=== PATIENT | female | born 1960 | race Caucasian/White ===

== ENCOUNTER 2021-04-21 18:32 | Emergency (ER) | payer SELFPAY | END 2021-04-21 19:00 | disposition left against medical advice (07) | LOC: HO.ED 20:11 | PROVIDERS: Emergency Provider Emergency Medicine | DX: R50.9 Fever, unspecified (principal); M79.10 Myalgia, unspecified site; R11.10 Vomiting, unspecified ==

== ENCOUNTER 2021-08-22 19:28 | Emergency (ER) | payer MEDICAID, SELFPAY ==
--- NOTE | ~2021-08-22 | XR_ITS ---
EXAMINATION: XR PELVIS CLINICAL INFORMATION: Unsteady gait COMPARISON: None TECHNIQUE: AP view of the pelvis. FINDINGS: No acute fracture or dislocation. Hip joint spaces are maintained. Bilateral sacroiliac joints are patent. XR/XR pelvis 1-2V IMPRESSION: No acute fracture or dislocation.
--- NOTE | ~2021-08-22 | CT_ITS ---
EXAMINATION: CT HEAD WITHOUT CONTRAST CLINICAL INFORMATION: Altered mental status. COMPARISON: CT head dated from 05/18/2016. TECHNIQUE: Contiguous axial imaging was performed from the skull base to vertex without intravenous administration of contrast. This CT examination was performed using dose optimization techniques as appropriate, variously including the following: *Automated exposure control *Adjustment of mA and/or kV according to patient size (this includes techniques or standardized protocols for targeted exams where dose is matched to indication/reason for exam; i.e. extremities or head) *Use of iterative reconstruction technique DLP: 633 mGy-cm FINDINGS: There is no evidence of acute intracranial hemorrhage or edematous territorial infarction. There is no abnormal attenuation within the brain parenchyma. Allen-white matter differentiation is preserved. The ventricles are normal in size and configuration. No evidence for obstructive hydrocephalus. No abnormal mass effect or midline shift. No extra-axial fluid collections. No acute soft tissue or osseous abnormalities. The mastoid air cells and paranasal sinuses are clear. CT/CT head/brain wo con IMPRESSION: No evidence of acute intracranial hemorrhage or edematous territorial infarction.
--- NOTE | ~2021-08-22 | XR_ITS ---
EXAMINATION: XR CHEST CLINICAL INFORMATION: Altered mental status COMPARISON: None TECHNIQUE: 2 views of the chest were obtained. FINDINGS: Lungs are clear. No pulmonary vascular congestion. There is no pleural effusion. The heart size is normal. The cardiac and mediastinal contours are normal. There are multilevel degenerative changes of dorsal spine. XR/XR chest 2V IMPRESSION: Unremarkable examination.
[2021-08-22 19:37] VITALS: BP 174/86; PULSE 89; O2SAT 95
[2021-08-22 19:38] VITALS: BP 164/85; PULSE 83; RESP 16; TEMP 36.6; O2SAT 97
[2021-08-22 19:42] VITALS: BMI 23.5
--- NOTE | 2021-08-22 20:16 | ED_ITS ---
HPI - General Adult General Chief complaint: Overdose <FILOMENA Barajas - Last Filed: 08/22/21 23:33> Stated complaint: Took to many muscle relaxants <FILOMENA Barajas - Last Filed: 08/22/21 23:33> Time Seen by Provider: 08/22/21 20:16 <FILOMENA Barajas Last Filed: 08/22/21 23:33> Source: patient and family <FILOMENA Barajas Last Filed: 08/22/21 23:33> Mode of arrival: ambulatory <FILOMENA Barajas Last Filed: 08/22/21 23:33> Limitations: no limitations <FILOMENA Barajas Last Filed: 08/22/21 23:33> History of Present Illness HPI narrative: Patient is a 60 year old female presenting to the emergency department today after accidentally taking too many muscle relaxers yesterday and chronic right knee pain. Patient states that yesterday, she took 5 baclofen, 30 minutes apart, for her chronic right knee pain. Patient states that she has a right knee replacement scheduled but it still hurts.. Patient denies any dizziness, lightheadedness, abdominal pain, nausea, vomiting, fever, chills, blurry vision, double vision, loss of vision, chest pain, difficulty breathing, shortness of breath, back pain, night sweats, pain with urination, increased urinary frequency, increased urinary urgency, blood in her urine or stool, syncope or a near syncopal episode, recent trauma or falls, bowel incontinence, bladder inc ontinence, bowel retention, bladder retention, or any other complaints at this time. <FILOMENA Barajas Last Filed: 08/22/21 23:33> Onset (ago): day(s) <FILOMENA Barajas Last Filed: 08/22/21 23:33> Severity: mild <FILOMENA Barajas Last Filed: 08/22/21 23:33> Severity scale (1-10): 3 <FILOMENA Barajas Last Filed: 08/22/21 23:33> Quality: dull <FILOMENA Barajas Last Filed: 08/22/21 23:33> Pain Consistency: constant <FILOMENA Barajas Last Filed: 08/22/21 23:33> Relieving factors: none <FILOMENA Barajas - Last Filed: 08/22/21 23:33> Exacerbating factors: none <FILOMENA Barajas - Last Filed: 08/22/21 23:33> Associated symptoms: denies other symptoms <FILOMENA Barajas - Last Filed: 08/22/21 23:33> Treatments prior to arrival: none <FILOMENA Barajas - Last Filed: 08/22/21 23:33> Related Data Home medications: Home Medications Medication Instructions Recorded Confirmed adalimumab 40 mg/0.8 mL 40 mg SUBCUT Q2W 08/22/21 08/22/21 subcutaneous syringe kit (Humira) baclofen 10 mg tablet 10 mg PO TID PRN 08/22/21 08/22/21 <FILOMENA Barajas - Last Filed: 08/22/21 23:33> Allergies/adverse reactions: Allergies Allergy/AdvReac Type Severity Reaction Status Date / Time No Known Allergies Allergy Unverified 02/08/20 19:12 <FILOMENA Barajas - Last Filed: 08/22/21 23:33> Review of Systems Constitutional: Constitutional: Reports no additional constitutional complaints, Denies chills, Denies fever(s) and Denies night sweats <FILOMENA Barajas - Last Filed: 08/22/21 23:33> Eyes: Eyes: Reports no additional eye complaints, Denies blurry vision, Denies change in vision, Denies diplopia, Denies eye discharge, Denies loss of vision and Denies eye pain <FILOMENA Barajas - Last Filed: 08/22/21 23:33> ENT: Denies dizziness <FILOMENA Barajas - Last Filed: 08/22/21 23:33> Cardiovascular: Cardiovascular: Reports no additional cardiovascular complaints, Denies chest pain, Denies lightheadedness, Denies Loss of Consciousness and Denies dyspnea <FILOMENA Barajas - Last Filed: 08/22/21 23:33> Respiratory: Respiratory: Reports no additional respiratory complaints and Denies dyspnea <FILOMENA Barajas - Last Filed: 08/22/21 23:33> Gastrointestinal: Gastrointestinal: Reports no additional gastrointestinal complaints, Denies abdominal pain, Denies melena, Denies hematochezia, Denies change in bowel habits and Denies change in stool character <FILOMENA Barajas - Last Filed: 08/22/21 23:33> Genitourinary: Genitourinary: Denies hematuria, Denies urinary frequency, Denies dysuria, Denies urinary incontinence, Denies urinary hesitancy and Denies urinary urgency <FILOMENA Barajas - Last Filed: 08/22/21 23:33> Musculoskeletal: Musculoskeletal: Reports no additional musculoskeletal complaints, Denies numbness and Denies tingling <FILOMENA Barajas - Last Filed: 08/22/21 23:33> Comments: right knee pain <FILOMENA Barajas - Last Filed: 08/22/21 23:33> Neurologic: Denies dizziness, Denies loss of vision, Denies numbness and Denies tingling <FILOMENA Barajas - Last Filed: 08/22/21 23:33> Psychiatric: Psychiatric: Reports no additional psychiatric complaints <FILOMENA Barajas - Last Filed: 08/22/21 23:33> Endocrine: Endocrine: Reports no additional endocrine complaints <FILOMENA Barajas - Last Filed: 08/22/21 23:33> Hematologic/Lymphatic: Hematologic/Lymphatic: Reports no additional silvia tologic/lymphatic complaints <FILOMENA Barajas - Last Filed: 08/22/21 23:33> Allergic/Immunologic: Allergic/Immunologic: Reports no additional allergic/immunologic complaints <FILOMENA Barajas - Last Filed: 08/22/21 23:33> [facility] Past Medical History Attestation statement: The following information was validated with the patient. <FILOMENA Barajas - Last Filed: 08/22/21 23:33> Source: old records reviewed <FILOMENA Barajas - Last Filed: 08/22/21 23:33> Medical History: Medical History Psoriasis <FILOMENA Barajas - Last Filed: 08/22/21 23:33> Social History Social History: Social History Alcohol intake: current Alcohol intake frequency: 0-2 drinks per day Advance Directives: No <FILOMENA Barajas Last Filed: 08/22/21 23:33> Physical Exam ED Vital Signs: Vital Signs - 24 hr 08/22/21 19:38 08/22/21 22:39 08/22/21 23:52 Temperature 97.8 F 98 F 98.1 F Pulse Rate 83 83 Respiratory Rate 16 14 70 H Blood Pressure 164/85 H 149/81 H 142/88 H Pulse Oximetry 97 95 98 08/23/21 01:56 Temperature Pulse Rate Respiratory Rate 16 Blood Pressure Pulse Oximetry BMI result Body Mass Index 23.5 <FILOMENA Barajas Last Filed: 08/22/21 23:33> Vital Signs - 24 hr 08/22/21 19:38 08/22/21 22:39 08/22/21 23:52 Temperature 97.8 F 98 F 98.1 F Pulse Rate 83 83 Respiratory Rate 16 14 70 H Blood Pressure 164/85 H 149/81 H 142/88 H Pulse Oximetry 97 95 98 08/23/21 01:56 Temperature Pulse Rate Respiratory Rate 16 Blood Pressure Pulse Oximetry BMI result Body Mass Index 23.5 <FILOMENA Christensen - Last Filed: 08/23/21 02:10> Const General: cooperative, no acute distress, alert and awake <FILOMENA Barajas Last Filed: 08/22/21 23:33> Nutritional Appearance: well nourished <FILOMENA Barajas Last Filed: 08/22/21 23:33> Orientation/consciousness: patient oriented x3 <FILOMENA Barajas Last Filed: 08/22/21 23:33> Limitations: no limitations <FILOMENA Barajas Last Filed: 08/22/21 23:33> HENMT Head: Yes normal to inspection and Yes atraumatic <FILOMENA Barajas Last Filed: 08/22/21 23:33> Ears: hearing grossly normal bilaterally and external ears normal <FILOMENA Barajas Last Filed: 08/22/21 23:33> General nose exam: Normal external nose present, no nasal discharge noted and no epistaxis <FILOMENA Barajas Last Filed: 08/22/21 23:33> Face and sinus: Yes normal facial exam, No abrasion and No laceration <FILOMENA Barajas - Last Filed: 08/22/21 23:33> Mouth: Normal oral and palatal mucosa present, no drooling and no muffled voice <FILOMENA Barajas - Last Filed: 08/22/21 23:33> Eyes General: appearance normal, both eyes and all related structures <FILOMENA Barajas - Last Filed: 08/22/21 23:33> Periorbital: periorbital findings normal <Lilia Thrasher CO - Last Filed: 08/22/21 23:33> Eyelids: Yes eyelids normal <Lilia Thrasher PA - Last Filed: 08/22/21 23:33> Conjunctivae: conjunctivae normal <FILOMENA Barajas - Last Filed: 08/22/21 23:33> Pupils: Equal, round and reactive pupils present <FILOMENA Barajas - Last Filed: 08/22/21 23:33> EOM: EOMs intact bilaterally <FILOMENA Barajas - Last Filed: 08/22/21 23:33> Neck Neck: Yes normal visual inspection, Yes full ROM and Yes no lymphadenopathy <FILOMENA Barajas - Last Filed: 08/22/21 23:33> Chest Chest palpation & inspection: normal inspection of the chest <FLIOMENA Barajas - Last Filed: 08/22/21 23:33> Resp Effort & Inspection: normal respiratory effort and able to speak in complete sentences <FILOMENA Barajas - Last Filed: 08/22/21 23:33> Auscultation: clear to auscultation bilaterally <FILOMENA Barajas - Last Filed: 08/22/21 23:33> Cardio Rate: regular rate <FILOMENA Barajas - Last Filed: 08/22/21 23:33> Rhythm: regular rhythm <FILOMENA Barajas - Last Filed: 08/22/21 23:33> GI Inspection: Yes normal to inspection <FILOMENA Barajas - Last Filed: 08/22/21 23:33> Neuro General: patient oriented x3 and moves all extremities <FILOMENA Barajas - Last Filed: 08/22/21 23:33> Cranial nerves: Yes Equal, round and reactive pupils present <Lilia Thrasher FILOMENA - Last Filed: 08/22/21 23:33> Cognition (Neuro): normal cognition <Lilia Thrasher FILOMENA - Last Filed: 08/22/21 23:33> Motor exam (neuro): 5/5 motor strength present throughout <Lilia Thrasher FILOMENA - Last Filed: 08/22/21 23:33> Sensory Exam: Normal double simultaneous stimulation for sensation <Lilia Thrasher FILOMENA - Last Filed: 08/22/21 23:33> Coordination: [id number] test normal <Lilia Thrasher FILOMENA - Last Filed: 08/22/21 23:33> Extrem General: Yes normal to inspection, Yes full ROM and Yes capillary refill normal <Lilia Thrasher FILOMENA - Last Filed: 08/22/21 23:33> Psych Appearance: grossly normal <Lilia Thrasher FILOMENA - Last Filed: 08/22/21 23:33> Mental Status: mental status grossly normal <Lilia Thrasher FILOMENA - Last Filed: 08/22/21 23:33> Affect: normal affect <Lilia Thrasher FILOMENA - Last Filed: 08/22/21 23:33> Attitude: cooperative <Lilia Thrasher FILOMENA - Last Filed: 08/22/21 23:33> Thought process: Normal thought process present <Lilia Thrasher FILOMENA - Last Filed: 08/22/21 23:33> Thought content: Normal thought content present <Lilia Thrasher FILOMENA - Last Filed: 0 08/22/21 23:33> Insight: Good insight present (Psych) <Lilia Thrasher FILOMENA - Last Filed: 08/22/21 23:33> Course Reevaluation(s) Reevaluation #1: CBC within normal limits. Chemistry with no acute electrolyte abnorm alities. Urine clean. Salicylates and acetaminophen within normal limits. Ethanol negative. Drug tox negative. Blood gas within normal limits. Ammonia within normal limits. Head CT with no evidence of acute intracranial hemorrhage or territorial infarction. Patient ambulating with a steady gait, normal coordination, no vision changes, unlikely posterior stroke. Chest x-ray is unremarkable. X-ray of the pelvis with no acute fracture dislocation. Patient's vital signs are stable saturating 97 98% on room air. Respirations within normal limits. No calf tenderness on exam. Unlikely PE. Patient's symptoms upon arrival likely secondary to adverse drug reaction from baclofen. Advised patient to only take medication as prescribed. And not take this medication unless needed. Patient speaking in full sentences, controlling secretions well, Mallampati score of 1, no edema or erythema to the posterior pharynx. No signs of respiratory distress. Uvula midline. Patient is ambulating around the emergency department with a steady gait. Telling me she is feeling fine. And would like to return back home. At this time I feel comfortable with discharge. Per family member patient acting normal. Only complaint is knee pain which is chronic in nature. <FILOMENA Christensen - Last Filed: 08/23/21 02:10> Time: 02:03 <FILOMENA Christensen - Last Filed: 08/23/21 02:10> Medical Decision Making MDM Narrative Medical decision making narrative: Patient is a 60 year old female presenting to the emergency department today with chronic right knee pain. Patient's physical exam was unremarkable. Patient's blood work was unremarkable. Patient's urine and urine drug screen are pending. Patient's head CT showed no acute process. I explained my physical exam findings as well as all test results to the patient. I answered all questions asked by the patient. Patient's chest x-ray is also pending. Patient was signed out to Aisha Burgess PA-C. Patient's disposition is pending test results. <FILOMENA Barajas - Last Filed: 08/22/21 23:33> Differential Diagnosis Differential Diagnosis: Chronic right knee pain <FILOMENA Barajas - Last Filed: 08/22/21 23:33> Medical Records Medical records reviewed: Yes I reviewed the patient's medical records. <FILOMENA Barajas Last Filed: 08/22/21 23:33> Lab Data Lab results reviewed: Yes I reviewed the patient's lab results. <FILOMENA Barajas - Last Filed: 08/22/21 23:33> Result diagrams: : 08/22/21 21:27 08/22/21 21:27 <FILOMENA Barajas Last Filed: 08/22/21 23:33> Labs: Lab Results 08/22/21 08/22/21 08/22/21 Range/Units 21:27 21:27 21:27 WBC 7.7 (4.8-10.8) X10*3/uL RBC 4.48 (4.20-5.50) X10*6/uL Hgb 12.1 (12.0-16.0) g/dl Hct 37.7 (37.0-47.0) % MCV 84.2 (80.0-98.0) fL MCH 27.0 (27.0-33.0) pg MCHC 32.1 (31.0-35.0) g/dl RDW 13.9 (11.0-16.0) % Plt Count 243 (160-400) X10*3/uL MPV 10.8 (9.4-12.3) fL Immature Gran % (Auto) 0.1 (0.0-0.4) % Neut % (Auto) 75.4 H (45-73) % Lymph % (Auto) 16.0 L (20-40) % [place] % (Auto) 7.6 (2-11) % Eos % (Auto) 0.6 (0-4) % Baso % (Auto) 0.3 (0-2) % Lymph # (Auto) 1.2 (1.2-4.9) X10*3/uL [place] # (Auto) 0.6 (0.1-1.2) X10*3/uL Eos # (Auto) 0.1 (0.0-0.4) X10*3/uL Baso # (Auto) 0.0 (0.0-0.2) X10*3/uL Abs Immat Gran (auto) 0.01 (0.00-0.03) X10*3/uL Absolute Neuts (auto) 5.8 (2.0-8.3) x10*3/uL Absolute Nucleated RBC 0.000 (0.0-0.012) X10*3/uL Nucleated RBC % (auto) 0.0 (0.0-0.2) /100WBC VBG pH (7.32-7.43) VBG pCO2 mmHg VBG pO2 mmHg VBG HCO3 (22-26) mmol/L VBG O2 Saturation % VBG Base Excess mmol/L Sodium 139 (135-145) mmol/L Potassium 3.8 (3.3-5.1) mmol/L Chloride 107 (96-108) mmol/L Carbon Dioxide 23 (22-29) mmol/L Anion Gap 13 (12-20) BUN 16 (9-16) mg/dL Creatinine 0.86 (0.5-1.4) mg/dL Estim Creat Clear Calc 66.7 Estimated GFR > 60 Random Glucose 109 (60-115) mg/dL Calcium 9.6 (8.4-10.2) mg/dL Total Bilirubin 0.5 (0.0-1.0) mg/dL AST 21 (5-31) U/L ALT 17 (0-31) U/L Alkaline Phosphatase 66 (39-117) U/L Ammonia (13-55) umol/L Total Protein 8.0 (6.5-8.0) g/dL Albumin 4.4 (3.5-5.0) g/dL Urine Color Urine Appearance Urine pH (5.0-8.0) Ur Specific Grahn (1.005-1.025) Urine Protein (NEG-TRACE) MG/DL Urine Glucose (UA) (NEG) MG/DL Urine Ketones (NEG) MG/DL Urine Blood (NEG) Urine Nitrite (NEG) Ur Leukocyte Esterase (NEG) Urine RBC (0) /HPF Urine WBC (0-4) /HPF Ur Squamous Epith Cells /LPF Urine Bacteria /LPF Salicylates < 5.0 L (15-30) mg/dL Urine Opiates Screen (Not Detect) Urine Fentanyl Screen (Not Detect) Acetaminophen < 1 (<30) mcg/mL Ur Barbiturates Screen (Not Detect) Ur Phencyclidine Scrn (Not Detect) Ur Amphetamines Screen (Not Detect) U Benzodiazepines Scrn (Not Detect) Urine Cocaine Screen (Not Detect) U Marijuana (THC) Screen (Not Detect) Ethyl Alcohol < 10 mg/dL 08/22/21 08/22/21 08/22/21 Range/Units 21:27 21:27 21:31 WBC (4.8-10.8) X10*3/uL RBC (4.20-5.50) X10*6/uL Hgb (12.0-16.0) g/dl Hct (37.0-47.0) % MCV (80.0-98.0) fL MCH (27.0-33.0) pg MCHC (31.0-35.0) g/dl RDW (11.0-16.0) % Plt Count (160-400) X10*3/uL MPV (9.4-12.3) fL Immature Gran % (Auto) (0.0-0.4) % Neut % (Auto) (45-73) % Lymph % (Auto) (20-40) % [place] % (Auto) (2-11) % Eos % (Auto) (0-4) % Baso % (Auto) (0-2) % Lymph # (Auto) (1.2-4.9) X10*3/uL [place] # (Auto) (0.1-1.2) X10*3/uL Eos # (Auto) (0.0-0.4) X10*3/uL Baso # (Auto) (0.0-0.2) X10*3/uL Abs Immat Gran (auto) (0.00-0.03) X10*3/uL Absolute Neuts (auto) (2.0-8.3) x10*3/uL Absolute Nucleated RBC (0.0-0.012) X10*3/uL Nucleated RBC % (auto) (0.0-0.2) /100WBC VBG pH 7.39 (7.32-7.43) VBG pCO2 37 mmHg VBG pO2 58 mmHg VBG HCO3 23 (22-26) mmol/L VBG O2 Saturation 85.0 % VBG Base Excess -1.2 mmol/L Sodium (135-145) mmol/L Potassium (3.3-5.1) mmol/L Chloride (96-108) mmol/L Carbon Dioxide (22-29) mmol/L Anion Gap (12-20) BUN (9-16) mg/dL Creatinine (0.5-1.4) mg/dL Estim Creat Clear Calc Estimated GFR Random Glucose (60-115) mg/dL Calcium (8.4-10.2) mg/dL Total Bilirubin (0.0-1.0) mg/dL AST (5-31) U/L ALT (0-31) U/L Alkaline Phosphatase (39-117) U/L Ammonia 32 (13-55) umol/L Total Protein (6.5-8.0) g/dL Albumin (3.5-5.0) g/dL Urine Color Urine Appearance Urine pH (5.0-8.0) Ur Specific Grahn (1.005-1.025) Urine Protein (NEG-TRACE) MG/DL Urine Glucose (UA) (NEG) MG/DL Urine Ketones (NEG) MG/DL Urine Blood (NEG) Urine Nitrite (NEG) Ur Leukocyte Esterase (NEG) Urine RBC (0) /HPF Urine WBC (0-4) /HPF Ur Squamous Epith Cells /LPF Urine Bacteria /LPF Salicylates (15-30) mg/dL Urine Opiates Screen Not Detected (Not Detect) Urine Fentanyl Screen Not Detected (Not Detect) Acetaminophen (<30) mcg/mL Ur Barbiturates Screen Not Detected (Not Detect) Ur Phencyclidine Scrn Not Detected (Not Detect) Ur Amphetamines Screen Not Detected (Not Detect) U Benzodiazepines Scrn Not Detected (Not Detect) Urine Cocaine Screen Not Detected (Not Detect) U Marijuana (THC) Screen Not Detected (Not Detect) Ethyl Alcohol mg/dL 08/22/21 Range/Units 23:21 WBC (4.8-10.8) X10*3/uL RBC (4.20-5.50) X10*6/uL Hgb (12.0-16.0) g/dl Hct (37.0-47.0) % MCV (80.0-98.0) fL MCH (27.0-33.0) pg MCHC (31.0-35.0) g/dl RDW (11.0-16.0) % Plt Count (160-400) X10*3/uL MPV (9.4-12.3) fL Immature Gran % (Auto) (0.0-0.4) % Neut % (Auto) (45-73) % Lymph % (Auto) (20-40) % [place] % (Auto) (2-11) % Eos % (Auto) (0-4) % Baso % (Auto) (0-2) % Lymph # (Auto) (1.2-4.9) X10*3/uL [place] # (Auto) (0.1-1.2) X10*3/uL Eos # (Auto) (0.0-0.4) X10*3/uL Baso # (Auto) (0.0-0.2) X10*3/uL Abs Immat Gran (auto) (0.00-0.03) X10*3/uL Absolute Neuts (auto) (2.0-8.3) x10*3/uL Absolute Nucleated RBC (0.0-0.012) X10*3/uL Nucleated RBC % (auto) (0.0-0.2) /100WBC VBG pH (7.32-7.43) VBG pCO2 mmHg VBG pO2 mmHg VBG HCO3 (22-26) mmol/L VBG O2 Saturation % VBG Base Excess mmol/L Sodium (135-145) mmol/L Potassium (3.3-5.1) mmol/L Chloride (96-108) mmol/L Carbon Dioxide (22-29) mmol/L Anion Gap (12-20) BUN (9-16) mg/dL Creatinine (0.5-1.4) mg/dL Estim Creat Clear Calc Estimated GFR Random Glucose (60-115) mg/dL Calcium (8.4-10.2) mg/dL Total Bilirubin (0.0-1.0) mg/dL AST (5-31) U/L ALT (0-31) U/L Alkaline Phosphatase (39-117) U/L Ammonia (13-55) umol/L Total Protein (6.5-8.0) g/dL Albumin (3.5-5.0) g/dL Urine Color YELLOW Urine Appearance CLEAR Urine pH 7.0 (5.0-8.0) Ur Specific Grahn 1.020 (1.005-1.025) Urine Protein NEG (NEG-TRACE) MG/DL Urine Glucose (UA) NEG (NEG) MG/DL Urine Ketones 15 (NEG) MG/DL Urine Blood 1+ H (NEG) Urine Nitrite NEG (NEG) Ur Leukocyte Esterase NEG (NEG) Urine RBC 1-4 (0) /HPF Urine WBC 1-4 (0-4) /HPF Ur Squamous Epith Cells 1+ /LPF Urine Bacteria 1+ /LPF Salicylates (15-30) mg/dL Urine Opiates Screen (Not Detect) Urine Fentanyl Screen (Not Detect) Acetaminophen (<30) mcg/mL Ur Barbiturates Screen (Not Detect) Ur Phencyclidine Scrn (Not Detect) Ur Amphetamines Screen (Not Detect) U Benzodiazepines Scrn (Not Detect) Urine Cocaine Screen (Not Detect) U Marijuana (THC) Screen (Not Detect) Ethyl Alcohol mg/dL <FILOMENA Barajas - Last Filed: 08/22/21 23:33> Lab Results 08/22/21 08/22/21 08/22/21 Range/Units 21:27 21:27 21:27 WBC 7.7 (4.8-10.8) X10*3/uL RBC 4.48 (4.20-5.50) X10*6/uL Hgb 12.1 (12.0-16.0) g/dl Hct 37.7 (37.0-47.0) % MCV 84.2 (80.0-98.0) fL MCH 27.0 (27.0-33.0) pg MCHC 32.1 (31.0-35.0) g/dl RDW 13.9 (11.0-16.0) % Plt Count 243 (160-400) X10*3/uL MPV 10.8 (9.4-12.3) fL Immature Gran % (Auto) 0.1 (0.0-0.4) % Neut % (Auto) 75.4 H (45-73) % Lymph % (Auto) 16.0 L (20-40) % [place] % (Auto) 7.6 (2-11) % Eos % (Auto) 0.6 (0-4) % Baso % (Auto) 0.3 (0-2) % Lymph # (Auto) 1.2 (1.2-4.9) X10*3/uL [place] # (Auto) 0.6 (0.1-1.2) X10*3/uL Eos # (Auto) 0.1 (0.0-0.4) X10*3/uL Baso # (Auto) 0.0 (0.0-0.2) X10*3/uL Abs Immat Gran (auto) 0.01 (0.00-0.03) X10*3/uL Absolute Neuts (auto) 5.8 (2.0-8.3) x10*3/uL Absolute Nucleated RBC 0.000 (0.0-0.012) X10*3/uL Nucleated RBC % (auto) 0.0 (0.0-0.2) /100WBC VBG pH (7.32-7.43) VBG pCO2 mmHg VBG pO2 mmHg VBG HCO3 (22-26) mmol/L VBG O2 Saturation % VBG Base Excess mmol/L Sodium 139 (135-145) mmol/L Potassium 3.8 (3.3-5.1) mmol/L Chloride 107 (96-108) mmol/L Carbon Dioxide 23 (22-29) mmol/L Anion Gap 13 (12-20) BUN 16 (9-16) mg/dL Creatinine 0.86 (0.5-1.4) mg/dL Estim Creat Clear Calc 66.7 Estimated GFR > 60 Random Glucose 109 (60-115) mg/dL Calcium 9.6 (8.4-10.2) mg/dL Total Bilirubin 0.5 (0.0-1.0) mg/dL AST 21 (5-31) U/L ALT 17 (0-31) U/L Alkaline Phosphatase 66 (39-117) U/L Ammonia (13-55) umol/L Total Protein 8.0 (6.5-8.0) g/dL Albumin 4.4 (3.5-5.0) g/dL Urine Color Urine Appearance Urine pH (5.0-8.0) Ur Specific Grahn (1.005-1.025) Urine Protein (NEG-TRACE) MG/DL Urine Glucose (UA) (NEG) MG/DL Urine Ketones (NEG) MG/DL Urine Blood (NEG) Urine Nitrite (NEG) Ur Leukocyte Esterase (NEG) Urine RBC (0) /HPF Urine WBC (0-4) /HPF Ur Squamous Epith Cells /LPF Urine Bacteria /LPF Salicylates < 5.0 L (15-30) mg/dL Urine Opiates Screen (Not Detect) Urine Fentanyl Screen (Not Detect) Acetaminophen < 1 (<30) mcg/mL Ur Barbiturates Screen (Not Detect) Ur Phencyclidine Scrn (Not Detect) Ur Amphetamines Screen (Not Detect) U Benzodiazepines Scrn (Not Detect) Urine Cocaine Screen (Not Detect) U Marijuana (THC) Screen (Not Detect) Ethyl Alcohol < 10 mg/dL 08/22/21 08/22/21 08/22/21 Range/Units 21:27 21:27 21:31 WBC (4.8-10.8) X10*3/uL RBC (4.20-5.50) X10*6/uL Hgb (12.0-16.0) g/dl Hct (37.0-47.0) % MCV (80.0-98.0) fL MCH (27.0-33.0) pg MCHC (31.0-35.0) g/dl RDW (11.0-16.0) % Plt Count (160-400) X10*3/uL MPV (9.4-12.3) fL Immature Gran % (Auto) (0.0-0.4) % Neut % (Auto) (45-73) % Lymph % (Auto) (20-40) % [place] % (Auto) (2-11) % Eos % (Auto) (0-4) % Baso % (Auto) (0-2) % Lymph # (Auto) (1.2-4.9) X10*3/uL [place] # (Auto) (0.1-1.2) X10*3/uL Eos # (Auto) (0.0-0.4) X10*3/uL Baso # (Auto) (0.0-0.2) X10*3/uL Abs Immat Gran (auto) (0.00-0.03) X10*3/uL Absolute Neuts (auto) (2.0-8.3) x10*3/uL Absolute Nucleated RBC (0.0-0.012) X10*3/uL Nucleated RBC % (auto) (0.0-0.2) /100WBC VBG pH 7.39 (7.32-7.43) VBG pCO2 37 mmHg VBG pO2 58 mmHg VBG HCO3 23 (22-26) mmol/L VBG O2 Saturation 85.0 % VBG Base Excess -1.2 mmol/L Sodium (135-145) mmol/L Potassium (3.3-5.1) mmol/L Chloride (96-108) mmol/L Carbon Dioxide (22-29) mmol/L Anion Gap (12-20) BUN (9-16) mg/dL Creatinine (0.5-1.4) mg/dL Estim Creat Clear Calc Estimated GFR Random Glucose (60-115) mg/dL Calcium (8.4-10.2) mg/dL Total Bilirubin (0.0-1.0) mg/dL AST (5-31) U/L ALT (0-31) U/L Alkaline Phosphatase (39-117) U/L Ammonia 32 (13-55) umol/L Total Protein (6.5-8.0) g/dL Albumin (3.5-5.0) g/dL Urine Color Urine Appearance Urine pH (5.0-8.0) Ur Specific Grahn (1.005-1.025) Urine Protein (NEG-TRACE) MG/DL Urine Glucose (UA) (NEG) MG/DL Urine Ketones (NEG) MG/DL Urine Blood (NEG) Urine Nitrite (NEG) Ur Leukocyte Esterase (NEG) Urine RBC (0) /HPF Urine WBC (0-4) /HPF Ur Squamous Epith Cells /LPF Urine Bacteria /LPF Salicylates (15-30) mg/dL Urine Opiates Screen Not Detected (Not Detect) Urine Fentanyl Screen Not Detected (Not Detect) Acetaminophen (<30) mcg/mL Ur Barbiturates Screen Not Detected (Not Detect) Ur Phencyclidine Scrn Not Detected (Not Detect) Ur Amphetamines Screen Not Detected (Not Detect) U Benzodiazepines Scrn Not Detected (Not Detect) Urine Cocaine Screen Not Detected (Not Detect) U Marijuana (THC) Screen Not Detected (Not Detect) Ethyl Alcohol mg/dL 08/22/21 Range/Units 23:21 WBC (4.8-10.8) X10*3/uL RBC (4.20-5.50) X10*6/uL Hgb (12.0-16.0) g/dl Hct (37.0-47.0) % MCV (80.0-98.0) fL MCH (27.0-33.0) pg MCHC (31.0-35.0) g/dl RDW (11.0-16.0) % Plt Count (160-400) X10*3/uL MPV (9.4-12.3) fL Immature Gran % (Auto) (0.0-0.4) % Neut % (Auto) (45-73) % Lymph % (Auto) (20-40) % [place] % (Auto) (2-11) % Eos % (Auto) (0-4) % Baso % (Auto) (0-2) % Lymph # (Auto) (1.2-4.9) X10*3/uL [place] # (Auto) (0.1-1.2) X10*3/uL Eos # (Auto) (0.0-0.4) X10*3/uL Baso # (Auto) (0.0-0.2) X10*3/uL Abs Immat Gran (auto) (0.00-0.03) X10*3/uL Absolute Neuts (auto) (2.0-8.3) x10*3/uL Absolute Nucleated RBC (0.0-0.012) X10*3/uL Nucleated RBC % (auto) (0.0-0.2) /100WBC VBG pH (7.32-7.43) VBG pCO2 mmHg VBG pO2 mmHg VBG HCO3 (22-26) mmol/L VBG O2 Saturation % VBG Base Excess mmol/L Sodium (135-145) mmol/L Potassium (3.3-5.1) mmol/L Chloride (96-108) mmol/L Carbon Dioxide (22-29) mmol/L Anion Gap (12-20) BUN (9-16) mg/dL Creatinine (0.5-1.4) mg/dL Estim Creat Clear Calc Estimated GFR Random Glucose (60-115) mg/dL Calcium (8.4-10.2) mg/dL Total Bilirubin (0.0-1.0) mg/dL AST (5-31) U/L ALT (0-31) U/L Alkaline Phosphatase (39-117) U/L Ammonia (13-55) umol/L Total Protein (6.5-8.0) g/dL Albumin (3.5-5.0) g/dL Urine Color YELLOW Urine Appearance CLEAR Urine pH 7.0 (5.0-8.0) Ur Specific Grahn 1.020 (1.005-1.025) Urine Protein NEG (NEG-TRACE) MG/DL Urine Glucose (UA) NEG (NEG) MG/DL Urine Ketones 15 (NEG) MG/DL Urine Blood 1+ H (NEG) Urine Nitrite NEG (NEG) Ur Leukocyte Esterase NEG (NEG) Urine RBC 1-4 (0) /HPF Urine WBC 1-4 (0-4) /HPF Ur Squamous Epith Cells 1+ /LPF Urine Bacteria 1+ /LPF Salicylates (15-30) mg/dL Urine Opiates Screen (Not Detect) Urine Fentanyl Screen (Not Detect) Acetaminophen (<30) mcg/mL Ur Barbiturates Screen (Not Detect) Ur Phencyclidine Scrn (Not Detect) Ur Amphetamines Screen (Not Detect) U Benzodiazepines Scrn (Not Detect) Urine Cocaine Screen (Not Detect) U Marijuana (THC) Screen (Not Detect) Ethyl Alcohol mg/dL <FILOMENA Christensen - Last Filed: 08/23/21 02:10> Imaging Data CT scan - head: Attestation: I personally reviewed and interpreted this imaging study as follows: <FILOMENA Barajas - Last Filed: 08/22/21 23:33> My impression: No acute process. <FILOMENA Barajas - Last Filed: 08/22/21 23:33> Radiologist's impression: EXAMINATION: CT HEAD WITHOUT CONTRAST CLINICAL INFORMATION: Altered mental status.? COMPARISON: CT head dated from 05/18/2016. TECHNIQUE: Contiguous axial imaging was performed from the skull base to vertex without intravenous administration of contrast. This CT examination was performed using dose optimization techniques as appropriate, variously including the following: *Automated exposure control *Adjustment of mA and/or kV according to patient size (this includes techniques or standardized protocols for targeted exams where dose is matched to indication/reason for exam; i.e. extremities or head) *Use of iterative reconstruction technique DLP: 633 mGy-cm FINDINGS: There is no evidence of acute intracranial hemorrhage or edematous territorial infarction. There is no abnormal attenuation within the brain parenchyma. Allen-white matter differentiation is preserved. The ventricles are normal in size and configuration. No evidence for obstructive hydrocephalus. No abnormal mass effect or midline shift. No extra-axial fluid collections. No acute soft tissue or osseous abnormalities. The mastoid air cells and paranasal sinuses are clear. CT/CT head/brain wo con IMPRESSION: No evidence of acute intracranial hemorrhage or edematous territorial infarction. Dictated By: Carmen Hancock Signed By: Electronically signed by Carmen?Karissa 08/22/21 2247 <FILOMENA Barajas - Last Filed: 08/22/21 23:33> Discharge Plan Discharge Clinical Impression: Chronic knee pain, Physical deconditioning, Adverse drug reaction <FILOMENA Barajas Last Filed: 08/22/21 23:33> Patient Disposition: Home, Self-Care <FILOMENA Barajas - Last Filed: 08/22/21 23:33> Instructions: Adult Overdose (ED), Arthralgia (ED), Knee Pain (ED) <FILOMENA Barajas - Last Filed: 08/22/21 23:33> Additional Instructions: Take your medications as prescribed. Follow-up with your primary care provider this week. Return to the emergency department with new or worsening symptoms. Such as fevers, chills, chest pain, shortness of breath, nausea, vomiting, dizziness, headache, vision changes, lethargy These only take medications as prescribed. Taking excessive amounts of medications can be dangerous, life-threatening and lead to . In case of emergency call 911 <FILOMENA Barajas - Last Filed: 08/22/21 23:33> Prescriptions: No Action baclofen 10 mg Tablet 10 mg PO TID PRN (Reason: Pain) 0RF Humira 40 mg/0.8 mL Syringe Kit 40 mg SUBCUT Q2W 0RF <FILOMENA Barajas - Last Filed: 08/22/21 23:33> Referrals: Physician,Nonstaff [Primary Care Provider] - 2 days <FILOMENA Barajas - Last Filed: 08/22/21 23:33> Print Language: Central African <FILOMENA Barajas - Last Filed: 08/22/21 23:33>
[2021-08-22 21:37] LABS: Basophils Percent Auto 0.3 % (0-2); Eosinophils Absolute Auto 0.1 X10*3/uL (0.0-0.4); Eosinophils Percent Auto 0.6 % (0-4); Hematocrit 37.7 % (37.0-47.0); Hemoglobin 12.1 g/dl (12.0-16.0); Imm Gran Abs Auto 0.01 X10*3/uL (0.00-0.03); Imm Gran Pct Auto 0.1 % (0.0-0.4); Lymphocytes Absolute Auto 1.2 X10*3/uL (1.2-4.9); MANUAL DIFF FLAG NO; Mean Corpuscular HGB Conc 32.1 g/dl (31.0-35.0); Mean Corpuscular Volume 84.2 fL (80.0-98.0); Mean Platelet Volume 10.8 fL (9.4-12.3); Monocytes Absolute Auto 0.6 X10*3/uL (0.1-1.2); Monocytes Percent Auto 7.6 % (2-11); Neutrophils Absolute Auto 5.8 x10*3/uL (2.0-8.3); Neutrophils Percent Auto 75.4 % (45-73); Platelet Count 243 X10*3/uL (160-400); Red Blood Count 4.48 X10*6/uL (4.20-5.50); Red Cell Distribution Width 13.9 % (11.0-16.0); White Blood Count 7.7 X10*3/uL (4.8-10.8)
[2021-08-22 21:50] LABS: Ethanol < 10 mg/dL
[2021-08-22 21:53] LABS: Acetaminophen LAB < 1 mcg/mL (<30); Alanine Aminotransferase 17 U/L (0-31); Albumin Level 4.4 g/dL (3.5-5.0); Alkaline Phosphatase 66 U/L (39-117); Anion Gap 13 (12-20); Aspartate Amino Transferase 21 U/L (5-31); Bilirubin Total 0.5 mg/dL (0.0-1.0); Blood Urea Nitrogen 16 mg/dL (9-16); Calcium 9.6 mg/dL (8.4-10.2); Carbon Dioxide 23 mmol/L (22-29); Chloride 107 mmol/L (96-108); Creatinine Clr Calc Pharmacy 66.7; Estimated Glomerular Filt Rate > 60; Glucose Random 109 mg/dL (60-115); Potassium 3.8 mmol/L (3.3-5.1); Salicylate < 5.0 mg/dL (15-30); Sodium 139 mmol/L (135-145)
[2021-08-22 21:53] LABS: Venous Blood Gas Refer to POC result
[2021-08-22 21:54] LABS: VBG Base Excess -1.2 mmol/L; VBG HCO3 23 mmol/L (22-26); VBG pCO2 37 mmHg; VBG pH 7.39 (7.32-7.43); VBG pO2 58 mmHg
[2021-08-22 21:55] LABS: Ammonia 32 umol/L (13-55)
[2021-08-22 22:09] LABS: Amphetamine Screen Urine Not Detected (Not Detect); Barbiturates, Urine Not Detected (Not Detect); Benzodiazepines Screen Urine Not Detected (Not Detect); Cannabinoid Screen Urine Not Detected (Not Detect); Cocaine Screen Urine Not Detected (Not Detect); Fentanyl, urine Not Detected (Not Detect); Opiate Screen Urine Not Detected (Not Detect); Phencyclidine Screen Urine Not Detected (Not Detect)
[2021-08-22 22:39] VITALS: BP 149/81; PULSE 83; RESP 14; TEMP 36.6; O2SAT 95
[2021-08-22 23:28] LABS: Appearance Urine CLEAR; Color Urine YELLOW; Glucose Urine UA NEG (NEG); Leukocyte Esterase Urine NEG (NEG); Nitrite Urine NEG (NEG); UACC Culture Trigger NO; Urine Blood 1+ (NEG); Urine Ketones 15 MG/DL (NEG); Urine Protein NEG (NEG-TRACE)
[2021-08-22 23:42] LABS: Bacteria Urine 1+ /LPF; Squamous Epithelial Cell Urine 1+ /LPF
[2021-08-22 23:52] VITALS: BP 142/88; RESP 70; TEMP 36.7; O2SAT 98
[2021-08-23 01:56] VITALS: RESP 16
[2021-08-23 02:02] VITALS: RESP 16; O2SAT 96
== END 2021-08-23 02:14 | disposition home or self-care (01) ==
PROVIDERS: Physician Assistant Medical; Emergency Provider Emergency Medicine Emergency Medical Services
DX: G89.29 Other chronic pain (principal); M25.561 Pain in right knee; R53.81 Other malaise; T42.8X1A Poisoning by antiparkinsonism drugs and other central muscle-tone depressants, accidental (unintentional), initial encounter; Y92.039 Unspecified place in apartment as the place of occurrence of the external cause
CPT/HCPCS: 36415; 70450; 71046; 72170; 80053; 80143; 80179; 80307; 81001; 82077; 82140; 82803; 85025; 99284; 99285

== ENCOUNTER 2023-12-09 09:54 | Outpatient (REF) | payer MEDICAID, SELFPAY ==
--- NOTE | ~2023-12-09 | XR_ITS ---
EXAMINATION: XR KNEE, LEFT CLINICAL INFORMATION: Knee pain COMPARISON: None available. TECHNIQUE: Two views of the left knee. FINDINGS: Small joint effusion is present. Tricompartmental osteophyte formation. Severe loss of medial tibiofemoral joint space with zeef-mj-xipu contact, subarticular sclerosis and subarticular cystic change. There is genu varus deformity and likely chronic mild degenerative lateral subluxation of the tibia with respect to the femur. There is marginal osteophyte formation and small subchondral cysts of the proximal tibiofibular joint. No acute osseous injury. XR/XR knee LT 2V IMPRESSION: Tricompartmental osteoarthritis and small joint effusion of the left knee. The joint degeneration is worst (severe) at the medial tibiofemoral compartment. Associated genu varus deformity.
== END 2023-12-09 09:55 | disposition home or self-care (01) ==
LOC: HO.HHCX 09:54
PROVIDERS: Visit Provider Internal Medicine
DX: M17.12 Unilateral primary osteoarthritis, left knee (principal)
CPT/HCPCS: 36415; 73560; 80053; 80061; 82306; 85025; 86481; 86704; 86706; 86709; 86780; 86803; 87340

== ENCOUNTER 2023-12-09 11:33 | Outpatient (REF) | payer MEDICAID, SELFPAY ==
[2023-12-09 13:07] LABS: MANUAL DIFF FLAG NO
[2023-12-09 13:15] LABS: Basophils Percent Auto 0.4 % (0-2); Eosinophils Absolute Auto 0.2 X10*3/uL (0.0-0.4); Eosinophils Percent Auto 2.2 % (0-4); Hematocrit 37.1 % (37.0-47.0); Imm Gran Abs Auto 0.02 X10*3/uL (0.00-0.03); Imm Gran Pct Auto 0.3 % (0.0-0.4); Lymphocytes Absolute Auto 1.5 X10*3/uL (1.2-4.9); Lymphocytes Percent Auto 21.6 % (20-40); Mean Corpuscular HGB Conc 32.3 g/dl (31.0-35.0); Mean Corpuscular Hemoglobin 27.5 pg (27.0-33.0); Mean Corpuscular Volume 84.9 fL (80.0-98.0); Mean Platelet Volume 11.5 fL (9.4-12.3); Monocytes Absolute Auto 0.5 X10*3/uL (0.1-1.2); Monocytes Percent Auto 7.4 % (2-11); Neutrophils Absolute Auto 4.8 x10*3/uL (2.0-8.3); Neutrophils Percent Auto 68.1 % (45-73); Platelet Count 292 X10*3/uL (160-400); Red Blood Count 4.37 X10*6/uL (4.20-5.50); Red Cell Distribution Width 13.1 % (11.0-16.0); White Blood Count 7.1 X10*3/uL (4.8-10.8)
[2023-12-09 13:47] LABS: Alanine Aminotransferase 10 U/L (0-31); Albumin Level 4.5 g/dL (3.5-5.0); Alkaline Phosphatase 70 U/L (39-117); Anion Gap 13 (12-20); Aspartate Amino Transferase 19 U/L (5-31); Bilirubin Total 0.5 mg/dL (0.0-1.0); Blood Urea Nitrogen 11 mg/dL (9-16); Carbon Dioxide 26 mmol/L (22-29); Chloride 105 mmol/L (96-108); Cholesterol 227 mg/dL (<200); Estimated Glomerular Filt Rate > 60; Glucose Random 89 mg/dL (60-115); HDL Cholesterol 74 mg/dL (>40); LDL Cholesterol Calculated 129 mg/dL (<100); Potassium 3.9 mmol/L (3.3-5.1); Sodium 140 mmol/L (135-145); Total Protein 8.1 g/dL (6.5-8.0); Triglycerides 124 mg/dL (<150)
[2023-12-09 13:50] LABS: Vitamin D 25-OH Total 18.5 ng/mL (>30)
[2023-12-09 14:03] LABS: Reflex LDLD? No
[2023-12-09 14:19] LABS: HBS Num1 0.69 mIU/mL (0-7.99); HBc Num1 0.12 S/CO (0.00-0.79); HBsAGNum1 0.34 S/CO (0.00-0.99); Hepatitis B Core Antibody Nonreactive (Nonreactive); Hepatitis B Surface Antigen Negative (Negative); Syphilis Screen Nonreactive (Nonreactive); ~HepC Num1 0.09 S/CO (0.00-0.79); ~Hepatitis A Antibody IgM Nonreactive (Nonreactive); ~Hepatitis B Surface Antibody NONREACTIVE (Nonreactive); ~Hepatitis C Antibody Nonreactive (Nonreactive)
[2023-12-12 03:04] LABS: TS Negative Control Passed; TS Panel A 0; TS Panel B 0; TS Positive Control Passed; TSpotTB Negative (Negative)
== END 2023-12-09 11:34 | disposition home or self-care (01) ==
LOC: HO.HHCL 11:33
PROVIDERS: Visit Provider Internal Medicine
DX: L40.9 Psoriasis, unspecified (principal); R05.1 Acute cough; M17.12 Unilateral primary osteoarthritis, left knee; R03.0 Elevated blood-pressure reading, without diagnosis of hypertension
CPT/HCPCS: 36415; 80053; 80061; 82306; 85025; 86481; 86704; 86706; 86709; 86780; 86803; 87340

== ENCOUNTER 2024-04-29 03:10 | Emergency (ER) | payer MEDICAID, SELFPAY ==
--- NOTE | ~2024-04-29 | XR_ITS ---
EXAMINATION: XR LUMBOSACRAL SPINE CLINICAL INFORMATION: pain COMPARISON: None available. TECHNIQUE: Three views of the lumbosacral spine. FINDINGS: The alignment is normal. There is mild diffuse lumbar disc degenerative change with endplate sclerosis and osteophyte formation. There is also mild mid to lower lumbar facet osteoarthritic hypertrophic change. There is also a lower thoracic degenerative change. There is no fracture. The soft tissues are unremarkable. XR/XR lumbar spine 2-3V IMPRESSION: Mild degenerative changes. No fracture. Electronically signed by: Nasim Mendes MD 04/29/2024 06:24 AM ROBERT HARTLEY
[2024-04-29 03:18] VITALS: BP 129/67; PULSE 75; RESP 16; TEMP 36.6; O2SAT 98; BMI 25.1
[2024-04-29 04:45] VITALS: BP 138/79; PULSE 66; RESP 15; TEMP 36.3; O2SAT 99
[2024-04-29] MEDS: oxyCODONE HCl Immed Release 5 MG TABLET PO (04:58)
--- NOTE | 2024-04-29 05:02 | ED_ITS ---
HPI - Back Pain/Injury General Chief Complaint: Back Pain/Injury Stated Complaint: back pain Time Seen by Provider: 04/29/24 03:56 Source: patient Mode of arrival: ambulatory Limitations: no limitations History of Present Illness ED Provider: HPI Narrative: Patient has been complaining of pain in the lower back for last few days denies any trauma no radiation of the pain patient is ambulatory no urinary complaints no history of kidney stone Related Data Home Medications ?Medication ?Instructions ?Recorded ?Confirmed adalimumab 40 mg/0.8 mL 40 mg subcut Q2W 08/22/21 08/22/21 subcutaneous syringe kit (Humira) baclofen 10 mg tablet 10 mg PO TID PRN Pain 08/22/21 08/22/21 Previous Rx's ?Medication ?Instructions ?Recorded cyclobenzaprine 10 mg tablet 10 mg PO Q8H #20 tabs 04/29/24 ibuprofen 600 mg tablet 600 mg PO Q6H PRN fever or pain 04/29/24 #30 tabs Allergies Allergy/AdvReac Type Severity Reaction Status Date / Time No Known Allergies Allergy Verified 04/29/24 03:18 Review of Systems Review of Systems: Yes all other systems are reviewed and are negative [facility] Past Medical History Medical History Psoriasis Social History Social History Alcohol intake: current Alcohol intake frequency: 0-2 drinks per day Advance Directives: No Advance Directives Information Provided: Yes Do you have a plan to hurt others: No Plan Physical Exam Vital Signs: Vital Signs: Last Vital Signs Temp 97.4 F 04/29/24 04:45 Pulse 66 04/29/24 04:45 Resp 15 04/29/24 04:45 BP 138/79 04/29/24 04:45 Pulse Ox 99 04/29/24 04:45 O2 Del Method Room Air 04/29/24 04:45 BMI result Body Mass Index 25.1 Appearance: Alert. Oriented X3. No acute distress. ENT: Pharynx normal. Oral Mucosa moist Neck: Normal inspection. Neck supple. CVS: Normal heart rate and rhythm. Pulses normal. Respiratory: No respiratory distress. Equal air entry bilateral, no whe ezing/rales/rhonchi Abdomen: Soft and nontender. Bowel sounds are present, no mass palpable, no CVA tenderness Skin: Skin warm and dry. Normal skin color. Normal skin turgor. Extremities: No lower extremity edema. No calf tenderness Back: Significant lordosis pain in paraspinal area Neuro: Oriented X 3. No motor deficit. No sensory deficit.No cerebellar signs , cranial nerves II-XII intact Medications Administered Discontinued Medications Generic Name Dose Route Start Last Admin Trade Name Freq PRN Reason Stop Dose Admin Oxycodone HCl 5 mg 04/29/24 04:26 04/29/24 04:58 Oxycodone Hcl Immed Release 5 Mg Tablet PO 04/29/24 04:27 5 mg ONCE ONE Administration Medical Decision Making Lab Data MDM Lab Attestation statement: I reviewed the patient's lab results. Labs: Lab Results 04/29/24 Range/Units 05:02 Urine Color Yellow Urine Appearance Clear Urine pH 5.5 (5.0-9.0) Ur Specific Imperial 1.015 (1.005-1.025) Urine Protein Negative (Neg-Trace) mg/dL Urine Glucose (UA) Negative (Negative) mg/dL Urine Ketones Negative (Negative) mg/dL Urine Blood Negative (Negative) Urine Nitrite Negative (Negative) Ur Leukocyte Esterase Negative (Negative) Independent Interpretation I performed an independent interpretation of an: Plain X-Ray Interpretation: No fracture Discharge Plan Discharge Clinical Impression: Strain of lumbar region Patient Disposition: Home, Self-Care Instructions: Acute Low Back Pain (ED) Additional Instructions: Take pain medication muscle relaxant as prescribed Follow up with your PCP Prescriptions: New cyclobenzaprine 10 mg tablet 10 mg PO Q8H Qty: 20 0RF ibuprofen 600 mg tablet 600 mg PO Q6H PRN (Reason: fever or pain) Qty: 30 0RF No Action baclofen 10 mg Tablet 10 mg PO TID PRN (Reason: Pain) Humira 40 mg/0.8 mL Syringe Kit 40 mg SUBCUT Q2W Print Language: Nepalese
[2024-04-29 05:08] LABS: Appearance Urine Clear; Color Urine Yellow; Glucose Urine UA Negative (Negative); Leukocyte Esterase Urine Negative (Negative); Nitrite Urine Negative (Negative); PH 5.5 (5.0-9.0); Specific Gravity - Urine 1.015 (1.005-1.025); Urine Blood Negative (Negative); Urine Ketones Negative (Negative); Urine Protein Negative (Neg-Trace)
[2024-04-29 06:09] VITALS: BP 138/79; PULSE 66; RESP 15; TEMP 36.3; O2SAT 99
== END 2024-04-29 06:10 | disposition home or self-care (01) ==
PROVIDERS: Emergency Provider Internal Medicine
DX: S39.012A Strain of muscle, fascia and tendon of lower back, initial encounter (principal); X58.XXXA Exposure to other specified factors, initial encounter; Y93.9 Activity, unspecified; Y92.9 Unspecified place or not applicable; Y99.9 Unspecified external cause status
CPT/HCPCS: 72100; 81003; 99283; 99284

== ENCOUNTER 2024-09-25 19:09 | Emergency (ER) | payer MEDICARE, SELFPAY ==
--- NOTE | ~2024-09-25 | XR_ITS ---
CLINICAL HISTORY: left knee pain and swelling Four views left knee. Comparison 12/09/2023. Findings: There is tricompartmental DJD that is severe medially. A joint effusion is present. There is spurring off the superior patella. Impression: Prominent degenerative changes with a joint effusion. This document has been electronically signed by: Florian Fabian MD on 09/25/2024 20:41:27
[2024-09-25 19:46] VITALS: BP 137/81; PULSE 88; RESP 14; TEMP 36.3; O2SAT 100; BMI 24.7
--- NOTE | 2024-09-25 19:49 | ED_ITS ---
HPI - General Adult General Chief complaint: Extremity Injury, Lower Stated complaint: left knee pain/no inj Time Seen by Provider: 09/26/24 01:06 Source: patient Mode of arrival: ambulatory Limitations: no limitations History of Present Illness ED Provider: augustina magana np HPI narrative: Patient is a 64-year-old female who presents emergency department for evaluation of acute on chronic left knee pain with swelling. She reports many years ago she was informed that she would likely need a knee replacement in the future, it has been a few years but she previously received cortisone injections. Over the past 2-3 weeks she has been experiencing increasing pain to the left knee. She has not taken any OTC medications for this as she likes to avoid medications at all times possible. Pain is not improving which prompted her to seek evaluation today. She denies any precipitating trauma. She denies any fevers, chills, redness, rashes, calf pain, swelling aside from the knee. Related Data Home Medications ?Medication ?Instructions ?Recorded ?Confirmed adalimumab 40 mg/0.8 mL 40 mg subcut Q2W 08/22/21 08/22/21 subcutaneous syringe kit (Humira) baclofen 10 mg tablet 10 mg PO TID PRN Pain 08/22/21 08/22/21 Previous Rx's ?Medication ?Instructions ?Recorded cyclobenzaprine 10 mg tablet 10 mg PO Q8H #20 tabs 04/29/24 ibuprofen 600 mg tablet 600 mg PO Q6H PRN fever or pain 04/29/24 #30 tabs ibuprofen 600 mg tablet 600 mg PO Q8H PRN pain #30 tabs 09/26/24 Allergies Allergy/AdvReac Type Severity Reaction Status Date / Time No Known Allergies Allergy Verified 09/25/24 19:48 Review of Systems Review of Systems: Yes all other systems are reviewed and are negative PMFSH Past Medical History Attestation statement: The following information was validated with the patient. Source: old records reviewed Medical History Psoriasis Social History Social History Alcohol intake: current Alcohol intake frequency: holidays/special occasions only Physical Exam ED Vital Signs: Vital Signs - 24 hr 09/25/24 19:46 09/26/24 01:06 09/26/24 02:05 Temperature 97.4 F 98.0 F 98.0 F Pulse Rate 88 76 76 Respiratory Rate 14 16 16 Blood Pressure 137/81 154/86 H 154/86 H Pulse Oximetry 100 100 100 Oxygen Delivery Method Room Air Room Air Room Air BMI result Body Mass Index 24.7 Appearance: Alert.?Oriented to person, place and time. No acute distress.?Normal affect. CVS: Heart sounds normal. Normal heart rate and rhythm.? Pulses normal.?? Respiratory: No respiratory distress.? Lung sounds clear to auscultation bilaterally?? Abdomen: Soft and non-tender. Normoactive bowel sounds Skin: Skin warm and dry.? Normal skin color.? ? Extremities: No lower extremity edema.? No calf ttp?2+ DP/PT pulse. No erythema or warmth. No rashes or lesions. No laxity on exam. Positive perfusion on the left without deformity. Neuro: Moves all extremities spontaneously. Sensation intact bilaterally. Ambulates with normal steady gait. Course Course Course Narrative: RME: 55-year-old female presents to ED for chronic left knee exacerbation now with swelling. Patient denies any recent trauma. Patient was informed she will need knee replacement. Positive for knee tenderness on palpation. Knee x-ray ordered. Medical Decision Making Medical Decision Making MDM Narrative: Patient is a 64-year-old female who presents emergency department for evaluation of acute on chronic left knee pain as per HPI. Symptoms have progressively worsened. She has not taken OTC medications for this as she typically likes to avoid any medications. Has a no conservative treatment. Has known arthritis followed by orthopedics in the past advised she would likely require knee replacement in the future but has not followed up in a few years. She is overall well-appearing, nontoxic, afebrile. No signs of systemic toxicity. XR was obtained and does reveal evidence of DJD and effusion. Given the lack of constitutional symptoms, signs of systemic toxicity, no erythema or warmth it did not have suspicion for septic joint at this time. Imaging not consistent with fracture/dislocation. The extremity is neurovascularly intact distally. Wells score low risk, unlikely DVT. At this time feel that she is stable for discharge home, conservative treatment, outpatient follow-up with PCP/Orthopedics and strict return precautions were discussed. Differential Diagnosis Differential Diagnoses: The differential diagnosis associated with the presentation includes (See narrative above) Independent Interpretation I performed an independent interpretation of an: Plain X-Ray (See narrative above) Radiology Impression Discussion of test interpretation with radiology: I have reviewed the radiologist's reading. Radiologist Impression: Four views left knee. Comparison 12/09/2023. Findings: There is tricompartmental DJD that is severe medially. A joint effusion is present. There is spurring off the superior patella. Impression: Prominent degenerative changes with a joint effusion. External Record Review External record reviewed: Outpatient record Prescription Management I considered prescription management with: Pain Medication Discharge Plan Discharge Clinical Impression: Effusion of knee joint, left, Osteoarthritis Patient Disposition: Home, Self-Care Instructions: Osteoarthritis (ED) Additional Instructions: Be sure to rest, apply ice for 10 15 minutes 4-6 times daily, elevate your leg above the level of your chest when possible. Use an elastic bandage to help with compression. You can take ibuprofen 200 mg, 3 tablets (600mg) every 6-8 hours as needed for pain, in addition to Tylenol 500 mg, 2 tablets (1,000mg) every 4-6 hours as needed for pain, but not to exceed 3 doses daily (3,000mg).? You have been provided contact information for the orthopedic office that is associated with our hospital, you may contact them to arrange for a follow-up visit. Additionally contact your primary care provider to arrange for follow-up Prescriptions: New ibuprofen 600 mg tablet 600 mg PO Q8H PRN (Reason: pain) Qty: 30 0RF No Action baclofen 10 mg Tablet 10 mg PO TID PRN (Reason: Pain) Humira 40 mg/0.8 mL Syringe Kit 40 mg SUBCUT Q2W cyclobenzaprine 10 mg tablet 10 mg PO Q8H Qty: 20 0RF ibuprofen 600 mg tablet 600 mg PO Q6H PRN (Reason: fever or pain) Qty: 30 0RF Referrals: [facility] [Provider Group] Name,MD Fadi [Primary Care Provider] - Interventions: ED Discharge Assessment Last Done: 09/26/24 02:05 Discharge Date/Time: 09/26/24 02:20 Print Language: Macanese
[2024-09-26 01:06] VITALS: BP 154/86; PULSE 76; RESP 16; TEMP 36.7; O2SAT 100
--- OUTSIDE RECORDS SUMMARY | 2024-09-26 01:48 | XMS_ITS | Encounter Summary ---
Author Organization [employer] Address [address] [place] [address] Care Team Providers Care Environmental Compliance Inspector Name Role Phone Name, Fadi GREER Primary Care Provider [phone] Encounter Details Date Type Department Care Team (Late st Contact Info) Description 09/25/2024 Orders Only [facility] External Provider, [facility] Social History Tobacco Use Types Packs/Day Years Used Date Smoking Tobacco: Former Cigarettes Passive Smoke Exposure: Past Smokeless Tobacco: Never Alcohol Use Standard Drinks/Week Comments Yes 0 (1 standard drink = 0.6 oz pur e alcohol) socially Depression Answer Date Recorded Patient Health Questionnaire-9 Score 19 03/23/2024 Patient Health Questionnaire-9 Score 19 03/23/2024 Last PHQ-9: Questionnaire Data Not on file 1 Housing Stability Answer Date Recorded What is your housing situation today? I do not have housing (Staying with others, in a hotel, in a intermediate, living outside on the street, on a beach, in a car, or in a park 03/23/[address] you li ve. Do you have problems with any of the following? None of the above 03/23/2024 Food Insecurity Answer Date Recorded Within the past 12 months, y ou worried that your food would run out before you got money to buy more: Sometimes True 2023 Within the past 12 months,th e food you bought just didn't last and you didn't have enough money to get more: Sometimes True 03/23/2024 Transportation Answer Date Recorded In the past 12 months, has l ack of transportation kept you from medical appts, meetings, work or from getting things needed for daily living? No 03/23/2024 Utilities Answer Date Recorded In the past 12 months, has t he electric, gas, oil or water company threatened to shut off services in your home? No 03/16/2024 Depression Answer Date Recorded Patient Health Questionnaire-2 Score 1 03/23/2024 Internet Access Answer Date Recorded Internet Access Q1 Yes 03/16/2024 Internet Access Q2 Not on file 03/16/2024 Comments Unknown Sex and Gender Information Value Date Recorded Sex Assigned at Female 11/02/2023 8:52 AM EDT Legal Sex Female 11:26 AM EDT Gender Identity Female 11/02/2023 8:52 AM EDT Sexual Orientation Straight 11/02/2023 8: 52 AM EDT documented as of this encounter Plan of Treatment Upcoming Encounters Date Type Department Care Team (Late st Contact Info) Description 10/23/2024 11:00 AM EDT Office Visit [facility] [address] [place] [address] NameFadi MD [address] [place] [address] documented as of this encounter Procedures Procedure Name Priority Date/Time Associated Diagnosis Comments XR KNEE 4+ VIEWS LEFT Routine 09/25/2024 8:41 PM EDT documented in this encounter Results * XR Knee 4+ Views Left (09/25/2024 8:41 PM EDT) Anatomical Region Laterality Modality Lower Extremities, Knee Left [facility] 09/25/2024 8:41 PM EDT Narrative 09/25/2024 8:42 PM EDT ? [facility] ?[address] ?[place] [address] ?XRay Report ? Signed ? Patient: Sung Christine,Zabrina ?MR#: ?? [id number] ? : 1960 ?Acct:[id number] ? Age/Sex: 64 / F ?ADM Date: 05/05/25 ? Loc: HO.ED ? Attending Dr: ? Ordering Physician: Moise Sultana ?? Date of Service: 09/25/24 ?? Procedure(s): XR knee LT 4V ?? Accession Number(s): [id number] ? cc: Moise Sultana; Name,Fadi GREER ? CLINICAL HISTORY: left knee pain and swelling ? Four views left knee. ? Comparison 12/09/2023. ? Findings: ?? There is tricompartmental DJD that is severe medially. A joint effusion is ?? present. There is spurring off the superior patella. ? Impression: ?? Prominent degenerative changes with a joint effusion. ? This document has been electronically signed by: Florian Fabian MD on ?? 09/25/2024 20:41:27 ? Dictated By: ?Terrence Lance MD ? Signed By: ?<Electronically signed by Terrence Lance MD in OV> ?09/25/242041 ? DD/ 40 ? TD/TT: 09/25/242040 ? Ship Joiner: ? Procedure Note Donkunal, Image - 09/25/2024 [place] [id number] XRay Report Signed Patient: Zabrina McclellandMR#: [id number] : 1960Acct:[id number] Age/Sex: 64 / FADM Date: 09/25/24 Loc: HO.ED Attending Dr: Ordering Physician: Moise Sultana Date of Service: 09/25/24 Procedure(s): XR knee LT 4V Accession Number(s): [id number] cc: Moise Sultana; Name,Fadi GREER CLINICAL HISTORY: left knee pain and swelling Four views left knee. Comparison 12/09/2023. Findings: There is tricompartmental DJD that is severe medially. A joint effusion is present. There is spurring off the superior patella. Impression: Prominent degenerative changes with a joint effusion. This document has been electronically signed by: Florian Fabian MD on 09/25/2024 20:41:27 Dictated By: Terrence Lance MD Signed By: <Electronically signed by Terrence Lance MD in OV> 09/25/242041 DD/ 40 TD/TT: 09/25/242040 Ship Joiner: [facility] External Provider IMG XR PROCEDURES Final Result documented in this encounter Visit Diagnoses Not on filedocumented in this encounter Additional Health Concerns Assessment Noted Time PHQ-9 Depression Total Score: 19 024 11:10 AM EDT documented as of this encounter Care Teams Environmental Compliance Inspector Relationship Specialty Start Date End Date Name, MD Fadi [address] [place] [address] PCP - General Internal Medicine 03/23/24 documented as of this encounter
--- OUTSIDE RECORDS SUMMARY | 2024-09-26 01:48 | XMS_ITS | Encounter Summary ---
Author Organization [facility] Address [address] [place] [address] Care Team Providers Care Greaser Operator Name Role Phone Fransisca Conroy NP Primary Care Provider [phone] Encounter Details Date Type Department Care Team (Late st Contact Info) Description 11/01/[address] [facility]wif[facility] at [address] [facility] [address] [facility], [address] [place] [address] Sammy Espino MD 3 [facility] [address] [place] [address] Social History Tobacco Use Types Packs/Day Years Used Date Smoking Tobacco: Former Alcohol Use Standard Drinks/Week Comments Yes 0 (1 standard drink = 0.6 oz pur e alcohol) Comments No Sex and Gender Information Value Date Recorded Sex Assigned at Female 04/04/2020 2:21 PM EST Legal Sex Female 4:04 PM EDT Gender Identity Female 04/04/2020 2:21 PM EST Sexual Orientation Straight 04/04/2020 2: 21 PM EST documented as of this encounter Plan of Treatment Not on file documented as of this encounter Visit Diagnoses Not on filedocumented in this encounter Care Teams Greaser Operator Relationship Specialty Start Date End Date Fransisca Conroy NP [address] [place] [phone] PCP - General Family Medicine 10/22/20 documented as of this encounter
--- OUTSIDE RECORDS SUMMARY | 2024-09-26 01:48 | XMS_ITS | Clinical Summary ---
Author Organization [employer] Address [address] [facility] [address] [place] [address] Care Team Providers Care Socket Welder Helper Name Role Phone Name, Fadi GREER Primary Care Provider [phone] Allergies No known active allergies Medications * This document contains information received from the source organization and may not represent a complete record from that organization. senna-docusate sodium (Senokot-S) 8.6-50 MG tabletIndications :Chronic constipation Take 1 tablet by mouth Once per day. 30 tablet 11 4 03/23/20 25 Active ustekinumab (Stelara) injectionIndicati ons:Psoriasis 45 mg at 0 and 4 weeks, and then 45 mg every 12 weeks thereafter 0.5 mL 2 4 Active clobetasol (Temovate) 0.05 % cream APPLY TOPICALLY TO THE AFFECTED AREA(S) EVERY DAY AT BEDTIME DIRECTED 60 g 3 4 Active calcipotriene (Dovonex) 0.005 % cream APPLY TOPICALLY TO THE AFFECTED AREA(S) EVERY DAY DIRECTED 60 g 3 4 Active lidocaine (Lidoderm) 5 % patch Apply 1 patch topically Once per day. Remove & discard patch within 12 hours or as directed by . 30 patch 2 5 07/19/19 26 Active acetaminophen (Tylenol) 500 MG tablet Take 2 tablets (1,000 mg) by mouth every 6 (six) hours if needed for moderate pain or fever. 40 tablet 5 Active ibuprofen 400 MG tablet Take 1 tablet (400 mg) by mouth every 6 (six) hours if needed for moderate pain or fever. 20 tablet 5 Active cyclobenzaprine (Flexeril) 10 MG tablet TAKE 1 TABLET BY MOUTH EVERY 8 HOURS NEEDED FOR MUSCLE SPASMS 30 tablet 1 5 Active halobetasol (UltraVATE) 0.05 % ointmentIndicatio ns:Psoriasis APPLY TO THE AFFECTED AREA(S) TOPICALLY TWICE DAILY. DO NOT EXCEED 4 WEEKS OF USE 50 g 2 5 Active Fluocinolone Acetonide Scalp 0.01 % oilIndications:Ps oriasis APPLY AT BEDTIME 3 TIMES PER WEEK ON DAMP SCALP WITH COVER 118.28 mL 2 5 Active sertraline (Zoloft) 50 MG tabletIndications :Depression with anxiety TAKE 1 TABLET BY MOUTH EVERY DAY 30 tablet 2 5 Active Active Problems Problem Noted Date Diagnosed Date Hypertension 03/23/2024 Primary osteoarthritis involving multiple joints 03/23/2024 Arthritis of left knee 12/09/2023 Assessment & Plan (12/09/2023 2:22 PM EDT): Order Xray left knee and fu with PCP Can take tylenol prn Elevated blood pressure reading 12/09/2023 Assessment & Plan (12/09/2023 2:22 PM EDT): ?Pre HTN? Advised to quit smoking, lower salt in diet FU with new PCP in 1-2m Acute cough 12/09/2023 Assessment & Plan (12/09/2023 2:20 PM EDT): Rapid viral tests are NEG today It could be related to smoking, advised to quit. Needs to fu with PCP re further evaluation, re consult prn worsening of cough /UR sxs, fever. Psoriasis 03/19/2021 Assessment & Plan (12/09/2023 2:24 PM EDT): I will start clobetasol + Dovonex cream and Fluocinolone oil in scalp Order labs and refer to derm, may need systemic meds. Encounters Date Type Department Care Team Description 09/25/2024 Orders Only [facility] External Provider, [facility] 08/24/2024 Refill [facility] [address] [place] [address] Name, MD Fadi Depression with anxiety 08/24/2024 Refill [facility] [address] [facility] [place] [address] Mando Louise MD Psoriasis 08/19/2024 Refill [facility] [address] [facility] [place] [address] Mando Louise MD Psoriasis 08/04/2024 Refill [facility] [address] [place] [address] Jayjay Orta MD 07/26/2024 Telephone [facility] [facility] [place] [address] Fadi Sheikh MD PA 07/24/2024 Telephone [facility] [address] [place] [phone] Fadi Sheikh MD Prior Authorization; Ranjan BUTT 07/19/2024 9:40 AM EST Office Visit [facility] [employer] [place] [address] Jayjay Orta MD Chronic right-sided low back pain without sciatica (Primary Dx) 07/19/2024 Telephone [facility] [place] [address] Fadi Sheikh MD Change PCP from Last 3 Months Immunizations Name Administration Dates Next Due Tdap 03/23/2024 Social History Tobacco Use Types Packs/Day Years Used Date Smoking Tobacco: Former Cigarettes Passive Smoke Exposure: Past Smokeless Tobacco: Never Tobacco Cessation:Counseling Given: Not Answered Alcohol Use Standard Drinks/Week Comments Yes 0 [...] with others, in a hotel, in a fpc, living outside on the street, on a [...] Orientation Straight 11/02/2023 8: 52 AM EDT Last Filed Vital Signs Vital Sign Reading Time Taken Comments Blood Pressure 140/80 07/19/2024 9:34 AM EST Pulse 90 07/19/2024 9:34 AM EST Temperature 36.7 ??C (98.1 ??F) 07/19/2024 9:34 AM ES T Respiratory Rate 19 07/19/2024 9:34 AM EST Oxygen Saturation 97% 07/19/2024 9:34 AM EST Inhaled Oxygen Concentration - - Weight 73.9 kg (163 lb) 07/19/2024 9:34 AM EST Height 170.2 cm (5' 7 ) 04/28/2024 2:39 PM EST Body Mass Index 25.53 04/28/2024 2:39 PM EST Plan of Treatment Upcoming Encounters Date Type Department Care Team (Late st Contact Info) Description 10/23/2024 11:00 AM EDT Office Visit [facility] [address] [place] [address] Name, MD Fadi [address] [place] [address] Health Maintenance Due Date Last Done Comments CT Colonography 1959 Colonoscopy 1959 Colorectal Cancer Screening 1960 FIT DNA/Cologuard 1959 FIT 1959 FOBT 1960 Sigmoidoscopy 1959 Pap Smear 09/08/1980 Cervical Cancer Screening 09/08/1989 HPV/Cotest 09/08/1989 Pneumococcal Vaccine: 50+ Years (1 of 1 - PCV) 09/08/2009 Zoster Vaccines (1 of 2) 09/08/2009 Mammogram 12/22/2018 12/22/2016, 11/16/2016, 11/16/2016 COVID-19 Vaccine (1 - 2023-2 5 season) 2024 Influenza Vaccine (#1) 2024 Alcohol/Substance Use Screening 03/23/2025 03/23/2024 Depression Screening 03/23/2025 03/23/2024, 03/23/2024 SDOH Screening 03/23/2025 03/23/2024 Tobacco Screening 07/19/2025 07/19/2024 Lipid Panel 12/08/2028 12/09/2023 DTaP/Tdap/Td Vaccines (2 - T d or Tdap) 03/23/2034 03/23/2024 RSV Patients and Patients Aged 60 years or older (1 - 1-dose 75+ series) 09/08/2034 Hepatitis C Screening Completed 12/09/2023 HIB Vaccines Aged Out No longer eligi ble based on patient's age to complete this topic HPV Vaccines Aged Out No longer eligi ble based on patient's age to complete this topic Hepatitis A Vaccines Aged Out No long er eligible based on patient's age to complete this topic Hepatitis B Vaccines Aged Out No long er eligible based on patient's age to complete this topic IPV Vaccines Aged Out No longer eligi ble based on patient's age to complete this topic Meningococcal Vaccine Aged Out No valery shanae eligible based on patient's age to complete this topic RSV under 20 months Aged Out No longe r eligible based on patient's age to complete this topic Rotavirus Vaccines Aged Out No longer eligible based on patient's age to complete this topic Procedures Procedure Name Priority Date/Time Associated Diagnosis Comments XR KNEE 4+ VIEWS LEFT Routine 09/25/2024 8:41 PM EDT POCT URINALYSIS DIPSTICK Routine 07/19/2024 10:47 AM EST Chronic right-sided low back pain without sciatica HEPATITIS PANEL, GENERAL Routine 12/09/2023 11:42 AM EDT Psoriasis Arthritis of left knee LIPID PANEL WITH REFLEX TO DIRECT LDL Routine 12/09/2023 11:42 AM EDT Elevated blood pressure reading from Last 3 Months or Most Recently Relevant to Health Maintenance Results * XR Knee 4+ Views Left (09/25/2024 8:41 PM EDT) Anatomical Region Laterality Modality Lower Extremities, Knee Left Radiogra phic Imaging 09/25/2024 8:41 PM EDT Narrative 09/25/2024 8:42 PM EDT ? [facility] ?[address] ?[place] [address] ?XRay Report ? Signed ? Patient: Zabrina Mcclelland ?MR#: ?? [id number] ? : 1960 ?Acct:[id number] ? Age/Sex: 64 / F ?ADM Date: 09/25/24 ? Loc: HO.ED ? Attending Dr: ? Ordering Physician: Moise Sultana ?? Date of Service: 09/25/24 ?? Procedure(s): XR knee LT 4V ?? Accession Number(s): [id number] ? cc: Moise Sultana; Name,Fadi GREER ? [...] ? DD/ 40 ? TD/TT: 09/25/242040 ? Casino Enforcement Agent: ? Procedure Note Donotuseinterpreter, Image - 09/25/[address] [address] XRay Report Signed Patient: Lizzeth Mcclelland#: [id number] : 1960Acct:[id number] Age/Sex: 64 / FADM Date: 09/25/24 Loc: HO.ED Attending Dr: Ordering Physician: Moise Sultana Date of Service: 09/25/24 Procedure(s): XR knee LT 4V Accession Number(s): [id number] cc: Moise Sultana; Name,Fadi GREER CLINICAL HISTORY: [...] in OV> 09/25/242041 DD/ 40 TD/TT: 09/25/242040 Casino Enforcement Agent: [facility] External Provider IMG XR PROCEDURES Final Result * (ABNORMAL) POCT urinalysis dipstick manually resulted (07/19/2024 10:47 AM EST) Color, UA Yellow Clarity, UA Clear Glucose, UA Negative Bilirubin, UA Negative Ketones, UA Negative Spec Grav, UA 1.015 Blood, UA Positive(A) Negative, None Detected Comment:trace- intact pH, UA 7.0 Protein, UA Negative Urobilinogen, UA 0.2 Leukocytes, UA Negative Negative, Rare, Trace Nitrite, UA Negative Negative, None Detected Urine 07/19/2024 10:4 7 AM EST us Jayjay Orta MD POINT OF CARE TEST ENTER/EDIT OR DERABLES Final Result * (ABNORMAL) Lipid Panel with Reflex to Direct LDL (12/09/2023 11:42 AM EDT) Triglycerides 124 <150 mg/dL [facility] Comment:Desirable Triglyceri de: less than 150 mg/dLBorderline High Triglyceride 150-199 mg/dLHigh Triglyceride: 200-499 mg/dLVery High Triglyceride: greater than or equal to 5OO mg/dL Cholesterol 227(H) <200 mg/dL [facility] Comment:Desirable Cholestero l: less than 200 mg/dLBorderline High Cholesterol: 200-239 mg/dLHigh Cholesterol: greater than 239 mg/dL LDL Cholesterol Calculated 129(H) <100 mg/dL [facility] Comment:Desirable LDL: less than 100 mg/dLNear Optimal/Above Optimal LDL: 110- 129 mg/dLBorderline High LDL: 130-159 mg/dLHigh LDL: 160-189 mg/dLVery High LDL: greater than or equal to 190 mg/dL HDL Cholesterol 74 >40 mg/dL [facility] Comment:Desirable HDL: great er than 40 mg/dL Note: This HDL assay may give artificially low results in patients with liver disease. Blood 12/09/2023 11:4 2 AM EDT 12/09/2023 1:03 PM EDT us Esperanza Olsen MD LAB BLOOD ORDERABLES Fin al Result [facility] [address] [place] [address] [phone] * Hepatitis Panel, General (12/09/2023 11:42 AM EDT) Hepatitis A IgM Nonreactive Nonreactive [facility] Comment:IgM antibodies to WALLACE V not detected; does not exclude earlyacute or recovered HAV infection. ~Hepatitis B Surface Antibody NONREACTIVE Nonreactive [facility] Comment:Nonreactive: < 8.00 mIU/mL Hepatitis B Core Antibody Nonreactive Nonreactive [facility] Hepatitis C Antibody Nonreactive Nonreactive [facility] Comment:Antibodies to HCV no t detected; does not exclude early acuteHCV infection. Hepatitis B Surface Ag Negative Negative [facility] Blood 12/09/2023 11:4 2 AM EDT 12/09/2023 1:03 PM EDT us Esperanza Olsen MD LAB BLOOD ORDERABLES Fin al Result [facility] [address] [place] [address] [phone] from Last 3 Months or Most Recently Relevant to Health Maintenance [facility] Care Teams Socket Welder Helper Relationship Specialty Start Date End Date Name, MD Fadi [address] [place] [address] PCP - General Internal Medicine 03/23/24
--- OUTSIDE RECORDS SUMMARY | 2024-09-26 01:48 | XMS_ITS | Clinical Summary ---
Author Organization [facility] Address [address] [place] [address] Care Team Providers Care Microbiology Professor Name Role Phone FloresAleena JACKLYN Primary Care Provider Social History Tobacco Use Types Packs/Day Years Used Date Smoking Tobacco: Never Assessed Comments Unknown Sex and Gender Information Value Date Recorded Sex Assigned at Not on file Legal Sex Female 11:24 AM EDT Gender Identity Not on file Sexual Orientation Not on file Plan of Treatment Health Maintenance Due Date Last Done Comments Hepatitis C Virus Screening 1960 HIV Screening 09/08/1972 DTaP/Tdap/Td Vaccines (1 - Tdap) 09/08/1978 Pap Smear (Ages 21-65) 09/08/1980 Mammogram 1999 Colonoscopy 09/08/2004 Pneumococcal Vaccines 50+ (1 of 1 - PCV) 09/08/2009 Zoster (Shingles) Vaccine (1 of 2) 09/08/2009 COVID-19 Vaccine ( - 2023-2 5 season) 2024 DXA Bone Density (Females,Ag es 65 and older) 09/08/2024 Influenza Vaccine 12/22/2024 RSV Vaccine 60 years and old er and Patients (1 - 1-dose 75+ series) 09/08/2034 Hepatitis B Vaccines Aged Out No long er eligible based on patient's age to complete this topic [place] [place] [address] Care Teams Microbiology Professor Relationship Specialty Start Date End Date Aleena Tanner APRN [address] [place] [address] PCP - General 02/17/19
--- OUTSIDE RECORDS SUMMARY | 2024-09-26 01:48 | XMS_ITS | Encounter Summary ---
Author Organization [facility] Address [address] [place] [address] Care Team Providers Care Gallery Director Name Role Phone Conroy, Fransisca HARLEEN Primary Care Provider [phone]- [phone] Reason for Visit * Reason Comments Medication Refill Encounter Details Date Type Department Care Team (Late st Contact Info) Description 07/14/[address] [phone] Shilpi Romero APRN [address] [place] [address] Medication Refill Social History Tobacco Use Types Packs/Day Years Used Date Smoking Tobacco: Some Days Cigarettes Smokeless Tobacco: Never Alcohol Use Standard Drinks/Week Comments Yes 0 (1 standard drink = 0.6 oz pur e alcohol) wknds Comments No Sex and Gender Information Value Date Recorded Sex Assigned at Female 04/04/2020 2:21 PM EST Legal Sex Female 4:04 PM EDT Gender Identity Female 04/04/2020 2:21 PM EST Sexual Orientation Straight 04/04/2020 2: 21 PM EST documented as of this encounter Miscellaneous Notes * Telephone Encounter - Jazmyn Martin - 07/14/2021 10:37 AM EST Patient called in requesting refill on medication, patient states she was unable to make last follow up appointment and is now rescheduled for August. Se believes she will run out of medication by then and is request a refill for enough til next appointment documented in this encounter Plan of Treatment Not on file documented as of this encounter Visit Diagnoses Not on filedocumented in this encounter Care Teams Gallery Director Relationship Specialty Start Date End Date Fransisca Conroy NP [address] [place] [phone] PCP - General Family Medicine 10/22/20 documented as of this encounter
--- OUTSIDE RECORDS SUMMARY | 2024-09-26 01:48 | XMS_ITS | Clinical Summary ---
Author Organization [facility] [address] [facility] Address [address] [place] [address] Phone Care Team Providers Care Restaurant Bartender Name Role Phone ConroyFransisca patel HARLEEN Primary Care Provider [phone]- [phone] Allergies No known active allergies Medications SENNA PLUS 8.6-50 mg tablet 7 Active PROAIR HFA 90 mcg/actuation HFA inhaler 7 Active albuterol (PROVENTIL HFA) 90 mcg/actuation HFA inhaler Inhale 1-2 puffs into the lungs every 6 (six) hours as needed for Wheezing.. 1 Inhaler 7 Active Additional Information Patient not taking.Reported on 08/07/2020 naproxen (NAPROSYN) 500 MG tablet Take 500 mg by mouth as needed.. Active cyclobenzaprine (FLEXERIL) 5 MG tablet 5 mg.. 0 7 Active fluticasone (FLONASE) 50 mcg/actuation nasal spray USE 1 SPRAY ONCE A DAY FOR NASAL CONGESTION INTRANASALLY FOR 30 DAYS 2 7 Active FLOVENT HFA 44 mcg/actuation inhaler INHALE 2 PUFFS 2 TIMES A DAY, RINSE MOUTH WITH WATER AFTERWARDS 2 8 Active levalbuterol (XOPENEX HFA) 45 mcg/actuation inhaler INHALE 2 PUFFS EVERY 4 TO 6 HOURS NEEDED FOR WHEEZE /COUGH/ FOR SHORTNESS OF BREATH 2 7 Active loratadine (CLARITIN) 10 mg tablet TAKE 1 TABLET BY MOUTH EVERY DAY FOR ALLERGIES 2 8 Active SENNA LAXATIVE 8.6 mg tablet Take 8.6 mg by mouth nightly.. 0 7 Active conjugated estrogens (PREMARIN) 0.625 mg/gram vaginal cream Place vaginally twice a week. 42.5 g 11 0 Active baclofen (LIORESAL) 10 mg tablet TAKE 1 TABLET BY MOUTH THREE TIMES DAILY NEEDED FOR MUSCLE SPASM 1 Active betamethasone dipropionate (DIPROLENE) 0.05 % lotion APPLY TO SCALP TWICE DAILY UP TO 2 WEEKS PER MONTH 0 Active ciclopirox (PENLAC) 8 % solution APPLY ONCE A DAY FOR 30 DAYS 0 Active clobetasoL (CLOBEX) 0.05 % shampoo APPLY TOPICALLY ONCE A DAY 0 Active clobetasoL (CLOBEX) 0.05 % lotion APPLY TOPICALLY TO AFFECTED AREAS 2 TIMES PER DAY FOR 14 DAYS 0 Active ibuprofen (ADVIL,MOTRIN) 800 mg tablet TK 1 T PO TID 0 Active HUMIRA,CF, PEN 40 mg/0.4 mL pen kitIndications:P soriasis Inject 0.4 mLs (40 mg total) under the skin every 14 (fourteen) days. 2 each 3 2 Active Active Problems Problem Noted Date Diagnosed Date Bilateral shoulder pain 04/07/2021 Psoriasis 03/19/2021 Vaginal atrophy 11/09/2019 Dyspareunia in female 11/09/2019 Upper back pain 03/23/2017 Resolved Problems Problem Noted Date Diagnosed Date Resolved Date Bilateral shoulder pain 02/21/202103/24 Shoulder pain, bilateral 01/07/2017 Muscle weakness 01/07/2017 01/07/2017 Shoulder pain, bilateral 12/18/2016 Family History Medical History Relation Name Comments Cancer Father No Known Problems Mother Relation Name Status Comments Father Mother Social History Tobacco Use Types Packs/Day Years [...] Orientation Straight 04/04/2020 2: 21 PM EST Last Filed Vital Signs Vital Sign Reading Time Taken Comments Blood Pressure 134/85 02/02/2021 7:16 AM EDT Pulse 64 02/02/2021 7:16 AM EDT Temperature 36.5 ??C (97.7 ??F) 02/02/2021 7:16 AM ED T Respiratory Rate 16 02/02/2021 7:16 AM EDT Oxygen Saturation 99% 02/02/2021 7:16 AM EDT Inhaled Oxygen Concentration - - Weight 79.4 kg (175 lb) 02/02/2021 7:18 AM EDT Height 170.2 cm (5' 7 ) 02/02/2021 7:18 AM EDT Body Mass Index 27.41 02/02/2021 7:18 AM EDT Plan of Treatment Health Maintenance Due Date Last Done Comments HIV screening 09/08/1972 Hepatitis C screening 09/08/1977 Lipid disorder screening 1999 Colon cancer screening, Colonoscopy 09/08/2004 Pneumococcal Vaccine (50+ years) (1 of 1 - PCV) 09/08/2009 Shingles vaccine (Shingrix) (1 of 2 - Shingrix (RZV) 2 Dose Standard Series) 09/08/2009 Breast cancer screening 11/16/2018 11/16/2016 Diabetes screening 12/10/2023 12/09/2020 Covid-19 vaccine series ( season) 2024 09/21/2020, 08/21/2020 Osteoporosis screening (bone density) 09/08/2024 Influenza vaccine 01/22/2025 Tetanus adult (Td q 10,TDAP once) 03/23/2034 03/23/2024 RSV Immunization (1 - 1-dose 75+ series) 09/08/2034 Cervical cancer screening Discontinued Meningococcal Vaccine Aged Out No valery shanae eligible based on patient's age to complete this topic Procedures Procedure Name Priority Date/Time Associated Diagnosis Comments COMPREHENSIVE METABOLIC PANEL STAT 12/09/2020 9:40 PM EDT MAMMO SCREENING DANNY BILATERAL Routine 11/16/2016 11:15 AM EDT Encounter for screening mammogram for malignant neoplasm of breast from Last 3 Months or Most Recently Relevant to Health Maintenance Results * (ABNORMAL) Comprehensive metabolic panel (12/09/2020 9:40 PM EDT) Sodium 142 136 - 145 mmol/L 12/09/2020 10:16 PM EDT [facility] Potassium 3.1(L) 3.5 - 5.1 mmol/L 12/09/2020 10:16 PM EDT [facility] Chloride 110(H) 98 - 107 mmol/L [facility]2020 [facility] CO2 25 21 - 32 mmol/L 12/09/2020 [facility] Anion Gap 7 5 - 15 mmol/L 12/09/2020 10:16 PM [facility] Glucose 89 65 - 110 mg/dL 12/09/2020 10:16 PM T [facility] Comment: Non-fasting: ??65-110 mg/dL Fasting (minimum 6 hrs): ??65-99 mg/dL BUN 12 7 - 18 mg/dL 12/09/2020 10:16 PM [facility] Creatinine 0.82 0.55 - 1.02 mg/dL 12/09/2020 10:16 PM [facility] eGFR (-CAMBODIAN) >60 >60 mL/min/1. 73m2 12/09/2020 10:16 PM [facility] eGFR (NON -Scottish) >60 >60 mL/min/1. 73m2 12/09/2020 10:16 PM [facility] Comment: (NOTE) ? These are estimated GFR values resulting from ? utilization of a calculation incorporating ? the best data available for input, but all ? assumptions may not be correct in every ? case. ??In addition, there are several ? situations (elderly over 70 years, , ? serious co morbidities, extremes ? of body size or nutritional status) which ? could contribute to a misleading result. ? Therefore, clinical correlation is advised ? to prevent arriving at an erroneous ? conclusion based solely on the calculation ? utilized. Calcium 8.5 8.5 - 10.1 mg/dL 12/09/2020 10:16 PM EDT [facility] Total Protein 7.6 6.4 - 8.2 g/dL 12/09/2020 10:16 PM T [facility] Albumin 3.4 3.4 - 5.0 g/dL 12/09/2020 10:16 PM T [facility] Globulin 4.2 2.5 - 5.0 g/dL 12/09/2020 10:16 PM EDT [facility] Total Bilirubin 0.4 <1.0 mg/dL 12/09/2020 10:16 PM EDT [facility] Comment:Use of this assay is not recommended for patients undergoing treatment with Eltrombopag due to the potential for falsely elevated results. Alkaline Phosphatase 62 45 - 117 U/L 12/09/2020 10:16 PM EDT [facility] Alanine Aminotransferase (ALT) 26 13 - 56 U/L 12/09/2020 10:16 PM EDT [facility] Aspartate Aminotransferase (AST) 19 15 - 37 U/L 12/09/2020 10:16 PM EDT [facility] Blood Venipuncture / Unknown 12/09/2020 9:40 PM EDT 12/09/2020 9:46 PM EDT us Kassie BUTT LAB BLOOD ORDERABLES Final Re sult [facility] [address] [place], [place] [id number] * Mammography Screening Danny Bilateral (11/16/2016 11:15 AM EDT) Anatomical Region Laterality Modality Breast Bilateral Mammography 11/17/2016 5:33 PM EDT Narrative 11/17/2016 5:33 PM EDT [address] [place] [address] MAMMO SCREENING DANNY BILATERAL ARUNA MEDEROS ? Sex: F ??: [id number] ?? Service Date: 2016-11-16 [id number] BILATERAL MAMMOGRAPHY WITH TOMOSYNTHESIS CLINICAL INDICATION: Screening Study COMPARISON EXAM(S): None TECHNIQUE: Bilateral breast tomosynthesis was performed in MLO and CC projections. ??Computer aided detection was utilized in the interpretation of this study. FINDINGS: The breasts are moderately dense and are somewhat heterogeneous with a diffusely nodular pattern. Benign appearing axillary lymph nodes are present on the left. There are well-circumscribed nodules present superiorly in the right breast and superiorly in the left breast that are likely laterally situated. The small nodule on the right measures 3 mm and on the left, 4 mm. There are a few scattered benign-appearing microcalcifications. There are no suspicious microcalcifications or skin changes. IMPRESSION: 1. ??There are small bilateral nodules present superiorly and likely laterally in both breasts. Bilateral breast ultrasound is recommended to see if these small nodules can be localized and further characterize. BREAST DENSITY: The breast tissue is heterogeneously dense, which could obscure detection of small masses (approximately 51%-75% glandular). BI-RAD CATEGORY: OU Incomplete: Need Additional Imaging Evaluation Ultrasound recommended 3340F :L: Bilat :A: Addl Img Yesika :R: US :D: Heterogeneou LOCATION: ??[place], [place] Signed By: Mamadou Denton MD, 17:33:20 Procedure Note Mamadou Denton MD - 11/17/[address] [place] [address] MAMMO SCREENING DANNY BILATERAL ARUNA MEDEROS Sex: F : [id number] Service Date: [id number] BILATERAL MAMMOGRAPHY WITH TOMOSYNTHESIS CLINICAL INDICATION: Screening Study COMPARISON EXAM(S): None TECHNIQUE: Bilateral breast tomosynthesis was performed in MLO and CC projections. Computer aided detection was utilized in the interpretation of this study. FINDINGS: The breasts are moderately dense and are somewhat heterogeneous with a diffusely nodular pattern. Benign appearing axillary lymph nodes are present on the left. There are well-circumscribed nodules present superiorly in the right breast andsuperiorly in the left breast that are likely laterally situated. The small nodule on the right measures 3 mm and on the left, 4 mm. There are a few scattered benign-appearing microcalcifications. There are no suspicious microcalcifications or skin changes. IMPRESSION: 1. There are small bilateral nodules present superiorly and likely laterally in both breasts. Bilateral breast ultrasound is recommended to see if these small nodules can be localized and further characterize. BREAST DENSITY: The breast tissue is heterogeneously dense, which could obscure detection of small masses (approximately 51%-75% glandular). BI-RAD CATEGORY: OU Incomplete: Need Additional Imaging Evaluation Ultrasound recommended 3340F :L: Bilat :A: Addl Img Yesika :R: US :D: Heterogeneou LOCATION: [place], [place] Signed By: Mamadou Denton MD, 17:33:20 Aleena Tanner APRN IM MAMMOGRAPHY ORDERABLES Final Result from Last 3 Months or Most Recently Relevant to Health Maintenance Insurance [place] Care Teams Restaurant Bartender Relationship Specialty Start Date End Date Fransisca Conroy NP [address] [place] [phone] PCP - General Family Medicine 10/22/20
--- OUTSIDE RECORDS SUMMARY | 2024-09-26 01:48 | XMS_ITS | Encounter Summary ---
Author Organization [facility] Address [address] [place] [address] Care Team Providers Care Wholesale Account Executive Name Role Phone Fransisca Conroy NP Primary Care Provider [phone]- [phone] Reason for Referral * Physical Medicine (Routine) - Closed Specialty Diagnoses / Procedures Referred By Contact Referred To Contact Physical Therapy / Rehabilitation Diagnoses Large breasts Left shoulder pain, unspecified chronicity Right shoulder pain, unspecified chronicity Aleena Tanner APRN [address] [place] [address] Phone: tel:[phone] fax:[phone] [facility] [address] Phone: tel: fax: Referral ID Status Reason Start Date Expiration Date Visits Re quested Visits Authorized [id number] Closed 01/07/2017 01/21/2017 1 1 Encounter Details Date Type Department Care Team (Latest Contact Info) Description 11/27/2016 Transcribed Orders [facility] [id number] Aleena Tanner APRN [address] [place] [address] Large breasts (Primary Dx); Left shoulder pain, unspecified chronicity; Right shoulder pain, unspecified chronicity Social History Tobacco Use Types Packs/Day Years Used Date Smoking Tobacco: Never Assessed Comments No Sex and Gender Information Value Date Recorded Sex Assigned at Female 04/04/2020 2:21 PM EST Legal Sex Female 4:04 PM EDT Gender Identity Female 04/04/2020 2:21 PM EST Sexual Orientation Straight 04/04/2020 2: 21 PM EST documented as of this encounter Plan of Treatment Scheduled Referrals Name Type Priority Associated Diagnoses Orde r Schedule Ambulatory referral to Rehab Services (PT/OT/COMMERCIAL ACCOUNT EXECUTIVE) Outpatient Referral Routine Large breasts Left shoulder pain, unspecified chronicity Right shoulder pain, unspecified chronicity Ordered: 11/27/2016 documented as of this encounter Visit Diagnoses Diagnosis Large breasts- Primary Hypertrophy of breast Left shoulder pain, unspecified chronicity Right shoulder pain, unspecified chronicity documented in this encounter Care Teams Wholesale Account Executive Relationship Specialty Start Date End Date Fransisca Conroy NP [address] [place] [address] PCP - General Family Medicine 10/22/20 documented as of this encounter
[2024-09-26 02:05] VITALS: BP 154/86; PULSE 76; RESP 16; TEMP 36.7; O2SAT 100
== END 2024-09-26 02:20 | disposition home or self-care (01) ==
PROVIDERS: Emergency Provider Emergency Medicine Emergency Medical Services; PCP Internal Medicine Geriatric Medicine
DX: M25.462 Effusion, left knee (principal); M17.12 Unilateral primary osteoarthritis, left knee; M25.562 Pain in left knee
CPT/HCPCS: 73564; 99283; 99284

== ENCOUNTER → 2024-09-25 19:48 | Outpatient (BNV) | payer MEDICAID, SELFPAY | PROVIDERS: PCP Internal Medicine Geriatric Medicine; Visit Provider Radiology Diagnostic Radiology | DX: M17.12 Unilateral primary osteoarthritis, left knee (principal); M25.462 Effusion, left knee | CPT/HCPCS: 73564 ==

== ENCOUNTER 2024-10-23 11:57 | Outpatient (REF) | payer MEDICARE, SELFPAY ==
[2024-10-23 13:05] LABS: MANUAL DIFF FLAG NO
--- OUTSIDE RECORDS SUMMARY | 2024-10-23 13:08 | XMS_ITS | Encounter Summary ---
Author Organization [facility] Address [address] [place] [address] Care Team Providers Care Wheel Installer Name Role Phone Fransisca Conroy NP Primary Care Provider [phone]- [phone] Encounter Details Date Type Department Care Team (Late st Contact Info) Description 11/01/2019 Transcribed Orders [facility] at [address] [facility] [address] [facility], [address] [place] [address] Sammy Espino MD [address] [facility] [address] [place] [address] Social History Tobacco Use Types [...] on filedocumented in this encounter Care Teams Wheel Installer Relationship Specialty Start Date End Date Fransisca Conroy NP [address] [place] [phone] PCP - General Family Medicine 10/22/20 documented as of this encounter
[2024-10-23 13:16] LABS: Basophils Percent Auto 0.7 % (0-2); Eosinophils Absolute Auto 0.2 X10*3/uL (0.0-0.4); Eosinophils Percent Auto 4.1 % (0-4); Hematocrit 38.3 % (37.0-47.0); Hemoglobin 12.7 g/dl (12.0-16.0); Imm Gran Abs Auto 0.01 X10*3/uL (0.00-0.03); Imm Gran Pct Auto 0.2 % (0.0-0.4); Lymphocytes Absolute Auto 1.8 X10*3/uL (1.2-4.9); Lymphocytes Percent Auto 30.1 % (20-40); Mean Corpuscular HGB Conc 33.2 g/dl (31.0-35.0); Mean Corpuscular Hemoglobin 27.3 pg (27.0-33.0); Mean Corpuscular Volume 82.2 fL (80.0-98.0); Monocytes Absolute Auto 0.6 X10*3/uL (0.1-1.2); Monocytes Percent Auto 9.5 % (2-11); Neutrophils Absolute Auto 3.2 x10*3/uL (2.0-8.3); Neutrophils Percent Auto 55.4 % (45-73); Platelet Count 270 X10*3/uL (160-400); Red Blood Count 4.66 X10*6/uL (4.20-5.50); Red Cell Distribution Width 13.4 % (11.0-16.0); White Blood Count 5.8 X10*3/uL (4.8-10.8)
[2024-10-23 13:48] LABS: Alanine Aminotransferase 23 U/L (0-31); Albumin Level 4.8 g/dL (3.5-5.0); Alkaline Phosphatase 72 U/L (39-117); Anion Gap 15 (12-20); Aspartate Amino Transferase 29 U/L (5-31); Bilirubin Total 0.5 mg/dL (0.0-1.0); Blood Urea Nitrogen 13 mg/dL (9-16); Calcium 10.2 mg/dL (8.4-10.2); Carbon Dioxide 24 mmol/L (22-29); Chloride 105 mmol/L (96-108); Estimated Glomerular Filt Rate > 60; Glucose Random 82 mg/dL (60-115); Sodium 140 mmol/L (135-145); Total Protein 8.2 g/dL (6.5-8.0)
[2024-10-23 13:51] LABS: TSH reflex Free T4 0.59 uIU/mL (0.32-4.0)
[2024-10-23 14:08] LABS: Folate 14.5 ng/mL (> or = 4.0); Vitamin B12 708 pg/mL (200-900)
== END 2024-10-23 11:58 | disposition home or self-care (01) ==
LOC: HO.HHCL 11:57
PROVIDERS: Visit Provider Internal Medicine Geriatric Medicine
DX: R41.3 Other amnesia (principal)
CPT/HCPCS: 36415; 80053; 82607; 82746; 84443; 85025

== ENCOUNTER 2024-10-26 09:51 | Outpatient (AMB) | payer MEDICARE, MEDICAID, SELFPAY ==
[2024-10-26 09:56] VITALS: BMI 24.6
--- NOTE | 2024-10-26 09:56 | MHC.OFFVIS ---
Vital Signs 10/26/24 09:56 Height 5 ft 8 in Weight 162 lb BMI 24.6 Intake Visit Reasons: BUSINESS SUPPORT SPECIALIST- Left knee OA Intake Note: Zabrina is a 64 year old female who presents today as a new patient with complaints of Left Knee Pain. She was seen at [facility] on 09/25/24 with complaints of pain and swelling, she reported that many years ago she was told by a provider that she would need a knee replacement. Patient reports that she has had ongoing pain for many years now.The left knee pain is through out the entire knee. She has had previous Cortisone injections that offered mild relief. History of Physical Therapy which increased her pain. Pain is worsen when descending stairs, she elevates and takes Ibuprofen and Tylenol with mild relief. Allergies No Known Allergies Allergy (Verified 10/26/24 10:03) HPI HPI BUSINESS SUPPORT SPECIALIST- Left knee OA: Details: Zabrina is a 64 year old female who presents today as a new patient with complaints of Left Knee Pain. She was seen at [facility] on 09/25/24 with complaints of pain and swelling, she reported that many years ago she was told by a provider that she would need a knee replacement. Patient reports that she has had ongoing pain for many years now.The left knee pain is through out the entire knee. She has had previous Cortisone injections that offered mild relief. History of Physical Therapy which increased her pain. Pain is worsen when descending stairs, she elevates and takes Ibuprofen and Tylenol with mild relief. [facility] Medical History Psoriasis Social History Alcohol intake: current Alcohol intake frequency: holidays/special occasions only Physical Exam Vital Signs: BMI result Body Mass Index 24.6 Extrem Other: Varus alignment left knee with tenderness to palpation medial compartment. Positive gait antalgia. 5-125 degrees of motion left knee. Results Reviewed Results Reviewed: I personally reviewed relevant radiographs. Severe osteoarthritis left knee affecting medial and anterior compartment most prominently. Assessment & Plan Assessment & Plan (1) Osteoarthritis of left knee: Code(s): M17.12 - Unilateral primary osteoarthritis, left knee Category: Medical Plan: This is a 64-year-old woman with left knee osteoarthritis. She can not walk comfortably for more than 5 minutes and she has tried therapy and NSAIDs and injections and none of these have been able to provide any sustained relief. She would like to be more active especially with walking and doing activities of daily living. I discussed with her surgical and nonsurgical treatment options after extensive discussion I recommend left knee replacement. I discussed with her the risks, benefits and alternatives of surgery including, but not limited to, the risk of infection stiffness complications with hardware need for future surgery aseptic loosening as well as medical complications associated with surgery such as blood clots, pulmonary and pneumonia among others. All her questions were answered and I will introduce her to our nurse. Medications: Discontinued ibuprofen Discontinued Reason: Patient Completed Course 600 mg PO Q6H PRN 30 tabs 0RF fever or pain ibuprofen Discontinued Reason: Patient Completed Course 600 mg PO Q8H PRN 30 tabs 0RF pain Coding Level of Care Code Est Pt Level 4 (52138) Diagnoses Osteoarthritis of left knee M17.12
--- OUTSIDE RECORDS SUMMARY | 2024-10-26 11:10 | XMS_ITS | Clinical Summary ---
Author Organization [facility] Address [address] [place] [address] Care Team Providers Care Reading Teacher Name Role Phone FloresAleena JACKLYN Primary Care [...] patient's age to complete this topic [place] [address] [place] [address] Care Teams Reading Teacher Relationship Specialty Start Date End Date Aleena Tanner APRN [address] [place] [address] PCP - General 02/17/19
== END 2024-10-26 10:40 | disposition home or self-care (01) ==
LOC: HO.HOS 09:51
PROVIDERS: PCP Internal Medicine Geriatric Medicine; Visit Provider Orthopaedic Surgery
DX: M17.12 Unilateral primary osteoarthritis, left knee (principal)
CPT/HCPCS: 99214

== ENCOUNTER → 2024-10-26 09:51 | Outpatient (BNVA) | payer MEDICARE, SELFPAY | PROVIDERS: PCP Internal Medicine Geriatric Medicine; Visit Provider Orthopaedic Surgery | DX: M17.12 Unilateral primary osteoarthritis, left knee (principal) | CPT/HCPCS: 99212 ==

== ENCOUNTER 2024-11-20 17:43 | Emergency (ER) | payer MEDICARE, MEDICAID, SELFPAY ==
--- NOTE | ~2024-11-20 | CT_ITS ---
CLINICAL HISTORY: Dizziness, Numbness tongue CT head without contrast Comparison: None provided Findings: No intra-axial mass, midline shift, hydrocephalus, or acute hemorrhage. Mild volume loss. There is no sinus or mastoid fluid. The orbits are within normal limits. No skull fracture. IMPRESSION: 1. No acute intracranial findings. This document has been electronically signed by: Candace Chin MD on 11/20/2024 18:19:29
--- NOTE | ~2024-11-20 | CT_ITS ---
CLINICAL HISTORY: Dizziness, Numbness tongue CT angiography head and neck with contrast. 3D Postprocessing. Comparison: CT/SR - CT HEAD FOR STROKE - 11/20/24 18:01 EDT Findings: String of beads appearance of the proximal cervical left ICA. This is nonspecific but can be seen in fibromyalgia. Aortic arch and cervical great vessels are patent with no aneurysm, dissection, hemodynamically significant stenoses, or occlusion. Intracranial arteries are patent. No aneurysm, dissection, hemodynamically significant stenoses, or occlusion. No abnormal intracranial enhancement. The visualized thyroid gland is unremarkable. No cervical mass or fluid collection. Lung apices clear. No acute fracture. IMPRESSION: Patent head and neck CTA. String of beads appearance of the proximal cervical left ICA. This is nonspecific but can be seen in fibromyalgia. This document has been electronically signed by: Candace Chin MD on 11/20/2024 19:20:50
[2024-11-20 17:45] VITALS: BP 150/82; PULSE 97; RESP 18; TEMP 36.2; O2SAT 97; BMI 26.6
--- NOTE | 2024-11-20 17:49 | ED_ITS ---
HPI - General Adult General Chief complaint: Stroke Stated complaint: tounge numbness,dizziness Time Seen by Provider: 11/20/24 17:57 Source: patient Mode of arrival: ambulatory Limitations: no limitations History of Present Illness ED Provider: HPI narrative: Patient's history of anxiety and depression was apparently in good health [facility] all of a sudden started having tingling of the tongue with dizziness and unsteady gait no prior history of vertigo no migraine no tinnitus patient was unable to ambulate no focal weakness when patient arrived not on blood thinners Related Data Home Medications ?Medication ?Instructions ?Recorded ?Confirmed sertraline 50 mg tablet 50 mg PO DAILY 10/26/24 ustekinumab 45 mg/0.5 mL mg subcut 10/26/24 subcutaneous syringe ([email or web address]) Previous Rx's ?Medication ?Instructions ?Recorded cyclobenzaprine 10 mg tablet 10 mg PO Q8H #20 tabs 12/14 meclizine 25 mg tablet 25 mg PO TID PRN dizziness # 20 tabs 11/20/24 Allergies Allergy/AdvReac Type Severity Reaction Status Date / Time No Known Allergies Allergy Verified 11/20/24 17:46 Review of Systems 2 Review of Systems: Yes all other systems are reviewed and are negative [facility] Past Medical History Medical History Psoriasis Social History Social History Alcohol intake: current Alcohol intake frequency: holidays/special occasions only Advance Directives: No Advance Directives Information Provided: No Do you have a plan to hurt others: No Plan Physical Exam ED Vital Signs: Vital Signs - 24 hr 11/20/24 17:45 11/20/24 18:16 11/20/24 19:17 Temperature 97.1 F 97.8 F 97.8 F Pulse Rate 97 84 73 Respiratory Rate 18 12 15 Blood Pressure 150/82 H 146/86 H 160/83 H Pulse Oximetry 97 100 97 Oxygen Delivery Method Room Air Room Air Room Air 11/20/24 20:33 11/20/24 20:34 Temperature 97.9 F 97.9 F Pulse Rate 78 78 Respiratory Rate 18 18 Blood Pressure 120/78 120/78 Pulse Oximetry 99 99 Oxygen Delivery Method Room Air Room Air BMI result Body Mass Index 26.6 Appearance: Alert. Oriented X3. No acute distress. Eyes: PERRLA, No Nystagmus ENT: Pharynx normal. Oral Mucosa moist Neck: Normal inspection. Neck supple. CVS: Normal heart rate and rhythm. Pulses normal. Respiratory: No respiratory distress. Equal air entry bilateral, no wheezing/rales/rhonchi Abdomen: Soft and nontender. Bowel sounds are present, no mass palpable, no CVA tenderness Skin: Skin warm and dry. Normal skin color. Normal skin turgor. Extremities: No lower extremity edema. No calf tenderness Neuro: Oriented X 3. No motor deficit. No sensory deficit.No cerebellar signs , cranial nerves II-XII intact NIH Stroke Scale Internal: Initial- Upon Arrival Level of Consciousness: Alert Level of Consciousness Questions: Answers both questions correctly Level of Consciousness Commands: Performs both tasks correctly Best Gaze: Normal Visual: No visual loss Facial Palsy: Normal Motor Arm (Right): No drift Motor Arm (Left): No drift Motor Leg (Right): No drift Motor Leg (Left): No drift Limb Ataxia: Absent Sensory: Normal Best Language: No aphasia Dysarthia: Normal Extinction and Inattention: No abnormality Score: 0 Course Course Course Narrative: RME performed by Lilia Thrasher PA-C. Patient is a 64 year old assigned female at presenting to the emergency department with numbness tingling / feeling unsteady. Stroke alert. Medications Administered Discontinued Medications Generic Name Dose Route Start Last Admin Trade Name Freq PRN Reason Stop Dose Admin Iohexol 70 ml 11/20/24 18:18 11/20/24 18:18 Iohexol 350 Mg/Ml 100 Ml Infus..Btl IV 11/20/24 18:19 70 ml ONCE ONE Administration Meclizine HCl 25 mg 11/20/24 18:27 11/20/24 18:42 Meclizine Hcl 25 Mg Tablet PO 11/20/24 18:28 25 mg ONCE ONE Administration Midazolam HCl 1 mg 11/20/24 18:29 11/20/24 18:42 Midazolam Hcl 2 Mg/2 Ml Vial IVPUSH 11/20/24 18:30 1 mg ONCE ONE Administration Medical Decision Making Medical Decision Making MDM Narrative: Patient with acute onset of vertiginous feeling no focal deficit noticed CTA head and neck negative for acute lesion patient improved after lorazepam and meclizine will discharge patient home on meclizine patient is ambulatory in steady gait before discharge Differential Diagnosis Differential Diagnoses: The differential diagnosis associated with the presentation includes CVA/TIA Admission/Observation Consideration of admission/observation: Escalation of care including admission/observation considered Consult Healthcare Provider Management of the patient was discussed with: Hospitalist Lab Data MDM Lab Attestation statement: I reviewed the patient's lab results. 11/20/24 18:00 11/20/24 18:00 Labs: Lab Results 11/20/24 11/20/24 11/20/24 Range/Units 17:55 17:58 18:00 WBC 6.1 (4.8-10.8) X10*3/uL RBC 4.77 (4.20-5.50) X10*6/uL Hgb 12.8 (12.0-16.0) g/dl Hct 38.8 (37.0-47.0) % MCV 81.3 (80.0-98.0) fL MCH 26.8 L (27.0-33.0) pg MCHC 33.0 (31.0-35.0) g/dl RDW 13.0 (11.0-16.0) % Plt Count 301 (160-400) X10*3/uL MPV 10.8 (9.4-12.3) fL Immature Gran % (Auto) 0.2 (0.0-0.4) % Neut % (Auto) 57.2 (45-73) % Lymph % (Auto) 30.9 (20-40) % [place] % (Auto) 8.7 (2-11) % Eos % (Auto) 2.5 (0-4) % Baso % (Auto) 0.5 (0-2) % Lymph # (Auto) 1.9 (1.2-4.9) X10*3/uL [place] # (Auto) 0.5 (0.1-1.2) X10*3/uL Eos # (Auto) 0.2 (0.0-0.4) X10*3/uL Baso # (Auto) 0.0 (0.0-0.2) X10*3/uL Abs Immat Gran (auto) 0.01 (0.00-0.03) X10*3/uL Absolute Neuts (auto) 3.5 (2.0-8.3) x10*3/uL Absolute Nucleated RBC 0.000 (0.0-0.012) X10*3/uL Nucleated RBC % (auto) 0.0 (0.0-0.2) /100WBC PT 11.6 (10.9-12.4) SEC Whole Blood PT 12.3 (11.1-13.5) sec INR 1.0 (0.9-1.1) Whole Blood INR 1.0 (0.9-1.1) APTT 32.1 (26.0-36.8) SEC Sodium 140 (135-145) mmol/L Potassium 3.7 (3.3-5.1) mmol/L Chloride 106 (96-108) mmol/L Carbon Dioxide 25 (22-29) mmol/L Anion Gap 13 (12-20) BUN 13 (9-16) mg/dL Creatinine 0.86 (0.5-1.4) mg/dL Estim Creat Clear Calc 67.4 Estimated GFR > 60 POC Glucose 119 H (60-115) mg/dL Random Glucose 104 (60-115) mg/dL Calcium 10.1 (8.4-10.2) mg/dL Troponin I High Sens < 2.7 (<3.5-17.0) ng/L Triglycerides 126 (<150) mg/dL Cholesterol 245 H (<200) mg/dL LDL Cholesterol, Calc 140 H (<100) mg/dL HDL Cholesterol 80 (>40) mg/dL Urine Color Urine Appearance Urine pH (5.0-9.0) Ur Specific [place] (1.005-1.025) Urine Protein (Neg-Trace) mg/dL Urine Glucose (UA) (Negative) mg/dL Urine Ketones (Negative) mg/dL Urine Blood (Negative) Urine Nitrite (Negative) Ur Leukocyte Esterase (Negative) Urine Opiates Screen (Not Detect) Ur Buprenorphine Scrn (Not Detect) ng/mL Ur Oxycodone Screen (Not Detect) ng/mL Urine Methadone Screen (Not Detect) ng/mL Urine Fentanyl Screen (Not Detect) Ur Barbiturates Screen (Not Detect) Ur Phencyclidine Scrn (Not Detect) Ur Amphetamines Screen (Not Detect) U Benzodiazepines Scrn (Not Detect) Urine Cocaine Screen (Not Detect) U Marijuana (THC) Screen (Not Detect) Ethyl Alcohol < 10 mg/dL 11/20/24 Range/Units 19:20 WBC (4.8-10.8) X10*3/uL RBC (4.20-5.50) X10*6/uL Hgb (12.0-16.0) g/dl Hct (37.0-47.0) % MCV (80.0-98.0) fL MCH (27.0-33.0) pg MCHC (31.0-35.0) g/dl RDW (11.0-16.0) % Plt Count (160-400) X10*3/uL MPV (9.4-12.3) fL Immature Gran % (Auto) (0.0-0.4) % Neut % (Auto) (45-73) % Lymph % (Auto) (20-40) % [place] % (Auto) (2-11) % Eos % (Auto) (0-4) % Baso % (Auto) (0-2) % Lymph # (Auto) (1.2-4.9) X10*3/uL [place] # (Auto) (0.1-1.2) X10*3/uL Eos # (Auto) (0.0-0.4) X10*3/uL Baso # (Auto) (0.0-0.2) X10*3/uL Abs Immat Gran (auto) (0.00-0.03) X10*3/uL Absolute Neuts (auto) (2.0-8.3) x10*3/uL Absolute Nucleated RBC (0.0-0.012) X10*3/uL Nucleated RBC % (auto) (0.0-0.2) /100WBC PT (10.9-12.4) SEC Whole Blood PT (11.1-13.5) sec INR (0.9-1.1) Whole Blood INR (0.9-1.1) APTT (26.0-36.8) SEC Sodium (135-145) mmol/L Potassium (3.3-5.1) mmol/L Chloride (96-108) mmol/L Carbon Dioxide (22-29) mmol/L Anion Gap (12-20) BUN (9-16) mg/dL Creatinine (0.5-1.4) mg/dL Estim Creat Clear Calc Estimated GFR POC Glucose (60-115) mg/dL Random Glucose (60-115) mg/dL Calcium (8.4-10.2) mg/dL Troponin I High Sens (<3.5-17.0) ng/L Triglycerides (<150) mg/dL Cholesterol (<200) mg/dL LDL Cholesterol, Calc (<100) mg/dL HDL Cholesterol (>40) mg/dL Urine Color Yellow Urine Appearance Clear Urine pH 8.0 (5.0-9.0) Ur Specific [place] >= 1.030 H (1.005-1.025) Urine Protein Negative (Neg-Trace) mg/dL Urine Glucose (UA) Negative (Negative) mg/dL Urine Ketones Negative (Negative) mg/dL Urine Blood Negative (Negative) Urine Nitrite Negative (Negative) Ur Leukocyte Esterase Negative (Negative) Urine Opiates Screen Not Detected (Not Detect) Ur Buprenorphine Scrn Not Detected (Not Detect) ng/mL Ur Oxycodone Screen Not Detected (Not Detect) ng/mL Urine Methadone Screen Not Detected (Not Detect) ng/mL Urine Fentanyl Screen Not Detected (Not Detect) Ur Barbiturates Screen Not Detected (Not Detect) Ur Phencyclidine Scrn Not Detected (Not Detect) Ur Amphetamines Screen Not Detected (Not Detect) U Benzodiazepines Scrn Not Detected (Not Detect) Urine Cocaine Screen Not Detected (Not Detect) U Marijuana (THC) Screen Not Detected (Not Detect) Ethyl Alcohol mg/dL Independent Interpretation I performed an independent interpretation of an: EKG Interpretation: Normal sinus rhythm heart rate 86 beats per minute normal interval normal axis no acute ST-T no acute ischemia Critical Care Time Critical Care Time Critical Care Time: Yes Total Critical Care Time: 60 Attestation: Time is exclusive of separately billable procedures. Time includes: direct patient care, patient reassessment, coordination of patient care, interpretation of data (laboratory data, pulse oximetry, arterial blood gases and chest xrays), review of patient's medical records, medical consultation and documentation of patient care. Procedures excluded from critical care time: central intravenous line placement and electrocardiography. Discharge Plan Discharge Clinical Impression: Benign paroxysmal positional vertigo Patient Disposition: Home, Self-Care Instructions: Benign Paroxysmal Positional Vertigo (DC) Additional Instructions: Symptoms likely from vertigo no finding of the stroke were seen in the CT scan Take meclizine 1 tablet every 8 hours as needed for dizziness Follow up with your PCP Prescriptions: New meclizine 25 mg tablet 25 mg PO TID PRN (Reason: dizziness) Qty: 20 0RF No Action cyclobenzaprine 10 mg tablet 10 mg PO Q8H Qty: 20 0RF ustekinumab [Stelara] 45 mg/0.5 mL syringe subcut sertraline 50 mg tablet 50 mg PO DAILY Interventions: ED Discharge Assessment Last Done: 11/20/24 20:34 Discharge Date/Time: 11/20/24 20:34 Print Language: Azeri
--- NOTE | 2024-11-20 17:50 | ECG_ITS ---
Test Reason : STROKE ALERT Blood Pressure : */* mmHG Vent. Rate : 86 BPM Atrial Rate : 86 BPM P-R Int : 136 ms QRS Dur : 90 ms QT Int : 398 ms P-R-T Axes : 59 6 56 degrees QTcB Int : 476 ms Normal sinus rhythm Normal ECG When compared with ECG of 18-May-2016 14:39, No significant change was found Referred By: Lilia Thrasher Electronically Signed By: DIOR PARKS MD
[2024-11-20 18:03] LABS: Prothrombin Time Whole Bld POC 12.3 sec (11.1-13.5)
[2024-11-20 18:04] LABS: MANUAL DIFF FLAG NO
[2024-11-20 18:07] LABS: Basophils Percent Auto 0.5 % (0-2); Eosinophils Absolute Auto 0.2 X10*3/uL (0.0-0.4); Eosinophils Percent Auto 2.5 % (0-4); Hematocrit 38.8 % (37.0-47.0); Hemoglobin 12.8 g/dl (12.0-16.0); Imm Gran Abs Auto 0.01 X10*3/uL (0.00-0.03); Imm Gran Pct Auto 0.2 % (0.0-0.4); Lymphocytes Absolute Auto 1.9 X10*3/uL (1.2-4.9); Lymphocytes Percent Auto 30.9 % (20-40); Mean Corpuscular Hemoglobin 26.8 pg (27.0-33.0); Mean Corpuscular Volume 81.3 fL (80.0-98.0); Mean Platelet Volume 10.8 fL (9.4-12.3); Monocytes Absolute Auto 0.5 X10*3/uL (0.1-1.2); Monocytes Percent Auto 8.7 % (2-11); Neutrophils Absolute Auto 3.5 x10*3/uL (2.0-8.3); Neutrophils Percent Auto 57.2 % (45-73); Platelet Count 301 X10*3/uL (160-400); Red Blood Count 4.77 X10*6/uL (4.20-5.50); White Blood Count 6.1 X10*3/uL (4.8-10.8)
[2024-11-20 18:16] VITALS: BP 146/86; PULSE 84; RESP 12; TEMP 36.6; O2SAT 100
[2024-11-20 18:18] LABS: Prothrombin Time 11.6 SEC (10.9-12.4)
[2024-11-20] MEDS: iohexoL 350 MG/ML 100 ML INFUS..BTL 70 ML IV (18:18)
[2024-11-20 18:20] LABS: Partial Thromboplastin Time 32.1 SEC (26.0-36.8)
[2024-11-20 18:24] LABS: Anion Gap 13 (12-20); Blood Urea Nitrogen 13 mg/dL (9-16); Calcium 10.1 mg/dL (8.4-10.2); Carbon Dioxide 25 mmol/L (22-29); Chloride 106 mmol/L (96-108); Cholesterol 245 mg/dL (<200); Creatinine Clr Calc Pharmacy 67.4; Estimated Glomerular Filt Rate > 60; Ethanol < 10 mg/dL; Glucose Random 104 mg/dL (60-115); HDL Cholesterol 80 mg/dL (>40); LDL Cholesterol Calculated 140 mg/dL (<100); Potassium 3.7 mmol/L (3.3-5.1); Sodium 140 mmol/L (135-145); Triglycerides 126 mg/dL (<150)
[2024-11-20 18:25] LABS: Stroke Lab Use COMPLETE
[2024-11-20 18:30] LABS: Troponin-I High Sensitivity < 2.7 ng/L (<3.5-17.0)
[2024-11-20] MEDS: Midazolam HCl 2 MG/2 ML VIAL 1 MG IVPUSH (18:42)
[2024-11-20] MEDS: Meclizine HCl 25 MG TABLET PO (18:42)
--- NOTE | 2024-11-20 19:00 | PC.NURSE ---
64 F presents to ED with last known well of around 4pm. C/o bilateral lower extremity weakness and dizziness/light headedness. A+Ox4 and follows commands, equal strength in bilat extremities. Denies any pain. RR even and unlabored, denies CP or SOB. Pt is calm, cooperative. Pt continuous to feel dizziness and stated she started feeling off after eating a fast food burger. No other complaints.
[2024-11-20 19:17] VITALS: BP 160/83; PULSE 73; RESP 15; TEMP 36.6; O2SAT 97
[2024-11-20 19:27] LABS: Appearance Urine Clear; Color Urine Yellow; Glucose Urine UA Negative (Negative); Leukocyte Esterase Urine Negative (Negative); Nitrite Urine Negative (Negative); Specific Gravity - Urine >= 1.030 (1.005-1.025); Urine Blood Negative (Negative); Urine Ketones Negative (Negative); Urine Protein Negative (Neg-Trace)
[2024-11-20 19:36] LABS: Amphetamine Screen Urine Not Detected (Not Detect); Barbiturates, Urine Not Detected (Not Detect); Benzodiazepines Screen Urine Not Detected (Not Detect); Buprenorphine Scr Not Detected (Not Detect); Cannabinoid Screen Urine Not Detected (Not Detect); Cocaine Screen Urine Not Detected (Not Detect); Fentanyl, urine Not Detected (Not Detect); Methadone Screen, Urine Not Detected (Not Detect); Opiate Screen Urine Not Detected (Not Detect); Oxycodone Screen Urine Not Detected (Not Detect); Phencyclidine Screen Urine Not Detected (Not Detect)
[2024-11-20 20:33] VITALS: BP 120/78; PULSE 78; RESP 18; TEMP 36.6; O2SAT 99
[2024-11-20 20:34] VITALS: BP 120/78; PULSE 78; RESP 18; TEMP 36.6; O2SAT 99
[2024-11-20 20:46] LABS: Glucose, Whole Blood 119 mg/dL (60-115)
== END 2024-11-20 20:34 | disposition home or self-care (01) ==
PROVIDERS: Physician Assistant Medical; Emergency Provider Internal Medicine
DX: H81.10 Benign paroxysmal vertigo, unspecified ear (principal); R29.700 NIHSS score 0; R20.0 Anesthesia of skin; R26.81 Unsteadiness on feet; Z79.899 Other long term (current) drug therapy
CPT/HCPCS: 36415; 70450; 70496; 70498; 80048; 80061; 80307; 81003; 82947; 84484; 85025; 85610; 85730; 93005; 96374; 99285; 99291; J2250; Q9967

== ENCOUNTER → 2024-11-20 17:50 | Outpatient (BNV) | payer MEDICARE, MEDICAID, SELFPAY | PROVIDERS: Emergency Provider Internal Medicine; Visit Provider Internal Medicine Cardiovascular Disease | DX: I63.9 Cerebral infarction, unspecified (principal) | CPT/HCPCS: 93010 ==

== ENCOUNTER → 2024-11-20 17:50 | Outpatient (BNV) | payer MEDICARE, MEDICAID, SELFPAY | PROVIDERS: Emergency Provider Internal Medicine; Visit Provider Radiology Diagnostic Radiology | DX: R42 Dizziness and giddiness (principal); R20.0 Anesthesia of skin | CPT/HCPCS: 70450; 70496; 70498 ==

== ENCOUNTER → 2024-11-21 13:07 | Outpatient (BNVA) | payer MEDICARE, SELFPAY | PROVIDERS: PCP Internal Medicine Geriatric Medicine | DX: Z01.818 Encounter for other preprocedural examination (principal) ==

== ENCOUNTER 2024-11-27 09:15 | Outpatient (REF) | payer OTHER, SELFPAY ==
--- OUTSIDE RECORDS SUMMARY | 2024-11-27 09:43 | XMS_ITS | Encounter Summary ---
Author Organization [facility] Address [address] [place] [address] Care Team Providers Care Industrial Chemicals Supervisor Name Role Phone Fransisca Conroy NP Primary Care Provider [phone] Encounter Details Date Type Department Care Team (Late st Contact Info) Description 11/01/2019 Transcribed Orders [facility] at [address] [facility] [address] [facility], [address] [place] [address] Sammy Espino MD 3 [facility] [address] [place] [address] Social History Tobacco Use Types [...] on filedocumented in this encounter Care Teams Industrial Chemicals Supervisor Relationship Specialty Start Date End Date Fransisca Conroy NP [address] [place] [id number] PCP - General Family Medicine 10/22/20 documented as of this encounter
--- OUTSIDE RECORDS SUMMARY | 2024-11-27 09:43 | XMS_ITS | Clinical Summary ---
Author Organization [facility] Address [address] [place] [address] Care Team Providers Care Customer Retention Specialist Name Role Phone FloresAleena JACKLYN Primary Care [...] patient's age to complete this topic [place] [address] [place] [address] Care Teams Customer Retention Specialist Relationship Specialty Start Date End Date Aleena Tanner APRN [address] [place] [address] PCP - General 02/17/19
[2024-11-27 11:22] LABS: MANUAL DIFF FLAG NO
[2024-11-27 11:34] LABS: Hematocrit 39.9 % (37.0-47.0); Hemoglobin 12.9 g/dl (12.0-16.0); Imm Gran Abs Auto 0.01 X10*3/uL (0.00-0.03); Imm Gran Pct Auto 0.2 % (0.0-0.4); Lymphocytes Absolute Auto 1.5 X10*3/uL (1.2-4.9); Mean Corpuscular HGB Conc 32.3 g/dl (31.0-35.0); Mean Corpuscular Hemoglobin 26.7 pg (27.0-33.0); Mean Corpuscular Volume 82.6 fL (80.0-98.0); NRBC Abs Auto 0.000 X10*3/uL (0.0-0.012); NRBC Pct Auto 0.0 /100WBC (0.0-0.2); Platelet Count 228 X10*3/uL (160-400); Red Blood Count 4.83 X10*6/uL (4.20-5.50); White Blood Count 5.3 X10*3/uL (4.8-10.8)
[2024-11-27 14:31] LABS: Anion Gap 15 (12-20); Blood Urea Nitrogen 16 mg/dL (9-16); Calcium 9.9 mg/dL (8.4-10.2); Carbon Dioxide 25 mmol/L (22-29); Chloride 107 mmol/L (96-108); Estimated Glomerular Filt Rate > 60; Potassium 4.2 mmol/L (3.3-5.1); Sodium 143 mmol/L (135-145)
== END 2024-11-27 09:16 | disposition home or self-care (01) ==
LOC: HO.HHCL 09:15
PROVIDERS: PCP Internal Medicine Geriatric Medicine; Visit Provider Nurse Practitioner Family
DX: Z01.818 Encounter for other preprocedural examination (principal)
CPT/HCPCS: 36415; 80048; 85025

== ENCOUNTER 2024-12-25 16:17 | Outpatient (REF) | payer OTHER, SELFPAY ==
--- NOTE | ~2024-12-25 | CT_ITS ---
EXAMINATION: CT HEAD WITHOUT CONTRAST CLINICAL INFORMATION: Memory problems COMPARISON: November 20, 2024 TECHNIQUE: Contiguous axial imaging was performed from the skull base to vertex without intravenous administration of contrast. This CT examination was performed using dose optimization techniques as appropriate, variously including the following: *Automated exposure control *Adjustment of mA and/or kV according to patient size (this includes techniques or standardized protocols for targeted exams where dose is matched to indication/reason for exam; i.e. extremities or head) *Use of iterative reconstruction technique DLP: 701 mGY*cm FINDINGS: There is no acute ischemic change. There is no intracranial hemorrhage. There is no mass-effect or midline shift. There is mild frontal lobe atrophy. Basal cisterns and ventricles are within normal limits for age/cerebral volume. Orbits are symmetrical and unremarkable. Paranasal sinuses and mastoid air cells are pneumatized. There are no bony abnormalities. CT/CT head/brain wo IV con IMPRESSION: No acute intracranial abnormality. Electronically signed by: Aguilar Myers MD 12/25/2024 05:34 PM EDT
--- OUTSIDE RECORDS SUMMARY | 2024-12-25 16:19 | XMS_ITS | Clinical Summary ---
Author Organization [facility] Address [address] [place] [address] Care Team Providers Care Refrigeration Houseman Name Role Phone FloresAleena JACKLYN Primary Care [...] patient's age to complete this topic Insurance [place] [address] Care Teams Refrigeration Houseman Relationship Specialty Start Date End Date Aleena Tanner APRN [address] [place] [address] PCP - General 02/17/19
--- OUTSIDE RECORDS SUMMARY | 2024-12-25 16:19 | XMS_ITS | Encounter Summary ---
Author Organization [employer] Address [address] [facility] [address] [place] [address] Care Team Providers Care Batt Packer Name Role Phone Name, Fadi GREER Primary Care Provider [phone] Reason for Visit * Reason Onset Date Comments Prior Auth DME 12/19/2024 Pt requesting DM E for walker for surgery , surgery is on December in [facility]. Encounter Details Date Type Department Care Team (Late st Contact Info) Description 12/19/2024 Telephone [facility] MEDICINE [address], [place] [phone] Name, MD Fadi [address] [place] [address] Prior Auth DME (Pt requesting DME for walker for surgery , surgery is on December in [facility].) Social History Tobacco Use Types Packs/Day Years Used Date Smoking Tobacco: Some Days Cigarettes Passive Smoke Exposure: Current Smokeless Tobacco: Never Alcohol Use Standard Drinks/Week Comments Yes 0 (1 standard drink = 0.6 oz pur e alcohol) socially Depression Answer Date Recorded Patient Health Questionnaire-9 Score 6 10/23/2024 Patient Health Questionnaire-9 Score 6 10/23/2024 Last PHQ-9: Questionnaire Data Not on file 0 10/23/2024 Housing Stability Answer Date Recorded What is your housing situation today? I have yanna swenson 11/16/[address] you li ve. Do you have problems with any of the following? None of the above 11/16/2024 Food Insecurity Answer Date Recorded Within the past 12 months, y ou worried that your food would run out before you got money to buy more: Never True 11/16/2024 Within the past 12 months,th e food you bought just didn't last and you didn't have enough money to get more: Never True Transportation Answer Date Recorded In the past [...] Answer Date Recorded Patient Health Questionnaire-2 Score 3 10/23/2024 Internet Access Answer Date Recorded Internet Access Q1 Yes 03/16/2024 Internet Access Q2 Not on file 03/16/2024 Comments Unknown Sex and Gender Information Value Date Recorded Sex Assigned at Female 11/02/2023 8:52 AM EDT Legal Sex Female 11:26 AM EDT Gender Identity Female 11/02/2023 8:52 AM EDT Sexual Orientation Straight 11/02/2023 8: 52 AM EDT documented as of this encounter Miscellaneous Notes * Telephone Encounter - Mariela Ordonez - 12/20/2024 11:26 AM EDT Please see below message and advise if agree with DME. Thank you * Telephone Encounter - Catherine Barboza - 12/19/2024 3:35 PM EDT Pt requesting DME for walker for surgery , surgery is on December in [facility]. documented in this encounter Plan of Treatment Upcoming Encounters Date Type Department Care Team (Late st Contact Info) Description 02/08/2025 11:15 AM EDT Office Visit [facility] MEDICINE [address] [place] [address] Name, MD Fadi [address] [place] [address] documented as of this encounter Visit Diagnoses Not on filedocumented in this encounter Additional Health Concerns Assessment Noted Time PHQ-9 Depression Total Score: 6 10/24/19 25 11:07 AM EDT documented as of this encounter Care Teams Batt Packer Relationship Specialty Start Date End Date Name, MD Fadi [address] [place] [address] PCP - General Internal Medicine 03/23/24 documented as of this encounter
--- OUTSIDE RECORDS SUMMARY | 2024-12-25 16:19 | XMS_ITS | Encounter Summary ---
Author Organization [facility] Address [address] [place] [address] Care Team Providers Care Client Service Executive Name Role Phone rFansisca Conroy NP Primary Care Provider [phone] Encounter Details Date Type Department Care Team (Late st Contact Info) Description 11/01/2019 Transcribed Orders [facility] & Midwifery at [address] [facility] [address] [facility], [address] [place] [address] Sammy Espino MD 3 [facility] [address] [place] [address] Social History Tobacco Use Types [...] on filedocumented in this encounter Care Teams Client Service Executive Relationship Specialty Start Date End Date Fransisca Conroy NP [address] [place] [phone] PCP - General Family Medicine 10/22/20 documented as of this encounter
== END 2024-12-25 16:18 | disposition home or self-care (01) ==
LOC: HO.CT 16:17
PROVIDERS: Visit Provider Internal Medicine Geriatric Medicine
DX: R41.3 Other amnesia (principal)
CPT/HCPCS: 70450

== ENCOUNTER → 2024-12-25 16:19 | Outpatient (BNV) | payer OTHER, SELFPAY | PROVIDERS: Visit Provider Radiology Diagnostic Radiology | DX: R41.3 Other amnesia (principal) | CPT/HCPCS: 70450 ==

== ENCOUNTER 2024-12-28 09:48 | Outpatient (AMB) | payer OTHER, SELFPAY ==
--- NOTE | 2024-12-28 09:16 | A.OFFVIS_ITS ---
Vital Signs 12/28/24 10:13 Height 5 ft 7 in Weight 160 lb BMI 25.1 Handedness Right Intake Visit Reasons: Pre-Op: L TKA w/NE 01/03/25 Intake Note: Zabrina is a 64 year old female who presents today for a pre operative appointment left knee total arthroplasty done on 01/03/[address] Apodaca. Allergies No Known Allergies Allergy (Verified 12/28/24 10:14) HPI HPI Pre-Op: L TKA w/NE 01/03/25: Details: The patient is a 64-year-old female with a history of end-stage osteoarthritis of the left knee who is scheduled for a total knee arthroplasty on 01/03/[address] Apodaca. They have experienced progressive knee pain over the past several years, primarily localized to the medial and patellofemoral compartment. Pain is described as aching/sharp/throbbing, worsened by prolonged standing, walking, and stair climbing. Conservative treatments including physical therapy, NSAIDs, activity modification, and corticosteroid injections provided only temporary or minimal relief. The patient reports significant limitations in daily activities and decreased quality of life due to pain. No recent history of trauma or infection. [facility] Medical History (Updated 12/13/24 @ 10:14 by Abida Tena RN) Heartburn Vertigo Osteoarthritis Depression with anxiety Psoriasis Surgical History (Updated 12/28/24 @ 10:53 by Cynthia Alcantara PA-C) H/O oral surgery Hx of section Social History (Updated 12/28/24 @ 10:13 by Wes Barboza) Are you a primary career consultant to a significant other at home: No Do you presently have visiting nurse or other home services: No Alcohol intake: current Alcohol intake frequency: holidays/special occasions only Patient Tobacco Use Status: Former Tobacco user Tobacco use type: Cigarette Cigarettes Per Day: 2 Years Smoked: 40 Current occupational status: disabled Current occupation: right hand dominant Review of Systems Const All systems reviewed & are unremarkable except as noted in HPI and below Physical Exam Vital Signs: BMI result Body Mass Index 25.1 Const General: cooperative, healthy appearing, comfortable, no acute distress, well developed, alert and awake Orientation/consciousness: patient oriented x3 HEENT Head: Yes normal to inspection, Yes normocephalic and Yes atraumatic Eyes General: appearance normal, both eyes and all related structures Neck Neck: Yes normal visual inspection and Yes no lymphadenopathy Resp Effort & Inspection: normal respiratory effort and able to speak in complete sentences Cardio Rate: regular rate Peripheral pulses: Peripheral pulses 2+ throughout GI Inspection: Yes normal to inspection Palpation (GI): Soft to palpation Skin General skin exam: no rashes or lesions noted Neuro General: patient oriented x3 Extrem Other: Left knee: Varus alignment. No ecchymosis, erythema, or joint effusion. Tenderness to palpation medial compartment. Range of motion 5-125 degrees. Antalgic gait. NVI. Psych Mental Status: mental status grossly normal Assessment & Plan Assessment & Plan (1) Osteoarthritis of left knee: Code(s): M17.12 - Unilateral primary osteoarthritis, left knee Category: Medical Plan The patient is a 64-year-old female with a history of end-stage osteoarthritis of the left knee who is scheduled for a total knee arthroplasty on 01/03/[address] Apodaca. They have experienced progressive knee pain over the past several years, primarily localized to the medial and patellofemoral compartment. Pain is described as aching/sharp/throbbing, worsened by prolonged standing, walking, and stair climbing. Conservative treatments including physical therapy, NSAIDs, activity modification, and corticosteroid injections provided only temporary or minimal relief. The patient reports significant limitations in daily activities and decreased quality of life due to pain. No recent history of trauma or infection. Patient has attended her PCP clearance with [facility] on 11/22/2024 as well as her preadmission testing on 12/05/2024 at [facility]'s Short Stay Surgery Department. PCP clearance obtained from Christy BURGESS, cosigned by Zabrina Herrera MD from the [facility]: Patient was seen on 11/22/2024 with a preop examination as follows: Patient may proceed with surgery and anesthesia without further risk stratification at this time reviewed cardiac risk factors based on RCRL. Patient has 0 risks factors corresponding to 0.4% risk of a major cardiac event during surgery. Patient was advised to avoid NSAIDs starting 3 days before surgery as she is currently taking ibuprofen. Patient was advised on smoking cessation. Patient may safely hold all other medications day of surgery. Additionally, the patient presented to the emergency department on 04/29/2024 for low back pain without radiation. Lumbar spine x-rays were obtained and she was found to have mild degenerative changes with no fracture. She was prescribed Flexeril and ibuprofen which helped with her pain. She follow up with her primary care provider on 07/19/2024 for worsening right low back pain. At that time she was prescribed lidocaine 5% patches, Flexeril, Tylenol and ibuprofen which helped to alleviate her pain. * Patient was reminded while in the office to stop al NSAIDs and if pain relief is needed she may take Tylenol. Patient understands and accepts. Additionally, the patient presented to the emergency department on 11/20/2024 after reporting a sudden onset of tongue tingling with associated extreme dizziness and unsteady gait. CT scan of neck was obtained at that time was significant for possible fibromyalgia. An additional CT scan of head was obtained at that time as well and was negative for any intracranial findings. Pa have fully resolved. jacqueline reports since then her symptoms Per the PAT note: Patient had an EKG that was performed in October of 2024 with the results of normal sinus rhythm, normal EKG, when EKG was compared to prior EKG on 05/18/2016 there was no significant change found. Patient has a past social history significant for tobacco use. She reports she quit smoking 1 year ago. She does also however report that socially she does smoke tobacco. She was educated on the effect of smoking on wound healing, vasoconstriction, increased risk of infecton, delayed bone healing, cardiovascular events, increased revision rate, and poorer functional outcomes. I discussed in detail the procedure and what to expect pre and post operatively. We discussed the risks, benefits and alternatives to the surgery as well as the rehabilitation course. The following topics were reviewed in detail with the patient: Risks: Risks include, but are not limited to infection, bleeding, blood clots, nerve injury, ongoing pain, ongoing swelling, ongoing stiffness, perioperative risk of injury to bones and soft tissues, prosthesis loosening or wear, anesthesia related complications, revision surgery, amputation, and mortality. Expected Benefits: Improved function, reduced pain, better quality of life. Alternatives: Continued non-operative treatment, joint injections, bracing, physical therapy or no surgery. Risks of not moving forward with surgery: Progression of joint disease and damage, worsening function, fracture, and/or pain. The patient had ample opportunity to ask questions. All questions were answered to the patients satisfaction. Patient verbalized understanding and agreed to move forward with left total knee arthroplasty with Dr. Apodaca. Surgical consen t form was signed by the patient with myself as a witness. Post-Operative Recovery Notes: * ASA okay for DVT ppx * Rehab placement - Resides with daughter who has two small children, cat and large dog at home. Stairs to get into her home may be a challenge. * Patient would like to come to the hospital for out patient P.T. here at [facility]. * Walker and shower chair Rx's [facility] - Contact information given to patient with instructions on how to obtain the items. Orders: Orders PT Evaluation and Treatment Today Z96.652 - Presence of left artificial knee joint XR knee LT 3V Today M25.569 - Pain in unspecified knee Medications: New [shower chair] As directed 1 ea 0RF s/p LTKA Coding Level of Care Code Global (27465) Diagnoses Osteoarthritis of left knee M17.12
[2024-12-28 10:13] VITALS: BMI 25.1
--- OUTSIDE RECORDS SUMMARY | 2024-12-28 10:15 | XMS_ITS | Clinical Summary ---
Author Organization [facility] Address [address] [place] [address] Care Team Providers Care Informatica Mdm Developer Name Role Phone FloresAleena JACKLYN Primary Care [...] patient's age to complete this topic [place] [address] Care Teams Informatica Mdm Developer Relationship Specialty Start Date End Date Aleena Tanner APRN [address] [place] [address] PCP - General 02/17/19
--- OUTSIDE RECORDS SUMMARY | 2024-12-28 10:15 | XMS_ITS | Encounter Summary ---
Author Organization [email or web address] Address [address] [facility] [address] [place] [address] Care Team Providers Care Manager Of Housekeeping Name Role Phone Name, Fadi GREER Primary Care Provider [phone] Reason for Visit * Reason Onset Date Comments Prior Auth DME 12/27/2024 Pt walked reques ting DME for walker for surgery , adjustable shower seat surgery is on December in [facility]. Pt stated she hasn't heard of anything about her request and her surgery is coming up Encounter Details Date Type Department Care Team (Late st Contact Info) Description 12/27/2024 Telephone [facility] MEDICINE [address] [place] [address] Name, MD Fadi [address] [place] [address] Prior Auth DME (Pt walked requesting DME for walker for surgery , adjustable shower seat surgery is on December in [facility]. Pt stated she hasn't heard of anything about her request and her surgery is coming up ///) Social History Tobacco Use Types Packs/Day Years [...] encounter Miscellaneous Notes * Telephone Encounter - Catherine Barboza - 12/27/2024 2:55 PM EDT Pt walked requesting DME for walker for surgery , adjustable shower seat surgery is on December in [facility]. Pt stated she hasn't heard of anything about her request and her surgery is coming up documented in this encounter Plan of Treatment Upcoming Encounters Date Type Department Care Team (Late st Contact Info) Description 02/08/2025 11:15 AM EDT Office Visit [facility] MED[facility]INE [address] [place], [place] [phone] Name, MD Fadi [address] [place] [address] documented as of this encounter Visit Diagnoses Not on filedocumented in this encounter Additional Health Concerns Assessment Noted Time PHQ-9 Depression Total Score: 6 10/24/19 25 11:07 AM EDT documented as of this encounter Care Teams Manager Of Housekeeping Relationship Specialty Start Date End Date Name, MD Fadi [address] [place] [address] PCP - General Internal Medicine 03/23/24 documented as of this encounter
== END 2024-12-28 11:03 | disposition home or self-care (01) ==
LOC: HO.HOS 09:48
PROVIDERS: PCP Internal Medicine Geriatric Medicine; Visit Provider Physician Assistant
DX: M17.12 Unilateral primary osteoarthritis, left knee (principal)
CPT/HCPCS: 99024

== ENCOUNTER → 2024-12-28 09:54 | Outpatient (BNV) | payer OTHER, SELFPAY | PROVIDERS: Visit Provider Radiology Diagnostic Radiology | DX: M17.12 Unilateral primary osteoarthritis, left knee (principal) | CPT/HCPCS: 73562 ==

== ENCOUNTER 2024-12-28 10:26 | Outpatient (REF) | payer OTHER, SELFPAY ==
--- NOTE | ~2024-12-28 | XR_ITS ---
EXAMINATION: XR KNEE, LEFT CLINICAL INFORMATION: M25.569 - Pain in unspecified knee COMPARISON: 09/25/2024. TECHNIQUE: AP view bilateral knees standing, lateral and patellofemoral views left knee. FINDINGS: Right Knee: No fracture or dislocation. Mild medial compartment joint space narrowing. Normal alignment. Normal soft tissues. Left Knee: No fracture, dislocation, or suspicious bone lesion. Severe medial compartment degenerative arthrosis with olvr-ha-naye appearance, subchondral sclerosis and cystic changes. Compensatory widening of the lateral compartment with varus angulation of the joint. There is spurring of the tibial spines. Moderate osteoarthrosis of the patellofemoral joint. No evidence of joint effusion. Normal soft tissues. XR/XR knee LT 3V IMPRESSION: 1. Tricompartmental osteoarthrosis of the left knee, severe involving the medial compartment with vggx-br-rmwl appearance and resultant varus angulation of the joint. Electronically signed by: Contreras Corbin MD 12/28/2024 10:20 AM EDT
--- OUTSIDE RECORDS SUMMARY | 2024-12-29 10:29 | XMS_ITS | Clinical Summary ---
Author Organization [facility] Address [address] [place] [address] Care Team Providers Care Parking Manager Name Role Phone FrankoAleena garza JACKLYN Primary Care Provider [phone] Social History Tobacco Use Types Packs/Day Years [...] patient's age to complete this topic [place] [address] [place] [address] Care Teams Parking Manager Relationship Specialty Start Date End Date Aleena Tanner APRN [address] [place] [address] PCP - General 02/17/19
--- OUTSIDE RECORDS SUMMARY | 2024-12-29 10:29 | XMS_ITS | Encounter Summary ---
Author Organization [facility] Address [address] [place] [address] Care Team Providers Care Loin Puller Name Role Phone Fransisca Conroy NP Primary Care Provider [phone] Encounter Details Date Type Department Care Team (Late st Contact Info) Description 11/01/2019 Transcribed Orders [facility] DEMOLITION ENGINEER & Midwifery at 3 [facility] [address] [facility], [address] [place] [address] Sammy Espino MD 3 [facility] [address] [place] [address] Social History Tobacco Use Types [...] on filedocumented in this encounter Care Teams Loin Puller Relationship Specialty Start Date End Date Fransisca Conroy NP [address] [place] [phone] PCP - General Family Medicine 10/22/20 documented as of this encounter
--- OUTSIDE RECORDS SUMMARY | 2024-12-29 10:29 | XMS_ITS | Encounter Summary ---
Author Organization [employer] Address [address] [facility] [address] [place] [address] Care Team Providers Care Guest Room Attendant Name Role Phone Name, Fadi GREER Primary Care Provider [phone] Reason for Visit * Reason Onset Date Comments Prior Auth DME 12/19/2024 Pt requesting DM E for walker for surgery , surgery is on December in [facility]. Encounter Details Date Type Department Care Team (Late st Contact Info) Description 12/19/2024 Telephone [facility] MEDICINE [address] [place], [place] [phone] Name, MD Fadi [address] [place] [address] Prior Auth DME (Pt requesting DME for walker for surgery , surgery is on December in [facility].) Social History Tobacco Use Types Packs/Day Years [...] * Telephone Encounter - Mariela Ordonez - 12/28/2024 8:42 AM EDT Rx for walker faxed to [facility] Confirmation received and sent to scan. If pt calls for status, please advise to contact Shi directly at [phone]. * Telephone Encounter - Mariela Ordonez - 12/20/2024 11:26 AM EDT Please see below message and advise if agree with DME. Thank you * Telephone Encounter - Catherine Barboza - 12/19/2024 3:35 PM EDT Pt requesting DME for walker for surgery , surgery is on December in [facility]. documented in this encounter Plan of Treatment Upcoming Encounters Date Type Department Care Team (Late st Contact Info) Description 02/08/2025 11:15 AM EDT Office Visit [facility] MEDICINE [address] [place] [address] Name, MD Fadi [address] [place] [address] documented as of this encounter Visit Diagnoses Not on filedocumented in this encounter Additional Health Concerns Assessment Noted Time PHQ-9 Depression Total Score: 6 10/24/19 25 11:07 AM EDT documented as of this encounter Care Teams Guest Room Attendant Relationship Specialty Start Date End Date Name, MD Fadi [address] [place] [address] PCP - General Internal Medicine 03/23/24 documented as of this encounter
== END 2024-12-28 10:27 | disposition home or self-care (01) ==
LOC: HO.HOSX 10:26
PROVIDERS: Visit Provider Physician Assistant
DX: Z01.818 Encounter for other preprocedural examination (principal); M17.12 Unilateral primary osteoarthritis, left knee; M25.562 Pain in left knee; Z96.652 Presence of left artificial knee joint
CPT/HCPCS: 73562; 99212

== ENCOUNTER 2025-01-03 06:58 | Day surgery (SDC) | payer OTHER, SELFPAY ==
--- OUTSIDE RECORDS SUMMARY | 2024-11-15 13:55 | XMS_ITS | Clinical Summary ---
Author Organization [facility] Address [address] [place] [address] Care Team Providers Care Gas Station Cashier Name Role Phone FloresAleena JACKLYN Primary Care [...] patient's age to complete this topic Insurance Care Teams Gas Station Cashier Relationship Specialty Start Date End Date Aleena Tanner APRN [address] [place] [address] PCP - General 02/17/19
[2024-12-13 10:23] VITALS: BP 126/82; PULSE 71; RESP 18; O2SAT 98; BMI 24.6
--- NOTE | 2024-12-13 10:33 | P.CONAN_ITS ---
Documented by User: Mitzy Pittman NP 12/13/24 10:43 HPI - Anesthesia Eval Consult details Narrative: 64 yr old female for left total knee PAT visit Seen in ED 11/20/24 for dizziness, diagnosed with vertigo, unremarkable head CT & head/neck CTA; dizziness resolved No CP/SOB Medically cleared by PCP 11/22/24 [facility] Active Problems Active Problems: All Active Problems Depression with anxiety (Acute) Constipation (Acute) Osteoarthritis of left knee (Acute) Past Medical History Medical History Heartburn Vertigo Osteoarthritis Depression with anxiety Psoriasis Functional capacity: independent ambulation Family History Family history of problems with anesthesia: No Surgical History Surgical History H/O oral surgery Hx of section History of Problems with Anesthesia: No Social History Social History Are you a primary congregational care pastor to a significant other at home: No Do you presently have visiting nurse or other home services: No Alcohol intake: current Alcohol intake frequency: holidays/special occasions only Patient Tobacco Use Status: Former Tobacco user Tobacco use type: Cigarette Cigarettes Per Day: 2 Years Smoked: 40 Use of substances other than those prescribed or required for medical reasons: No Have you been hit, kicked, punched, or otherwise hurt by someone within the past year? If so, by whom?: No Spiritual Healthcare Practices: no Restorationism Healthcare Practices: no Cultural Healthcare Practices: no Are you DNR?: No Advance Directives: No (states daughter Ebony is primary contact) Advance Directives Information Provided: Yes (brochure given) Advance Directives on File: No Patient : No FDLMP: n/a : No Poor oral hygiene: No Current occupational status: disabled Current occupation: right hand dominant Meds Allergies Allergy/AdvReac Type Severity Reaction Status Date / Time No Known Allergies Allergy Verified 12/28/24 10:14 Home Medications ?Medication ?Instructions ?Recorded ?Confirmed ?Last Taken ?Type sertraline 50 mg tablet 50 mg PO DAILY PRN Anxiety 0 10/26/24 01/03/25 Unknown History ustekinumab 45 mg/0.5 mL 45 mg subcut Q12W 10/26/24 0 01/03/25 11/05/24 History subcutaneous syringe (Stelara) cyclobenzaprine 10 mg tablet 10 mg PO Q8H PRN Muscle S pasm 12/13/24 01/03/25 Unknown History ibuprofen 600 mg tablet 600 mg PO Q8H PRN Pain 12/1301/03/25 Unknown History Exam Pertinent Lab Results Pertinent Lab Results: Laboratory Tests 11/27/24 09:33 WBC 5.3 RBC 4.83 Hgb 12.9 Hct 39.9 Plt Count 228 Sodium 143 Potassium 4.2 Chloride 107 BUN 16 Creatinine 0.77 Narrative Narrative: EKG 10/2024 Vent. Rate : 86 BPM Atrial Rate : 86 BPM P-R Int : 136 ms QRS Dur : 90 ms QT Int : 398 ms P-R-T Axes : 59 6 56 degrees QTcB Int : 476 ms Normal sinus rhythm Normal ECG When compared with ECG of 18-May-2016 14:39, No significant change was found Airway Mallampati Class: II TM Dist: >3cm Neck ROM: Full Denture: Upper and Lower Heart: RRR Lungs: CTAB Assessment and Plan Final Anesthetic Review Family History of Problems with Anesthesia: No History of Problems with Anesthesia: No Documented by User: Michelle Teresa MD 01/03/25 07:50 PMFSH Past Medical History Medical History Heartburn Vertigo Osteoarthritis Depression with anxiety Psoriasis Surgical History Surgical History H/O oral surgery Hx of section Social History Social History Are you a primary congregational care pastor to a significant other at home: No Do you presently have visiting nurse or other home services: No Alcohol intake: current Alcohol intake frequency: holidays/special occasions only Patient Tobacco Use Status: Former Tobacco user Tobacco use type: Cigarette Cigarettes Per Day: 2 Years Smoked: 40 Use of substances other than those prescribed or required for medical reasons: No Have you been hit, kicked, punched, or otherwise hurt by someone within the past year? If so, by whom?: No Spiritual Healthcare Practices: no Restorationism Healthcare Practices: no Cultural Healthcare Practices: no Are you DNR?: No Advance Directives: No (states daughter Ebony is primary contact) Advance Directives Information Provided: Yes (brochure given) Advance Directives on File: No Patient : No FDLMP: n/a : No Poor oral hygiene: No Current occupational status: disabled Current occupation: right hand dominant Meds Allergies Allergy/AdvReac Type Severity Reaction Status Date / Time No Known Allergies Allergy Verified 12/28/24 10:14 Home Medications ?Medication ?Instructions ?Recorded ?Confirmed ?Last Taken ?Type sertraline 50 mg tablet 50 mg PO DAILY PRN Anxiety 0 10/26/24 01/03/25 Unknown History ustekinumab 45 mg/0.5 mL 45 mg subcut Q12W 10/26/24 0 01/03/25 11/05/24 History subcutaneous syringe (Stelara) cyclobenzaprine 10 mg tablet 10 mg PO Q8H PRN Muscle S pasm 12/13/24 01/03/25 Unknown History ibuprofen 600 mg tablet 600 mg PO Q8H PRN Pain 12/1301/03/25 Unknown History Assessment and Plan Assessment Anesthesia Assessment: Anesthesia Plan Discussed and Chart Reviewed Final Anesthetic Review NPO: Yes ASA Class: II Final Preanesthetic Review: No Changes in Pt Med Stat, Meds/Allgs Chart Reviewed, Consent Obtained/Reviewed and Anes Risks/Benef Reviewed Patient Risk: Low Procedure Risk: Intermediate Anesthetic Plan Anesthetic Plan: MAC:, Spinal, Regional Block and Agree w/ Assess. and Plan Disposition: Standard PACU
[2024-12-13 12:27] LABS: MRSA Nasal PCR NEGATIVE (Negative); SA Nasal PCR POSITIVE (Negative)
[2024-12-29 15:11] LABS: Hematocrit 38.4 % (37.0-47.0); Hemoglobin 12.4 g/dl (12.0-16.0); Mean Corpuscular HGB Conc 32.3 g/dl (31.0-35.0); Mean Corpuscular Hemoglobin 27.1 pg (27.0-33.0); Mean Corpuscular Volume 83.8 fL (80.0-98.0); NRBC Abs Auto 0.000 X10*3/uL (0.0-0.012); NRBC Pct Auto 0.0 /100WBC (0.0-0.2); Platelet Count 301 X10*3/uL (160-400); Red Blood Count 4.58 X10*6/uL (4.20-5.50); White Blood Count 4.7 X10*3/uL (4.8-10.8)
[2024-12-29 15:57] LABS: Anion Gap 10 (12-20); Blood Urea Nitrogen 10 mg/dL (9-16); Calcium 10.4 mg/dL (8.4-10.2); Carbon Dioxide 30 mmol/L (22-29); Chloride 105 mmol/L (96-108); Creatinine Clr Calc Pharmacy 73.4; Estimated Glomerular Filt Rate > 60; Potassium 3.7 mmol/L (3.3-5.1); Sodium 141 mmol/L (135-145)
[2025-01-03] VITALS (10 sets, daily range): BP systolic 90–133; BP diastolic 47–87; PULSE 57–99; RESP 12–18; TEMP 36.1–37.6; O2SAT 93–100; BMI 24.6
--- NOTE | 2025-01-03 07:30 | MHC.SHP ---
Pre-Procedural Eval Section A - 24 Hr Update-Section A only Date of Service: 01/03/25 The patient is an INPATIENT: No Changes since office visit: No Cold of Flu in the past 2 weeks, No New Medical Problems, No Changes in Medication and No Patient answered all questions The patient has been examined within 24 hours of the surgical procedure. The History & Physical has been completed within 30 days and I have reviewed it.: Yes Section B - Complete if H&P > 30 days Chief Complaint: Unilateral primary osteoarthritis, left knee Allergies: Allergies Allergy/AdvReac Type Severity Reaction Status Date / Time No Known Allergies Allergy Verified 12/28/24 10:14 Plan I have reviewed the history and physical and performed a pertinent physical examination on my patient. No changes have occurred unless specified. Time Spent With Patient Time: Total time managing care of this patient today ____ minutes.
[2025-01-03] MEDS: Lactated Ringers 1,000 ML 100 ML IVCONT ×3 (08:00→23:21)
--- NOTE | 2025-01-03 10:16 | P.BOP_ITS ---
Brief Operative Note Date of Service: 01/03/25 Pre-op diagnosis: Left knee OA Post-op diagnosis: same Procedure: Left TKA Implants: [employer] Trialthlon PS 08/24/ps/32a, cemented Surgeon: Kobe Apodaca MD Anesthesia: regional and spinal Was an Adjunct Latin Professor used for this Procedure?: Yes Adjunct Latin Professor: Cynthia Alcantara Estimated blood loss (mL): 10 Tourniquet time (min): 70 Pathology: other Condition: stable Disposition: PACU
--- NOTE | 2025-01-03 12:55 | P.CONHOSP_ITS ---
History of Present Illness Data of Consult Service Date: 01/03/25 Primary Care Provider: Fadi Sheikh MD [facility] Reason for consult: Medical management 64-year-old female with a past medical history of depression with anxiety, and psoriasis, who underwent a total left knee replacement with Dr. Apodaca today. Patient reports that she gets injections every 3 months for her psoriasis which has been well controlled, patient reports her depression anxiety are well controlled. On exam she is awake and alert, answering questions. Positive CMS to left knee. Her vitals were stable, she denies any nausea. Patient denies any shortness of breath, dizziness, chest pain, lightheadedness or any other concerning symptoms. Denies any pain. Review of Systems 2 Review of Systems: Denies any shortness of breath, chest pain, dizziness, lightheadedness, abdominal pain or discomfort, nausea vomiting or diarrhea [facility] Medical History (Updated 01/03/25 @ 14:34 by Domenica Figueroa DNP) Heartburn Vertigo Osteoarthritis Depression with anxiety Psoriasis Functional capacity: independent ambulation Surgical History H/O oral surgery Hx of section Social History Are you a primary before and after school daycare worker to a significant other at home: No Do you presently have visiting nurse or other home services: No Alcohol intake: current Alcohol intake frequency: holidays/special occasions only Patient Tobacco Use Status: Former Tobacco user Tobacco use type: Cigarette Cigarettes Per Day: 2 Years Smoked: 40 Use of substances other than those prescribed or required for medical reasons: No Have you been hit, kicked, punched, or otherwise hurt by someone within the past year? If so, by whom?: No Spiritual Healthcare Practices: no Caodaism Healthcare Practices: no Cultural Healthcare Practices: no Are you DNR?: No Advance Directives: No (states daughter Ebony is primary contact) Advance Directives Information Provided: Yes (brochure given) Advance Directives on File: No Patient : No FDLMP: n/a : No Poor oral hygiene: No Current occupational status: disabled Current occupation: right hand dominant Meds Allergies Allergy/AdvReac Type Severity Reaction Status Date / Time No Known Allergies Allergy Verified 12/28/24 10:14 Active Medications: Current Medications Acetaminophen (Acetaminophen 325 Mg Tablet) 650 mg PO Q6H PRN PRN Reason: Pain, Mild 1-3,fever,headache Aspirin (Aspirin 325 Mg Tablet) 325 mg PO BID [facility] Celecoxib (Celecoxib 200 Mg Capsule) 200 mg PO BID [facility] Cyclobenzaprine HCl (Cyclobenzaprine Hcl 10 Mg Tablet) 10 mg PO Q8H PRN PRN Reason: Muscle Spasm Docusate Sodium (Docusate Sodium 100 Mg Capsule) 100 mg PO BID [facility] Hydromorphone HCl (Hydromorphone Hcl 0.5 Mg/0.5 Ml Syringe) 0.25 mg IVPUSH Q4H PRN; Protocol PRN Reason: Pain, Severe (Pain Scale 7-10) Cefazolin Sodium/Dextrose (Ancef) 2 gm in 50 mls @ 100 mls/hr IV POSTOP@1500 ONE Stop: 01/03/25 15:29 Lactated Ringer's (Lr) 1,000 mls @ 100 mls/hr IVCONT .Q10H [facility] Magnesium Hydroxide (Milk Of Magnesia 30 Ml Oral.Susp) 30 ml PO DAILY PRN PRN Reason: Constipation Meclizine HCl (Meclizine Hcl 25 Mg Tablet) 25 mg PO TID PRN PRN Reason: dizziness Melatonin (Melatonin 3 Mg Tablet) 6 mg PO BEDTIME PRN PRN Reason: Insomnia Non-Formulary Medication (Ustekinumab [Stelara]) 45 mg SUBCUT Q12W [facility] Ondansetron HCl (Ondansetron Hcl 4 Mg/2 Ml Vial) 4 mg IVPUSH Q8H PRN PRN Reason: Nausea and Vomiting Oxycodone HCl (Oxycodone Hcl Immed Release 5 Mg Tablet) 5 mg PO Q4H PRN PRN Reason: Pain, Moderate(Pain Scale 4-6) Oxycodone HCl (Oxycodone Hcl Er 10 Mg Tab.Er.12h) 10 mg PO BID [facility] Sertraline HCl (Sertraline Hcl 50 Mg Tablet) 50 mg PO DAILY PRN PRN Reason: Anxiety Sodium Chloride (0.9 % Sodium Chloride Flush 3 Ml Syringe) 3 ml IVFLUSH QSHIFT [facility] Home Medications ?Medication ?Instructions ?Recorded ?Confirmed ?Last Taken ?Type sertraline 50 mg tablet 50 mg PO DAILY PRN Anxiety 0 10/26/24 01/03/25 Unknown History ustekinumab 45 mg/0.5 mL 45 mg subcut Q12W 10/26/24 0 01/03/25 11/05/24 History subcutaneous syringe (Stelara) cyclobenzaprine 10 mg tablet 10 mg PO Q8H PRN Muscle S pasm 12/13/24 01/03/25 Unknown History ibuprofen 600 mg tablet 600 mg PO Q8H PRN Pain 12/1301/03/25 Unknown History Physical Exam 2 Vital Signs and Narrative: Vital Signs: Last Vital Signs Temp 97.0 F 01/03/25 12:50 Pulse 67 01/03/25 12:50 Resp 12 01/03/25 12:50 BP 115/57 L 01/03/25 12:50 Pulse Ox 99 01/03/25 12:50 O2 Del Method Room Air 01/03/25 12:50 BMI result Body Mass Index 24.6 CONST: Alert and oriented, in NAD. Well nourished HEENT: Normocephalic, atraumatic, MMM RESP: Lungs clear, RRR even and regular HEART:,RRR, S1, S2. No murmur, no edema GI:Abdomen Soft NT, ND. + BS times four :Deferred SKIN: Warm dry and intact, no visible lesions or rashes. Oni wrap clean dry intact to left knee, no strike through drainage NEURO:CN II-XII Intact bilaterally, Sensation intact. Speech clear. Positive CMS to left foot PSYCH: Normal affect Results Labs 12/29/24 14:17 12/29/24 14:17 Assessment and Plan (1) Psoriasis: Status: Acute Plan 64-year-old female with past medical history of depression with anxiety, psoriasis who was admitted for a left total knee replacement with Dr. Apodaca today. Left total knee replacement Treatment per Orthopedic team Anxiety and depression Stable on current regime Psoriasis Receives injections every 3 months outpatient, currently stable Thank you for allowing me to participate in the care of this patient. Signing off at this time. Please reconsult of any acute concerns or issues arise
[2025-01-03] MEDS: oxyCODONE HCl ER 10 MG TAB.ER.12H PO ×2 (13:41→22:11)
[2025-01-03] MEDS: oxyCODONE HCl Immed Release 5 MG TABLET PO (13:41)
--- NOTE | 2025-01-03 15:17 | PHA.MEDREC ---
Addendum entered by Desmond Raymond, Hitesh 01/03/25 15:39: reviewed Original Note: Pharmacy Consult ? Medication Reconciliation Pharmacy reviewed med rec done by nursing. Pt confirmed her Strelara injection once every 12 weeks and confirmed she last got it in October and is due for it around January 16. Per pt she is using Clobetasol as needed for dry/itchy skin, Halobetasol and Fluocinolone as needed for psoriasis and lidocaine patches as needed for pain; I added those on the med rec and pt verified everything else was correct by nursing.
[2025-01-04 03:23] VITALS: BP 103/59; PULSE 82; RESP 16; TEMP 36.1; O2SAT 96
[2025-01-04 05:32] VITALS: BP 130/66
[2025-01-04 06:13] LABS: MANUAL DIFF FLAG NO
[2025-01-04 06:31] LABS: Hematocrit 31.7 % (37.0-47.0); Hemoglobin 10.5 g/dl (12.0-16.0); Imm Gran Abs Auto 0.07 X10*3/uL (0.00-0.03); Imm Gran Pct Auto 0.7 % (0.0-0.4); Lymphocytes Absolute Auto 1.2 X10*3/uL (1.2-4.9); Mean Corpuscular HGB Conc 33.1 g/dl (31.0-35.0); Mean Corpuscular Hemoglobin 26.9 pg (27.0-33.0); Mean Corpuscular Volume 81.3 fL (80.0-98.0); NRBC Abs Auto 0.000 X10*3/uL (0.0-0.012); NRBC Pct Auto 0.0 /100WBC (0.0-0.2); Platelet Count 237 X10*3/uL (160-400); Red Blood Count 3.90 X10*6/uL (4.20-5.50); White Blood Count 10.4 X10*3/uL (4.8-10.8)
[2025-01-04 06:40] LABS: Anion Gap 11 (12-20); Blood Urea Nitrogen 22 mg/dL (9-16); Calcium 9.2 mg/dL (8.4-10.2); Carbon Dioxide 25 mmol/L (22-29); Chloride 108 mmol/L (96-108); Creatinine Clr Calc Pharmacy 76.4; Estimated Glomerular Filt Rate > 60; Potassium 4.5 mmol/L (3.3-5.1); Sodium 139 mmol/L (135-145)
[2025-01-04 07:11] VITALS: BP 120/68; PULSE 85; RESP 12; TEMP 36.9; O2SAT 95
[2025-01-04] MEDS: oxyCODONE HCl ER 10 MG TAB.ER.12H PO (08:05)
--- NOTE | 2025-01-04 08:32 | PM.DS ---
DS: Providers Provider Date of Service: 01/04/25 Date of discharge: 01/04/25 Primary care physician: Fadi Sheikh MD Consults: 01/03/25 12:33 Consult to Case Management Routine Comment: Home vs. rehab - at preop discussed likely rehab Consult to Hospitalist Routine Comment: Consulting Provider: [facility] Hospitalists Reason For Exam: Routine medical management DS: Diagnosis Discharge Diagnosis (1) Psoriasis: Status: Acute DS: Summary Hospital Course Hospital Course: The patient underwent a successful left total knee arthroplasty, they were transferred to PACU and then to the floor to recover. During their stay, their vitals were stable, afebrile at 98.5. Labs were unremarkable, H/H 10.5/31.7. POD 1 they were started on Aspirin 325mg po bid for DVT ppx, they also received Physical Therapy services twice a day. Prior to discharge, their dressing was clean dry and intact, and the plan was to be discharged home with VNA services. Time Attestation Discharge Coordination Time (in mins): 30 Quality: Safe Use of Opioids Does Pt have an Active Cancer Diagnosis on the Problem List?: No Quality: Stroke Does the patient have a stroke diagnosis?: No Physical Exam Vital Signs: Vital Signs: Last Vital Signs Temp 98.5 F 01/04/25 07:11 Pulse 85 01/04/25 07:11 Resp 12 01/04/25 07:11 BP 120/68 01/04/25 07:11 Pulse Ox 95 01/04/25 07:11 O2 Del Method Room Air 01/04/25 07:11 BMI result Body Mass Index 24.6 Const: General: cooperative, healthy appearing and no acute distress Resp: Effort & Inspection: normal respiratory effort and able to speak in complete sentences Cardio: Rate: regular rate Peripheral pulses: Peripheral pulses 2+ throughout GI: Palpation (GI): Soft to palpation Skin: Lesions: no lesions Rashes: no rashes Extrem: Other: lt knee dressing is c/d/i. Able to dorsi/plantar flex. Calf is supple and nontender. Sensation intact. Pedal pulse intact. DS: Data Data Completed and Pending Pending studies at discharge: Pending at discharge 01/03/25 09:52 Surgical [PTH] Routine Labs on day of discharge: Laboratory Results - last 24 hr 01/04/25 05:45 WBC 10.4 RBC 3.90 L Hgb 10.5 L Hct 31.7 L MCV 81.3 MCH 26.9 L MCHC 33.1 RDW 13.2 Plt Count 237 MPV 11.0 Immature Gran % (Auto) 0.7 H Neut % (Auto) 78.9 H Lymph % (Auto) 11.2 L Price % (Auto) 9.1 Eos % (Auto) 0.0 Baso % (Auto) 0.1 Lymph # (Auto) 1.2 Price # (Auto) 1.0 Eos # (Auto) 0.0 Baso # (Auto) 0.0 Abs Immat Gran (auto) 0.07 H Absolute Neuts (auto) 8.2 Absolute Nucleated RBC 0.000 Nucleated RBC % (auto) 0.0 Sodium 139 Potassium 4.5 D Chloride 108 Carbon Dioxide 25 Anion Gap 11 L BUN 22 H Creatinine 0.74 Estim Creat Clear Calc 76.4 Estimated GFR > 60 Fasting Glucose 118 H Calcium 9.2 D Discharge Plan Discharge Patient Disposition: Home, Self-Care Referrals: Cynthia Alcantara PA-C [Physician Video Game Creator, Orthopedics] - 01/09/25 2:00 pm Discharge Medications: New celecoxib 200 mg Capsule 200 mg PO BID 30 Days Qty: 60 0RF acetaminophen 325 mg Tablet 650 mg PO Q6H PRN (Reason: Pain, Mild 1-3,Fever,Headache) 30 Days Qty: 240 0RF aspirin 325 mg Tablet 325 mg PO BID 42 Days Qty: 84 0RF docusate sodium 100 mg Capsule 100 mg PO BID 30 Days Qty: 60 0RF oxycodone 5 mg Tablet 5 mg PO Q4H PRN (Reason: Pain, Moderate(Pain Scale 4-6)) 7 Days Qty: 42 0RF Rx Instructions: Partial Fill upon patient request. Continued (DME) jaine Misc See Rx Instructions .MEDSUPPLY Qty: 1 0RF Rx Instructions: Folding front wheeled walker cyclobenzaprine 10 mg tablet 10 mg PO Q8H PRN (Reason: Muscle Spasm) clobetasol 0.05 % cream 1 appl topical BEDTIME PRN (Reason: Dry/Itchy Skin) halobetasol propionate 0.05 % ointment 1 appl topical BID PRN (Reason: Psoriasis) lidocaine 5 % adhesive patch,medicated 1 patch topical DAILY PRN (Reason: Pain) fluocinolone and shower cap 0.01 % oil 1 appl TOPICAL MOWEFR PRN (Reason: Psoriasis) meclizine 25 mg tablet 25 mg PO TID PRN (Reason: dizziness) Qty: 20 0RF ustekinumab [Stelara] 45 mg/0.5 mL syringe 45 mg subcut Q12W sertraline 50 mg tablet 50 mg PO DAILY PRN (Reason: Anxiety) (DME) shower chair See Rx Instructions .ROUTE .MEDSUPPLY Qty: 1 0RF Rx Instructions: As directed Discontinued acetaminophen 500 mg tablet 1,000 mg PO Q6H PRN (Reason: fever) ibuprofen 400 mg tablet 400 mg PO Q6H PRN (Reason: fever) Discharge Orders: Discharge Order (Routine); Ordered 01/04/25 Ordered By: Cynthia Alcantara Diet: Advance to usual diet Activity on Discharge: Use cane or walker Activity Restrictions/Additional Instructions: Physical Therapy for ROM 0-120, quad strength, gait training. Use walker for ambulation Limit stair climbing, No shower, No tub bath, No driving Continue ASA for an anticoagulant x 6 weeks Keep Aquacel dressing clean, dry and intact. Follow up with orthopedics in 2 weeks Print Language: Mongolian
--- NOTE | 2025-01-04 08:34 | P.F2F_ITS ---
Service Date Service Date: 01/04/25 Encounter Date of encounter: 01/04/25 Reasons for Services Signs and symptoms assessed: s/p LTKA Pt. is considered homebound due to recent surgery. Unable to drive, poor balance, poor gait mechanics. Reason for physical therapy: home safety and mobility, therapeutic exercises, restore joint function, gait/transfer training and ADL training Reason for occupational therapy: home safety and mobility, therapeutic exercises, restore joint function, gait/transfer training and ADL training Homebound: Leaving the home is medically contraindicated at this time without the asist of a device and/or another person due th the listed conditions above and below. Reason homebound: unsteady gait / fall risk, leg weakness, pain with ambulation, pain with transfers, poor balance / fall risk and unable to drive Certification: Based on the above findings, I certify that this patient is confined to the home and needs intermittent senior living care, physical therapy and/or speech therapy, or continues to need occupational therapy. The patient is under my care, and I have initiated the establishment of the plan of care. The patient will be followed by a physician who will periodically review the plan of care. Time Spent With Patient Time: Total time managing care of this patient today ____ minutes.
--- NOTE | 2025-01-04 08:38 | HO.POSTANES ---
Post Anesthesia Evaluation Post Anesthesia Evaluation Date of Service: 01/04/25 Vital Signs: Vital Signs Temp Pulse Resp BP Pulse Ox O2 Del Method 01/04/25 07:11 98.5 F 85 12 120/68 95 Room Air 01/04/25 05:32 130/66 01/04/25 03:23 96.9 F 82 16 103/59 L 96 Room Air 01/03/25 23:53 96.9 F 91 16 128/72 93 Room Air Anesthesia: Spinal Mental Status: Awake Pain Control: Satisfactory Nausea/Vomiting: None Hydration: Adequate Anesthesia-Related Issues: No Anes. Related Issues
--- NOTE | 2025-01-04 09:46 | MHC.CM.PN ---
Patient lives in an apartment w/ her daughter. Functionally independent. Has a walker to use post-op. PCP Fadi Sheikh MD Reports she has an HCP listing her daughter, Ebony, as HCA. Copy requested. DP: Medically cleared for dc home w/ new [facility] for PT. Daughter to transport. RN aware.
--- NOTE | 2025-01-08 09:12 | P.OP_ITS ---
Operative Note Operative Note Date of Service: 01/03/25 Narrative: Date of Service: 01/03/25 Pre-op diagnosis: Left knee OA Post-op diagnosis: same Procedure: Left TKA Implants: [place] Trialthlon PS 08/24/ps/32a, cemented Surgeon: Kobe Apodaca MD Anesthesia: regional and spinal Was an Outside Machinist used for this Procedure?: Yes Outside Machinist: Cynthia Alcantara Estimated blood loss (mL): 10 Tourniquet time (min): 70 Pathology: other Condition: stable Disposition: PACU Procedure in detail: The patient was brought to the operating room and prepped and draped in standard sterile fashion. A time-out was called to identify proper site proper procedure proper surgeon and IV antibiotics were administered. 1 g of IV tranexamic acid was administered. I began by making a midline incision to the retinaculum and performed a medial parapatellar arthrotomy. The patella was translated l aterally and the knee was flexed up. There was eburnation and medial tibial bone loss. The posteromedial tibial plateau was sclerotic. I performed a small medial peel and resected the infrapatellar fat pad. Oblong's line was then used to drill my intramedullary femoral guide and my distal femur cut of 10 mm was made in 5 degrees of valgus while protecting the soft tissues. I then measured a # 4 femur and placed my cutting guide and made my anterior posterior and chamfer cuts protecting the soft tissues at all times. I then made my box but removing the PCL. Once I was satisfied with my cuts I turned my attention to the tibia. I removed the meniscus medially and laterally and , using an external cutting guide, in line with the tibial crest and the third ray, I made my distal tibial cut in 0 deg slope of while protecting the posterior soft tissues at all times. An extension block was used to confirm appropriate amount of bony resection. I then sized a #3 tibia and once I was satisfied that there was complete tibial coverage I placed my trial and with the trial femur in place took the knee through range of motion. I was satisfied with the extension and flexion as well as the balance at 0, 30 and 90 degrees. I then turned my attention to the patella where I removed 1 cm from the undersurface of the patella and then trialed a 32a patellar button. Again the knee was taken through range of motion I was satisfied with the tracking. I then prepared the tibia with a drill and punch. A femoral bone plug was placed and the knee was irrigated copiously. I then cemented the patella, tibia and femur in standard fashion. Axial compression and a clamp were used while the cement dried. Once the cement was hard on the back table all excess cement was removed and I triale d different inserts until I selected a #11ps insert. The final insert was placed and local TXA was administered. The knee was then closed with a running Quill suture, a 3 0 Vicryl and christiano on the skin. Patient was then placed in sterile dressing and brought to recovery room in stable condition there were no known complications.
== END 2025-01-04 11:09 | disposition home health service (06) ==
LOC: HO.SSS 06:59 → HO.S3 12:23
PROVIDERS: Physician Assistant; PCP Internal Medicine Geriatric Medicine; Visit Provider Orthopaedic Surgery
PROC: (CPT 27447; principal; 2025-01-03 08:30)
DX: M17.12 Unilateral primary osteoarthritis, left knee (principal); L40.9 Psoriasis, unspecified; F41.8 Other specified anxiety disorders; R12 Heartburn; R42 Dizziness and giddiness; Z79.1 Long term (current) use of non-steroidal anti-inflammatories (NSAID); Z79.620 Long term (current) use of immunosuppressive biologic; Z79.899 Other long term (current) drug therapy; Z98.890 Other specified postprocedural states; Z87.891 Personal history of nicotine dependence
CPT/HCPCS: 27447; 36415; 80048; 85025; 85027; 86850; 86900; 86901; 87640; 87641; 88305; 88311; 97161; C1713; C1776; J0131; J0665; J0690; J1100; J1171; J2004; J2250; J2704; J3010; J7120

== ENCOUNTER → 2025-01-03 06:58 | Outpatient (BNV) | payer OTHER, SELFPAY | PROVIDERS: PCP Internal Medicine Geriatric Medicine; Visit Provider Nurse Practitioner Family | DX: L40.9 Psoriasis, unspecified (principal) | CPT/HCPCS: 99221 ==

== ENCOUNTER → 2025-01-03 06:58 | Outpatient (BNV) | payer OTHER, SELFPAY | PROVIDERS: PCP Internal Medicine Geriatric Medicine; Visit Provider Orthopaedic Surgery | DX: Z47.1 Aftercare following joint replacement surgery (principal); Z96.652 Presence of left artificial knee joint; L40.9 Psoriasis, unspecified | CPT/HCPCS: 27447; 99024; G0180 ==

== ENCOUNTER 2025-01-18 13:47 | Outpatient (AMB) | payer OTHER, SELFPAY ==
--- NOTE | 2025-01-18 13:49 | MHC.OFFVIS ---
Vital Signs 01/18/25 14:00 Height 5 ft 7 in Weight 162 lb BMI 25.4 Intake Visit Reasons: 2WKPO: L TKA w/NE 01/03/25 Intake Note: Zabrina is a 64 year old female who presents today for a post operative appointment for her left knee arthroplasty from 01/03/[address] Apodaca. Patient reports her recovery is going well and is able to move her knee. Allergies No Known Allergies Allergy (Verified 01/18/25 13:54) HPI HPI 2WKPO: L TKA w/NE 01/03/25: Details: Ms. Sung Christine is a 64 yo female who presents to the office today s/p LTKA perfomred by Dr. Apodaca on 01/03/25. Patient is using a rollator walker to assist with ambulation. She is participating with physical therapy with VNA. She is overall doing very well and reports pain is managed. PFS Medical History (Updated 01/05/25 @ 00:01 by Background Daemon) Depression with anxiety Constipation Osteoarthritis of left knee Heartburn Vertigo Osteoarthritis Depression with anxiety Psoriasis Surgical History (Updated 01/05/25 @ 00:01 by Background Daemon) H/O oral surgery Hx of section Social History Are you a primary school child care attendant to a significant other at home: No Do you presently have visiting nurse or other home services: No Alcohol intake: current Alcohol intake frequency: holidays/special occasions only Patient Tobacco Use Status: Former Tobacco user Tobacco use type: Cigarette Cigarettes Per Day: 2 Years Smoked: 40 service: No Current occupational status: disabled Current occupation: right hand dominant Review of Systems Const All systems reviewed & are unremarkable except as noted in HPI and below Physical Exam Const General: cooperative, healthy appearing and no acute distress Resp Effort & Inspection: normal respiratory effort and able to speak in complete sentences Extrem Other: Left knee incision site is c/d/i. No surrounding erythema or drainage. No signs of infection. ROM 0-110 degrees. NVI. Psych Appearance: grossly normal Mental Status: mental status grossly normal Attitude: cooperative Assessment & Plan Assessment & Plan (1) Status post total knee replacement, left: Code(s): Z96.652 - Presence of left artificial knee joint Category: Surgical Plan Ms. Sung Christine is a 64 yo female who presents to the office today s/p LTKA performed by Dr. Apodaca on 01/03/25. Patient is using a rollator walker to assist with ambulation. She is participating with physical therapy with [facility]. She is overall doing very well and reports pain is managed. While in the office today, christiano were removed and steri-strips were applied. Patient will attend out patient physical therapy. Continue Aspirin for 6 weeks post operativly. She will f/u in [address] Apodaca, sooner if needed. Coding Level of Care Code Global (21604) Diagnoses Status post total knee replacement, left Z96.652
[2025-01-18 14:00] VITALS: BMI 25.4
--- OUTSIDE RECORDS SUMMARY | 2025-01-18 14:31 | XMS_ITS | Encounter Summary ---
Author Organization [facility] Address [address] [place] [address] Care Team Providers Care Acetylene Burner Name Role Phone Fransisca Conroy NP Primary Care Provider [phone] Encounter Details Date Type Department Care Team (Late st Contact Info) Description 11/01/2019 Transcribed Orders [facility] SPECIAL EDUCATION AIDE & Midwifery at [address] [facility] [address] [facility], [address] [place] [address] Sammy Espino MD [address] [facility] [address] [place] [address] Social History Tobacco Use Types [...] on filedocumented in this encounter Care Teams Acetylene Burner Relationship Specialty Start Date End Date Fransisca Conroy NP [address] [place] [phone] PCP - General Family Medicine 10/22/20 documented as of this encounter
--- OUTSIDE RECORDS SUMMARY | 2025-01-18 14:31 | XMS_ITS | Encounter Summary ---
Author Organization [facility] Address [address] [place] [address] Care Team Providers Care Flexographic Press Plate Setter Name Role Phone Fransisca Conroy NP Primary Care Provider [phone]- [phone] Reason for Referral * Physical Medicine (Routine) - Closed Specialty Diagnoses / Procedures Referred By Contact Referred To Contact Physical Therapy / Rehabilitation Diagnoses Large breasts Left shoulder pain, unspecified chronicity Right shoulder pain, unspecified chronicity Aleena Tanner APRN [address] [place] [address] Phone: tel:[phone] fax:[phone] [facility] [address] Phone: tel: fax: Referral ID Status Reason Start Date Expiration Date Visits Re quested Visits Authorized [id number] Closed 01/07/2017 01/21/2017 1 1 Encounter Details Date Type Department Care Team (Latest Contact Info) Description 11/27/2016 Transcribed Orders [facility] [phone] Aleena Tanner APRN [address] [place] [address] Large breasts (Primary Dx); Left [...] r Schedule Ambulatory referral to Rehab Services (PT/OT/ENGINEERING TECHNICIAN PARKING) Outpatient Referral Routine Large breasts Left shoulder pain, unspecified chronicity Right shoulder pain, unspecified chronicity Ordered: 11/27/2016 documented as of this encounter Visit Diagnoses Diagnosis Large breasts- Primary Hypertrophy of breast Left shoulder pain, unspecified chronicity Right shoulder pain, unspecified chronicity documented in this encounter Care Teams Flexographic Press Plate Setter Relationship Specialty Start Date End Date Fransisca Conroy NP [address] [place] [address] PCP - General Family Medicine 10/22/20 documented as of this encounter
--- OUTSIDE RECORDS SUMMARY | 2025-01-18 14:31 | XMS_ITS | Clinical Summary ---
Author Organization [employer] Address [address] [facility] [address] [place] [address] Care Team Providers Care Emery Wheel Molder Name Role Phone Name, Fadi GREER Primary Care Provider [phone] Allergies No known active allergies Medications * This document contains information received from the source organization and may not represent a complete record from that organization. senna-docusate sodium (Senokot-S) 8.6-50 MG tabletIndication s:Chronic constipation Take 1 tablet by mouth Once per day. 30 tablet 11 03/23/20 24 025 Active clobetasol (Temovate) 0.05 % cream APPLY TOPICALLY TO THE AFFECTED AREA(S) EVERY DAY AT BEDTIME DIRECTED 60 g 3 04/11/20 24 Active calcipotriene (Dovonex) 0.005 % cream APPLY TOPICALLY TO THE AFFECTED AREA(S) EVERY DAY DIRECTED 60 g 3 04/11/20 24 Active lidocaine (Lidoderm) 5 % patch Apply 1 patch topically Once per day. Remove & discard patch within 12 hours or as directed by . 30 patch 2 07/19/19 25 026 Active cyclobenzaprine (Flexeril) 10 MG tablet TAKE 1 TABLET BY MOUTH EVERY 8 HOURS NEEDED FOR MUSCLE SPASMS 30 tablet 1 08/05/19 25 Active Fluocinolone Acetonide Scalp 0.01 % oilIndications:P soriasis APPLY AT BEDTIME 3 TIMES PER WEEK ON DAMP SCALP WITH COVER 118.28 mL 2 08/26/19 25 Active sertraline (Zoloft) 50 MG tabletIndication s:Depression with anxiety TAKE 1 TABLET BY MOUTH EVERY DAY 30 tablet 2 08/25/19 25 Active ustekinumab (Stelara) injectionIndicat ions:Psoriasis Inject 45 mg every 12 weeks 0.5 mL 2 10/19/19 25 Active acetaminophen (Tylenol) 500 MG tablet Take 2 tablets (1,000 mg) by mouth every 6 (six) hours if needed for moderate pain or fever. 40 tablet 12/13/19 25 Active ibuprofen 400 MG tablet Take 1 tablet (400 mg) by mouth every 6 (six) hours if needed for moderate pain or fever. 20 tablet 12/13/19 25 Active halobetasol (UltraVATE) 0.05 % ointmentIndicati ons:Psoriasis APPLY TOPICALLY TO THE AFFECTED AREA(S) TWICE DAILY DIRECTED, DO NOT EXCEED 4 WEEKS OF USE 50 g 2 01/02/20 25 Active halobetasol (UltraVATE) 0.05 % ointmentIndicati ons:Psoriasis APPLY TO THE AFFECTED AREA(S) TOPICALLY TWICE DAILY. DO NOT EXCEED 4 WEEKS OF USE 50 g 2 08/22/19 25 025 Discontinued Active Problems Problem Noted Date Diagnosed Date Preop examination 11/23/2024 Adverse drug reaction 10/20/2024 Chronic knee pain 10/20/2024 Osteoarthritis 10/20/2024 Physical deconditioning 10/20/2024 Strain of lumbar region 10/20/2024 Hypertension 03/23/2024 Primary osteoarthritis involving multiple joints [...] prn worsening of cough /UR sxs, fever. Bilateral shoulder pain 04/07/2021 Psoriasis 03/19/2021 Assessment & Plan (12/09/2023 2:24 PM EDT): I will start clobetasol + Dovonex cream and Fluocinolone oil in scalp Order labs and refer to derm, may need systemic meds. Dyspareunia in female 11/09/2019 Vaginal atrophy 11/09/2019 Upper back pain 03/23/2017 Encounters Date Type Department Care Team Description 01/04/2025 Orders Only GENERIC EXTERNAL DATA DEPARTMENT Provider, Generic External Data 01/03/2025 Orders Only GENERIC EXTERNAL DATA DEPARTMENT Provider, Generic External Data 12/30/2024 Refill [facility] [address] [place] [address] Fadi Sheikh MD Psoriasis 12/29/2024 Orders Only GENERIC EXTERNAL DATA DEPARTMENT Provider, Generic External Data 12/27/2024 Telephone [facility] [address] [place] [address] Fadi Sheikh MD Prior Auth DME (Pt walked requesting DME for walker for surgery , adjustable shower seat surgery is on December in [facility]. Pt stated she hasn't heard of anything about her request and her surgery is coming up ///) 12/19/2024 Telephone [facility] [address] [place] [address] Fadi Sheikh MD Prior Auth DME (Pt requesting DME for walker for surgery , surgery is on December in [facility].) 12/13/2024 Orders Only GENERIC EXTERNAL DATA DEPARTMENT Provider, Generic External Data 12/12/2024 Refill [facility] [address] [place], [place] [phone] Fadi Sheikh MD 11/22/2024 2:45 PM EDT Office Visit [facility] [address] [place], [place] [phone] Christy Gardner FNP Preop examination (Primary Dx); Elevated blood pressure reading; Arthritis of left knee 11/22/2024 Travel 11/22/2024 Telephone [facility] [address] [place] [address] Fadi Sheikh MD No Show (Pt no show for pre-op ); Call Back Request 11/21/2024 Telephone [facility] [address] [place] [phone] Bree Pires [place] CHARTPREP 11/20/[address] [address] Fadi Sheikh MD pre-op 11/16/2024 Patient Outreach [facility] [address] [place] [address] Fadi Sheikh MD Pre-visit Planning (SDOH negative, Tobacco screening negative. ) 11/01/[address] [address] Ritu Bejarano [place] jimenez recall 10/30/2024 Telephone [facility] [address] [place] [phone] Jayjay Orta MD PA 10/26/[address] [address] Fadi Sheikh MD Prior Authorization 10/23/2024 11:00 AM EDT Office Visit [address] [address] Fadi Sheikh MD Memory problem (Primary Dx); Chronic pain of left knee; Psoriasis 10/23/[address] [address] Fadi Sheikh MD Prior Authorization 10/23/2024 Travel 10/20/[address] [address] Ritu Bejarano [place] chart prep 10/18/[address] [address] Fadi Sheikh MD Depression with anxiety; Psoriasis from Last 3 Months Immunizations Immunization Administration Dates Next Due Tdap 03/23/2024 Social History Tobacco Use Types Packs/Day Years Used Date Smoking Tobacco: Some Days Cigarettes Passive Smoke Exposure: Current Smokeless Tobacco: Never Tobacco Cessation:Ready to Q uit: Not Asked; Counseling Given: Not Answered Alcohol Use Standard Drinks/Week [...] Sign Reading Time Taken Comments Blood Pressure 142/86 11/22/2024 3:45 PM EDT Pulse 78 11/22/2024 3:45 PM EDT Temperature 37 C (98.6 F) 11/22/2024 3:45 PM EDT Respiratory Rate 16 11/22/2024 3:45 PM EDT Oxygen Saturation 99% 11/22/2024 3:45 PM EDT Inhaled Oxygen Concentration - - Weight 74 kg (163 lb 2 oz) 11/22/2024 3:45 PM ED T Height 167.5 cm (5' 5.95 ) 11/22/2024 3:45 PM ED T Body Mass Index 26.37 11/22/2024 3:45 PM EDT Plan of Treatment Upcoming Encounters Date Type Department Care Team (Late st Contact Info) Description 02/08/2025 11:15 AM EDT Office Visit [facility] [address] [facility] [place] [address] Name, MD Fadi [address] [facility] [place] [address] Health Maintenance Due Date Last Done Comments CT Colonography 1960 Colonoscopy 1960 Colorectal Cancer Screening 1960 FIT DNA/Cologuard 1960 FIT 1960 FOBT 1960 Sigmoidoscopy 1960 Pneumococcal Vaccine: 50+ Years (1 of 2 - PCV) 09/08/1978 Pap Smear 09/08/1980 Cervical Cancer Screening 09/08/1989 HPV/Cotest 09/08/1989 Zoster Vaccines (1 of 2) 09/08/2009 Mammogram 12/22/2018 12/22/2016, 11/16/2016, 11/16/2016 COVID-19 Vaccine ( - 2023-2 5 season) 2024 Influenza Vaccine (#1) 2025 Alcohol/Substance Use Screening 03/23/2025 03/23/2024 Depression Screening 10/23/2025 10/23/2024, 10/23/2024 SDOH Screening 11/16/2025 11/16/2024 Tobacco Screening 11/22/2025 11/22/2024 Lipid Panel 12/08/2028 12/09/2023 DTaP/Tdap/Td Vaccines (2 [...] patient's age to complete this topic Meningococcal B Vaccine Aged Out No l onger eligible based on patient's age to complete [...] Procedure Name Priority Date/Time Associated Diagnosis Comments BASIC METABOLIC PANEL, FASTING Routine 01/04/2025 5:45 AM EDT CBC WITH AUTO DIFFERENTIAL Routine 01/04/2025 5:45 AM EDT GROSS AND MICROSCOPIC LEVEL 4 Routine 01/03/2025 9:52 AM EDT BASIC METABOLIC PANEL Routine 12/29/2024 2:17 PM EDT CBC Routine 12/29/2024 2:17 PM EDT TYPE AND SCREEN Routine 12/29/2024 2:[address] HEAD WO CONTRAST Routine 12/25/2024 4 :29 PM EDT Memory problem MRSA NASAL SCREEN Routine 12/13/2024 10: 45 AM EDT CBC WITH AUTO DIFFERENTIAL Routine 11/27/2024 9:33 AM EDT Preop examination BASIC METABOLIC PANEL Routine 11/27/2024 9:33 AM EDT Preop examination ECG 12-LEAD Routine 11/23/2024 1:09 AM EDT Preop examination VITAMIN B12/FOLATE, SERUM PANEL Routine 10/23/2024 11:58 AM EDT Memory problem COMPREHENSIVE METABOLIC PANEL Routine 10/23/2024 11:58 AM EDT Memory problem CBC WITH AUTO DIFFERENTIAL Routine 10/23/2024 11:58 AM EDT Memory problem TSH W/REFLEX TO FT4 Routine 10/23/2024 1 1:58 AM EDT Memory problem HEPATITIS PANEL, GENERAL Routine 12/09/2023 11:42 AM EDT Psoriasis Arthritis of left knee LIPID PANEL WITH REFLEX TO DIRECT LDL Routine 12/09/2023 11:42 AM EDT Elevated blood pressure reading from Last 3 Months or Most Recently Relevant to Health Maintenance Results * (ABNORMAL) Basic Metabolic Panel, Fasting (01/04/2025 5:45 AM EDT) Sodium 139 135 - 145 mmol/L [facility] Potassium 4.5 3.3 - 5.1 mmol/L [facility] Chloride 108 96 - 108 mmol/L [facility] Carbon Dioxide 25 22 - 29 mmol/L [facility] Anion Gap 11(L) 12 - 20 [facility] Urea Nitrogen (BUN) 22(H) 9 - 16 mg/dL [facility] Creatinine, Serum 0.74 0.5 - 1.4 mg/dL [facility] Creatinine Clr Calc Pharmacy 76.4 [facility] Comment:Provided height and weight: 172.72 cm,73.5 kg.eGFR (calculated from the MDRD study equation) and eCrCl(calculated from the Cockcroft-Gault equation) are based ondifferent parameters and may not yield comparable results.If eCrCl result is absurd, please check patient'sheight/weight. Estimated Glomerular Filt Rate >60 [facility] Comment:Chronic Kidney Disea se: Estimated GFR < 60 mL/min/1.90l2Ajsqgk Kidney Disease: Estimated GFR < 15 mL/min/1.73m2 Glucose Fasting 118(H) 60 - 99 mg/dL [facility] Comment:A fasting glucose fr om 100-125 mg/dl is considered impaired(pre-diabetes). Calcium 9.2 8.4 - 10.2 mg/dL [facility] 01/04/2025 5:45 AM EDT 01/04/2025 6:10 AM EDT us Generic External Data Provider LAB BLOOD ORDERAB LES Final Result [facility] [address] [place] [address] [phone] * (ABNORMAL) CBC auto differential (01/04/2025 5:45 AM EDT) Only the most recent of3 resultswithin the time period is included. White Blood Count 10.4 4.8 - 10.8 X10*3/uL [facility] Red Blood Count 3.90(L) 4.20 - 5.50 X10*6/uL [facility] Hemoglobin 10.5(L) 12.0 - 16.0 g/dl [facility] Hematocrit 31.7(L) 37.0 - 47.0 % [facility] Mean Corpuscular Volume 81.3 80.0 - 98.0 fL [facility] Mean Corpuscular Hemoglobin 26.9(L) 27.0 - 33.0 pg [facility] Mean Corpuscular HGB Conc 33.1 31.0 - 35.0 g/dl [facility] Red Cell Distribution Width 13.2 11.0 - 16.0 % [facility] Platelet Count 237 160 - 400 X10*3/uL [facility] Mean Platelet Volume 11.0 9.4 - 12.3 fL [facility] Neutrophils Percent Auto 78.9(H) 45 - 73 % [facility] Imm Gran Pct Auto 0.7(H) 0.0 - 0.4 % [facility] Lymphocytes Percent Auto 11.2(L) 20 - 40 % [facility] Monocytes Percent Auto 9.1 2 - 11 % [facility] Eosinophils Percent Auto 0.0 0 - 4 % [facility] Basophils Percent Auto 0.1 0 - 2 % [facility] NRBC Pct Auto 0.0 0.0 - 0.2 /100WBC [facility] Neutrophils Absolute Auto 8.2 2.0 - 8.3 x10*3/uL [facility] Imm Gran Abs Auto 0.07(H) 0.00 - 0.03 X10*3/uL [facility] Lymphocytes Absolute Auto 1.2 1.2 - 4.9 X10*3/uL [facility] Monocytes Absolute Auto 1.0 0.1 - 1.2 X10*3/uL [facility] Eosinophils Absolute Auto 0.0 0.0 - 0.4 X10*3/uL [facility] Basophils Absolute Auto 0.0 0.0 - 0.2 X10*3/uL [facility] NRBC Abs Auto 0.000 0.0 - 0.012 X10*3/uL [facility] 01/04/2025 5:45 AM EDT 01/04/2025 6:10 AM EDT us Generic External Data Provider LAB BLOOD ORDERAB LES Final Result [facility] [address] [place] [phone] * Gross and Microscopic Level 4 (01/03/2025 9:52 AM EDT) 01/03/2025 9:52 AM EDT 01/03/2025 10:53 AM EDT Narrative [facility] - 01/08/2025 1:32 PM EDT ----- ------- Name: Zabrina Mcclelland Age/Sex: 64/F : 1960 Unit#: [id number] Attend Dr: Kobe Apodaca MD Re01/03/25 Status: [facility] Location: [facility] Disch: ----- ------- SPEC : [id number] RECD: 01/03/25 STATUS: EVONNE [place] NUM: [id number] CALIN: 01/03/[address] [facility] [address]: Kobe Apodaca MD ENTERED: 01/03/25 SP TYPE: Surgical OTHR DR: Fadi Sheikh MD ORDERED: Gross Micro L4, Decal THIS IS A CORRECTED REPORT 01/08/25 This is a corrected report. Any previous versions are stored internally and are available if necessary. Diagnosis Bone, left knee, resection: Fragments of bone and hyaline cartilage with erosion, eburnation and degenerative changes consistent with osteoarthritis. Note: This case has been corrected due to a typographical error in the final diagnosis. Clinical History Left knee osteoarthritis Microscopic Description Microscopic sections reviewed. Material Received Bone left knee Gross Description Received in formalin labeled bone left knee are multiple irregular fragments and plates of young, white-yellow and young-pink osteocartilaginous tissue ranging from 3.0 to 7.5 cm in greatest dimension and aggregating 9.0 x 6.0 x 0.3-3.5 cm to include femoral condyles and tibial plateau components. The convex and concave articular surfaces are eroded, focally eburnated, young-pink with scant attached soft tissue. Sectioning reveals dense, sclerotic, young-yellow subarticular trabecular bone and bone marrow. Also received are a few irregular and semilunar portions of young, white-yellow fibrocartilage and soft tissue aggregating 4.5 x 4.0 x 0.5-1.0 cm. Account Services Coordinator sections are submitted in a cassette labeled A1 following decalcification. CEDS IHC S/NG Disclaimer NOTE: Unless otherwise stated, all tissue is formalin-fixed and paraffin-embedded. Some or all of the immunohistochemical tests reported herein may have been developed and their performance characteristics determined by [facility]. They have not been cleared or approved by the U.S. Food and Drug Administration (FDA). However, the FDA CONTINUED ON NEXT PAGE ----- ------- Name: Sung ChristineZabrina Age/Sex: 64/F : 1960 Unit#: [id number] Attend Dr: Kobe Apodaca MD Re01/03/25 Status: [facility] Location: [facility] Disch: ----- ------- SPEC : [id number] RECD: 01/03/25 STATUS: EVONNE [place] NUM: [id number] CALIN: 01/03/25 [facility] [address]: Kobe Apodaca MD ENTERED: 01/03/25-1099 SP TYPE: Surgical OTHR DR: Fadi Sheikh MD ORDERED: Gross Micro L4, Decal IHC S/NG Disclaimer (Continued) has determined that such clearance or approval is not necessary. This laboratory is certified under the Clinical Laboratory Improvement Amendments of 1988 (CLIA) as qualified to perform high complexity clinical laboratory testing. Copies To: Kobe Apodaca MD [facility] [address] [place] [address] Maria Isabel [address] [place] [address] Name,Fadi GREER [address] [address] ----- ------- Signed (signature on file) Hanh Viveros MD 01/08/25 1332 ----- ------- END OF REPORT us Generic External Data Provider LAB CYTOLOGY ASHLEY LEDESMA Final Result [facility] [address] [place] [phone] * (ABNORMAL) CBC (12/29/2024 2:17 PM EDT) White Blood Count 4.7(L) 4.8 - 10.8 X10*3/uL [facility] Red Blood Count 4.58 4.20 - 5.50 X10*6/uL [facility] Hemoglobin 12.4 12.0 - 16.0 g/dl [facility] Hematocrit 38.4 37.0 - 47.0 % [facility] Mean Corpuscular Volume 83.8 80.0 - 98.0 fL [facility] Mean Corpuscular Hemoglobin 27.1 27.0 - 33.0 pg [facility] Mean Corpuscular HGB Conc 32.3 31.0 - 35.0 g/dl [facility] Red Cell Distribution Width 13.6 11.0 - 16.0 % [facility] Platelet Count 301 160 - 400 X10*3/uL [facility] Mean Platelet Volume 11.5 9.4 - 12.3 fL [facility] NRBC Pct Auto 0.0 0.0 - 0.2 /100WBC [facility] NRBC Abs Auto 0.000 0.0 - 0.012 X10*3/uL [facility] 12/29/2024 2:17 PM EDT 12/29/2024 2:17 PM EDT us Generic External Data Provider LAB BLOOD ORDERAB LES Final Result [facility] [address] [place] [address] [phone] * (ABNORMAL) Basic Metabolic Panel (12/29/2024 2:17 PM EDT) Only the most recent of2 resultswithin the time period is included. Sodium 141 135 - 145 mmol/L [facility] Potassium 3.7 3.3 - 5.1 mmol/L [facility] Chloride 105 96 - 108 mmol/L [facility] Carbon Dioxide 30(H) 22 - 29 mmol/L [facility] Anion Gap 10(L) 12 - 20 [facility] Urea Nitrogen (BUN) 10 9 - 16 mg/dL [facility] Creatinine, Serum 0.77 0.5 - 1.4 mg/dL [facility] Creatinine Clr Calc Pharmacy 73.4 [facility] Comment:Provided height and weight: 172.72 cm,73.482 kg.eGFR (calculated from the MDRD study equation) and eCrCl(calculated from the Cockcroft-Gault equation) are based ondifferent parameters and may not yield comparable results.If eCrCl result is absurd, please check patient'sheight/weight. Estimated Glomerular Filt Rate >60 [facility] Comment:Chronic Kidney Disea se: Estimated GFR < 60 mL/min/1.92w1Xkggde Kidney Disease: Estimated GFR < 15 mL/min/1.73m2 Glucose 81 60 - 115 mg/dL [facility] Calcium 10.4(H) 8.4 - 10.2 mg/dL [facility] 12/29/2024 2:17 PM EDT 12/29/2024 2:17 PM EDT us Generic External Data Provider LAB BLOOD ORDERAB LES Final Result Performing Organization Address [facility] de Phone Number [facility] [address] [place] [phone] * Type and screen (12/29/2024 2:07 PM EDT) Blood Type OP [facility] Antibody Screen NEGATIVE [facility] 12/29/2024 2:07 PM EDT 12/29/2024 2:27 PM EDT Narrative [facility] - 12/29/2024 3:18 PM EDT Spec expiration changed by ROSALEE on 12/29/24Reason: PATNURSING:Call Blood Bank (ext. [phone]) to band patient on admission.Type and Screen in effect until 2300 on 01/03/2025.Witnessed by MORRO Generic External Data Provider LAB BLOOD BANK TE ST ORDERABLES Final Result Performing Organization Address [facility] de Phone Number [facility] [address] [place] [phone] * CT Head w/o Contrast (12/25/2024 4:29 PM EDT) Anatomical Region Laterality Modality Head, Neck Computed Tomogra phy 12/25/2024 4:29 PM EDT Narrative 12/25/2024 5:36 PM EDT [address] [address] [address] Scan Report Signed Patient: Zabrina Mcclelland MR#: [id number] : 1960 Acct:[id number] Age/Sex: 64 / F ADM Date: 12/25/24 Loc: HO.CT Attending Dr: Fadi Sheikh MD Ordering Physician: Fadi Sheikh MD Date of Service: 12/25/24 Procedure(s): CT head/brain wo IV con Accession Number(s): [id number] cc: Fadi Sheikh MD Report Number: [id number]: Total DLP = 701.00 mGy-cm EXAMINATION: CT HEAD WITHOUT CONTRAST CLINICAL INFORMATION: Memory problems COMPARISON: November 20, 2024 TECHNIQUE: Contiguous axial imaging was performed from the skull base to vertex without intravenous administration of contrast. This CT examination was performed using dose optimization techniques as appropriate, variously including the following: *Automated exposure control *Adjustment of mA and/or kV according to patient size (this includes techniques or standardized protocols for targeted exams where dose is matched to indication/reason for exam; i.e. extremities or head) *Use of iterative reconstruction technique DLP: 701 mGY*cm FINDINGS: There is no acute ischemic change. There is no intracranial hemorrhage. There is no mass-effect or midline shift. There is mild frontal lobe atrophy. Basal cisterns and ventricles are within normal limits for age/cerebral volume. Orbits are symmetrical and unremarkable. Paranasal sinuses and mastoid air cells are pneumatized. There are no bony abnormalities. CT/CT head/brain wo IV con IMPRESSION: No acute intracranial abnormality. Electronically signed by: Aguilar Myers MD 12/25/2024 05:34 PM EDT Dictated By: Aguilar Myers MD Signed By: <Electronically signed by Aguilar Myers MD in OV> 12/25/24 1734 DD/ 1629 TD/TT: 12/25/24 1709 Web Design Instructor: Procedure Note Donotuseinterpreter, Image - 12/25/[address] [address] [address] Scan Report Signed Patient: Zabrina McclellandMR#: [id number] : 1960Acct:[id number] Age/Sex: 64 / FADM Date: 12/25/24 Loc: HO.CT Attending Dr: Fadi Sheikh MD Ordering Physician: Fadi Sheikh MD Date of Service: 12/25/24 Procedure(s): CT head/brain wo IV con Accession Number(s): [id number] cc: Fadi Sheikh MD Report Number: [id number]: Total DLP = 701.00 mGy-cm EXAMINATION: CT HEAD WITHOUT CONTRAST CLINICAL INFORMATION: Memory problems COMPARISON: November 20, 2024 TECHNIQUE: Contiguous axial imaging was performed from the skull base to vertex without intravenous administration of contrast. This CT examination was performed using dose optimization techniques as appropriate, variously including the following: *Automated exposure control *Adjustment of mA and/or kV according to patient size (this includes techniques or standardized protocols for targeted exams where dose is matched to indication/reason for exam; i.e. extremities or head) *Use of iterative reconstruction technique DLP: 701 mGY*cm FINDINGS: There is no acute ischemic change. There is no intracranial hemorrhage. There is no mass-effect or midline shift. There is mild frontal lobe atrophy. Basal cisterns and ventricles are within normal limits for age/cerebral volume. Orbits are symmetrical and unremarkable. Paranasal sinuses and mastoid air cells are pneumatized. There are no bony abnormalities. CT/CT head/brain wo IV con IMPRESSION: No acute intracranial abnormality. Electronically signed by: Aguilar Myers MD 12/25/2024 05:34 PM EDT RP Dictated By: Aguilar Myers MD Signed By: <Electronically signed by Aguilar Myers MD in OV> 12/25/24 1734 DD/ 1629 TD/TT: 12/25/24 1709 Web Design Instructor: Fadi Sheikh MD IM CT PROCEDURES Final Result * (ABNORMAL) MRSA Nasal Screen (12/13/2024 10:45 AM EDT) MRSA Nasal PCR NEGATIVE Negative [facility] SA Nasal PCR POSITIVE(A) Negative [facility] MRSA Interpretation SEE NOTE [facility] Comment:MRSA target DNA not detected; SA target DNA detected.A MRSA NEGATIVE, SA POSITIVE test result does not precludeMRSA nasal colonization. 12/13/2024 10:4 5 AM EDT 12/13/2024 11:03 AM EDT Generic External Data Provider LAB MICROBIOLOGY - GENERAL ORDERABLES Final Result Performing Organization Address City/[facility]/ZIP Co de Phone Number [facility] [address] [place] [phone] * ECG 12 lead (11/23/2024 1:09 AM EDT) Narrative Christy Gardner FNP - 11/23/2024 1:11 AM EDT Normal EKG Christy Gardner CNA [facility] ECG ORDERABLES Final Result * Vitamin B12/Folate, Serum Panel (10/23/2024 11:58 AM EDT) Vitamin B12 708 200 - 900 pg/mL [facility] Comment:NORMAL 200-900 PG/ML INDETERMINATE 160-199 PG/ML DEFICIENT < 160 PG/ML Folate 14.5 > or = 4.0 ng/mL [facility] Comment:Reference Values:> o r = 4.0 ng/mL< 4.0 ng/mL suggests folate deficiency Methotrexate, aminopterin and folinic acid(leucovorin) are chemotherapeutic agents whose molecularstructures are similar to folate; therefore, the Architectfolate assay cannot be used for patients using these drugs. Blood Venous blood specimen / Unknown 10/23/2024 11:58 AM EDT 10/23/2024 1:01 PM EDT us Fadi Sheikh MD LAB BLOOD ORDERABLES Final Resul t Performing Organization Address City/[facility]/ZIP Co de Phone Number [facility] [address] [place] [address] [phone] * TSH W/Reflex to FT4 (10/23/2024 11:58 AM EDT) TSH reflex Free T4 0.59 0.32 - 4.0 uIU/mL [facility] Blood Venous blood specimen / Unknown 10/23/2024 11:58 AM EDT 10/23/2024 1:01 PM EDT us Fadi Sheikh MD LAB BLOOD ORDERABLES Final Resul t [facility] [address] [place] [address] [phone] * (ABNORMAL) Comprehensive Metabolic Panel (10/23/2024 11:58 AM EDT) Sodium 140 135 - 145 mmol/L [facility] Potassium 4.0 3.3 - 5.1 mmol/L [facility] Chloride 105 96 - 108 mmol/L [facility] Carbon Dioxide 24 22 - 29 mmol/L [facility] Anion Gap 15 12 - 20 [facility] Urea Nitrogen (BUN) 13 9 - 16 mg/dL [facility] Creatinine, Serum 0.80 0.5 - 1.4 mg/dL [facility] Estimated Glomerular Filt Rate >60 [facility] Comment:Chronic Kidney Disea se: Estimated GFR < 60 mL/min/1.79k4Vbhzoy Kidney Disease: Estimated GFR < 15 mL/min/1.73m2 Glucose 82 60 - 115 mg/dL [facility] Calcium 10.2 8.4 - 10.2 mg/dL [facility] Bilirubin, Total 0.5 0.0 - 1.0 mg/dL [facility] Aspartate Amino Transferase 29 5 - 31 U/L [facility] Alanine Aminotransferase 23 0 - 31 U/L [facility] Total Protein 8.2(H) 6.5 - 8.0 g/dL [facility] Albumin Level 4.8 3.5 - 5.0 g/dL [facility] Alkaline Phosphatase 72 39 - 117 U/L [facility] Blood Venous blood specimen / Unknown 10/23/2024 11:58 AM EDT 10/23/2024 1:01 PM EDT us Fadi Sheikh MD LAB BLOOD ORDERABLES Final Resul t Performing Organization Address [facility]/ZIP Co de Phone Number [facility] [address] [place] [address] [phone] * (ABNORMAL) Lipid Panel with Reflex to Direct LDL (12/09/2023 11:42 AM EDT) Triglycerides 124 <150 mg/dL [facility] Comment:Desirable Triglyceri de: less than 150 mg/dLBorderline High Triglyceride 150-199 mg/dLHigh Triglyceride: 200-499 mg/dLVery High Triglyceride: greater than or equal to 5OO mg/dL Cholesterol 227(H) <200 mg/dL [facility] Comment:Desirable Cholestero l: less than 200 mg/dLBorderline High Cholesterol: 200-239 mg/dLHigh Cholesterol: greater than 239 mg/dL LDL Cholesterol Calculated 129(H) <100 mg/dL [facility] Comment:Desirable LDL: less than 100 mg/dLNear Optimal/Above Optimal LDL: 110- 129 mg/dLBorderline High LDL: 130-159 mg/dLHigh LDL: 160-189 mg/dLVery High LDL: greater than or equal to 190 mg/dL HDL Cholesterol 74 >40 mg/dL [facility] Comment:Desirable HDL: great er than 40 mg/dL Note: This HDL assay may give artificially low results in patients with liver disease. Blood 12/09/2023 11:4 2 AM EDT 12/09/2023 1:03 PM EDT Esperanza Olsen MD LAB BLOOD ORDERABLES Fin al Result Performing Organization Address City/[facility]/ZIP Co de Phone Number [facility] [address] [place] [address] [phone] * Hepatitis Panel, General (12/09/2023 11:42 AM EDT) Hepatitis A IgM Nonreactive Nonreactive [facility] Comment:IgM antibodies to WALLACE V not detected; does not exclude earlyacute or recovered HAV infection. ~Hepatitis B Surface Antibody NONREACTIVE Nonreactive [facility] Comment:Nonreactive: < 8.00 mIU/mL Hepatitis B Core Antibody Nonreactive Nonreactive [facility] Hepatitis C Antibody Nonreactive Nonreactive [facility] Comment:Antibodies to HCV no t detected; does not exclude early acuteHCV infection. Hepatitis B Surface Ag Negative Negative [facility] Blood 12/09/2023 11:4 2 AM EDT 12/09/2023 1:03 PM EDT Esperanza Olsen MD LAB BLOOD ORDERABLES Fin al Result [facility] [address] [place] [address] [phone] from Last 3 Months or Most Recently Relevant to Health Maintenance Insurance [employer] (HMO D-SNP) Care Teams Emery Wheel Molder Relationship Specialty Start Date End Date Name, MD Fadi [address] [place] [address] PCP - General Internal Medicine 03/23/24 Nolberto ISAACS 01/05/25
--- OUTSIDE RECORDS SUMMARY | 2025-01-18 14:31 | XMS_ITS | Clinical Summary ---
Author Organization [facility] Address [address] [place] [address] Care Team Providers Care Drafter Geological Name Role Phone FloresAleena JACKLYN Primary Care Provider Social History Tobacco Use Types Packs/Day Years Used Date Smoking Tobacco: Never Assessed Comments Unknown Sex and Gender Information Value Date Recorded Sex Assigned at Not on file Legal Sex Female 11:24 AM EDT Gender Identity Not on file Sexual Orientation Not on file Plan of Treatment Health Maintenance Due Date Last Done Comments Advance Care Planning 1960 Hepatitis C Virus Screening 1960 HIV Screening [...] to complete this topic Insurance Care Teams Drafter Geological Relationship Specialty Start Date End Date Aleena Tanner APRN [address] [place] [address] PCP - General 02/17/19
--- OUTSIDE RECORDS SUMMARY | 2025-01-18 14:31 | XMS_ITS | Encounter Summary ---
Author Organization [facility] Address [address] [place] [address] Care Team Providers Care Swimmer Name Role Phone Conroy, Fransisca HARLEEN Primary Care Provider [phone]- [phone] Reason for Visit * Reason Comments Medication Refill Encounter Details Date Type Department Care Team (Late st Contact Info) Description 07/14/[address] [id number] Shilpi Romero APRN [address] [place] [address] Medication Refill Social History Tobacco [...] on filedocumented in this encounter Care Teams Swimmer Relationship Specialty Start Date End Date Fransisca Conroy NP [address] [place] [phone] PCP - General Family Medicine 10/22/20 documented as of this encounter
--- OUTSIDE RECORDS SUMMARY | 2025-01-18 14:31 | XMS_ITS | Clinical Summary ---
Author Organization [facility] [address] [facility] Address [address] [place] [address] Phone Care Team Providers Care Crop Ranch Hand Name Role Phone ConroyFransisca patel HARLEEN Primary Care Provider [phone]- [phone] Allergies No known active allergies Medications SENNA [...] 64 02/02/2021 7:16 AM EDT Temperature 36.5 C (97.7 F) 02/02/2021 7:16 AM EDT Respiratory Rate 16 02/02/2021 7:16 AM EDT [...] screening 12/10/2023 12/09/2020 Covid-19 vaccine series ( - season) 2024 09/21/2020, 08/21/2020 Osteoporosis screening (bone density) 09/08/2024 Influenza vaccine 01/22/2025 Tetanus adult (Td q 10,TDAP once) 03/23/2034 03/23/2024 RSV Immunization (1 - 1-dose 75+ series) 09/08/2034 Cervical cancer screening Discontinued Meningococcal B Vaccine Aged Out No l [...] - 145 mmol/L 12/09/2020 10:16 PM EDT + [facility] Potassium 3.1(L) 3.5 - 5.1 mmol/L 12/09/2020 10:16 PM EDT [facility] Chloride 110(H) 98 - 107 mmol/L 12/09/2020 10:16 PM EDT [facility] CO2 25 21 - 32 mmol/L 12/09/2020 10:16 PM EDT [facility] Anion Gap 7 5 - 15 mmol/L 12/09/2020 10:16 PM EDT [facility] Glucose 89 65 - 110 mg/dL 12/09/2020 10:16 PM EDT [facility] Comment: Non-fastin-110 mg/dL Fasting (minimum 6 hrs): 65-99 mg/dL BUN 12 7 - 18 mg/dL 12/09/2020 10:16 PM EDT [facility] Creatinine 0.82 0.55 - 1.02 mg/dL 12/09/2020 10:16 PM EDT [facility] eGFR (-BANGLADESHI) >60 >60 mL/min/1. 73m2 12/09/2020 10:16 PM EDT [facility] eGFR (NON -New Zealander) >60 >60 mL/min/1. 73m2 12/09/2020 10:16 PM EDT [facility] Comment: (NOTE) These are estimated GFR values resulting from utilization of a calculation incorporating the best data available for input, but all assumptions may not be correct in every case. In addition, there are several situations (elderly over 70 years, , serious co morbidities, extremes of body size or nutritional status) which could contribute to a misleading result. Therefore, clinical correlation is advised to prevent arriving at an erroneous conclusion based solely on the calculation utilized. Calcium 8.5 8.5 - 10.1 mg/dL 12/09/2020 10:16 PM EDT [facility] Total Protein 7.6 6.4 - 8.2 g/dL 12/09/2020 10:16 PM EDT [facility] Albumin 3.4 3.4 - 5.0 g/dL 12/09/2020 10:16 PM EDT [facility] Globulin 4.2 2.5 - 5.0 g/dL 12/09/2020 10:16 PM EDT [facility] Total Bilirubin 0.4 <1.0 mg/dL 12/09/2020 10:16 PM EDT [facility] Comment:Use of this assay is not recommended for patients undergoing treatment with Eltrombopag due to the potential for falsely elevated results. Alkaline Phosphatase 62 45 - 117 U/L 12/09/2020 10:16 PM EDT [facility] Alanine Aminotransferase (ALT) 26 13 - 56 U/L 12/09/2020 10:16 PM EDT [facility] Aspartate Aminotransferase (AST) 19 15 - 37 U/L 12/09/2020 10:16 PM EDT [facility] Blood Venipuncture / Unknown 12/09/2020 9:40 PM EDT 12/09/2020 9:46 PM EDT us Kassie BUTT LAB BLOOD ORDERABLES Final Re sult [facility] [address] [place] [address] * Mammography Screening Danny Bilateral (11/16/2016 11:15 AM EDT) Anatomical Region Laterality Modality Breast Bilateral Mammography 11/17/2016 5:33 PM EDT Narrative 11/17/2016 5:33 PM EDT [address] [address] MAMMO SCREENING DANNY BILATERAL ARUNA Hansen: F : [id number] Service Date: 2016-11-16 [id number] BILATERAL MAMMOGRAPHY WITH TOMOSYNTHESIS CLINICAL INDICATION: Screening [...] Img Yesika :R: US :D: Heterogeneou LOCATION: [place], [place] Signed By: Mamadou Denton MD, 17:33:20 Procedure Note Mamadou Denton MD - 11/17/[address] [address] MAMMO SCREENING DANNY BILATERAL ARUNA MEDEROS Sex: F : [id number] Service Date: 2016-11-16 [id number] BILATERAL MAMMOGRAPHY WITH TOMOSYNTHESIS CLINICAL INDICATION: Screening [...] Img Yesika :R: US :D: Heterogeneou LOCATION: [place], [place] Signed By: Mamadou Denton MD, 17:33:20 us Aleena Tanner APRN IM MAMMOGRAPHY ORDERABLES Final Result from Last 3 Months or Most Recently Relevant to Health Maintenance Insurance [place] Member Subscriber Plan / Payer (Ef fective 2017-Present) Name:Sung Aruna Relation to Subscriber:Self Name:Aruna Mederos Payer ID:[id number] Group ID:Not on file Type:Not on file Address: [address] [place] [id number] Care Teams Crop Ranch Hand Relationship Specialty Start Date End Date Fransisca Conroy NP [address] [place] [address] PCP - General Family Medicine 10/22/20
== END 2025-01-18 14:09 | disposition home or self-care (01) ==
LOC: HO.HOS 13:48
PROVIDERS: PCP Internal Medicine Geriatric Medicine; Visit Provider Physician Assistant
DX: Z96.652 Presence of left artificial knee joint (principal)
CPT/HCPCS: 99024

== ENCOUNTER → 2025-01-18 13:47 | Outpatient (BNVA) | payer OTHER, SELFPAY | PROVIDERS: PCP Internal Medicine Geriatric Medicine; Visit Provider Physician Assistant | DX: Z98.890 Other specified postprocedural states (principal); Z96.652 Presence of left artificial knee joint | CPT/HCPCS: 99212 ==

== ENCOUNTER 2025-01-30 12:49 | Outpatient (AMB) | payer OTHER, SELFPAY ==
--- NOTE | 2025-01-30 13:09 | A.OFFVIS_ITS ---
Intake Visit Reasons: memory problem Allergies No Known Allergies Allergy (Verified 01/18/25 13:54) HPI Comments Details: The patient is a 64-year-old female presenting with concerns related to a past episode of confusion and tongue numbness. The episode occurred one to two months ago with acute onset of confusion and memory loss, alongside tongue numbness. Her daughter assisted her to the hospital due to functional decline, which required her use of a wheelchair. The acute cognitive disturbance improved after receiving injections at the hospital, though she experienced persistent tongue numbness that later resolved. Since the episode, the patient reports increased anxiety and difficulty sleeping, indicative of possible anxiety disorders post-incident. The episode did not recur, and the patient denied excessive alcohol consumption which could contribute to neurological symptoms. The incident led to imaging via head CT, the results of which have not been disclosed in this setting. [facility] Medical History (Updated 01/30/25 @ 13:38 by Miriam Strong MD) Depression with anxiety Constipation Osteoarthritis of left knee Heartburn Vertigo Osteoarthritis Depression with anxiety Psoriasis Surgical History (Updated 01/05/25 @ 00:01 by Ally Mccormick) H/O oral surgery Hx of section Social History Are you a primary weekend caregiver to a significant other at home: No Do you presently have visiting nurse or other home services: No Alcohol intake: current Alcohol intake frequency: holidays/special occasions only Patient Tobacco Use Status: Former Tobacco user Tobacco use type: Cigarette Cigarettes Per Day: 2 Years Smoked: 40 service: No Current occupational status: disabled Current occupation: right hand dominant Review of Systems Const Details: - Neurological: Reports past memory loss, confusion, and tongue numbness; current anxiety and sleep disturbance. - Psychological: Reports anxiety attacks. Assessment & Plan Assessment & Plan (1) TIA (transient ischemic attack): Comment: CT brain WO at [facility] in Dec 2024: Mild frontal cortical atrophy CTA brain and neck at [facility] in Dec 2024: Beaded appearance of left ICA Code(s): G45.9 - Transient cerebral ischemic attack, unspecified Category: Medical (2) Seizure disorder: Code(s): G40.909 - Epilepsy, unspecified, not intractable, without status epilepticus Category: Medical (3) Fibromuscular dysplasia of carotid artery: Code(s): I77.3 - Arterial fibromuscular dysplasia Category: Medical Plan Impression: a: An episode suggestive of either a brainstem infarct or complex partial seizure b: CTA suggesting carotid fibromuscular dysplasia Rec: a: EEG b: MRI brain c: ESR d: Aspirin 81mg daily Orders: Orders EEG electroencephalogram Today G40.909 - Epilepsy, unspecified, not intractable, without status epilepticus MR head/brain wo/w con Today G40.909 - Epilepsy, unspecified, not intractable, without status epilepticus Erythrocyte Sedimentation Rate Today G40.909 - Epilepsy, unspecified, not intractable, without status epilepticus, G45.9 - Transient cerebral ischemic attack, unspecified Coding Level of Care Code New Pt Level 5 (00846) Diagnoses TIA (transient ischemic attack) G45.9 Seizure disorder G40.909 Fibromuscular dysplasia of carotid artery I77.3
--- OUTSIDE RECORDS SUMMARY | 2025-01-30 15:10 | XMS_ITS | Encounter Summary ---
Author Organization [facility] Address [address] [place] [address] Care Team Providers Care Director Of Housing Name Role Phone Fransisca Conroy NP Primary Care Provider [phone]- [phone] Encounter Details Date Type Department Care Team (Late st Contact Info) Description 11/01/[address] [facility] [employer] at [address] [facility] [address] [facility], [address] [place] [address] Sammy Espino MD [address] [facility] [address] [place] [address] Social History Tobacco Use Types [...] on filedocumented in this encounter Care Teams Director Of Housing Relationship Specialty Start Date End Date Fransisca Conroy NP [address] [place] [phone] PCP - General Family Medicine 10/22/20 documented as of this encounter
--- OUTSIDE RECORDS SUMMARY | 2025-01-30 15:10 | XMS_ITS | Clinical Summary ---
Author Organization [facility] Address [address] [place] [address] Care Team Providers Care Sas Sql Developer Name Role Phone FloresAleena JACKLYN Primary [...] Zoster (Shingles) Vaccine (1 of 2) 09/08/2009 DXA Bone Density (Females,Ag es 65 and older) 09/08/2024 Influenza Vaccine 12/22/2024 COVID-19 Vaccine (1 - 2023-2 5 season) 2025 RSV Vaccine 60 years and old er and Patients (1 - 1-dose 75+ series) 09/08/2034 Hepatitis B Vaccines Aged Out No long er eligible based on patient's age to complete this topic Insurance Care Teams Sas Sql Developer Relationship Specialty Start Date End Date Aleena Tanner APRN [address] [place] [address] PCP - General 02/17/19
--- OUTSIDE RECORDS SUMMARY | 2025-01-30 15:11 | XMS_ITS | Encounter Summary ---
Author Organization [facility] Address [address] [place] [address] Care Team Providers Care Standards Engineer Name Role Phone Conroy, Fransisca HARLEEN Primary Care Provider +1- [phone] Reason for Visit * Reason Comments Medication Refill Encounter Details Date Type Department Care Team (Late st Contact Info) Description 07/14/[address] [phone] Shilpi Romero APRN [address] [place] [address] Medication Refill Social History Tobacco [...] on filedocumented in this encounter Care Teams Standards Engineer Relationship Specialty Start Date End Date Fransisca Conroy NP [address] [place] [phone] PCP - General Family Medicine 10/22/20 documented as of this encounter
--- OUTSIDE RECORDS SUMMARY | 2025-01-30 15:11 | XMS_ITS | Encounter Summary ---
Author Organization [facility] Address [address] [place] [address] Care Team Providers Care Clarifier Name Role Phone Fransisca Conroy NP Primary Care Provider +1- [phone] Reason for Referral * Physical Medicine (Routine) - Closed Specialty Diagnoses / Procedures Referred By Contact Referred To Contact Physical Therapy / Rehabilitation Diagnoses Large breasts Left shoulder pain, unspecified chronicity Right shoulder pain, unspecified chronicity Aleena Tanner APRN [address] [place] [address] Phone: tel:[phone] fax:[phone] [facility] [address] Phone: tel: fax: Referral ID Status Reason Start Date Expiration Date Visits Re quested Visits Authorized [id number] Closed 01/07/2017 01/21/2017 1 1 Encounter Details Date Type Department Care Team (Latest Contact Info) Description 11/27/2016 Transcribed Orders [facility] [phone] Aleena Tanner APRN [address] [place] [address] Large breasts (Primary Dx); Left [...] r Schedule Ambulatory referral to Rehab Services (PT/OT/[employer]) Outpatient Referral Routine Large breasts Left shoulder pain, unspecified chronicity Right shoulder pain, unspecified chronicity Ordered: 11/27/2016 documented as of this encounter Visit Diagnoses Diagnosis Large breasts- Primary Hypertrophy of breast Left shoulder pain, unspecified chronicity Right shoulder pain, unspecified chronicity documented in this encounter Care Teams Clarifier Relationship Specialty Start Date End Date Fransisca Conroy NP [address] [place] [address] PCP - General Family Medicine 10/22/20 documented as of this encounter
--- OUTSIDE RECORDS SUMMARY | 2025-01-30 15:11 | XMS_ITS | Clinical Summary ---
Author Organization [employer] Address [address] [facility] [address] [place] [address] Care Team Providers Care Parachute Line Tier Name Role Phone Name, Fadi GREER Primary Care Provider [phone] Allergies No known active allergies Medications * This document contains information received from the source organization and may not represent a complete record from that organization. senna-docusate sodium (Senokot-S) 8.6-50 MG tabletIndicatio ns:Chronic constipation Take 1 tablet by mouth Once [...] 30 patch 2 07/19/19 25 026 Active Fluocinolone Acetonide Scalp 0.01 % oilIndications: Psoriasis APPLY AT BEDTIME 3 TIMES PER WEEK ON DAMP SCALP WITH COVER 118.28 mL 2 08/26/19 25 Active sertraline (Zoloft) 50 MG tabletIndicatio ns:Depression with anxiety TAKE 1 TABLET BY MOUTH EVERY DAY 30 tablet 2 08/25/19 25 Active ustekinumab (Stelara) injectionIndica tions:Psoriasis Inject 45 mg every 12 weeks 0.5 [...] 12/13/19 25 Active halobetasol (UltraVATE) 0.05 % ointmentIndicat ions:Psoriasis APPLY TOPICALLY TO THE AFFECTED AREA(S) TWICE DAILY DIRECTED, DO NOT EXCEED 4 WEEKS OF USE 50 g 2 01/02/20 25 Active cyclobenzaprine (Flexeril) 10 MG tablet TAKE 1 TABLET BY MOUTH EVERY 8 HOURS NEEDED FOR MUSCLE SPASMS 30 tablet 1 08/05/19 25 025 Discontinued(Si de effects) halobetasol (UltraVATE) 0.05 % ointmentIndicat ions:Psoriasis APPLY TO THE AFFECTED AREA(S) TOPICALLY TWICE [...] Encounters Date Type Department Care Team Description 01/24/2025 Telephone [facility] [address] [place] [address] Fadi Sheikh MD Nurse Triage 01/04/2025 Orders Only GENERIC EXTERNAL DATA DEPARTMENT Provider, Generic External Data 01/03/2025 Orders Only GENERIC EXTERNAL DATA DEPARTMENT Provider, Generic External Data 12/30/2024 Refill [facility] [address] [place] [address] Fadi Sheikh MD Psoriasis 12/29/2024 Orders Only GENERIC EXTERNAL DATA DEPARTMENT Provider, Generic External Data 12/27/2024 Telephone [facility] [address] [place] [address] Fadi Sheikh MD Prior Auth DME (Pt walked requesting DME for walker for surgery , adjustable shower seat surgery is on December in [facility]. Pt stated she hasn't heard of anything about her request and her surgery is coming up ///) 12/19/2024 Telephone [facility] [address] [place] [address] Fadi Sheikh MD Prior Auth DME (Pt requesting DME for walker for surgery , surgery is on December in [facility].) 12/13/2024 Orders Only GENERIC EXTERNAL DATA DEPARTMENT Provider, Generic External Data 12/12/2024 Refill [facility] [address] [place], [place] [phone] Fadi Sheikh MD 11/22/2024 2:45 PM EDT Office Visit [facility] [address] [place] [address] Christy Gardner FNP Preop examination (Primary Dx); Elevated blood pressure reading; Arthritis of left knee 11/22/2024 Travel 11/22/2024 Telephone [facility] [address] [place] [address] Fadi Sheikh MD No Show (Pt no show for pre-op ); Call Back Request 11/21/2024 Telephone [facility] [address] [place] [address] Bree Pires [place] CHARTPREP 11/20/2024 Telephone [facility] [address] [place] [phone] Fadi Sheikh MD pre-op 11/16/2024 Patient Outreach [facility] [address] [place] [address] Fadi Sheikh MD Pre-visit Planning (SDOH negative, Tobacco screening negative. ) 11/01/[address] [address] Ritu Bejarano [place] jimenez recall 10/30/2024 Telephone [facility] [address] [place] [phone] Jayjay Orta MD PA from Last 3 Months Immunizations Immunization Administration [...] Description 02/08/2025 11:15 AM EDT Office Visit [facility] [address] [place] [address] Name, MD Fadi [address] [place] [address] Health Maintenance Due Date Last Done Comments CT Colonography 1960 Colonoscopy 1960 Colorectal Cancer Screening 1960 FIT DNA/Cologuard 1960 FIT 1960 FOBT 1960 Sigmoidoscopy 1960 Pneumococcal Vaccine: 50+ Years (1 of 2 - PCV) 09/08/1978 Pap Smear 09/08/1980 Cervical Cancer Screening 09/08/1989 HPV/Cotest 09/08/1989 Zoster Vaccines (1 of 2) 09/08/2009 Mammogram 12/22/2018 12/22/2016, 11/16/2016, 11/16/2016 COVID-19 Vaccine (1 - 2023-2 5 season) 2025 Influenza Vaccine (#1) 2025 Alcohol/Substance Use Screening [...] Routine 11/23/2024 1:09 AM EDT Preop examination HEPATITIS PANEL, GENERAL Routine 12/09/2023 11:42 AM EDT Psoriasis Arthritis of left knee LIPID PANEL WITH REFLEX TO DIRECT LDL Routine 12/09/2023 11:42 AM EDT Elevated blood pressure reading from Last 3 Months or Most Recently Relevant to Health Maintenance Results * (ABNORMAL) Basic Metabolic Panel, Fasting (01/04/2025 5:45 AM EDT) Sodium 139 135 - 145 mmol/L [facility] Potassium 4.5 3.3 - 5.1 mmol/L [facility] Chloride 108 96 - 108 mmol/L [facility] Carbon Dioxide 25 22 - 29 mmol/L [facility] Anion Gap 11(L) 12 - 20 [facility] Urea Nitrogen (BUN) 22(H) 9 - 16 mg/dL [facility] Creatinine, Serum 0.74 0.5 - 1.4 mg/dL [facility] Creatinine Clr Calc Pharmacy 76.4 [facility] Comment:Provided height and weight: 172.72 cm,73.5 kg.eGFR (calculated from the MDRD study equation) and eCrCl(calculated from the Cockcroft-Gault equation) are based ondifferent parameters and may not yield comparable results.If eCrCl result is absurd, please check patient'sheight/weight. Estimated Glomerular Filt Rate >60 [facility] Comment:Chronic Kidney Disea se: Estimated GFR < 60 mL/min/1.55x6Qfcfsq Kidney Disease: Estimated GFR < 15 mL/min/1.73m2 Glucose Fasting 118(H) 60 - 99 mg/dL [facility] Comment:A fasting glucose fr om 100-125 mg/dl is considered impaired(pre-diabetes). Calcium 9.2 8.4 - 10.2 mg/dL [facility] 01/04/2025 5:45 AM EDT 01/04/2025 6:10 AM EDT us Generic External Data Provider LAB BLOOD ORDERAB LES Final Result [facility] [address] [place] [phone] * (ABNORMAL) CBC auto differential (01/04/2025 5:45 AM EDT) Only the most recent of2 resultswithin the time period is included. White Blood Count 10.4 4.8 - 10.8 X10*3/uL [facility] Red Blood Count 3.90(L) 4.20 - 5.50 X10*6/uL [facility] Hemoglobin 10.5(L) 12.0 - 16.0 g/dl [facility] Hematocrit 31.7(L) 37.0 - 47.0 % [facility] Mean Corpuscular Volume 81.3 80.0 - 98.0 fL [facility] Mean Corpuscular Hemoglobin 26.9(L) 27.0 - 33.0 pg [facility] Mean Corpuscular HGB Conc 33.1 31.0 - 35.0 g/dl [facility] Red Cell Distribution Width 13.2 11.0 - 16.0 % [facility] Platelet Count 237 160 - 400 X10*3/uL [facility] Mean Platelet Volume 11.0 9.4 - 12.3 fL [facility] Neutrophils Percent Auto 78.9(H) 45 - 73 % [facility] Imm Gran Pct Auto 0.7(H) 0.0 - 0.4 % [facility] Lymphocytes Percent Auto 11.2(L) 20 - 40 % [facility] Monocytes Percent Auto 9.1 2 - 11 % [facility] Eosinophils Percent Auto 0.0 0 - 4 % [facility] Basophils Percent Auto 0.1 0 - 2 % [facility] NRBC Pct Auto 0.0 0.0 - 0.2 /100WBC [facility] Neutrophils Absolute Auto 8.2 2.0 - 8.3 x10*3/uL [facility] Imm Gran Abs Auto 0.07(H) 0.00 - 0.03 X10*3/uL [facility] Lymphocytes Absolute Auto 1.2 1.2 - 4.9 X10*3/uL [facility] Monocytes Absolute Auto 1.0 0.1 - 1.2 X10*3/uL [facility] Eosinophils Absolute Auto 0.0 0.0 - 0.4 X10*3/uL [facility] Basophils Absolute Auto 0.0 0.0 - 0.2 X10*3/uL [facility] NRBC Abs Auto 0.000 0.0 - 0.012 X10*3/uL [facility] 01/04/2025 5:45 AM EDT 01/04/2025 6:10 AM EDT us Generic External Data Provider LAB BLOOD ORDERAB LES Final Result [facility] [address] [place] [phone] * Gross and Microscopic Level 4 (01/03/2025 9:52 AM EDT) 01/03/2025 9:52 AM EDT 01/03/2025 10:53 AM EDT [facility] - 01/08/2025 1:32 PM EDT ----- ------- Name: Sung ChristineZabrina Age/Sex: 64/F : 1960 Unit#: [id number] Attend Dr: Kobe Apodaca MD Re01/03/25 Status: [facility] Location: [facility] Disch: ----- ------- SPEC : [id number] RECD: 01/03/25 STATUS: EVONNE MADRID NUM: [id number] CALIN: 01/03/[address] [facility] [address]: Koeb Apodaca MD ENTERED: 01/03/25 SP TYPE: Surgical OTHR DR: Fadi Sheikh MD ORDERED: Gross Micro L4, Decal THIS IS A CORRECTED REPORT 01/08/256 This is a corrected report. Any previous [...] aggregating 4.5 x 4.0 x 0.5-1.0 cm. Cleaning Technician sections are submitted in a cassette labeled A1 following decalcification. [facility] IHC S/NG Disclaimer NOTE: Unless otherwise stated, all tissue is formalin-fixed and paraffin-embedded. Some or all of the immunohistochemical tests reported herein may have been developed and their performance characteristics determined by [facility]. They have not been cleared or approved by the U.S. Food and Drug Administration (FDA). However, the FDA CONTINUED ON NEXT PAGE ----- ------- Name: Sung ChristineZabrina Age/Sex: 64/F : 1960 Unit#: [id number] Attend Dr: Kobe Apodaca MD Re01/03/25 Status: [facility] Location: [facility] Disch: ----- ------- SPEC : [id number] RECD: 01/03/25 STATUS: EVONNE MADRID NUM: [id number] CALIN: 01/03/25-[address] [facility] [address]: Kobe Apodaca MD ENTERED: 01/03/25-1099 SP TYPE: Surgical OTHR DR: Fadi Sheikh MD ORDERED: Gross Micro L4, Decal IHC S/NG Disclaimer (Continued) has determined that such clearance or approval is not necessary. This laboratory is certified under the Clinical Laboratory Improvement Amendments of 1988 (CLIA) as qualified to perform high complexity clinical laboratory testing. Copies To: Kobe Apodaca MD [facility] [address] [place] [address] Dr [address] [place], [place] [phone] Name,Fadi GREER [address] [address] ----- ------- Signed (signature on file) Hanh Vvieros MD 01/08/25 1332 ----- ------- END OF REPORT us Generic External Data Provider LAB CYTOLOGY ORDE CALLIE Final Result [facility] [address] [place], [place] [phone] * (ABNORMAL) CBC (12/29/2024 2:17 PM EDT) Pathologist [facility] White Blood Count 4.7(L) 4.8 - 10.8 X10*3/uL [facility] Red Blood Count 4.58 4.20 - 5.50 X10*6/uL [facility] Hemoglobin 12.4 12.0 - 16.0 g/dl [facility] Hematocrit 38.4 37.0 - 47.0 % [facility] Mean Corpuscular Volume 83.8 80.0 - 98.0 fL [facility] Mean Corpuscular Hemoglobin 27.1 27.0 - 33.0 pg [facility] Mean Corpuscular HGB Conc 32.3 31.0 - 35.0 g/dl [facility] Red Cell Distribution Width 13.6 11.0 - 16.0 % [facility] Platelet Count 301 160 - 400 X10*3/uL [facility] Mean Platelet Volume 11.5 9.4 - 12.3 [facility] NRBC Pct Auto 0.0 0.0 - 0.2 /100WBC [facility] NRBC Abs Auto 0.000 0.0 - 0.012 X10*3/uL [facility] 12/29/2024 2:17 PM EDT 12/29/2024 2:17 PM EDT us Generic External Data Provider LAB BLOOD ORDERAB LES Final Result [facility] [address] [place] [phone] * (ABNORMAL) Basic Metabolic Panel (12/29/2024 2:17 PM EDT) Only the most recent of2 resultswithin the time period is included. Pathologist [facility] Sodium 141 135 - 145 mmol/L [facility] Potassium 3.7 3.3 - 5.1 mmol/L [facility] Chloride 105 96 - 108 mmol/L [facility] Carbon Dioxide 30(H) 22 - 29 mmol/L [facility] Anion Gap 10(L) 12 - 20 [facility] Urea Nitrogen (BUN) 10 9 - 16 mg/dL [facility] Creatinine, Serum 0.77 0.5 - 1.4 mg/dL [facility] Creatinine Clr Calc Pharmacy 73.4 [facility] Comment:Provided height and weight: 172.72 cm,73.482 kg.eGFR (calculated from the MDRD study equation) and eCrCl(calculated from the Cockcroft-Gault equation) are based ondifferent parameters and may not yield comparable results.If eCrCl result is absurd, please check patient'sheight/weight. Estimated Glomerular Filt Rate >60 [facility] Comment:Chronic Kidney Disea se: Estimated GFR < 60 mL/min/1.27d3Rpyiez Kidney Disease: Estimated GFR < 15 mL/min/1.73m2 Glucose 81 60 - 115 mg/dL [facility] Calcium 10.4(H) 8.4 - 10.2 mg/dL [facility] 12/29/2024 2:17 PM EDT 12/29/2024 2:17 PM EDT us Generic External Data Provider LAB BLOOD ORDERAB LES Final Result [facility] [address] [place] [phone] * Type and screen (12/29/2024 2:07 PM EDT) Blood Type OP [facility] Antibody Screen NEGATIVE [facility] 12/29/2024 2:07 PM EDT 12/29/2024 2:27 PM EDT Narrative [facility] - 12/29/2024 3:18 PM EDT Spec expiration changed by ROSALEE on 12/29/24Reason: PATNURSING:Call Blood Bank (ext. [phone]) to band patient on admission.Type and Screen in effect until 2300 on 01/03/2025.Witnessed by MORRO us Generic External Data Provider LAB BLOOD BANK TE ST ORDERABLES Final Result [facility] [address] [place] [phone] * CT Head w/o Contrast (12/25/2024 4:29 PM EDT) Anatomical Region Laterality Modality Head, Neck Computed Tomogra phy 12/25/2024 4:29 PM EDT Narrative 12/25/2024 5:36 PM EDT [address] [address] [address] Scan Report Signed Patient: Zabrina Mcclelland MR#: [id number] : 1960 Acct:[id number] Age/Sex: 64 / F ADM Date: 12/25/24 Loc: HO.CT Attending Dr: Fadi Sheikh MD Ordering Physician: Fadi Sheikh MD Date of Service: 12/25/24 Procedure(s): CT head/brain wo IV con Accession Number(s): [id number] cc: Fadi Sheikh MD Report Number: [id number]: Total DLP = 701.00 mGy-cm EXAMINATION: CT [...] 12/25/24 1734 DD/ 1629 TD/TT: 12/25/24 1709 Internet Specialist: Procedure Note Donotuseinterpreter, Image - 12/25/[address] [address] [address] Scan Report Signed Patient: Zabrina McclellandMR#: [id number] : 1960Acct:[id number] Age/Sex: 64 / FADM Date: 12/25/24 Loc: HO.CT Attending Dr: Fadi Sheikh MD Ordering Physician: Fadi Sheikh MD Date of Service: 12/25/24 Procedure(s): CT head/brain wo IV con Accession Number(s): [id number] cc: Fadi Sheikh MD Report Number: [id number]: Total DLP = 701.00 mGy-cm EXAMINATION: CT [...] 12/25/24 1734 DD/ 1629 TD/TT: 12/25/24 1709 Internet Specialist: Fadi Sheikh MD IMG CT PROCEDURES Final Result * (ABNORMAL) MRSA Nasal Screen (12/13/2024 10:45 AM EDT) MRSA Nasal PCR NEGATIVE Negative [facility] SA Nasal PCR POSITIVE(A) Negative [facility] MRSA Interpretation SEE NOTE [facility] Comment:MRSA target DNA not detected; SA target DNA detected.A MRSA NEGATIVE, SA POSITIVE test result does not precludeMRSA nasal colonization. 12/13/2024 10:4 5 AM EDT 12/13/2024 11:03 AM EDT us Generic External Data Provider LAB MICROBIOLOGY - GENERAL ORDERABLES Final Result [facility] [address] [place] [phone] * ECG 12 lead (11/23/2024 1:09 AM EDT) Narrative Christy Gardner FNP - 11/23/2024 1:11 AM EDT Normal EKG us Christy BURGESS ECG ORDERABLES Final Result * (ABNORMAL) Lipid Panel with Reflex to Direct LDL (12/09/2023 11:42 AM EDT) Triglycerides 124 <150 mg/dL [facility] Comment:Desirable Triglyceri de: less than 150 mg/dLBorderline High Triglyceride 150-199 mg/dLHigh Triglyceride: 200-499 mg/dLVery High Triglyceride: greater than or equal to 5OO mg/dL Cholesterol 227(H) <200 mg/dL [facility] Comment:Desirable Cholestero l: less than 200 mg/dLBorderline High Cholesterol: 200-239 mg/dLHigh Cholesterol: greater than 239 mg/dL LDL Cholesterol Calculated 129(H) <100 mg/dL [facility] Comment:Desirable LDL: less than 100 mg/dLNear Optimal/Above Optimal LDL: 110- 129 mg/dLBorderline High LDL: 130-159 mg/dLHigh LDL: 160-189 mg/dLVery High LDL: greater than or equal to 190 mg/dL HDL Cholesterol 74 >40 mg/dL [facility] Comment:Desirable HDL: great er than 40 mg/dL Note: This HDL assay may give artificially low results in patients with liver disease. Blood 12/09/2023 11:4 2 AM EDT 12/09/2023 1:03 PM EDT us Esperanza Olsen MD LAB BLOOD ORDERABLES Fin al Result Performing Organization Address [facility] de Phone Number [facility] [address] [place] [phone] * Hepatitis Panel, General (12/09/2023 11:42 AM EDT) Hepatitis A IgM Nonreactive Nonreactive [facility] Comment:IgM antibodies to WALLACE V not detected; does not exclude earlyacute or recovered HAV infection. ~Hepatitis B Surface Antibody NONREACTIVE Nonreactive [facility] Comment:Nonreactive: < 8.00 mIU/mL Hepatitis B Core Antibody Nonreactive Nonreactive [facility] Hepatitis C Antibody Nonreactive Nonreactive [facility] Comment:Antibodies to HCV no t detected; does not exclude early acuteHCV infection. Hepatitis B Surface Ag Negative Negative [facility] Blood 12/09/2023 11:4 2 AM EDT 12/09/2023 1:03 PM EDT Esperanza Olsen MD LAB BLOOD ORDERABLES Fin al Result Performing Organization Address [facility] de Phone Number [facility] [address] [place] [phone] from Last 3 Months or Most Recently Relevant to Health Maintenance Insurance [facility] DETENTION OPTIONS (HMO D-SNP) Care Teams Parachute Line Tier Relationship Specialty Start Date End Date Name, MD Fadi [address] [place] [address] PCP - General Internal Medicine 03/23/24 Nolberto A 01/05/25
--- OUTSIDE RECORDS SUMMARY | 2025-01-30 15:11 | XMS_ITS | Clinical Summary ---
Author Organization [facility] [address] [facility] Address [address] [place] [address] Phone Care Team Providers Care Fourth Hand Name Role Phone ConroyFransisca patel HARLEEN Primary Care Provider +1- [phone] Allergies No known active allergies Medications SENNA [...] screening 11/16/2018 11/16/2016 Diabetes screening 12/10/2023 12/09/2020 Osteoporosis screening (bone density) 09/08/2024 Influenza vaccine 12/22/2024 Covid-19 vaccine series ( season) 2025 09/21/2020, 08/21/2020 Tetanus adult (Td q 10,TDAP once) 03/23/2034 [...] 145 mmol/L 12/09/2020 10:16 PM EDT + [facility] Potassium 3.1(L) 3.5 - 5.1 mmol/L 12/09/2020 10:[address] [facility] Chloride 110(H) 98 - 107 mmol/L 12/09/2020 10:[address] [facility] CO2 25 21 - 32 mmol/L 12/09/2020 10:[address] [facility] Anion Gap 7 5 - 15 mmol/L 12/09/2020 10:[address] [facility] Glucose 89 65 - 110 mg/dL 12/09/2020 10:[address] [facility] Comment: Non-fastin-110 mg/dL Fasting (minimum 6 hrs): 65-99 mg/dL BUN 12 7 - 18 mg/dL 12/09/2020 10:[address] [facility] Creatinine 0.82 0.55 - 1.02 mg/dL 12/09/2020 10:[address] [facility] eGFR (-BRAZILIAN) >60 >60 mL/min/1. 73m2 12/09/2020 10:[address] [facility] eGFR (NON -Bulgarian) >60 >60 mL/min/1. 73m2 12/09/2020 10:[address] [facility] Comment: (NOTE) These are estimated GFR [...] - 10.1 mg/dL 12/09/2020 10:[address] [facility] Total Protein 7.6 6.4 - 8.2 g/dL 12/09/2020 10:[address] [facility] Albumin 3.4 3.4 - 5.0 g/dL 12/09/2020 10:[address] [facility] Globulin 4.2 2.5 - 5.0 g/dL 12/09/2020 10:[address] [facility] Total Bilirubin 0.4 <1.0 mg/dL 12/09/2020 10:[address] [facility] Comment:Use of this assay is not recommended for patients undergoing treatment with Eltrombopag due to the potential for falsely elevated results. Alkaline Phosphatase 62 45 - 117 U/L 12/09/2020 10:[address] [facility] Alanine Aminotransferase (ALT) 26 13 - 56 U/L 12/09/2020 10:[address] [facility] Aspartate Aminotransferase (AST) 19 15 - 37 U/L 12/09/2020 10:[address] [facility] Blood Venipuncture / Unknown 12/09/2020 9:40 PM EDT 12/09/2020 9:46 PM EDT us Kassie BUTT LAB BLOOD ORDERABLES Final Re sult [facility] [address] [place] [address] * Mammography Screening Danny Bilateral (11/16/2016 11:15 AM EDT) Anatomical Region Laterality Modality Breast Bilateral Mammography 11/17/2016 5:33 PM EDT Narrative 11/17/2016 5:33 PM EDT [address] [address] MAMMO SCREENING DANNY BILATERAL ARUNA Hansen: F : [id number] Service Date: 2016-11-16 [id number] BILATERAL MAMMOGRAPHY WITH TOMOSYNTHESIS CLINICAL INDICATION: Screening [...] Img Yesika :R: US :D: Heterogeneou LOCATION: [place], [place] Signed By: Mamadou Denton MD, 17:33:20 Procedure Note Mamadou Denton MD - 11/17/[address] [address] MAMMO SCREENING DANNY BILATERAL ARUNA MEDEROS Sex: F : [id number] Service Date: 2016-11-16 [id number] BILATERAL MAMMOGRAPHY WITH TOMOSYNTHESIS CLINICAL INDICATION: Screening [...] Img Yesika :R: US :D: Heterogeneou LOCATION: [place], [place] Signed By: Mamadou Denton MD, 17:33:20 us Aleena Tanner APRN IM MAMMOGRAPHY ORDERABLES Final Result from Last 3 Months or Most Recently Relevant to Health Maintenance Insurance [place] Member Subscriber Plan / Payer (Ef fective 2017-Present) Name:Sung Aruna Relation to Subscriber:Self Name:Aruna Mederos Payer ID:[id number] Group ID:Not on file Type:Not on file Address: [address] [place] [phone] Care Teams Fourth Hand Relationship Specialty Start Date End Date Fransisca Conroy NP [address] [place] [address] PCP - General Family Medicine 10/22/20
== END 2025-01-30 13:50 | disposition home or self-care (01) ==
PROVIDERS: Visit Provider Psychiatry & Neurology Neurology
DX: G45.9 Transient cerebral ischemic attack, unspecified (principal); G40.909 Epilepsy, unspecified, not intractable, without status epilepticus; I77.3 Arterial fibromuscular dysplasia
CPT/HCPCS: 99204

== ENCOUNTER → 2025-01-30 12:49 | Outpatient (BNVA) | payer OTHER, SELFPAY | PROVIDERS: Visit Provider Psychiatry & Neurology Neurology | DX: G45.9 Transient cerebral ischemic attack, unspecified (principal); G40.909 Epilepsy, unspecified, not intractable, without status epilepticus; I77.3 Arterial fibromuscular dysplasia | CPT/HCPCS: 99202 ==

== ENCOUNTER 2025-02-08 13:52 | Outpatient (AMB) | payer OTHER, SELFPAY ==
--- NOTE | 2025-02-08 14:19 | A.OFFVIS_ITS ---
Intake Visit Reasons: 2ND PO: L TKA w/NE 01/03/25 Intake Note: Zabrina is a 64 year old female who presents today for a post operative appointment about 5 weeks s/p Left TKA 01/03/25. She started outpatient physical therapy with [facility] on 02/01/25 Patient reports that she is doing well, but she has had increased pain, swelling and warmth at incision site that started about 2 weeks after the stapled were removed. Allergies No Known Allergies Allergy (Verified 01/18/25 13:54) HPI HPI 2ND PO: L TKA w/NE 01/03/25: Details: Zabrina is a 64 year old female who presents today for a post operative appointment about 5 weeks s/p Left TKA 01/03/25. She started outpatient physical therapy with [facility] on 02/01/25 Patient reports that she is doing well, but she has had increased pain, swelling and warmth at incision site that started about 2 weeks after the stapled were removed. No fever/chills PFSH Medical History (Updated 01/30/25 @ 13:38 by Miriam Strong MD) Depression with anxiety Constipation Osteoarthritis of left knee Heartburn Vertigo Osteoarthritis Depression with anxiety Psoriasis Surgical History (Updated 01/05/25 @ 00:01 by Ally Mccormick) H/O oral surgery Hx of section Social History Are you a primary care management coordinator to a significant other at home: No Do you presently have visiting nurse or other home services: No Alcohol intake: current Alcohol intake frequency: holidays/special occasions only Patient Tobacco Use Status: Former Tobacco user Tobacco use type: Cigarette Cigarettes Per Day: 2 Years Smoked: 40 service: No Current occupational status: disabled Current occupation: right hand dominant Physical Exam Extrem Other: Inc c/d/i No unusual warmth No erythema 0-125 stable to v/v stress Assessment & Plan Assessment & Plan (1) Status post total knee replacement, left: Code(s): Z96.652 - Presence of left artificial knee joint Category: Surgical Plan: s/p left TKA. She is worried with warmth and pain but her exam is not worrisome in the slightest. Incision looks great. She has excellent motion and no swelling. Reassured her. May d/c ASA in 7 days. F/u 6 weeks with xrays Coding Level of Care Code Global (05296) Diagnoses Status post total knee replacement, left Z96.652
--- OUTSIDE RECORDS SUMMARY | 2025-02-08 15:57 | XMS_ITS | Encounter Summary ---
Author Organization [facility] and [facility] Address [address] [place] [address] Care Team Providers Care Pump Press Operator Name Role Phone Fransisca Conroy NP Primary Care Provider +1- [phone] Reason for Referral * Physical Medicine (Routine) - Closed Specialty Diagnoses / Procedures Referred By Contact Referred To Contact Physical Therapy / Rehabilitation Diagnoses Large breasts Left shoulder pain, unspecified chronicity Right shoulder pain, unspecified chronicity Aleena Tanner APRN [address] [place] [address] Phone: tel:[phone] fax:[phone] [address] Phone: tel: fax: Referral ID Status Reason Start Date Expiration Date Visits Re quested Visits Authorized [id number] Closed 01/07/2017 01/21/2017 1 1 Encounter Details Date Type Department Care Team (Latest Contact Info) Description 11/27/2016 Transcribed Orders [facility] [phone] Aleena Tanner APRN [address] [place] [address] Large breasts (Primary Dx); Left [...] r Schedule Ambulatory referral to Rehab Services (PT/OT/DIE CAST SUPERVISOR) Outpatient Referral Routine Large breasts Left shoulder pain, unspecified chronicity Right shoulder pain, unspecified chronicity Ordered: 11/27/2016 documented as of this encounter Visit Diagnoses Diagnosis Large breasts- Primary Hypertrophy of breast Left shoulder pain, unspecified chronicity Right shoulder pain, unspecified chronicity documented in this encounter Care Teams Pump Press Operator Relationship Specialty Start Date End Date Fransisca Conroy NP [address] [place] [address] PCP - General Family Medicine 10/22/20 documented as of this encounter
--- OUTSIDE RECORDS SUMMARY | 2025-02-08 15:57 | XMS_ITS | Clinical Summary ---
Author Organization [facility] 365 [facility] Address [address] [place] [address] Phone Care Team Providers Care Motor Tune Up Specialist Name Role Phone ConroyFransisca patel HARLEEN Primary Care Provider +1- [phone] Allergies No known active allergies Medications SENNA [...] - 5.1 mmol/L 12/09/2020 10:16 PM EDT [facility] Chloride 110(H) 98 - 107 mmol/L 12/09/2020 10:16 PM EDT [facility] CO2 25 21 - 32 mmol/L 12/09/2020 10:16 PM EDT [facility] Anion Gap 7 5 - 15 mmol/L 12/09/2020 10:16 PM EDT [facility] Glucose 89 65 - 110 mg/dL 12/09/2020 10:16 PM EDT [facility] Comment: Non-fastin-110 mg/dL Fasting (minimum 6 hrs): 65-99 mg/dL BUN 12 7 - 18 mg/dL 12/09/2020 10:16 PM EDT [facility] Creatinine 0.82 0.55 - 1.02 mg/dL 12/09/2020 10:16 PM EDT [facility] eGFR (-EQUATORIAL GUINEAN) >60 >60 mL/min/1. 73m2 12/09/2020 10:16 PM EDT [facility] eGFR (NON -Russian) >60 >60 mL/min/1. 73m2 12/09/2020 10:16 PM EDT [facility] Comment: (NOTE) These are estimated [...] - 10.1 mg/dL 12/09/2020 10:16 PM EDT [facility] Total Protein 7.6 6.4 - 8.2 g/dL 12/09/2020 10:16 PM EDT [facility] Albumin 3.4 3.4 - 5.0 g/dL 12/09/2020 10:16 PM EDT [facility] Globulin 4.2 2.5 - 5.0 g/dL 12/09/2020 10:16 PM EDT [facility] Total Bilirubin 0.4 <1.0 mg/dL 12/09/2020 10:16 PM EDT [facility] Comment:Use of this assay is not recommended for patients undergoing treatment with Eltrombopag due to the potential for falsely elevated results. Alkaline Phosphatase 62 45 - 117 U/L 12/09/2020 10:16 PM EDT [facility] Alanine Aminotransferase (ALT) 26 13 - 56 U/L 12/09/2020 10:16 PM EDT [facility] Aspartate Aminotransferase (AST) 19 15 - 37 U/L 12/09/2020 10:16 PM EDT [facility] Blood Venipuncture / Unknown 12/09/2020 9:40 PM EDT 12/09/2020 9:46 PM EDT us Kassie BUTT LAB BLOOD ORDERABLES Final Re sult [facility] [address] [place] [address] * Mammography Screening Danny Bilateral (11/16/2016 11:15 AM EDT) Anatomical Region Laterality Modality Breast Bilateral Mammography 11/17/2016 5:33 PM EDT Narrative 11/17/2016 5:33 PM EDT [address] [address] MAMMO SCREENING DANNY BILATERAL ARUNA Hansen: F : [id number] Service Date: 2016-11-16 [id number] BILATERAL MAMMOGRAPHY WITH TOMOSYNTHESIS CLINICAL INDICATION: Screening [...] Img Yesika :R: US :D: Heterogeneou LOCATION: [place], [place] Signed By: Mamadou Denton MD, 17:33:20 Procedure Note Mamadou Denton MD - 11/17/[address] [address] MAMMO SCREENING DANNY BILATERAL ARUNA MEDEROS Sex: F : [id number] Service Date: 2016-11-16 [id number] BILATERAL MAMMOGRAPHY WITH TOMOSYNTHESIS CLINICAL INDICATION: Screening [...] Img Yesika :R: US :D: Heterogeneou LOCATION: [place], [place] Signed By: Mamadou Denton MD, 17:33:20 us Aleena Tanner APRN IM MAMMOGRAPHY ORDERABLES Final Result from Last 3 Months or Most Recently Relevant to Health Maintenance Insurance [place] Member Subscriber Plan / Payer (Ef fective 2017-Present) Name:Sung Aruna Relation to Subscriber:Self Name:Aruna Mederos Payer ID:[id number] Group ID:Not on file Type:Not on file Address: [address] [place] [phone] Care Teams Motor Tune Up Specialist Relationship Specialty Start Date End Date Fransisca Conroy NP 1 [place] [address] PCP - General Family Medicine 10/22/20
--- OUTSIDE RECORDS SUMMARY | 2025-02-08 15:57 | XMS_ITS | Clinical Summary ---
Author Organization [facility] Address [address] [place] [address] Care Team Providers Care Radiation Therapist Name Role Phone FloresAleena JACKLYN Primary Care [...] to complete this topic Insurance Care Teams Radiation Therapist Relationship Specialty Start Date End Date Aleena Tanner APRN [address] [place] [address] PCP - General 02/17/19
--- OUTSIDE RECORDS SUMMARY | 2025-02-08 15:57 | XMS_ITS | Encounter Summary ---
Author Organization [facility] Address [address] [place] [address] Care Team Providers Care Roller Shop Utility Worker Name Role Phone Fransisca Conroy NP Primary Care Provider +1- [phone] Encounter Details Date Type Department Care Team (Late st Contact Info) Description 11/01/2019 Transcribed Orders [facility]ER WELDER & Midwifery at [address] [facility] [address] [facility], [address] [place] [address] Sammy Espino MD 3 [facility] [address] [place] [address] Social History Tobacco Use Types [...] on filedocumented in this encounter Care Teams Roller Shop Utility Worker Relationship Specialty Start Date End Date Fransisca Conroy NP [address] [place] [phone] PCP - General Family Medicine 10/22/20 documented as of this encounter
--- OUTSIDE RECORDS SUMMARY | 2025-02-08 15:57 | XMS_ITS | Encounter Summary ---
Author Organization [facility] Address [address] [place] [address] Care Team Providers Care Cardiopulmonary Technologist Chief Name Role Phone Conroy, Fransisca HARLEEN Primary Care Provider +1- [phone] Reason for Visit * Reason Comments Medication Refill Encounter Details Date Type Department Care Team (Late st Contact Info) Description 07/14/[address] [address] Shilpi Romero APRN [address] [place] [address] Medication Refill Social History Tobacco [...] on filedocumented in this encounter Care Teams Cardiopulmonary Technologist Chief Relationship Specialty Start Date End Date Fransisca Conroy NP [address] [place] [phone] PCP - General Family Medicine 10/22/20 documented as of this encounter
== END 2025-02-08 15:01 | disposition home or self-care (01) ==
LOC: HO.HOS 13:53
PROVIDERS: PCP Internal Medicine Geriatric Medicine; Visit Provider Orthopaedic Surgery
DX: Z96.652 Presence of left artificial knee joint (principal)
CPT/HCPCS: 99024

== ENCOUNTER → 2025-02-08 13:52 | Outpatient (BNVA) | payer OTHER, SELFPAY | PROVIDERS: PCP Internal Medicine Geriatric Medicine; Visit Provider Orthopaedic Surgery | DX: Z47.1 Aftercare following joint replacement surgery (principal); Z96.652 Presence of left artificial knee joint | CPT/HCPCS: 99212 ==

== ENCOUNTER 2025-02-12 15:31 | Outpatient (REF) | payer OTHER, SELFPAY ==
--- OUTSIDE RECORDS SUMMARY | 2025-02-08 11:15 | XMS_ITS | Encounter Summary ---
Demographics [facility] [address]
== END 2025-02-12 15:32 | disposition home or self-care (01) ==
LOC: HO.LAB 15:31
PROVIDERS: PCP Internal Medicine Geriatric Medicine; Visit Provider Psychiatry & Neurology Neurology
DX: G40.909 Epilepsy, unspecified, not intractable, without status epilepticus (principal); G45.9 Transient cerebral ischemic attack, unspecified
CPT/HCPCS: 36415; 85652

== ENCOUNTER → 2025-02-19 15:46 | Outpatient (BNV) | payer OTHER, SELFPAY | PROVIDERS: PCP Internal Medicine Geriatric Medicine; Visit Provider Radiology Diagnostic Radiology | DX: G40.909 Epilepsy, unspecified, not intractable, without status epilepticus (principal) | CPT/HCPCS: 70551 ==

== ENCOUNTER 2025-02-19 15:47 | Outpatient (REF) | payer OTHER, SELFPAY ==
--- NOTE | ~2025-02-19 | MR_ITS ---
EXAMINATION: MR BRAIN WITHOUT CONTRAST CLINICAL INFORMATION: G 40.909. Epilepsy. COMPARISON: Correlated to a CT dated December 25, 2024. TECHNIQUE: MRI of the brain was obtained using routine sequences without contrast. FINDINGS: Patient's motion artifact. No restricted diffusion. No acute intracranial hemorrhage, mass effect, midline shift, hydrocephalus or herniation. Allen-white matter differentiation is normal. Posterior cranial fossa contents demonstrated no signal abnormality or mass effect. Normal position of the cerebellar tonsils. No signal abnormality or volume loss in the hippocampi. Nonspecific, a few, scattered, white matter hyperintense T2 FLAIR signal in the centrum semiovale. Sellar/suprasellar region demonstrated no signal abnormality or masses. Prominence of the extra-axial CSF spaces cerebral sulci, bifrontal and to a lesser extent bitemporal lobes. Flow-void signal within the main cerebral vessels is normal. Hyperintense T2 FLAIR signal in the left mastoid air cells. MR/MR head/brain wo con IMPRESSION: No acute ischemia/stroke. No acute intracranial hemorrhage. Bifrontal bitemporal lobe atrophy. Electronically signed by: Víctor Hicks MD 02/20/2025 07:01 AM EDT
--- OUTSIDE RECORDS SUMMARY | 2025-02-19 17:53 | XMS_ITS | Clinical Summary ---
Author Organization [facility] Address [address] [place] [address] Care Team Providers Care Press Operator Carbon Blocks Name Role Phone FloresAleena JACKLYN Primary Care [...] to complete this topic Insurance Care Teams Press Operator Carbon Blocks Relationship Specialty Start Date End Date Aleena Tanner APRN [address] [place] [address] PCP - General 02/17/19
--- OUTSIDE RECORDS SUMMARY | 2025-02-19 17:53 | XMS_ITS | Clinical Summary ---
Author Organization [facility] 365 [facility] Address [address] [place] [address] Phone Care Team Providers Care Back Strip Machine Operator Name Role Phone ConroyFransisca patel HARLEEN Primary Care Provider +1- [phone] Allergies No known active allergies Medications SENNA [...] 145 mmol/L 12/09/2020 10:16 PM EDT + [facility] Potassium 3.1(L) 3.5 - 5.1 mmol/L 12/09/2020 10:16 PM EDT [facility] Chloride 110(H) 98 - 107 mmol/L 12/09/2020 10:16 PM EDT [facility] CO2 25 21 - 32 mmol/L 12/09/2020 10:16 PM EDT [facility] Anion Gap 7 5 - 15 mmol/L 12/09/2020 10:16 PM EDT [facility] Glucose 89 65 - 110 mg/dL 12/09/2020 10:16 PM EDT [facility] Comment: Non-fastin-110 mg/dL Fasting (minimum 6 hrs): 65-99 mg/dL BUN 12 7 - 18 mg/dL 12/09/2020 10:16 PM EDT [facility] Creatinine 0.82 0.55 - 1.02 mg/dL 12/09/2020 10:16 PM EDT [facility] eGFR (-NIGERIEN) >60 >60 mL/min/1. 73m2 12/09/2020 10:16 PM EDT [facility] eGFR (NON -Tanzanian) >60 >60 mL/min/1. 73m2 12/09/2020 10:16 PM EDT [facility] Comment: (NOTE) These are estimated [...] - 10.1 mg/dL 12/09/2020 10:16 PM EDT [facility] Total Protein 7.6 6.4 - 8.2 g/dL 12/09/2020 10:16 PM EDT [facility] Albumin 3.4 3.4 - 5.0 g/dL 12/09/2020 10:16 PM EDT [facility] Globulin 4.2 2.5 - 5.0 g/dL 12/09/2020 10:16 PM EDT [facility] Total Bilirubin 0.4 <1.0 mg/dL 12/09/2020 10:16 PM EDT [facility] Comment:Use of this assay is not recommended for patients undergoing treatment with Eltrombopag due to the potential for falsely elevated results. Alkaline Phosphatase 62 45 - 117 U/L 12/09/2020 10:16 PM EDT [facility] Alanine Aminotransferase (ALT) 26 13 - 56 U/L 12/09/2020 10:16 PM EDT [facility] Aspartate Aminotransferase (AST) 19 15 - 37 U/L 12/09/2020 10:16 PM EDT [facility] Blood Venipuncture / Unknown 12/09/2020 9:40 PM EDT 12/09/2020 9:46 PM EDT us Kassie BUTT LAB BLOOD ORDERABLES Final Re sult [facility] [address] [place] [address] * Mammography Screening Danny Bilateral (11/16/2016 11:15 AM EDT) Anatomical Region Laterality Modality Breast Bilateral Mammography 11/17/2016 5:33 PM EDT Narrative 11/17/2016 5:33 PM EDT [address] [address] MAMMO SCREENING DANNY BILATERAL ARUNA Hansen: F : [id number] Service Date: 2016-11-16 [id number] BILATERAL MAMMOGRAPHY WITH TOMOSYNTHESIS CLINICAL INDICATION: Screening [...] Img Yesika :R: US :D: Heterogeneou LOCATION: [place], [place] Signed By: Mamadou Denton MD, 17:33:20 Procedure Note Mamadou Denton MD - 11/17/[address] [address] MAMMO SCREENING DANNY BILATERAL RAUNA MEDEROS Sex: F : [id number] Service Date: 2016-11-16 [id number] BILATERAL MAMMOGRAPHY WITH TOMOSYNTHESIS CLINICAL INDICATION: Screening [...] Img Yesika :R: US :D: Heterogeneou LOCATION: [place], [place] Signed By: Mamadou Denton MD, 17:33:20 us Aleena Tanner APRN IM MAMMOGRAPHY ORDERABLES Final Result from Last 3 Months or Most Recently Relevant to Health Maintenance Insurance [place] Member Subscriber Plan / Payer (Ef fective 2017-Present) Name:Sung Aruna Relation to Subscriber:Self Name:Aruna Mederos Payer ID:[id number] Group ID:Not on file Type:Not on file Address: [address] [place] [phone] Care Teams Back Strip Machine Operator Relationship Specialty Start Date End Date Fransisca Conroy NP [address] [place] [address] PCP - General Family Medicine 10/22/20
--- OUTSIDE RECORDS SUMMARY | 2025-02-19 17:53 | XMS_ITS | Encounter Summary ---
Author Organization [facility] Address [address] [place] [address] Care Team Providers Care Knee Bolter Name Role Phone Fransisca Conroy NP Primary Care Provider +1- [phone] Reason for Referral * Physical Medicine (Routine) - Closed Specialty Diagnoses / Procedures Referred By Contact Referred To Contact Physical Therapy / Rehabilitation Diagnoses Large breasts Left shoulder pain, unspecified chronicity Right shoulder pain, unspecified chronicity Aleena Tanner APRN [address] [place] [address] Phone: tel:[phone] fax:[phone] [address] Phone: tel: fax: Referral ID Status Reason Start Date Expiration Date Visits Re quested Visits Authorized [id number] Closed 01/07/2017 01/21/2017 1 1 Encounter Details Date Type Department Care Team (Latest Contact Info) Description 11/27/2016 Transcribed Orders [facility] [phone] Aleena Tanner APRN [address] [place] [address] Large breasts (Primary Dx); Left [...] r Schedule Ambulatory referral to Rehab Services (PT/OT/OCULARIST) Outpatient Referral Routine Large breasts Left shoulder pain, unspecified chronicity Right shoulder pain, unspecified chronicity Ordered: 11/27/2016 documented as of this encounter Visit Diagnoses Diagnosis Large breasts- Primary Hypertrophy of breast Left shoulder pain, unspecified chronicity Right shoulder pain, unspecified chronicity documented in this encounter Care Teams Knee Bolter Relationship Specialty Start Date End Date Fransisca Conroy NP [address] [place] [address] PCP - General Family Medicine 10/22/20 documented as of this encounter
--- OUTSIDE RECORDS SUMMARY | 2025-02-19 17:53 | XMS_ITS | Encounter Summary ---
Author Organization [facility] Address [address] [place] [address] Care Team Providers Care Supervisor Pigment Making Name Role Phone Fransisca Conroy NP Primary Care Provider +1- [phone] Encounter Details Date Type Department Care Team (Late st Contact Info) Description 11/01/2019 Transcribed Orders [facility] AIDE & Midwifery at 3 [facility] 3 [facility], [address] [place] [address] Sammy Espino MD 3 [facility] [address] [place] [address] Social History Tobacco Use Types [...] on filedocumented in this encounter Care Teams Supervisor Pigment Making Relationship Specialty Start Date End Date Fransisca Conroy NP 1 [place] [phone] PCP - General Family Medicine 10/22/20 documented as of this encounter
--- OUTSIDE RECORDS SUMMARY | 2025-02-19 17:54 | XMS_ITS | Encounter Summary ---
Author Organization [facility] Address [address] [place] [address] Care Team Providers Care Model And Dye Person Name Role Phone Conroy, Fransisca HARLEEN Primary Care Provider +1- [phone] Reason for Visit * Reason Comments Medication Refill Encounter Details Date Type Department Care Team (Late st Contact Info) Description 07/14/[address] [address] Shilpi Romero APRN [address] [place] [address] Medication Refill Social History Tobacco [...] on filedocumented in this encounter Care Teams Model And Dye Person Relationship Specialty Start Date End Date Fransisca Conroy NP [address] [place] [phone] PCP - General Family Medicine 10/22/20 documented as of this encounter
--- OUTSIDE RECORDS SUMMARY | 2025-02-19 17:54 | XMS_ITS | Clinical Summary ---
Author Organization [employer] Address [address] [facility] [address] [place] [address] Care Team Providers Care Chief Data Officer Name Role Phone Name, Fadi GREER Primary Care Provider [phone] Allergies No known active allergies Medications * [...] 30 patch 2 07/19/19 25 026 Active sertraline (Zoloft) 50 MG tabletIndicatio ns:Depression [...] USE 50 g 2 01/02/20 25 Active amoxicillin (Amoxil) 500 MG capsuleIndicati ons:Pharyngitis , unspecified etiology Take 1 tab po bid for 10 days 20 capsule 02/02/20 25 Active Fluocinolone Acetonide Scalp 0.01 % oilIndications: Psoriasis APPLY TOPICALLY TO THE AFFECTED AREA(S) AT BEDTIME 3 TIMES A WEEK ON DAMP SCALP WITH COVER 118.28 mL 2 02/09/20 25 Active Multiple Vitamin (multivitamin) tablet Take 1 tablet by mouth Once per day. 90 tablet 3 02/09/20 25 Active cyclobenzaprine (Flexeril) 10 MG tablet TAKE 1 TABLET BY MOUTH EVERY 8 HOURS NEEDED FOR MUSCLE SPASMS 30 tablet 1 08/05/19 25 025 Discontinued(Si de effects) Fluocinolone Acetonide Scalp 0.01 % oilIndications: Psoriasis APPLY AT BEDTIME 3 TIMES PER WEEK ON DAMP SCALP WITH COVER 118.28 mL 2 08/26/19 25 025 Discontinued Active Problems Problem Noted Date Diagnosed Date History of total left knee replacement (TKR) Preop examination 11/23/2024 Adverse drug reaction 10/20/2024 [...] Encounters Date Type Department Care Team Description 02/12/2025 Orders Only GENERIC EXTERNAL DATA DEPARTMENT Provider, Generic External Data 02/08/2025 11:15 AM EDT Office Visit [facility] [address] [place] [phone] Fadi Sheikh MD Left knee pain, unspecified chronicity (Primary Dx); History of total left knee replacement (TKR) 02/08/2025 Travel 02/07/2025 Refill [facility] [address] [place] [address] Mando Louise MD Psoriasis 02/01/2025 11:20 AM EDT Office Visit [facility] [address] [place] [address]46 Amira Fink MD Pharyngitis, unspecified etiology 02/01/2025 Travel 01/24/2025 Telephone [facility] [address] [place] [address] 11884 Fadi Sheikh MD Nurse Triage 01/04/2025 Orders Only GENERIC EXTERNAL DATA DEPARTMENT Provider, Generic External Data 01/03/2025 Orders Only GENERIC EXTERNAL DATA DEPARTMENT Provider, Generic External Data 12/30/2024 Refill [facility] [address] [place] [address] Fadi Sheikh MD Psoriasis 12/29/2024 Orders Only GENERIC EXTERNAL DATA DEPARTMENT Provider, Generic External Data 12/27/[address] [address] Fadi Sheikh MD Prior Auth DME (Pt walked requesting DME for walker for surgery , adjustable shower seat surgery is on December in [facility]. Pt stated she hasn't heard of anything about her request and her surgery is coming up ///) 12/19/2024 Telephone [facility] [address] [place] [address] Fadi Sheikh MD Prior Auth DME (Pt requesting DME for walker for surgery , surgery is on December in [facility].) 12/13/2024 Orders Only GENERIC EXTERNAL DATA DEPARTMENT Provider, Generic External Data 12/12/2024 Refill [facility] [address] [place], [place] [phone] Fadi Sheikh MD 11/22/2024 2:45 PM EDT Office Visit [address] [address] Christy Gardner FNP Preop examination (Primary Dx); Elevated blood pressure reading; Arthritis of left knee 11/22/2024 Travel 11/22/[address] [address] Fadi Sheikh MD No Show (Pt no show for pre-op ); Call Back Request 11/21/[address] [address] Bree Pires [place] CHARTPREP 11/20/[address] [address] Fadi Sheikh MD pre-op from Last 3 Months Immunizations Immunization Administration [...] Sign Reading Time Taken Comments Blood Pressure 130/72 02/08/2025 11:29 AM EDT Pulse 83 02/08/2025 11:29 AM EDT Temperature 37.2 C (98.9 F) 02/08/2025 11:29 AM EDT Respiratory Rate 14 02/08/2025 11:29 AM EDT Oxygen Saturation 98% 02/08/2025 11:29 AM EDT Inhaled Oxygen Concentration - - Weight 73.6 kg (162 lb 3.2 oz) 02/08/2025 11:29 AM EDT Height 167.6 cm (5' 6 ) 02/08/2025 11:29 AM EDT Body Mass Index 26.18 02/08/2025 11:29 AM EDT Plan of Treatment Upcoming Encounters Date Type Department Care Team (Late st Contact Info) Description 04/23/2025 11:15 AM EST Office Visit [facility] [address] [place] [address] Name, MD Fadi [address] [facility] [place] [address] Health Maintenance Due Date Last Done Comments CT Colonography 1960 Colonoscopy 1960 Colorectal Cancer Screening 1960 FIT DNA/Cologuard 1960 FIT 1960 FOBT 1960 Sigmoidoscopy 1960 Pneumococcal Vaccine: 50+ Years (1 of 2 - PCV) 09/08/1978 Pap Smear 09/08/1980 Cervical Cancer Screening 09/08/1989 HPV/Cotest 09/08/1989 Zoster Vaccines (1 of 2) 09/08/2009 Mammogram 12/22/2018 12/22/2016, 11/16/2016, 11/16/2016 COVID-19 Vaccine ( - 2023-2 5 season) 2025 Influenza Vaccine (#1) 2025 Alcohol/Substance Use Screening 03/23/2025 03/23/2024 Depression Screening 10/23/2025 10/23/2024, 10/23/2024 SDOH Screening 11/16/2025 11/16/2024 Tobacco Screening 02/08/2026 02/08/2025 Lipid Panel 12/08/2028 12/09/2023 DTaP/Tdap/Td Vaccines (2 [...] Procedure Name Priority Date/Time Associated Diagnosis Comments HOLD GREEN GEL Routine 02/12/2025 3:52 PM EDT SED RATE BY MODIFIED WESTERGREN Routine 02/12/2025 3:52 PM EDT POCT INFLUENZA B (ID NOW RAPID MOLECULAR) Routine 02/01/2025 11:26 AM EDT Pharyngitis, unspecified etiology POCT INFLUENZA A (ID NOW RAPID MOLECULAR) Routine 02/01/2025 11:26 AM EDT Pharyngitis, unspecified etiology POCT RAPID STREP A Routine 02/01/2025 11 :26 AM EDT Pharyngitis, unspecified etiology POCT RAPID COVID ANTIGEN Routine 02/01/2025 11:26 AM EDT Pharyngitis, unspecified etiology BASIC METABOLIC PANEL, FASTING Routine 01/04/2025 5:45 [...] Recently Relevant to Health Maintenance Results * Hold Green Gel (02/12/2025 3:52 PM EDT) Hold Green Gel See Note [facility] Comment:Specimen held untest ed for 24 hours; Call to requestChemistry testing. 02/12/2025 3:52 PM EDT 02/12/2025 4:42 PM EDT us Generic External Data Provider HISTORICAL/NON OR DERABLE LABS Final Result [facility] [address] [place] [phone] * (ABNORMAL) Sed Rate by Modified Alvaradoren (02/12/2025 3:52 PM EDT) Erythrocyte Sedimentation Rate 34(H) 0 - 20 MM/HR [facility] Comment:Patients with polycy themia and many hemoglobin abnormalitiesmay have depressed sed rates whereas patients with anemiamay have elevated sed rates. 02/12/2025 3:52 PM EDT 02/12/2025 3:53 PM EDT Generic External Data Provider LAB BLOOD ORDERAB LES Final Result Performing Organization Address [facility]/ZIP Co de Phone Number [facility] [address] [place] [phone] * Influenza B (ID NOW Rapid Molecular) (02/01/2025 11:26 AM EDT) Influenza B Negative Negative, Indeterminate [facility] Swab 02/01/2025 11:2 6 AM EDT Amira Fink MD POINT OF CARE TEST ENTER/E DIT ORDERABLES Final Result Performing Organization Address [facility] Co de Phone Number [facility] [address] [place] [phone] * Influenza A (ID NOW Rapid Molecular) (02/01/2025 11:26 AM EDT) Influenza A Negative Negative, Indeterminate [facility] Swab 02/01/2025 11:2 6 AM EDT Amira Fink MD POINT OF CARE TEST ENTER/E DIT ORDERABLES Final Result Performing Organization Address [facility] Co de Phone Number [facility] [address] [place] [phone] * POCT Rapid COVID Ag (02/01/2025 11:26 AM EDT) Rapid COVID Ag Negative [facility] Swab 02/01/2025 11:2 6 AM EDT Amira Fink MD POINT OF CARE TEST ENTER/E DIT ORDERABLES Final Result Performing Organization Address [facility] Co de Phone Number [facility] [address] [place] [phone] * POCT rapid strep A manually resulted (02/01/2025 11:26 AM EDT) Rapid Strep A Screen Negative Negative, None Detected [facility] Swab 02/01/2025 11:2 6 AM EDT us Amira Fink MD POINT OF CARE TEST ENTER/E DIT ORDERABLES Final Result [facility] [address] [place] [phone] [phone] * (ABNORMAL) Basic Metabolic Panel, Fasting (01/04/2025 5:45 AM EDT) Pathologist [facility] Sodium 139 135 - 145 mmol/L [facility] Potassium 4.5 3.3 - 5.1 mmol/L [facility] Chloride 108 96 - 108 mmol/L [facility] Carbon Dioxide 25 22 - 29 mmol/L [facility] Anion Gap 11(L) 12 - 20 [facility] Urea Nitrogen (BUN) 22(H) 9 - 16 mg/dL [facility] Creatinine, Serum 0.74 0.5 - 1.4 mg/dL [facility] Creatinine Clr Calc Pharmacy 76.4 [facility] Comment:Provided height and weight: 172.72 cm,73.5 kg.eGFR (calculated from the MDRD study equation) and eCrCl(calculated from the Cockcroft-Gault equation) are based ondifferent parameters and may not yield comparable results.If eCrCl result is absurd, please check patient'sheight/weight. Estimated Glomerular Filt Rate >60 [facility] Comment:Chronic Kidney Disea se: Estimated GFR < 60 mL/min/1.81u8Aqbbia Kidney Disease: Estimated GFR < 15 mL/min/1.73m2 Glucose Fasting 118(H) 60 - 99 mg/dL [facility] Comment:A fasting glucose fr om 100-125 mg/dl is considered impaired(pre-diabetes). Calcium 9.2 8.4 - 10.2 mg/dL [facility] 01/04/2025 5:45 AM EDT 01/04/2025 6:10 AM EDT us Generic External Data Provider LAB BLOOD ORDERAB LES Final Result [facility] [address] [place] [address] [phone] * (ABNORMAL) CBC auto differential (01/04/2025 5:45 AM EDT) Only the most recent of2 resultswithin the time period is included. White Blood Count 10.4 4.8 - 10.8 X10*3/uL [facility] Red Blood Count 3.90(L) 4.20 - 5.50 X10*6/uL [facility] Hemoglobin 10.5(L) 12.0 - 16.0 g/dl [facility] Hematocrit 31.7(L) 37.0 - 47.0 % [facility] Mean Corpuscular Volume 81.3 80.0 - 98.0 fL [facility] Mean Corpuscular Hemoglobin 26.9(L) 27.0 - 33.0 pg [facility] Mean Corpuscular HGB Conc 33.1 31.0 - 35.0 g/dl [facility] Red Cell Distribution Width 13.2 11.0 - 16.0 % [facility] Platelet Count 237 160 - 400 X10*3/uL [facility] Mean Platelet Volume 11.0 9.4 - 12.3 fL [facility] Neutrophils Percent Auto 78.9(H) 45 - 73 % [facility] Imm Gran Pct Auto 0.7(H) 0.0 - 0.4 % [facility] Lymphocytes Percent Auto 11.2(L) 20 - 40 % [facility] Monocytes Percent Auto 9.1 2 - 11 % [facility] Eosinophils Percent Auto 0.0 0 - 4 % [facility] Basophils Percent Auto 0.1 0 - 2 % [facility] NRBC Pct Auto 0.0 0.0 - 0.2 /100WBC [facility] Neutrophils Absolute Auto 8.2 2.0 - 8.3 x10*3/uL [facility] Imm Gran Abs Auto 0.07(H) 0.00 - 0.03 X10*3/uL [facility] Lymphocytes Absolute Auto 1.2 1.2 - 4.9 X10*3/uL [facility] Monocytes Absolute Auto 1.0 0.1 - 1.2 X10*3/uL [facility] Eosinophils Absolute Auto 0.0 0.0 - 0.4 X10*3/uL [facility] Basophils Absolute Auto 0.0 0.0 - 0.2 X10*3/uL [facility] NRBC Abs Auto 0.000 0.0 - 0.012 X10*3/uL [facility] 01/04/2025 5:45 AM EDT 01/04/2025 6:10 AM EDT us Generic External Data Provider LAB BLOOD ORDERAB LES Final Result Performing Organization Address City/State/[facility] Co de Phone Number [facility] [address] [place] [phone] * Gross and Microscopic Level 4 (01/03/2025 9:52 AM EDT) 01/03/2025 9:52 AM EDT 01/03/2025 10:53 AM EDT Leopoldo [facility] - 01/08/2025 1:32 PM EDT ----- ------- Name: Zabrina Mcclelland Age/Sex: 64/F : 1960 Unit#: [id number] Attend Dr: Kobe Apodaca MD Re01/03/25 Status: [facility] Location: [facility] Disch: ----- ------- SPEC : [id number] RECD: 01/03/25 STATUS: EVONNE MADRID NUM: [id number] CALIN: 01/03/25 [facility] DR: Kobe Apodaca MD ENTERED: 01/03/25 SP [...] aggregating 4.5 x 4.0 x 0.5-1.0 cm. Lining Baster sections are submitted in a cassette labeled A1 following decalcification. CEDS IHC S/NG Disclaimer NOTE: Unless otherwise stated, all tissue is formalin-fixed and paraffin-embedded. Some or all of the immunohistochemical tests reported herein may have been developed and their performance characteristics determined by [facility]. They have not been cleared or approved by the U.S. Food and Drug Administration (FDA). However, the FDA CONTINUED ON NEXT PAGE ----- ------- Name: Sung EmmettZabrina Age/Sex: 64/F : 1960 Unit#: [id number] Attend Dr: Kobe Apodaca MD Re01/03/25 Status: [facility] Location: [facility] Disch: ----- ------- SPEC : [id number] RECD: 01/03/253 STATUS: EVONNE YEUNGRayna NUM: [id number] CALIN: 01/03/[address] [facility] DR: Kobe Apodaca MD ENTERED: 01/03/25 SP TYPE: Surgical OTHR DR: Fadi Sheikh MD ORDERED: Gross Micro L4, Decal IHC S/NG Disclaimer (Continued) has determined that such clearance or approval is not necessary. This laboratory is certified under the Clinical Laboratory Improvement Amendments of 1988 (CLIA) as qualified to perform high complexity clinical laboratory testing. Copies To: Kobe Apodaca MD [facility] [address] [place] [address] Dr [address] [place] [address] Fadi Sheikh MD [address] [phone] ----- ------- Signed (signature on file) Hanh Viveros MD 01/08/25 1332 ----- ------- END OF REPORT us Generic External Data Provider LAB CYTOLOGY ASHLEY LEDESMA Final Result [facility] [address] [place] [address] [phone] * (ABNORMAL) CBC (12/29/2024 2:17 PM EDT) White Blood Count 4.7(L) 4.8 - 10.8 X10*3/uL [facility] Red Blood Count 4.58 4.20 - 5.50 X10*6/uL [facility] Hemoglobin 12.4 12.0 - 16.0 g/dl [facility] Hematocrit 38.4 37.0 - 47.0 % [facility] Mean Corpuscular Volume 83.8 80.0 - 98.0 fL [facility] Mean Corpuscular Hemoglobin 27.1 27.0 - 33.0 pg [facility] Mean Corpuscular HGB Conc 32.3 31.0 - 35.0 g/dl [facility] Red Cell Distribution Width 13.6 11.0 - 16.0 % [facility] Platelet Count 301 160 - 400 X10*3/uL [facility] Mean Platelet Volume 11.5 9.4 - 12.3 fL [facility] NRBC Pct Auto 0.0 0.0 - 0.2 /100WBC [facility] NRBC Abs Auto 0.000 0.0 - 0.012 X10*3/uL [facility] 12/29/2024 2:17 PM EDT 12/29/2024 2:17 PM EDT us Generic External Data Provider LAB BLOOD ORDERAB LES Final Result [facility] [address], [place] [phone] * (ABNORMAL) Basic Metabolic Panel (12/29/2024 2:17 PM EDT) Only the most recent of2 resultswithin the time period is included. Sodium 141 135 - 145 mmol/L [facility] Potassium 3.7 3.3 - 5.1 mmol/L [facility] Chloride 105 96 - 108 mmol/L [facility] Carbon Dioxide 30(H) 22 - 29 mmol/L [facility] Anion Gap 10(L) 12 - 20 [facility] Urea Nitrogen (BUN) 10 9 - 16 mg/dL [facility] Creatinine, Serum 0.77 0.5 - 1.4 mg/dL [facility] Creatinine Clr Calc Pharmacy 73.4 [facility] Comment:Provided height and weight: 172.72 cm,73.482 kg.eGFR (calculated from the MDRD study equation) and eCrCl(calculated from the Cockcroft-Gault equation) are based ondifferent parameters and may not yield comparable results.If eCrCl result is absurd, please check patient'sheight/weight. Estimated Glomerular Filt Rate >60 [facility] Comment:Chronic Kidney Disea se: Estimated GFR < 60 mL/min/1.14w8Nclchz Kidney Disease: Estimated GFR < 15 mL/min/1.73m2 Glucose 81 60 - 115 mg/dL [facility] Calcium 10.4(H) 8.4 - 10.2 mg/dL [facility] 12/29/2024 2:17 PM EDT 12/29/2024 2:17 PM EDT us Generic External Data Provider LAB BLOOD ORDERAB LES Final Result Performing Organization Address [facility] de Phone Number [facility] [address] [place] [phone] * Type and screen (12/29/2024 2:07 PM EDT) Blood Type OP [facility] Antibody Screen NEGATIVE [facility] 12/29/2024 2:07 PM EDT 12/29/2024 2:27 PM EDT Narrative [facility] - 12/29/2024 3:18 PM EDT Spec expiration changed by ROSALEE on 12/29/24Reason: PATNURSING:Call Blood Bank (ext. [phone]) to band patient on admission.Type and Screen in effect until 2300 on 01/03/2025.Witnessed by MORRO us Generic External Data Provider LAB BLOOD BANK TE ST ORDERABLES Final Result Performing Organization Address [facility] Co de Phone Number [facility] [address] [place] [phone] * CT Head w/o Contrast (12/25/2024 4:29 PM EDT) Anatomical Region Laterality Modality Head, Neck Computed Tomogra phy 12/25/2024 4:29 PM EDT Narrative 12/25/2024 5:36 PM EDT [address] [phone] [address] Scan Report Signed Patient: Zabrina Mcclelland MR#: [id number] : 1960 Acct:[id number] Age/Sex: 64 / F ADM Date: 12/25/24 Loc: HO.CT Attending Dr: Fadi Sheikh MD Ordering Physician: Fadi Sheikh MD Date of Service: 12/25/24 Procedure(s): CT head/brain wo IV con Accession Number(s): [id number] cc: Fadi Sheikh MD Report Number: [id number]: Total DLP = 701.00 mGy-cm EXAMINATION: CT [...] Myers MD Signed By: <Electronically signed by Aguilra Myers MD in OV> 12/25/24 1734 DD/ 1629 TD/TT: 12/25/24 1709 Padder Cushion: Procedure Note Donotuseinterpreter, Image - 12/25/[address] [address] [address] Scan Report Signed Patient: Zabrina McclellandMR#: [id number] : 1960Acct:[id number] Age/Sex: 64 / FADM Date: 12/25/24 Loc: HO.CT Attending Dr: Fadi Sheikh MD Ordering Physician: Fadi Sheikh MD Date of Service: 12/25/24 Procedure(s): CT head/brain wo IV con Accession Number(s): [id number] cc: Fadi Sheikh MD Report Number: [id number]: Total DLP = 701.00 mGy-cm EXAMINATION: CT [...] 12/25/24 1734 DD/ 1629 TD/TT: 12/25/24 1709 Padder Cushion: Fadi Sheikh MD IM CT PROCEDURES Final Result * (ABNORMAL) MRSA Nasal Screen (12/13/2024 10:45 AM EDT) MRSA Nasal PCR NEGATIVE Negative [facility] SA Nasal PCR POSITIVE(A) Negative [facility] MRSA Interpretation SEE NOTE [facility] Comment:MRSA target DNA not detected; SA target DNA detected.A MRSA NEGATIVE, SA POSITIVE test result does not precludeMRSA nasal colonization. 12/13/2024 10:4 5 AM EDT 12/13/2024 11:03 AM EDT us Generic External Data Provider LAB MICROBIOLOGY - GENERAL ORDERABLES Final Result [facility] [address] [place] [address] [phone] * ECG 12 lead (11/23/2024 1:09 AM EDT) Narrative Christy Gardner FNP - 11/23/2024 1:11 AM EDT Normal EKG us Christy BURGESS ECG ORDERABLES Final Result * (ABNORMAL) Lipid Panel with Reflex to Direct LDL (12/09/2023 11:42 AM EDT) Triglycerides 124 <150 mg/dL [facility] Comment:Desirable Triglyceri de: less than 150 mg/dLBorderline High Triglyceride 150-199 mg/dLHigh Triglyceride: 200-499 mg/dLVery High Triglyceride: greater than or equal to 5OO mg/dL Cholesterol 227(H) <200 mg/dL [facility] Comment:Desirable Cholestero l: less than 200 mg/dLBorderline High Cholesterol: 200-239 mg/dLHigh Cholesterol: greater than 239 mg/dL LDL Cholesterol Calculated 129(H) <100 mg/dL [facility] Comment:Desirable LDL: less than 100 mg/dLNear Optimal/Above Optimal LDL: 110- 129 mg/dLBorderline High LDL: 130-159 mg/dLHigh LDL: 160-189 mg/dLVery High LDL: greater than or equal to 190 mg/dL HDL Cholesterol 74 >40 mg/dL [facility] Comment:Desirable HDL: great er than 40 mg/dL Note: This HDL assay may give artificially low results in patients with liver disease. Blood 12/09/2023 11:4 2 AM EDT 12/09/2023 1:03 PM EDT us Esperanza Olsen MD LAB BLOOD ORDERABLES Fin al Result [facility] [address] [place] [phone] * Hepatitis Panel, General (12/09/2023 11:42 AM EDT) Hepatitis A IgM Nonreactive Nonreactive [facility] Comment:IgM antibodies to WALLACE V not detected; does not exclude earlyacute or recovered HAV infection. ~Hepatitis B Surface Antibody NONREACTIVE Nonreactive [facility] Comment:Nonreactive: < 8.00 mIU/mL Hepatitis B Core Antibody Nonreactive Nonreactive [facility] Hepatitis C Antibody Nonreactive Nonreactive [facility] Comment:Antibodies to HCV no t detected; does not exclude early acuteHCV infection. Hepatitis B Surface Ag Negative Negative [facility] Blood 12/09/2023 11:4 2 AM EDT 12/09/2023 1:03 PM EDT Esperanza Olsen MD LAB BLOOD ORDERABLES Fin al Result Performing Organization Address [facility] Co de Phone Number [facility] [address] [place] [phone] from Last 3 Months or Most Recently Relevant to Health Maintenance Insurance [facility] ST[facility] JAIL OPTIONS (HMO D-SNP) Care Teams Chief Data Officer Relationship Specialty Start Date End Date Name, MD [address] [place] [address] PCP - General Internal Medicine 03/23/24 [facility] 01/05/25
== END 2025-02-19 15:48 | disposition home or self-care (01) ==
LOC: HO.MRI 15:47
PROVIDERS: PCP Internal Medicine Geriatric Medicine; Visit Provider Psychiatry & Neurology Neurology
DX: G40.909 Epilepsy, unspecified, not intractable, without status epilepticus (principal)
CPT/HCPCS: 70551

== ENCOUNTER 2025-03-14 16:32 | Inpatient (IN) | payer OTHER, SELFPAY ==
[2025-03-14] VITALS (9 sets, daily range): BP systolic 156–190; BP diastolic 76–110; PULSE 74–118; RESP 16–25; TEMP 36.2–36.9; O2SAT 86–100; BMI 26.2
--- NOTE | ~2025-03-14 | XR_ITS ---
CLINICAL HISTORY: ams 1 view chest x-ray Comparison: None provided Findings: Mild left lower lobe opacities suggesting atelectasis and/or infiltrates. No pleural effusion or pneumothorax. Normal size heart. Abnormal cortical thickening in the mid shaft of the right humerus with no discrete fracture line. IMPRESSION: 1. Mild left lower lobe opacities suggesting atelectasis and/or infiltrates. 2. Posttraumatic changes in the mid right humerus versus indeterminate lesion. This document has been electronically signed by: Astrid Miranda DO on 03/14/2025 18:06:25
--- NOTE | ~2025-03-14 | CT_ITS ---
CLINICAL HISTORY: periumbilical pain CT ABDOMEN AND PELVIS WITH CONTRAST Comparison: None provided Findings: Small right and tiny left pleural effusions with adjacent airspace opacities. Prominent fluid distention of the distal esophagus with wall thickening. Tiny pericardial effusion. Mild hepatic steatosis. No hydronephrosis or urolithiasis. Probable tiny cyst in the left kidney. Remaining solid organs unremarkable. No large calcified gallstone. No AAA. No bowel obstruction, pneumoperitoneum, or pneumatosis. Prominent fluid distention of the stomach with no significant wall thickening. No ascites or organized fluid collection. No significant mesenteric or paracolic edema. The appendix is identified. No acute appendicitis. Atrophic uterus. No urinary bladder wall thickening. The bones are intact. IMPRESSION: 1. Motion affected study. 2. No acute appendicitis. 3. Moderate fluid distention of the distal esophagus with nonspecific wall thickening. 4. Small pericardial and bilateral pleural effusions. 5. No bowel obstruction or ascites. 6. No acute obstructive uropathy. This document has been electronically signed by: Astrid Miranda DO on 03/14/2025 20:49:57
--- NOTE | ~2025-03-14 | CT_ITS ---
CLINICAL HISTORY: ams CT HEAD WITHOUT CONTRAST Comparison: CT/SR - CT HEAD WITHOUT IV CONTRAST - 12/25/24 16:29 EDT Findings: No acute intracranial hemorrhage, extra-axial fluid collection, hydrocephalus or midline shift. Age appropriate generalized parenchymal atrophy. There are periventricular and subcortical white matter hypodensities which are nonspecific but most likely related to microangiopathic gliosis. There is no sinus or mastoid fluid. Visualized orbits: No acute abnormalities. There is no acute fracture. IMPRESSION: 1. No acute intracranial process. This document has been electronically signed by: Astrid Miranda DO on 03/14/2025 20:50:10
--- NOTE | 2025-03-14 16:44 | ED.GENADULT ---
HPI - General Adult General Chief complaint: Altered Mental Status Stated complaint: Weakness, dizzy x20 mins Time Seen by Provider: 03/14/25 16:43 Source: patient, EMS, RN notes reviewed and old records reviewed History of Present Illness ED Provider: HORACIO Villa HPI narrative: 64-year-old female with medical history of depression, anxiety, osteoarthritis, vertigo, seizure, presents to ED by EMS due to altered mental status and vomiting. Patient was brought to ED bed 18H and upon getting off the stretcher and pivoting, felt dizzy and had large volume of coffee ground emesis. Patient was moved to bed 5, during this move the ED television production technician found a small bag containing a white powdery substance under the patients leg. Patient took a nap today and woke up with confusion and dizziness. Patient states she has been feeling dizzy earlier today and is experiencing periumbilical abdominal pain. When asking the patient about the small bag of white powdery substance, she states she does not know what it is and denies drug use. Patient is alert and oriented to self only, she states she is in a hospital but does not know where she is. When asking the year the patient states 1961, when asking who the president is she does not know. MD complaint: AMS Related Data Home Medications ?Medication ?Instructions ?Recorded ?Confirmed sertraline 50 mg tablet 50 mg PO DAILY PRN Anxiety 10/26/24 03/15/25 multivitamin 1 tab PO DAILY 03/15/25 03/15/25 oxycodone 5 mg tablet 5 mg PO DAILY PRN Pain, 03/15/25 03/15/25 Moderate(Pain Scale 4-6) sennosides 8.6 mg-docusate sodium 1 tab PO DAILY 03/15/25 03/15/25 50 mg tablet (Stool Softener-Stimulant Laxative) ustekinumab 45 mg/0.5 mL 45 mg subcut [id number] 03/15/25 03/15/25 subcutaneous syringe (Stelara) Previous Rx's ?Medication ?Instructions ?Recorded walker #1 ea 11/27/24 shower chair #1 ea 12/28/24 acetaminophen 325 mg tablet 650 mg (2 x 325 mg) PO Q6H PRN 01/04/25 Pain, Mild 1-3,Fever,Headache 30 days #240 tabs aspirin 325 mg tablet 325 mg PO BID 42 days #84 tabs 01/04/25 docusate sodium 100 mg capsule 100 mg PO BID 30 days #60 caps 01/04/25 omeprazole 40 mg capsule,delayed 40 mg PO BID #28 caps 03/16/25 release Allergies Allergy/AdvReac Type Severity Reaction Status Date / Time No Known Allergies Allergy Verified 03/14/25 16:44 Review of Systems Review of Systems: CONST: Negative for fever, body aches and chills. HENT: Negative for neck pain/stiffness, headache, congestion, sore throat, swelling. EYES: Negative for discharge/pain or vision changes. RESP: Negative for cough/hemoptysis and shortness of breath. CV: Negative chest pain, difficulty breathing, palpitations. ABD: POS periumbilical abd pain, nausea, vomiting. : Negative increase frequency, dysuria, blood in urine or stool. MUSC: Negative for muscle aches, edema. SKIN: Negative rash, lesions/sores. NEURO: Negative headache, dizziness, weakness. POS confusion Yes all other systems are reviewed and are negative PMFSH Past Medical History Attestation statement: The following information was validated with the patient. Source: old records reviewed and nursing notes reviewed Medical History Depression with anxiety Constipation Osteoarthritis of left knee Heartburn Vertigo Osteoarthritis Depression with anxiety Psoriasis Surgical History H/O knee surgery H/O oral surgery Hx of section Social History Social History Household Members: Family Housing: Apartment Are you a primary care navigator to a significant other at home: No Do you presently have visiting nurse or other home services: No Alcohol intake: current Alcohol intake frequency: a few times a week Patient Tobacco Use Status: Current everyday Tobacco user Tobacco use type: Cigarette Cigarettes Per Day: 2 Years Smoked: 40 Substance Use Type: Crack/Cocaine service: No Current occupational status: disabled Current occupation: right hand dominant Physical Exam ED Vital Signs: Vital Signs - 24 hr 03/14/25 16:42 03/14/25 17:03 03/14/25 18:00 Temperature 97.5 F 97.8 F Pulse Rate 74 96 Respiratory Rate 20 25 H Blood Pressure 168/76 H 156/89 H Pulse Oximetry 96 98 Oxygen Delivery Method Room Air Room Air Oxygen Flow Rate 03/14/25 18:16 03/14/25 20:06 03/14/25 22:04 Temperature 97.6 F 97.2 F 98.4 F Pulse Rate 86 101 H 98 Respiratory Rate 16 24 H 21 H Blood Pressure 156/89 H 180/84 H 161/89 H Pulse Oximetry 100 97 94 Oxygen Delivery Method Room Air Room Air Room Air Oxygen Flow Rate 03/14/25 22:19 03/14/25 22:19 03/14/25 22:55 Temperature Pulse Rate 105 H Respiratory Rate 16 Blood Pressure 170/92 H Pulse Oximetry 86 L 94 96 Oxygen Delivery Method Room Air Nasal Cannula Nasal Cannula Oxygen Flow Rate 2 2 BMI result Body Mass Index 26.2 GENERAL APPEARANCE: ?AxO to self only, states she is in a hospital but unable to state what hospital she is in, she is somewhat lethargic but able to follow directions and answer appropriately, when asking what year it is she states 1960, does not know who the president is, in no acute distress. HEENT: ?NC, AT. MMM. EOMI, clear conjunctiva, oropharynx clear. NECK: ?Supple without lymphadenopathy.? No stiffness or restricted ROM. HEART:? Normal rate and regular rhythm, normal S1/S2, no m/r/g LUNGS:? CTAB, moving air well. No crackles or wheezes are heard. ABDOMEN: ?Soft, nontender, nondistended with good bowel sounds heard. BACK: No CVAT, no obvious deformity. EXTREMITIES: ?Without cyanosis, clubbing or edema. NEUROLOGICAL: ?Grossly nonfocal. moving all 4 extremities. Observed to ambulate with normal gait. Skin: ?Warm and dry without any rash. Medications Administered Discontinued Medications Generic Name Dose Route Start Last Admin Trade Name Freq PRN Reason Stop Dose Admin Aspirin 325 mg 03/15/25 21:00 03/16/25 08:24 Aspirin 325 Mg Tablet PO 325 mg BID TRINO Administration Calcium Carbonate 750 mg 03/15/25 00:51 03/15/25 18:28 Calcium Carbonate 750 Mg Tab.Chew PO 750 mg Q4H PRN Administration Heartburn Diazepam 5 mg 03/14/25 18:24 03/14/25 18:33 Diazepam 10 Mg/2 Ml Cartridge IVPUSH 03/14/25 18:25 5 mg STAT STA Administration Docusate Sodium 100 mg 03/15/25 21:00 03/16/25 08:24 Docusate Sodium 100 Mg Capsule PO 100 mg BID TRINO Administration Famotidine 20 mg 03/14/25 19:08 03/14/25 20:16 Famotidine/Pf 20 Mg/2 Ml Vial IVPUSH 03/14/25 19:09 20 mg ONCE ONE Administration Folic Acid 1 mg 03/15/25 09:00 03/16/25 08:24 Folic Acid 1 Mg Tablet PO 03/18/25 08:59 1 mg DAILY TRINO Administration Lactated Ringer's 2,208 mls @ 2,208 mls/hr 03/14/25 17:43 03/14/25 21:00 Lr 30 ml/kg infuse over 1 hr (2208 ml) 03/14/25 18:42 Infused IV Infusion .Q1H ONE Piperacillin Sod/Tazobactam 50 mls @ 100 mls/hr 03/14/25 17:43 03/14/25 19:03 Sod 3.375 gm/ Sodium Chloride IV 03/14/25 18:12 Infused ONCE ONE Infusion Magnesium Sulfate 2 gm in 50 mls @ 150 mls/hr 03/14/25 18:12 03/14/25 18:53 Magnesium Sulfate/H2o IV 03/14/25 18:31 Infused ONCE ONE Infusion Vancomycin HCl 2,000 mg in 500 mls @ 250 mls/hr 03/14/25 20:46 03/14/25 23:00 Vancomycin/Ns IV 03/14/25 22:45 Infused ONCE ONE Infusion Sodium Chloride 1,000 mls @ 999 mls/hr 03/14/25 22:00 03/15/25 00:26 Ns IV 03/14/25 23:00 Infused .Q1H1M TRINO Infusion Thiamine HCl 500 mg/ Sodium 105 mls @ 210 mls/hr 03/14/25 22:45 03/15/25 00:19 Chloride IV 03/14/25 23:14 Infused ONCE ONE Infusion Piperacillin Sod/Tazobactam 50 mls @ 100 mls/hr 03/15/25 01:00 03/16/25 14:18 Sod 3.375 gm/ Sodium Chloride IV Not Given Q6H TRINO Lactated Ringer's 1,000 mls @ 80 mls/hr 03/15/25 01:00 03/16/25 14:18 Lr IVCONT Infused .[id number] TRINO Infusion Vancomycin HCl 1,000 mg/ 270 mls @ 270 mls/hr 03/15/25 09:00 03/15/25 09:39 Sodium Chloride IV Infused Q12H TRINO Infusion Iohexol 85 ml 03/14/25 19:49 03/14/25 19:50 Iohexol 350 Mg/Ml 100 Ml Infus..Btl IV 03/14/25 19:50 85 ml ONCE ONE Administration Multivitamins/Vitamin C 1 tab 03/15/25 09:00 03/16/25 08:24 Multivitamin Tablet PO 03/18/25 08:59 1 tab DAILY TRINO Administration Naloxone HCl 0.1 mg 03/14/25 17:43 03/14/25 18:33 Naloxone Hcl 0.4 Mg/Ml Vial IVPUSH 03/14/25 17:44 0.1 mg STAT STA Administration Octreotide Acetate 100 mcg 03/14/25 19:08 03/14/25 20:16 Octreotide Acetate 100 Mcg/Ml Ampul IVPUSH 03/14/25 19:09 100 mcg ONCE ONE Administration Pantoprazole Sodium 40 mg 03/14/25 17:04 03/14/25 18:33 Pantoprazole Sodium 40 Mg/10 Ml Vial IVPUSH 03/14/25 17:05 40 mg ONCE ONE Administration Pantoprazole Sodium 40 mg 03/14/25 19:08 03/14/25 20:16 Pantoprazole Sodium 40 Mg/10 Ml Vial IVPUSH 03/14/25 19:09 40 mg ONCE ONE Administration Pantoprazole Sodium 40 mg 03/15/25 06:30 03/16/25 06:11 Pantoprazole Sodium 40 Mg/10 Ml Vial IVPUSH 40 mg BID@0630,1630 TRINO Administration Sodium Chloride 3 ml 03/15/25 08:00 03/16/25 08:24 0.9 % Sodium Chloride Flush 3 Ml Syringe IVFLUSH Not Given QSHIFT TRINO Thiamine HCl 100 mg 03/15/25 09:00 03/16/25 08:24 Thiamine Hcl 100 Mg Tablet PO 03/18/25 08:59 100 mg DAILY TRINO Administration Procedures Procedure Narrative Procedure Narrative: Ultrasound-guided IV 20 gauge 1-3/4 inch IV placed in left upper extremity. Adequate blood return flushes well secured with Tegaderm performed by Abida Hoffman PA-C Medical Decision Making Medical Decision Making MDM Narrative: 64-year-old female with medical history of depression, anxiety, osteoarthritis, vertigo, seizure, presents to ED by EMS due to altered mental status and vomiting. Patient was brought to ED bed 18H and upon getting off the stretcher and pivoting, felt dizzy and had large volume of coffee ground emesis. Patient was moved to bed 5, during this move the ED television production technician found a small bag containing a white powdery substance under the patients leg. Patient took a nap today and woke up with confusion and dizziness. Patient states she has been feeling dizzy earlier today and is experiencing periumbilical abdominal pain. When asking the patient about the small bag of white powdery substance, she states she does not know what it is and denies drug use. Patient is alert and oriented to self only, she states she is in a hospital but does not know where she is. When asking the year the patient states 1960, when asking who the president is she does not know. VS on initial observation-BP 168/76, pulse rate of 74, respiratory rate of 20, afebrile with a rectal temp of 96.4?, O2 sat 96% on room air. Physical exam reveals a mildly lethargic and confused female who is oriented to self only, states the year is 1960, does not know who the president is. Lungs clear to auscultation B/L cardiac exam reveals regular rate and rhythm without murmurs/rubs/gallops. Abdomen is soft, nondistended, no rigidity, but diffusely tender to palpation of entire abdomen. Plan: labs, UA, DONNELLY, EKG, CT head/brain, CT abdomen, CXR, likely admission for lactic acidosis Course Daughter presented at bedside and let me know that her mother has history of drug and alcohol use but has not used in several months while she has been residing with her daughter. Daughter states her mother was asking to stay at a friends house yesterday and she decided to let her go. Daughter states she received a phone call that her mother was being taken to the hospital for high blood pressure . To the daughters knowledge, patient has not been drinking or using drugs. At 18:34 I suspected infection, fluid bolus started, 3.375g IV zosyn for empirical coverage. EKG reveals normal sinus rhythm with sinus arrhythmia, prolonged QTC of 534, no significant ST-elevation/depression, initial troponin undetectable at < 2.7 Labs reveal leukocytosis of 14.7, stable H&H, hyponatremia of 128, serum glucose of 88, with anion gap of 23, elevated AST of 34, decreased chloride of 90, decreased carbon dioxide of 19, elevated lactic acid of 6.2 - lactic acidosis secondary to dehydration and cocaine use CXR reveals mild left lower lobe opacities suggestive of atelectasis versus infiltrates, and posttraumatic changes in the mid right humerus versus indeterminate lesion ETOH of 110 CTA abdomen and pelvis shows trace pleural effusion and pericardial effusion. No sign of significant intra-abdominal pathologies. She does have thickening of the esophagus likely secondary to esophagitis. This may be secondary to alcohol use. Patient's 2nd lactic acid is elevated at 7.5 this had down trending to 2.7. I did discuss the case with the hospitalist who recommends ICU evaluation. Did discuss the case with the ICU who deems that patient is appropriate for floor. Patient's lactic acid is likely secondary to alcohol use hematemesis may be secondary to [place] tear or esophagitis. I did consult GI team for her hematemesis. Hemoglobin remained stable at this time. She has received IV vancomycin and Zosyn for broad-spectrum antibiotic coverage. Patient will be admitted to the hospital. Differential Diagnosis Differential Diagnoses: The differential diagnosis associated with the presentation includes ICH Dysrhythmia Pneumonia GI bleed Opioid intoxication UTI encephalopathy Admission/Observation Consideration of admission/observation: Escalation of care including admission/observation considered Consult Healthcare Provider Management of the patient was discussed with: Hospitalist and Physiatrist (Dr. Palacios (GI), Dr. Corral and Maikel ( ICU)) Lab Data MDM Lab Attestation statement: I reviewed the patient's lab results. 03/16/25 06:19 03/16/25 06:19 Labs: Lab Results 03/14/25 03/14/25 03/14/25 Range/Units 16:48 17:03 17:10 WBC 14.7 H (4.8-10.8) X10*3/uL RBC 4.72 D (4.20-5.50) X10*6/uL Hgb 12.4 (12.0-16.0) g/dl Hct 37.0 (37.0-47.0) % MCV 78.4 L (80.0-98.0) fL MCH 26.3 L (27.0-33.0) pg MCHC 33.5 (31.0-35.0) g/dl RDW 13.0 (11.0-16.0) % Plt Count 372 D (160-400) X10*3/uL MPV 10.7 (9.4-12.3) fL Immature Gran % (Auto) 0.4 (0.0-0.4) % Neut % (Auto) 88.9 H (45-73) % Lymph % (Auto) 6.8 L (20-40) % [place] % (Auto) 3.5 (2-11) % Eos % (Auto) 0.1 (0-4) % Baso % (Auto) 0.3 (0-2) % Lymph # (Auto) 1.0 L (1.2-4.9) X10*3/uL [place] # (Auto) 0.5 (0.1-1.2) X10*3/uL Eos # (Auto) 0.0 (0.0-0.4) X10*3/uL Baso # (Auto) 0.0 (0.0-0.2) X10*3/uL Abs Immat Gran (auto) 0.06 H (0.00-0.03) X10*3/uL Absolute Neuts (auto) 13.0 H (2.0-8.3) x10*3/uL Absolute Nucleated RBC 0.000 (0.0-0.012) X10*3/uL Nucleated RBC % (auto) 0.0 (0.0-0.2) /100WBC Hold Purple Top SEE NOTE PT 11.4 (10.9-12.4) SEC INR 1.0 (0.9-1.1) VBG pH (7.32-7.43) VBG pCO2 mmHg VBG pO2 mmHg VBG HCO3 (22-26) mmol/L VBG O2 Saturation % VBG Base Excess mmol/L Sodium (135-145) mmol/L Potassium (3.3-5.1) mmol/L Chloride (96-108) mmol/L Carbon Dioxide (22-29) mmol/L Anion Gap (12-20) BUN (9-16) mg/dL Creatinine (0.5-1.4) mg/dL Estim Creat Clear Calc Estimated GFR POC Glucose 79 (60-115) mg/dL Random Glucose (60-115) mg/dL Lactic Acid 6.2 H* (0.5-2.0) mmol/L Lactic Acid F/U @ 2Hr (0.5-2.0) mmol/L Lactic Acid F/U @ 4Hr (0.5-2.0) mmol/L Calcium (8.4-10.2) mg/dL Magnesium (1.6-2.6) mg/dL Total Bilirubin (0.0-1.0) mg/dL AST (5-31) U/L ALT (0-31) U/L Alkaline Phosphatase (39-117) U/L Ammonia 46 (13-55) umol/L Lactate Dehydrogenase (122-220) U/L Troponin I High Sens < 2.7 (<3.5-17.0) ng/L Total Protein (6.5-8.0) g/dL Albumin (3.5-5.0) g/dL Urine Color Urine Appearance Urine pH (5.0-9.0) Ur Specific [place] (1.005-1.025) Urine Protein (Neg-Trace) mg/dL Urine Glucose (UA) (Negative) mg/dL Urine Ketones (Negative) mg/dL Urine Blood (Negative) Urine Nitrite (Negative) Ur Leukocyte Esterase (Negative) Urine RBC (0-2) /HPF Urine WBC (0-5) /HPF Ur Squamous Epith Cells (0-2) /HPF Urine Bacteria (None Seen) Hyaline Casts (0-2) /LPF Stool Occult Blood (NEGATIVE) Salicylates < 5.0 L (15-30) mg/dL Urine Opiates Screen (Not Detect) Ur Buprenorphine Scrn (Not Detect) ng/mL Ur Oxycodone Screen (Not Detect) ng/mL Urine Methadone Screen (Not Detect) ng/mL Urine Fentanyl Screen (Not Detect) Ur Barbiturates Screen (Not Detect) Ur Phencyclidine Scrn (Not Detect) Ur Amphetamines Screen (Not Detect) U Benzodiazepines Scrn (Not Detect) Urine Cocaine Screen (Not Detect) U Marijuana (THC) Screen (Not Detect) Ethyl Alcohol mg/dL Hepatitis A IgM Ab (Nonreactive) Hep Bs Antigen (Negative) Hep Bs Antibody (Nonreactive) Hep B Core Total Ab (Nonreactive) Hepatitis C Ab (EIA) (Nonreactive) Blood Type O Positive Antibody Screen NEGATIVE 03/14/25 03/14/25 03/14/25 Range/Units 17:44 17:45 18:42 WBC (4.8-10.8) X10*3/uL RBC (4.20-5.50) X10*6/uL Hgb (12.0-16.0) g/dl Hct (37.0-47.0) % MCV (80.0-98.0) fL MCH (27.0-33.0) pg MCHC (31.0-35.0) g/dl RDW (11.0-16.0) % Plt Count (160-400) X10*3/uL MPV (9.4-12.3) fL Immature Gran % (Auto) (0.0-0.4) % Neut % (Auto) (45-73) % Lymph % (Auto) (20-40) % [place] % (Auto) (2-11) % Eos % (Auto) (0-4) % Baso % (Auto) (0-2) % Lymph # (Auto) (1.2-4.9) X10*3/uL [place] # (Auto) (0.1-1.2) X10*3/uL Eos # (Auto) (0.0-0.4) X10*3/uL Baso # (Auto) (0.0-0.2) X10*3/uL Abs Immat Gran (auto) (0.00-0.03) X10*3/uL Absolute Neuts (auto) (2.0-8.3) x10*3/uL Absolute Nucleated RBC (0.0-0.012) X10*3/uL Nucleated RBC % (auto) (0.0-0.2) /100WBC Hold Purple Top PT (10.9-12.4) SEC INR (0.9-1.1) VBG pH (7.32-7.43) VBG pCO2 mmHg VBG pO2 mmHg VBG HCO3 (22-26) mmol/L VBG O2 Saturation % VBG Base Excess mmol/L Sodium 128 L (135-145) mmol/L Potassium 3.6 (3.3-5.1) mmol/L Chloride 90 L (96-108) mmol/L Carbon Dioxide 19 L (22-29) mmol/L Anion Gap 23 H (12-20) BUN 9 (9-16) mg/dL Creatinine 0.52 (0.5-1.4) mg/dL Estim Creat Clear Calc 110.7 Estimated GFR > 60 POC Glucose (60-115) mg/dL Random Glucose 88 (60-115) mg/dL Lactic Acid (0.5-2.0) mmol/L Lactic Acid F/U @ 2Hr (0.5-2.0) mmol/L Lactic Acid F/U @ 4Hr (0.5-2.0) mmol/L Calcium 9.1 (8.4-10.2) mg/dL Magnesium 1.8 (1.6-2.6) mg/dL Total Bilirubin 0.7 (0.0-1.0) mg/dL AST 34 H (5-31) U/L ALT 19 (0-31) U/L Alkaline Phosphatase 67 (39-117) U/L Ammonia (13-55) umol/L Lactate Dehydrogenase (122-220) U/L Troponin I High Sens (<3.5-17.0) ng/L Total Protein 7.9 (6.5-8.0) g/dL Albumin 4.6 (3.5-5.0) g/dL Urine Color Urine Appearance Urine pH (5.0-9.0) Ur Specific [place] (1.005-1.025) Urine Protein (Neg-Trace) mg/dL Urine Glucose (UA) (Negative) mg/dL Urine Ketones (Negative) mg/dL Urine Blood (Negative) Urine Nitrite (Negative) Ur Leukocyte Esterase (Negative) Urine RBC (0-2) /HPF Urine WBC (0-5) /HPF Ur Squamous Epith Cells (0-2) /HPF Urine Bacteria (None Seen) Hyaline Casts (0-2) /LPF Stool Occult Blood NEGATIVE (NEGATIVE) Salicylates (15-30) mg/dL Urine Opiates Screen (Not Detect) Ur Buprenorphine Scrn (Not Detect) ng/mL Ur Oxycodone Screen (Not Detect) ng/mL Urine Methadone Screen (Not Detect) ng/mL Urine Fentanyl Screen (Not Detect) Ur Barbiturates Screen (Not Detect) Ur Phencyclidine Scrn (Not Detect) Ur Amphetamines Screen (Not Detect) U Benzodiazepines Scrn (Not Detect) Urine Cocaine Screen (Not Detect) U Marijuana (THC) Screen (Not Detect) Ethyl Alcohol 110 mg/dL Hepatitis A IgM Ab Nonreactive (Nonreactive) Hep Bs Antigen Negative (Negative) Hep Bs Antibody NONREACTIVE (Nonreactive) Hep B Core Total Ab Nonreactive (Nonreactive) Hepatitis C Ab (EIA) Nonreactive (Nonreactive) Blood Type Antibody Screen 03/14/25 03/14/25 03/14/25 Range/Units 20:04 20:05 20:15 WBC (4.8-10.8) X10*3/uL RBC (4.20-5.50) X10*6/uL Hgb 11.7 L (12.0-16.0) g/dl Hct 35.9 L (37.0-47.0) % MCV (80.0-98.0) fL MCH (27.0-33.0) pg MCHC (31.0-35.0) g/dl RDW (11.0-16.0) % Plt Count (160-400) X10*3/uL MPV (9.4-12.3) fL Immature Gran % (Auto) (0.0-0.4) % Neut % (Auto) (45-73) % Lymph % (Auto) (20-40) % [place] % (Auto) (2-11) % Eos % (Auto) (0-4) % Baso % (Auto) (0-2) % Lymph # (Auto) (1.2-4.9) X10*3/uL [place] # (Auto) (0.1-1.2) X10*3/uL Eos # (Auto) (0.0-0.4) X10*3/uL Baso # (Auto) (0.0-0.2) X10*3/uL Abs Immat Gran (auto) (0.00-0.03) X10*3/uL Absolute Neuts (auto) (2.0-8.3) x10*3/uL Absolute Nucleated RBC (0.0-0.012) X10*3/uL Nucleated RBC % (auto) (0.0-0.2) /100WBC Hold Purple Top PT (10.9-12.4) SEC INR (0.9-1.1) VBG pH (7.32-7.43) VBG pCO2 mmHg VBG pO2 mmHg VBG HCO3 (22-26) mmol/L VBG O2 Saturation % VBG Base Excess mmol/L Sodium (135-145) mmol/L Potassium (3.3-5.1) mmol/L Chloride (96-108) mmol/L Carbon Dioxide (22-29) mmol/L Anion Gap (12-20) BUN (9-16) mg/dL Creatinine (0.5-1.4) mg/dL Estim Creat Clear Calc Estimated GFR POC Glucose (60-115) mg/dL Random Glucose (60-115) mg/dL Lactic Acid (0.5-2.0) mmol/L Lactic Acid F/U @ 2Hr 7.5 H* (0.5-2.0) mmol/L Lactic Acid F/U @ 4Hr (0.5-2.0) mmol/L Calcium (8.4-10.2) mg/dL Magnesium (1.6-2.6) mg/dL Total Bilirubin (0.0-1.0) mg/dL AST (5-31) U/L ALT (0-31) U/L Alkaline Phosphatase (39-117) U/L Ammonia (13-55) umol/L Lactate Dehydrogenase (122-220) U/L Troponin I High Sens (<3.5-17.0) ng/L Total Protein (6.5-8.0) g/dL Albumin (3.5-5.0) g/dL Urine Color Yellow Urine Appearance Clear Urine pH 6.0 (5.0-9.0) Ur Specific [place] 1.025 (1.005-1.025) Urine Protein 30 (1+) H (Neg-Trace) mg/dL Urine Glucose (UA) Negative (Negative) mg/dL Urine Ketones 40 (Negative) mg/dL Urine Blood Small (1+) H (Negative) Urine Nitrite Negative (Negative) Ur Leukocyte Esterase Negative (Negative) Urine RBC 3-5 H (0-2) /HPF Urine WBC 0-5 (0-5) /HPF Ur Squamous Epith Cells 0-2 (0-2) /HPF Urine Bacteria None Seen (None Seen) Hyaline Casts 0-2 (0-2) /LPF Stool Occult Blood (NEGATIVE) Salicylates (15-30) mg/dL Urine Opiates Screen Not Detected (Not Detect) Ur Buprenorphine Scrn Not Detected (Not Detect) ng/mL Ur Oxycodone Screen Not Detected (Not Detect) ng/mL Urine Methadone Screen Not Detected (Not Detect) ng/mL Urine Fentanyl Screen Not Detected (Not Detect) Ur Barbiturates Screen Not Detected (Not Detect) Ur Phencyclidine Scrn Not Detected (Not Detect) Ur Amphetamines Screen Not Detected (Not Detect) U Benzodiazepines Scrn Not Detected (Not Detect) Urine Cocaine Screen POSITIVE H (Not Detect) U Marijuana (THC) Screen Not Detected (Not Detect) Ethyl Alcohol mg/dL Hepatitis A IgM Ab (Nonreactive) Hep Bs Antigen (Negative) Hep Bs Antibody (Nonreactive) Hep B Core Total Ab (Nonreactive) Hepatitis C Ab (EIA) (Nonreactive) Blood Type Antibody Screen 03/14/25 03/14/25 03/14/25 Range/Units 20:22 23:12 23:14 WBC (4.8-10.8) X10*3/uL RBC (4.20-5.50) X10*6/uL Hgb (12.0-16.0) g/dl Hct (37.0-47.0) % MCV (80.0-98.0) fL MCH (27.0-33.0) pg MCHC (31.0-35.0) g/dl RDW (11.0-16.0) % Plt Count (160-400) X10*3/uL MPV (9.4-12.3) fL Immature Gran % (Auto) (0.0-0.4) % Neut % (Auto) (45-73) % Lymph % (Auto) (20-40) % [place] % (Auto) (2-11) % Eos % (Auto) (0-4) % Baso % (Auto) (0-2) % Lymph # (Auto) (1.2-4.9) X10*3/uL [place] # (Auto) (0.1-1.2) X10*3/uL Eos # (Auto) (0.0-0.4) X10*3/uL Baso # (Auto) (0.0-0.2) X10*3/uL Abs Immat Gran (auto) (0.00-0.03) X10*3/uL Absolute Neuts (auto) (2.0-8.3) x10*3/uL Absolute Nucleated RBC (0.0-0.012) X10*3/uL Nucleated RBC % (auto) (0.0-0.2) /100WBC Hold Purple Top SEE NOTE PT (10.9-12.4) SEC INR (0.9-1.1) VBG pH 7.33 (7.32-7.43) VBG pCO2 39 mmHg VBG pO2 45 mmHg VBG HCO3 20 L (22-26) mmol/L VBG O2 Saturation 62.0 % VBG Base Excess -4.6 mmol/L Sodium 133 L (135-145) mmol/L Potassium 3.9 (3.3-5.1) mmol/L Chloride 95 L (96-108) mmol/L Carbon Dioxide 24 (22-29) mmol/L Anion Gap 18 (12-20) BUN 8 L (9-16) mg/dL Creatinine 0.54 (0.5-1.4) mg/dL Estim Creat Clear Calc 106.6 Estimated GFR > 60 POC Glucose (60-115) mg/dL Random Glucose 102 (60-115) mg/dL Lactic Acid (0.5-2.0) mmol/L Lactic Acid F/U @ 2Hr (0.5-2.0) mmol/L Lactic Acid F/U @ 4Hr 2.7 H* (0.5-2.0) mmol/L Calcium 8.8 (8.4-10.2) mg/dL Magnesium (1.6-2.6) mg/dL Total Bilirubin (0.0-1.0) mg/dL AST (5-31) U/L ALT (0-31) U/L Alkaline Phosphatase (39-117) U/L Ammonia (13-55) umol/L Lactate Dehydrogenase 238 H (122-220) U/L Troponin I High Sens (<3.5-17.0) ng/L Total Protein (6.5-8.0) g/dL Albumin (3.5-5.0) g/dL Urine Color Urine Appearance Urine pH (5.0-9.0) Ur Specific [place] (1.005-1.025) Urine Protein (Neg-Trace) mg/dL Urine Glucose (UA) (Negative) mg/dL Urine Ketones (Negative) mg/dL Urine Blood (Negative) Urine Nitrite (Negative) Ur Leukocyte Esterase (Negative) Urine RBC (0-2) /HPF Urine WBC (0-5) /HPF Ur Squamous Epith Cells (0-2) /HPF Urine Bacteria (None Seen) Hyaline Casts (0-2) /LPF Stool Occult Blood (NEGATIVE) Salicylates (15-30) mg/dL Urine Opiates Screen (Not Detect) Ur Buprenorphine Scrn (Not Detect) ng/mL Ur Oxycodone Screen (Not Detect) ng/mL Urine Methadone Screen (Not Detect) ng/mL Urine Fentanyl Screen (Not Detect) Ur Barbiturates Screen (Not Detect) Ur Phencyclidine Scrn (Not Detect) Ur Amphetamines Screen (Not Detect) U Benzodiazepines Scrn (Not Detect) Urine Cocaine Screen (Not Detect) U Marijuana (THC) Screen (Not Detect) Ethyl Alcohol mg/dL Hepatitis A IgM Ab (Nonreactive) Hep Bs Antigen (Negative) Hep Bs Antibody (Nonreactive) Hep B Core Total Ab (Nonreactive) Hepatitis C Ab (EIA) (Nonreactive) Blood Type Antibody Screen Independent Interpretation I performed an independent interpretation of an: EKG and Plain X-Ray Interpretation: I personally interpreted the EKG which reveals normal sinus rhythm with sinus arrhythmia, and prolonged QT of [address]-elevation/depression Vent. Rate : 80 BPM Atrial Rate : 80 BPM P-R Int : 130 ms QRS Dur : 90 ms QT Int : 486 ms P-R-T Axes : 65 -1 88 degrees QTcB Int : 560 ms Normal sinus rhythm T wave abnormality, consider anterior ischemia Abnormal ECG When compared with ECG of 20-Nov-2024 18:10, Nonspecific T wave abnormality now evident in Inferior leads T wave inversion now evident in Anterior leads QT has lengthened I personally interpreted the CXR which reveals opacities of the left lower lobe, no cardiomegaly, no pleural effusion, no pneumothorax, I agree with the radiologist's interpretation Radiology Impression Discussion of test interpretation with radiology: I have reviewed the radiologist's reading. Radiologist Impression: CXR Findings: Mild left lower lobe opacities suggesting atelectasis and/or infiltrates. No pleural effusion or pneumothorax. Normal size heart. Abnormal cortical thickening in the mid shaft of the right humerus with no discrete fracture line. IMPRESSION: 1. Mild left lower lobe opacities suggesting atelectasis and/or infiltrates. 2. Posttraumatic changes in the mid right humerus versus indeterminate lesion. This document has been electronically signed by: Astrid Miranda DO on 03/14/2025 18:06:25 Dictated By: Astrid Miranda MD Signed By: <Electronically signed by Astrid Miranda MD in OV> 03/14/25 1807 Independent Historian Clinical information obtained from an independent historian. History obtained from or confirmed by: Other (Daughter at bedside) Critical Care Time Critical Care Time Critical Care Time: Yes Total Critical Care Time: 56 Attestation: Time is exclusive of separately billable procedures. Time includes: direct patient care, patient reassessment, coordination of patient care, interpretation of data (laboratory data, pulse oximetry, arterial blood gases and chest xrays), review of patient's medical records, medical consultation and documentation of patient care. Procedures excluded from critical care time: central intravenous line placement and electrocardiography. Discharge Plan Discharge Clinical Impression: Esophagitis, Acidosis, lactic Sepsis Qualifiers: Sepsis type: sepsis due to unspecified organism Sepsis acute organ dysfunction status: with acute organ dysfunction Severe sepsis acute organ dysfunction type: unspecified Severe sepsis shock status: without septic shock Qualified Code(s): A41.9 - Sepsis, unspecified organism Hematemesis Qualifiers: Nausea presence: with nausea Qualified Code(s): K92.0 - Hematemesis Patient Disposition: Admitted As Inpatient Interventions: Admission Worksheet (ED) Last Done: 03/15/25 09:42 Discharge Date/Time: 03/15/25 09:50
--- NOTE | 2025-03-14 16:52 | ECG_ITS ---
Test Reason : WEAKNESS Blood Pressure : */* mmHG Vent. Rate : 80 BPM Atrial Rate : 80 BPM P-R Int : 130 ms QRS Dur : 90 ms QT Int : 486 ms P-R-T Axes : 65 -1 88 degrees QTcB Int : 560 ms Normal sinus rhythm T wave abnormality, consider anterior ischemia Abnormal ECG When compared with ECG of 20-Nov-2024 18:10, Nonspecific T wave abnormality now evident in Inferior leads T wave inversion now evident in Anterior leads QT has lengthened Referred By: Britany Villa Electronically Signed By: DIOR PARKS MD
[2025-03-14 16:57] LABS: MANUAL DIFF FLAG NO
[2025-03-14 16:59] LABS: Hematocrit 37.0 % (37.0-47.0); Hemoglobin 12.4 g/dl (12.0-16.0); Imm Gran Abs Auto 0.06 X10*3/uL (0.00-0.03); Imm Gran Pct Auto 0.4 % (0.0-0.4); Lymphocytes Absolute Auto 1.0 X10*3/uL (1.2-4.9); Mean Corpuscular HGB Conc 33.5 g/dl (31.0-35.0); Mean Corpuscular Hemoglobin 26.3 pg (27.0-33.0); Mean Corpuscular Volume 78.4 fL (80.0-98.0); NRBC Abs Auto 0.000 X10*3/uL (0.0-0.012); NRBC Pct Auto 0.0 /100WBC (0.0-0.2); Platelet Count 372 X10*3/uL (160-400); Red Blood Count 4.72 X10*6/uL (4.20-5.50); White Blood Count 14.7 X10*3/uL (4.8-10.8)
[2025-03-14 17:05] LABS: INTERNATIONAL NORM RATIO 1.0 (0.9-1.1); Prothrombin Time 11.4 SEC (10.9-12.4)
[2025-03-14 17:07] LABS: Glucose, Whole Blood 79 mg/dL (60-115)
[2025-03-14 17:26] LABS: Ammonia 46 umol/L (13-55)
[2025-03-14 17:42] LABS: Salicylate < 5.0 mg/dL (15-30); Troponin-I High Sensitivity < 2.7 ng/L (<3.5-17.0)
--- NOTE | 2025-03-14 18:02 | ECG_ITS ---
Test Reason : RE-PEAT EKG/WEAKNESS Blood Pressure : */* mmHG Vent. Rate : 84 BPM Atrial Rate : 84 BPM P-R Int : 128 ms QRS Dur : 90 ms QT Int : 452 ms P-R-T Axes : 55 5 78 degrees QTcB Int : 534 ms Normal sinus rhythm with sinus arrhythmia T wave abnormality, consider anterior ischemia Prolonged QT Abnormal ECG When compared with ECG of 14-Mar-2025 17:28, No significant change was found Referred By: Kait Villalobos Electronically Signed By: DIOR PARKS MD
[2025-03-14 18:17] LABS: Alanine Aminotransferase 19 U/L (0-31); Albumin Level 4.6 g/dL (3.5-5.0); Alkaline Phosphatase 67 U/L (39-117); Anion Gap 23 (12-20); Aspartate Amino Transferase 34 U/L (5-31); Blood Urea Nitrogen 9 mg/dL (9-16); Calcium 9.1 mg/dL (8.4-10.2); Carbon Dioxide 19 mmol/L (22-29); Chloride 90 mmol/L (96-108); Creatinine Clr Calc Pharmacy 110.7; Estimated Glomerular Filt Rate > 60; Magnesium 1.8 mg/dL (1.6-2.6); Potassium 3.6 mmol/L (3.3-5.1); Sodium 128 mmol/L (135-145); Total Protein 7.9 g/dL (6.5-8.0)
[2025-03-14] MEDS: Magnesium Sulfate/H2O 2 GM/50 ML PIGGYBACK IV (18:33)
[2025-03-14] MEDS: diazePAM 10 MG/2 ML CARTRIDGE 5 MG IVPUSH (18:33)
[2025-03-14 18:54] LABS: OBS Int Ctl Valid YES; OBS1 NEGATIVE (NEGATIVE)
[2025-03-14 19:02] LABS: Reflex Lactate? Lactic Acid Added
--- NOTE | 2025-03-14 19:46 | PC.NURSE ---
20g IV access established to right AC by this RN at 16:45. Labs drawn at this time. Pt moved from ED 18 [place] to ED 5 after having episode of large coffee ground emesis. Pallor noted and provider (FILOMENA Villa) was called to bedside for evaluation. This occurred shortly after arriving by EMS. Verbal bedside report received from Landy Rose RN. During changeover, single bag of cocaine noted on her person. Removed and given to security staff. No other contraband found. Belongings placed in patient belonging bag, list completed. Pt is altered, states it's 1961 when asked current year. Attempting to obtain 2nd IV access and additional labs at this time, but without success by this RN, ED techs, and Annabella Cazares RN. FILOMENA Hernandez to attempt ultrasound guided IV access. Around 18:45, patient had second episode of coffee ground emesis. Meds given as ordered via 20g IV in right AC. Imaging ordered, results pending.
[2025-03-14] MEDS: iohexoL 350 MG/ML 100 ML INFUS..BTL 85 ML IV (19:50)
[2025-03-14 20:12] LABS: Appearance Urine Clear; Glucose Urine UA Negative (Negative); PH 6.0 (5.0-9.0); Specific Gravity - Urine 1.025 (1.005-1.025); UMIC TRIGGER UACC YES
[2025-03-14] MEDS: Octreotide Acetate 100 MCG/ML AMPUL IVPUSH (20:16)
[2025-03-14 20:23] LABS: Hematocrit 35.9 % (37.0-47.0); Hemoglobin 11.7 g/dl (12.0-16.0)
[2025-03-14 20:24] LABS: Venous Blood Gas Refer to POC result
[2025-03-14 20:25] LABS: VBG HCO3 20 mmol/L (22-26); VBG O2 % Saturation 62.0 %
[2025-03-14 20:36] LABS: Cannabinoid Screen Urine Not Detected (Not Detect)
[2025-03-14 20:46] LABS: ~Lactic Acid-LAB USE ONLY 7.5 mmol/L (0.5-2.0)
[2025-03-14] MEDS: vancomycin/NS 2,000 MG/500 ML PLAST..BAG 250 MG IV (21:00)
--- OUTSIDE RECORDS SUMMARY | 2025-03-14 22:17 | XMS_ITS | Clinical Summary ---
Author Organization [facility] [address] [facility] Address [address] [place] [address] Phone Care Team Providers Care Semiconductor Wafers Saw Operator Name Role Phone ConroyFransisca patel HARLEEN Primary Care Provider [phone] Allergies No known active allergies Medications SENNA [...] 145 mmol/L 12/09/2020 10:16 PM EDT + [email or web address] Potassium 3.1(L) 3.5 - 5.1 mmol/L 12/09/2020 10:16 PM EDT [facility] Chloride 110(H) 98 - 107 mmol/L 12/09/2020 10:16 PM EDT [facility] CO2 25 21 - 32 mmol/L 12/09/2020 10:16 PM EDT [facility] Anion Gap 7 5 - 15 mmol/L 12/09/2020 10:16 PM EDT [facility] Glucose 89 65 - 110 mg/dL 12/09/2020 10:16 PM EDT [facility] Comment: Non-fastin-110 mg/dL Fasting (minimum 6 hrs): 65-99 mg/dL BUN 12 7 - 18 mg/dL 12/09/2020 10:16 PM EDT [facility] Creatinine 0.82 0.55 - 1.02 mg/dL 12/09/2020 10:16 PM EDT [facility] eGFR (-FRENCH) >60 >60 mL/min/1. 73m2 12/09/2020 10:16 PM EDT [facility] eGFR (NON -New Zealander) >60 >60 mL/min/1. 73m2 12/09/2020 10:16 PM EDT [facility] Comment: (NOTE) These are [...] - 10.1 mg/dL 12/09/2020 10:16 PM EDT [facility] Total Protein 7.6 6.4 - 8.2 g/dL 12/09/2020 10:16 PM EDT [facility] Albumin 3.4 3.4 - 5.0 g/dL 12/09/2020 10:16 PM EDT [facility] Globulin 4.2 2.5 - 5.0 g/dL 12/09/2020 10:16 PM EDT [facility] Total Bilirubin 0.4 <1.0 mg/dL 12/09/2020 10:16 PM EDT [facility] Comment:Use of this assay is not recommended for patients undergoing treatment with Eltrombopag due to the potential for falsely elevated results. Alkaline Phosphatase 62 45 - 117 U/L 12/09/2020 10:16 PM EDT [facility] Alanine Aminotransferase (ALT) 26 13 - 56 U/L 12/09/2020 10:16 PM EDT [facility] Aspartate Aminotransferase (AST) 19 15 - 37 U/L 12/09/2020 10:16 PM EDT [facility] Blood Venipuncture / Unknown 12/09/2020 9:40 PM EDT 12/09/2020 9:46 PM EDT us Kassie BUTT LAB BLOOD ORDERABLES Final Re sult [facility] [address] [place] [address] * Mammography Screening Danny Bilateral (11/16/2016 11:15 AM EDT) Anatomical Region Laterality Modality Breast Bilateral Mammography 11/17/2016 5:33 PM EDT Narrative 11/17/2016 5:33 PM EDT [address] [address] MAMMO SCREENING DANNY BILATERAL ARUNA Hansen: F : [id number] Service Date: 2016-11-16 [id number] BILATERAL MAMMOGRAPHY WITH TOMOSYNTHESIS CLINICAL INDICATION: Screening [...] Img Yesika :R: US :D: Heterogeneou LOCATION: [place] Signed By: Mamadou Denton MD, 17:33:20 Procedure Note Mamadou Denton MD - 11/17/[address] [address] MAMMO SCREENING DANNY BILATERAL ARUNA MEDEROS Sex: F : [id number] Service Date: 2016-11-16 [id number] BILATERAL MAMMOGRAPHY WITH TOMOSYNTHESIS CLINICAL INDICATION: Screening [...] Img Yesika :R: US :D: Heterogeneou LOCATION: [place] Signed By: Mamadou Denton MD, 17:33:20 us Aleena Tanner APRN IM MAMMOGRAPHY ORDERABLES Final Result from Last 3 Months or Most Recently Relevant to Health Maintenance Insurance [place] Member Subscriber Plan / Payer (Ef fective 2017-Present) Name:Sung Aruna Relation to Subscriber:Self Name:Aruna Mederos Payer ID:[id number] Group ID:Not on file Type:Not on file Address: [address] [place] [id number] Care Teams Semiconductor Wafers Saw Operator Relationship Specialty Start Date End Date Fransisca Conroy NP [address] [place] [address] PCP - General Family Medicine 10/22/20
--- OUTSIDE RECORDS SUMMARY | 2025-03-14 22:17 | XMS_ITS | Encounter Summary ---
Author Organization [facility] Address [address] [place] [address] Care Team Providers Care Marine Fireman Name Role Phone Conroy, Fransisca HARLEEN Primary Care Provider [phone]- [phone] Reason for Visit * Reason Comments Medication Refill Encounter Details Date Type Department Care Team (Late st Contact Info) Description 07/14/[address] [id number] Shilpi Romero APRN [address] [place] [address] Medication Refill Social History Tobacco [...] Miscellaneous Notes * Telephone Encounter - Jazmyn aMrtin - 07/14/2021 10:37 AM EST Patient called [...] on filedocumented in this encounter Care Teams Marine Fireman Relationship Specialty Start Date End Date Fransisca Conroy NP [address] [place] [phone] PCP - General Family Medicine 10/22/20 documented as of this encounter
--- OUTSIDE RECORDS SUMMARY | 2025-03-14 22:17 | XMS_ITS | Clinical Summary ---
Author Organization [facility] Address [address] [place] [address] Care Team Providers Care Thermal Molder Name Role Phone FloresAleena JACKLYN Primary Care Provider [phone] Social History Tobacco Use Types Packs/Day Years [...] - 2023-2 5 season) 2025 RSV Vaccine 50 years and old er and Patients (1 - 1-dose 75+ series) 09/08/2034 Hepatitis B Vaccines Aged Out No long er eligible based on patient's age to complete this topic Insurance Care Teams Thermal Molder Relationship Specialty Start Date End Date Aleena Tanner APRN [address] [place] [address] PCP - General 02/17/19
--- OUTSIDE RECORDS SUMMARY | 2025-03-14 22:17 | XMS_ITS | Encounter Summary ---
Author Organization [facility] Address [address] [place] [address] Care Team Providers Care Alkylation Operator Name Role Phone Fransisca Conroy NP Primary Care Provider [phone]- [phone] Reason for Referral * Physical Medicine (Routine) - Closed Specialty Diagnoses / Procedures Referred By Contact Referred To Contact Physical Therapy / Rehabilitation Diagnoses Large breasts Left shoulder pain, unspecified chronicity Right shoulder pain, unspecified chronicity Aleena Tanner APRN [address] [place] [address] Phone: tel:[phone] fax:[phone] [facility] [address] Phone: tel: fax: Referral ID Status Reason Start Date Expiration Date Visits Re quested Visits Authorized [id number] Closed 01/07/2017 01/21/2017 1 1 Encounter Details Date Type Department Care Team (Latest Contact Info) Description 11/27/2016 Transcribed Orders [facility] [phone] Aleena Tanner APRN [address] [place] [address] Large breasts (Primary Dx); Left [...] r Schedule Ambulatory referral to Rehab Services (PT/OT/PROGRESS DEVELOPER) Outpatient Referral Routine Large breasts Left shoulder pain, unspecified chronicity Right shoulder pain, unspecified chronicity Ordered: 11/27/2016 documented as of this encounter Visit Diagnoses Diagnosis Large breasts- Primary Hypertrophy of breast Left shoulder pain, unspecified chronicity Right shoulder pain, unspecified chronicity documented in this encounter Care Teams Alkylation Operator Relationship Specialty Start Date End Date Fransisca Conroy NP [address] [place] [address] PCP - General Family Medicine 10/22/20 documented as of this encounter
--- OUTSIDE RECORDS SUMMARY | 2025-03-14 22:17 | XMS_ITS | Encounter Summary ---
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 [address] [place] [address] Name, MD Fadi [address] [place] [address] documented as of this encounter Procedures Procedure Name Priority Date/Time Associated Diagnosis Comments CT HEAD WO CONTRAST Routine 03/14/2025 8 :[address] ABDOMEN PELVIS W CONTRAST Routine 03/14/2025 8:49 PM EDT VENOUS BLOOD GAS Routine 03/14/2025 8:22 PM EDT HEMOGLOBIN + HEMATOCRIT Routine 03/14/2025 8:15 PM EDT DRUG MONITOR, PANEL 1, SCREEN, URINE Routine 03/14/2025 8:05 PM EDT URINALYSIS, COMPLETE, WITH REFLEX TO CULTURE Routine 03/14/2025 8:04 PM EDT OBSX1 Routine 03/14/2025 6:42 PM EDT documented in this encounter Results * CT Head w/o Contrast (03/14/2025 8:50 PM EDT) Anatomical Region Laterality Modality Head, Neck Computed Tomogra phy 03/14/2025 8:50 PM EDT Narrative 03/14/2025 8:51 PM EDT [address] [address] [address] Scan Report Signed Patient: Zabrina Mcclelland MR#: [id number] : 1960 Acct:[id number] Age/Sex: 64 / F ADM Date: 03/14/25 Loc: HO.ED Attending Dr: Ordering Physician: Britany Villa PA-C Date of Service: 03/14/25 Procedure(s): CT head/brain wo IV con Accession Number(s): [id number] cc: Britany Villa PA-C; Name,Fadi GREER Report Number: [id number]: Total DLP = 1248.00 mGy-cm Reason for Exam: ams CLINICAL HISTORY: ams CT HEAD WITHOUT CONTRAST Comparison: CT/SR - CT HEAD WITHOUT IV CONTRAST - 12/25/24 16:29 EDT Findings: No acute intracranial hemorrhage, extra-axial fluid collection, hydrocephalus or midline shift. Age appropriate generalized parenchymal atrophy. There are periventricular and subcortical white matter hypodensities which are nonspecific but most likely related to microangiopathic gliosis. There is no sinus or mastoid fluid. Visualized orbits: No acute abnormalities. There is no acute fracture. IMPRESSION: 1. No acute intracranial process. This document has been electronically signed by: Astrid Miranda DO on 03/14/2025 20:50:10 Dictated By: Astrid Miranda MD Signed By: <Electronically signed by Astrid Miranda MD in OV> 03/14/252050 DD/ 49 TD/TT: 03/14/252049 Missileman: Procedure Note Donotuseinterpreter, Image - 03/14/[address] [address] [address] Scan Report Signed Patient: Zabrina McclellandMR#: [id number] : 1960Acct:[id number] Age/Sex: 64 / FADM Date: 03/14/25 Loc: HO.ED Attending Dr: Ordering Physician: Britany Villa PA-C Date of Service: 03/14/25 Procedure(s): CT head/brain wo IV con Accession Number(s): [id number] cc: Britany Villa PA-C; Name,Fadi GRERE Report Number: [id number]: Total DLP = 1248.00 mGy-cm Reason for Exam: ams CLINICAL HISTORY: ams CT HEAD WITHOUT CONTRAST Comparison: CT/SR - CT HEAD WITHOUT IV CONTRAST - 12/25/24 16:29 EDT Findings: No acute intracranial hemorrhage, extra-axial fluid collection, hydrocephalus or midline shift. Age appropriate generalized parenchymal atrophy. There are periventricular and subcortical white matter hypodensities which are nonspecific but most likely related to microangiopathic gliosis. There is no sinus or mastoid fluid. Visualized orbits: No acute abnormalities. There is no acute fracture. IMPRESSION: 1. No acute intracranial process. This document has been electronically signed by: Astrid Miranda DO on 03/14/2025 20:50:10 Dictated By: Astrid Miranda MD Signed By: <Electronically signed by Astrid Miranda MD in OV> 03/14/252050 DD/ 49 TD/TT: 03/14/252049 Missileman: [facility] External Provider IMG CT PROCEDURES Final Result * CT Abdomen Pelvis w/ Contrast (03/14/2025 8:49 PM EDT) Anatomical Region Laterality Modality Body, Pelvis, Abdomen Computed T omography 03/14/2025 8:49 PM EDT Narrative 03/14/2025 8:51 PM EDT [address] [address] [address] Scan Report Signed Patient: Zabrina Mcclelland MR#: [id number] : 1960 Acct:[id number] Age/Sex: 64 / F ADM Date: 03/14/25 Loc: HO.ED Attending Dr: Ordering Physician: Britany Villa PA-C Date of Service: 03/14/25 Procedure(s): CT abdomen pelvis w IV con Accession Number(s): [id number] cc: Britany Villa PA-C; Name,Fadi GREER Report Number: [id number]: Total DLP = 854.00 mGy-cm Reason for Exam: periumbilical pain CLINICAL HISTORY: periumbilical pain CT ABDOMEN AND PELVIS WITH CONTRAST Comparison: None provided Findings: Small right and tiny left pleural effusions with adjacent airspace opacities. Prominent fluid distention of the distal esophagus with wall thickening. Tiny pericardial effusion. Mild hepatic steatosis. No hydronephrosis or urolithiasis. Probable tiny cyst in the left kidney. Remaining solid organs unremarkable. No large calcified gallstone. No AAA. No bowel obstruction, pneumoperitoneum, or pneumatosis. Prominent fluid distention of the stomach with no significant wall thickening. No ascites or organized fluid collection. No significant mesenteric or paracolic edema. The appendix is identified. No acute appendicitis. Atrophic uterus. No urinary bladder wall thickening. The bones are intact. IMPRESSION: 1. Motion affected study. 2. No acute appendicitis. 3. Moderate fluid distention of the distal esophagus with nonspecific wall thickening. 4. Small pericardial and bilateral pleural effusions. 5. No bowel obstruction or ascites. 6. No acute obstructive uropathy. This document has been electronically signed by: Astrid Miranda DO on 03/14/2025 20:49:57 Dictated By: Astrid Miranda MD Signed By: <Electronically signed by Astrid Miranda MD in OV> 03/14/252050 DD/ 48 TD/TT: 03/14/252048 Missileman: Procedure Note Donotuseinterpreter, Image - 03/14/[address] [address] [address] Scan Report Signed Patient: Zabrina McclellandMR#: [id number] : 1960Acct:[id number] Age/Sex: 64 / FADM Date: 03/14/25 Loc: HO.ED Attending Dr: Ordering Physician: Britany Villa PA-C Date of Service: 03/14/25 Procedure(s): CT abdomen pelvis w IV con Accession Number(s): [id number] cc: Britany Villa PA-C; Name,Fadi GREER Report Number: [id number]: Total DLP = 854.00 mGy-cm Reason for Exam: periumbilical pain CLINICAL HISTORY: periumbilical pain CT ABDOMEN AND PELVIS WITH CONTRAST Comparison: None provided Findings: Small right and tiny left pleural effusions with adjacent airspace opacities. Prominent fluid distention of the distal esophagus with wall thickening. Tiny pericardial effusion. Mild hepatic steatosis. No hydronephrosis or urolithiasis. Probable tiny cyst in the left kidney. Remaining solid organs unremarkable. No large calcified gallstone. No AAA. No bowel obstruction, pneumoperitoneum, or pneumatosis. Prominent fluid distention of the stomach with no significant wall thickening. No ascites or organized fluid collection. No significant mesenteric or paracolic edema. The appendix is identified. No acute appendicitis. Atrophic uterus. No urinary bladder wall thickening. The bones are intact. IMPRESSION: 1. Motion affected study. 2. No acute appendicitis. 3. Moderate fluid distention of the distal esophagus with nonspecific wall thickening. 4. Small pericardial and bilateral pleural effusions. 5. No bowel obstruction or ascites. 6. No acute obstructive uropathy. This document has been electronically signed by: Astrid Miranda DO on 03/14/2025 20:49:57 Dictated By: Astrid Miranda MD Signed By: <Electronically signed by Astrid Miranda MD in OV> 03/14/252050 DD/ 48 TD/TT: 03/14/252048 Missileman: [facility] External Provider IMG CT PROCEDURES Final Result * (ABNORMAL) VENOUS BLOOD GAS (03/14/2025 8:22 PM EDT) VBG pH 7.33 7.32 - 7.43 [facility] Comment:METER #: [id number] additional_comment: Cb viveks VBG PCO2 39 mmHg [facility] Comment:METER #: [id number] additional_comment: Cb viveks VBG PO2 45 mmHg [facility] Comment:METER #: [id number] additional_comment: Cb barby VBG Base Excess -4.6 mmol/L [facility] Comment:METER #: [id number] additional_comment: Carlos dior VBG HCO3 20(L) 22 - 26 mmol/L [facility] Comment:METER #: [id number] additional_comment: Carlos dior O2 Sat, Jairon 62.0 % [facility] Comment:METER #: [id number] additional_comment: Carlos dior 03/14/2025 8:22 PM EDT 03/14/2025 8:25 PM EDT Generic External Data Provider LAB BLOOD ORDERAB LES Final Result Performing Organization Address [facility]/ZIP Co de Phone Number [facility] [address] [place] [address] [phone] * (ABNORMAL) Hemoglobin and Hematocrit (03/14/2025 8:15 PM EDT) Hemoglobin 11.7(L) 12.0 - 16.0 g/dl [facility] Hematocrit 35.9(L) 37.0 - 47.0 % [facility] 03/14/2025 8:15 PM EDT 03/14/2025 8:19 PM EDT Generic External Data Provider LAB BLOOD ORDERAB LES Final Result Performing Organization Address [facility] Co de Phone Number [facility] [address] [place] [phone] * (ABNORMAL) Drug Monitoring, Panel 1, Screen, Urine (03/14/2025 8:05 PM EDT) Opiate Screen Urine Not Detected Not Detect [facility] Comment:Opiate cut-off is 30 0 ng/mL.Positive results are unconfirmed and should not be used fornon-medical purposes. Barbiturates, Urine Not Detected Not Detect [facility] Comment:Barbiturate cut-off is 200 ng/mL.Positive results are unconfirmed and should not be used fornon-medical purposes. Phencyclidine Screen Urine Not Detected Not Detect [facility] Comment:Phencyclidine cut-of f is 25 ng/mL.Positive results are unconfirmed and should not be used fornon-medical purposes. Amphetamine Screen Urine Not Detected Not Detect [facility] Comment:Amphetamine cut-off is 1000 ng/mL.Positive results are unconfirmed and should not be used fornon-medical purposes. Benzodiazepines Screen Urine Not Detected Not Detect [facility] Comment:Benzodiazepine cut-o ff is 200 ng/mL.Positive results are unconfirmed and should not be used fornon-medical purposes. Cocaine Screen Urine POSITIVE(A) Not Detect [facility] Comment:Cocaine cut-off is 3 00 ng/mL.Positive results are unconfirmed and should not be used fornon-medical purposes. Cannabinoid Screen Urine Not Detected Not Detect [facility] Comment:Cannabinoid cut-off is 50 ng/mL.Positive results are unconfirmed and should not be used fornon-medical purposes. Methadone Screen, Urine Not Detected Not Detect ng/mL [facility] Comment:Methadone cut-off is 300 ng/mL.Positive results are unconfirmed and should not be used fornon-medical purposes. FENTANYL URINE Not Detected Not Detect [facility] Comment:Fentanyl cut-off is 1 ng/mL.Positive results are unconfirmed and should not be used fornon-medical purposes. Oxycodone Urine Screen Not Detected Not Detect ng/mL [facility] Comment:Oxycodone cut-off is 100 ng/mL.Positive results are unconfirmed and should not be used fornon-medical purposes. Buprenorphine Screen Not Detected Not Detect ng/mL [facility] Comment:Buprenorphine cut-of f is 5 ng/mL.Positive results are unconfirmed and should not be used fornon-medical purposes. 03/14/2025 8:05 PM EDT 03/14/2025 8:08 PM EDT us Generic External Data Provider LAB URINE ORDERAB LES Final Result [facility] [address] [place] [address] [phone] * (ABNORMAL) Urinalysis, Complete, with Reflex to Culture (03/14/2025 8:04 PM EDT) Color Urine Yellow [facility] Appearance Urine Clear [facility] PH 6.0 5.0 - 9.0 [facility] Glucose Urine UA Negative Negative mg/dL [facility] Urine Blood Small (1+)(A) Negative [facility] Specific [place] - Urine 1.025 1.005 - 1.025 [facility] Urine Protein 30 (1+)(A) Neg-Trace mg/dL [facility] Urine Ketones 40 Negative mg/dL [facility] Nitrite Urine Negative Negative [facility] Leukocyte Esterase Urine Negative Negative [facility] RBC Urine 3-5(A) 0 - 2 /HPF [facility] Urine WBC 0-5 0 - 5 /HPF [facility] Urine Squamous Epithelial Cell 0-2 0 - 2 /HPF [facility] Urine Bacteria None Seen None Seen [facility] Hyaline Casts, Urine 0-2 0 - 2 /LPF [facility] 03/14/2025 8:04 PM EDT 03/14/2025 8:08 PM EDT Narrative [facility] - 03/14/2025 8:19 PM EDT [id number], [employer] us Generic External Data Provider LAB URINE ORDERAB LES Final Result Performing Organization Address City/[facility]/ZIP Co de Phone Number [facility] [address] [place] [phone] * OBSX1 (03/14/2025 6:42 PM EDT) OBS1 NEGATIVE NEGATIVE [facility] 03/14/2025 6:42 PM EDT 03/14/2025 6:46 PM EDT us Generic External Data Provider LAB BLOOD ORDERAB LES Final Result Performing Organization Address City/[facility]/ZIP Co de Phone Number [facility] [address] [place] [phone] [phone] documented in this encounter Visit Diagnoses Not on filedocumented in this encounter Additional Health Concerns Assessment Noted Time PHQ-9 Depression Total Score: 6 10/24/19 25 11:07 AM EDT documented as of this encounter Care Teams Farm Equipment Assembler Relationship Specialty Start Date End Date Name, MD Fadi [address] [place] [address] PCP - General [facility] documented as of this encounter
--- OUTSIDE RECORDS SUMMARY | 2025-03-14 22:17 | XMS_ITS | Clinical Summary ---
Author Organization [employer] Address [address] [place] [address] Care Team Providers Care Farm Adviser Name Role Phone Name, Fadi GREER Primary Care Provider [phone] Allergies No known active allergies Medications * [...] 25 026 Active sertraline (Zoloft) 50 MG tabletIndication s:Depression with anxiety TAKE 1 TABLET BY MOUTH EVERY DAY 30 tablet 2 08/25/19 25 Active ustekinumab (Stelara) injectionIndicat ions:Psoriasis Inject 45 mg every 12 weeks 0.5 mL 2 10/19/19 25 Active halobetasol (UltraVATE) 0.05 % ointmentIndicati ons:Psoriasis APPLY TOPICALLY TO THE AFFECTED AREA(S) TWICE DAILY DIRECTED, DO NOT EXCEED 4 WEEKS OF USE 50 g 2 01/02/20 25 Active amoxicillin (Amoxil) 500 MG capsuleIndicatio ns:Pharyngitis, unspecified etiology Take 1 tab po bid for 10 days 20 capsule 02/02/20 25 Active Fluocinolone Acetonide Scalp 0.01 % oilIndications:P soriasis APPLY TOPICALLY TO THE AFFECTED AREA(S) AT BEDTIME 3 TIMES A WEEK ON DAMP SCALP WITH COVER 118.28 mL 2 02/09/20 25 Active Multiple Vitamin (multivitamin) tablet Take 1 tablet by mouth Once per day. 90 tablet 3 02/09/20 25 Active Acetaminophen Extra Strength 500 MG tablet TAKE 2 TABLETS BY MOUTH EVERY 6 HOURS NEEDED MODERATE PAIN OR FOR FEVER 40 tablet 03/06/20 25 Active ibuprofen 400 MG tablet TAKE 1 TABLET BY MOUTH EVERY 6 HOURS NEEDED FOR MODERATE PAIN OR FEVER 20 tablet 03/06/20 25 Active acetaminophen (Tylenol) 500 MG tablet Take 2 tablets (1,000 mg) by mouth every 6 (six) hours if needed for moderate pain or fever. 40 tablet 12/13/19 25 025 Discontinued ibuprofen 400 MG tablet Take 1 tablet (400 mg) by mouth every 6 (six) hours if needed for moderate pain or fever. 20 tablet 12/13/19 25 025 Discontinued Active Problems Problem Noted [...] Encounters Date Type Department Care Team Description 03/14/2025 Orders Only GENERIC EXTERNAL DATA DEPARTMENT Provider, Generic External Data 03/06/2025 Refill [facility] [address] [place] [phone] Jayjay Orta MD 02/12/2025 Orders Only GENERIC EXTERNAL DATA DEPARTMENT Provider, Generic External Data 02/08/2025 11:15 AM EDT Office Visit [facility] [address] [place] [phone] Fadi Sheikh MD Left knee pain, unspecified chronicity (Primary Dx); History of total left knee replacement (TKR) 02/08/2025 Travel 02/07/2025 Refill [facility] [address] [place] [phone] Mando Louise MD Psoriasis 02/01/2025 11:20 AM EDT Office Visit [facility] [address] [place] [address] Amira Fink MD Pharyngitis, unspecified etiology 02/01/2025 Travel 01/24/2025 Telephone [facility] [address] [place] [phone] Fadi Sheikh MD Nurse Triage 01/04/2025 Orders Only GENERIC EXTERNAL DATA DEPARTMENT Provider, Generic External Data 01/03/2025 Orders Only GENERIC EXTERNAL DATA DEPARTMENT Provider, Generic External Data 12/30/2024 Refill [facility] [address] [place] [phone] Fadi Sheikh MD Psoriasis 12/29/2024 Orders Only GENERIC EXTERNAL DATA DEPARTMENT Provider, Generic External Data 12/27/2024 Telephone [facility] [address] [place] [address] Fadi Sheikh MD Prior Auth DME (Pt walked requesting DME for walker for surgery , adjustable shower seat surgery is on December in [facility]. Pt stated she hasn't heard of anything about her request and her surgery is coming up ///) 12/19/2024 Telephone [facility] [address] [place] [address] Fadi Sheihk MD Prior Auth DME (Pt requesting DME for walker for surgery , surgery is on December in [facility].) 12/13/2024 Orders Only GENERIC EXTERNAL DATA DEPARTMENT Provider, Generic External Data 12/12/2024 Refill [facility] [address] [place], [place] [phone] Fadi Sheikh MD from Last 3 Months Immunizations Immunization Administration [...] Description 04/23/2025 11:15 AM EST Office Visit [facility] [address] [place] [address] Name, MD Fadi [address] [place] [address] Health Maintenance Due Date Last Done Comments [...] EDT OBSX1 Routine 03/14/2025 6:42 PM EDT MR BRAIN WO CONTRAST Routine 02/19/2025 3:54 PM EDT HOLD GREEN GEL Routine 02/12/2025 3:52 PM [...] SCREEN Routine 12/13/2024 10: 45 AM EDT HEPATITIS PANEL, GENERAL Routine 12/09/2023 11:42 AM EDT Psoriasis Arthritis of left knee LIPID PANEL WITH REFLEX TO DIRECT LDL Routine 12/09/2023 11:42 AM EDT Elevated blood pressure reading from Last 3 Months or Most Recently Relevant to Health Maintenance Results * CT Head w/o Contrast (03/14/2025 8:50 PM EDT) Only the most recent of2 resultswithin the time period is included. Anatomical Region Laterality Modality Head, Neck Computed Tomogra phy 03/14/2025 8:50 PM EDT Narrative 03/14/2025 8:51 PM EDT [place] [address] CT Scan Report Signed Patient: Zabrina Mcclelland MR#: [id number] : 1960 Acct:[id number] Age/Sex: 64 / F ADM Date: 03/14/25 Loc: HO.ED Attending Dr: Ordering Physician: Britany Villa PA-C Date of Service: 03/14/25 Procedure(s): CT head/brain wo IV con Accession Number(s): [id number] cc: Britany Villa PA-C; Name,Fadi GREER Report Number: [id number]: Total DLP = 1248.00 mGy-cm Reason for [...] in OV> 03/14/252050 DD/ 49 TD/TT: 03/14/252049 Intravenous Therapy Nurse: Procedure Note Donotuseinterpreter, Image - 03/14/[address] [place] [address] [address] Scan Report Signed Patient: Zabrina Mcclelland#: [id number] : 1960Acct:[id number] Age/Sex: 64 / FADM Date: 03/14/25 Loc: HO.ED Attending Dr: Ordering Physician: Britany Villa PA-C Date of Service: 03/14/25 Procedure(s): CT head/brain wo IV con Accession Number(s): [id number] cc: Britany Villa PA-C; Name,Fadi GREER Report Number: [id number]: Total DLP = 1248.00 mGy-cm Reason for [...] in OV> 03/14/252050 DD/ 49 TD/TT: 03/14/252049 Intravenous Therapy Nurse: [facility] External Provider IMG CT PROCEDURES Final Result * CT Abdomen Pelvis w/ Contrast (03/14/2025 8:49 PM EDT) Anatomical Region Laterality Modality Body, Pelvis, Abdomen Computed T omography 03/14/2025 8:49 PM EDT Narrative 03/14/2025 8:51 PM EDT [place] [address] CT Scan Report Signed Patient: Zabrina Mcclelland MR#: [id number] : 1960 Acct:[id number] Age/Sex: 64 / F ADM Date: 03/14/25 Loc: HO.ED Attending Dr: Ordering Physician: Britany Villa PA-C Date of Service: 03/14/25 Procedure(s): CT abdomen pelvis w IV con Accession Number(s): [id number] cc: rBitany Villa PA-C; Name,Fadi GREER Report Number: [id number]: Total DLP = 854.00 mGy-cm Reason for [...] in OV> 03/14/252050 DD/ 48 TD/TT: 03/14/252048 Intravenous Therapy Nurse: Procedure Note Donotuseinterpreter, Image - 03/14/[address] [place] [address] [address] Scan Report Signed Patient: Zabrina McclellandMR#: [id number] : 1960Acct:[id number] Age/Sex: 64 / FADM Date: 03/14/25 Loc: HO.ED Attending Dr: Ordering Physician: Britany Villa PA-C Date of Service: 03/14/25 Procedure(s): CT abdomen pelvis w IV con Accession Number(s): [id number] cc: Britany Villa PA-C; Name,Fadi GREER Report Number: [id number]: Total DLP = 854.00 mGy-cm Reason for [...] in OV> 03/14/252050 DD/ 48 TD/TT: 03/14/252048 Intravenous Therapy Nurse: [facility] External Provider IMG CT PROCEDURES Final Result * (ABNORMAL) VENOUS BLOOD GAS (03/14/2025 8:22 PM EDT) VBG pH 7.33 7.32 - 7.43 [facility] Comment:METER #: [id number] additional_comment: Carlos dior VBG PCO2 39 mmHg [facility] Comment:METER #: [id number] additional_comment: Carlos dior VBG PO2 45 mmHg [facility] Comment:METER #: [id number] additional_comment: Carlos dior VBG Base Excess -4.6 mmol/L [facility] Comment:METER #: [id number] additional_comment: Carlos dior VBG HCO3 20(L) 22 - 26 mmol/L [facility] Comment:METER #: [id number] additional_comment: Carlos dior O2 Sat, Jairon 62.0 % [facility] Comment:METER #: [id number] additional_comment: Carlos dior 03/14/2025 8:22 PM EDT 03/14/2025 8:25 PM EDT Generic External Data Provider LAB BLOOD ORDERAB LES Final Result [facility] [address] [place] [phone] * (ABNORMAL) Hemoglobin and Hematocrit (03/14/2025 8:15 PM EDT) Hemoglobin 11.7(L) 12.0 - 16.0 g/dl [facility] Hematocrit 35.9(L) 37.0 - 47.0 % [facility] 03/14/2025 8:15 PM EDT 03/14/2025 8:19 PM EDT us Generic External Data Provider LAB BLOOD ORDERAB LES Final Result [facility] [address] [place] [phone] * (ABNORMAL) Drug Monitoring, Panel 1, Screen, Urine (03/14/2025 8:05 PM EDT) Opiate Screen Urine Not Detected Not Detect [facility] Comment:Opiate cut-off is 30 0 ng/mL.Positive results are unconfirmed and should not be used fornon-medical purposes. Barbiturates, Urine Not Detected Not Detect [facility] Comment:Barbiturate cut-off is 200 ng/mL.Positive results are unconfirmed and should not be used fornon-medical purposes. Phencyclidine Screen Urine Not Detected Not Detect [facility] Comment:Phencyclidine cut-of f is 25 ng/mL.Positive results are unconfirmed and should not be used fornon-medical purposes. Amphetamine Screen Urine Not Detected Not Detect [facility] Comment:Amphetamine cut-off is 1000 ng/mL.Positive results are unconfirmed and should not be used fornon-medical purposes. Benzodiazepines Screen Urine Not Detected Not Detect [facility] Comment:Benzodiazepine cut-o ff is 200 ng/mL.Positive results are unconfirmed and should not be used fornon-medical purposes. Cocaine Screen Urine POSITIVE(A) Not Detect [facility] Comment:Cocaine cut-off is 3 00 ng/mL.Positive results are unconfirmed and should not be used fornon-medical purposes. Cannabinoid Screen Urine Not Detected Not Detect [facility] Comment:Cannabinoid cut-off is 50 ng/mL.Positive results are unconfirmed and should not be used fornon-medical purposes. Methadone Screen, Urine Not Detected Not Detect ng/mL [facility] Comment:Methadone cut-off is 300 ng/mL.Positive results are unconfirmed and should not be used fornon-medical purposes. FENTANYL URINE Not Detected Not Detect [facility] Comment:Fentanyl cut-off is 1 ng/mL.Positive results are unconfirmed and should not be used fornon-medical purposes. Oxycodone Urine Screen Not Detected Not Detect ng/mL [facility] Comment:Oxycodone cut-off is 100 ng/mL.Positive results are unconfirmed and should not be used fornon-medical purposes. Buprenorphine Screen Not Detected Not Detect ng/mL [facility] Comment:Buprenorphine cut-of f is 5 ng/mL.Positive results are unconfirmed and should not be used fornon-medical purposes. 03/14/2025 8:05 PM EDT 03/14/2025 8:08 PM EDT Generic External Data Provider LAB URINE ORDERAB LES Final Result [facility] [address] [place] [phone] * (ABNORMAL) Urinalysis, Complete, with Reflex to Culture (03/14/2025 8:04 PM EDT) Color Urine Yellow [facility] Appearance Urine Clear [facility] PH 6.0 5.0 - 9.0 [facility] Glucose Urine UA Negative Negative mg/dL [facility] Urine Blood Small (1+)(A) Negative [facility] Specific Burk[place] - Urine 1.025 1.005 - 1.025 [facility] Urine Protein 30 (1+)(A) Neg-Trace mg/dL [facility] Urine Ketones 40 Negative mg/dL [facility] Nitrite Urine Negative Negative [facility] Leukocyte Esterase Urine Negative Negative [facility] RBC Urine 3-5(A) 0 - 2 /HPF [facility] Urine WBC 0-5 0 - 5 /HPF [facility] Urine Squamous Epithelial Cell 0-2 0 - 2 /HPF [facility] Urine Bacteria None Seen None Seen [facility] Hyaline Casts, Urine 0-2 0 - 2 /LPF [facility] 03/14/2025 8:04 PM EDT 03/14/2025 8:08 PM EDT Narrative [facility] - 03/14/2025 8:19 PM EDT [id number], [employer] us Generic External Data Provider LAB URINE ORDERAB LES Final Result Performing Organization Address [facility] Co de Phone Number [facility] [address] [place] [phone] * OBSX1 (03/14/2025 6:42 PM EDT) OBS1 NEGATIVE NEGATIVE [facility] 03/14/2025 6:42 PM EDT 03/14/2025 6:46 PM EDT us Generic External Data Provider LAB BLOOD ORDERAB LES Final Result Performing Organization Address [facility] de Phone Number [facility] [address] [place] [phone] * MR Brain w/o Contrast (02/19/2025 3:54 PM EDT) Anatomical Region Laterality Modality Brain Magnetic Resonan ce 02/19/2025 3:54 PM EDT Narrative 02/20/2025 7:03 AM EDT [address] [address] Magnetic Resonance Report Signed Patient: Zabrina Mcclelland MR#: [id number] : 1960 Acct:[id number] Age/Sex: 64 / F ADM Date: 02/19/25 Loc: HO.MRI Attending Dr: Miriam Strong MD Ordering Physician: Miriam Strong MD Date of Service: 02/19/25 Procedure(s): MR head/brain wo con Accession Number(s): [id number] cc: Miriam Strong MD; Name,Fadi GREER Reason for Exam: G40.909 - Epilepsy, unspecified, not intractable, without status epilept... EXAMINATION: MR BRAIN WITHOUT CONTRAST CLINICAL INFORMATION: G 40.909. Epilepsy. COMPARISON: Correlated to a CT dated December 25, 2024. TECHNIQUE: MRI of the brain was obtained using routine sequences without contrast. FINDINGS: Patient's motion artifact. No restricted diffusion. No acute intracranial hemorrhage, mass effect, midline shift, hydrocephalus or herniation. Allen-white matter differentiation is normal. Posterior cranial fossa contents demonstrated no signal abnormality or mass effect. Normal position of the cerebellar tonsils. No signal abnormality or volume loss in the hippocampi. Nonspecific, a few, scattered, white matter hyperintense T2 FLAIR signal in the centrum semiovale. Sellar/suprasellar region demonstrated no signal abnormality or masses. Prominence of the extra-axial CSF spaces cerebral sulci, bifrontal and to a lesser extent bitemporal lobes. Flow-void signal within the main cerebral vessels is normal. Hyperintense T2 FLAIR signal in the left mastoid air cells. MR/MR head/brain wo con IMPRESSION: No acute ischemia/stroke. No acute intracranial hemorrhage. Bifrontal bitemporal lobe atrophy. Electronically signed by: Víctor Hicks MD 02/20/2025 07:01 AM EDT Dictated By: Víctor Fortune MD Signed By: <Electronically signed by Víctor Pereira MD in OV> 02/20/25 0701 DD/ 1554 TD/TT: 02/19/25 1623 Intravenous Therapy Nurse: Procedure Note Donotuseinterpreter, Image - 02/20/[address] [address] Magnetic Resonance Report Signed Patient: Zabrina McclellandMR#: [id number] : 1960Acct:[id number] Age/Sex: 64 / FADM Date: 02/19/25 Loc: HO.MRI Attending Dr: Miriam Strong MD Ordering Physician: Miriam Strong MD Date of Service: 02/19/25 Procedure(s): MR head/brain wo con Accession Number(s): [id number] cc: Miriam Strong MD; Name,Fadi Reason for Exam: G40.909 - Epilepsy, unspecified, not intractable,without status epilept... EXAMINATION: MR BRAIN WITHOUT CONTRAST CLINICAL INFORMATION: G 40.909. Epilepsy. COMPARISON: Correlated to a CT dated December 25, 2024. TECHNIQUE: MRI of the brain was obtained using routine sequences without contrast. FINDINGS: Patient's motion artifact. No restricted diffusion. No acute intracranial hemorrhage, mass effect, midline shift, hydrocephalus or herniation. Allen-white matter differentiation is normal. Posterior cranial fossa contents demonstrated no signal abnormality or mass effect. Normal position of the cerebellar tonsils. No signal abnormality or volume loss in the hippocampi. Nonspecific, a few, scattered, white matter hyperintense T2 FLAIR signal in the centrum semiovale. Sellar/suprasellar region demonstrated no signal abnormality or masses. Prominence of the extra-axial CSF spaces cerebral sulci, bifrontal and to a lesser extent bitemporal lobes. Flow-void signal within the main cerebral vessels is normal. Hyperintense T2 FLAIR signal in the left mastoid air cells. MR/MR head/brain wo con IMPRESSION: No acute ischemia/stroke. No acute intracranial hemorrhage. Bifrontal bitemporal lobe atrophy. Electronically signed by: Víctor Hicks MD 02/20/2025 07:01 AM EDT Dictated By: Víctor Fortune MD Signed By: <Electronically signed by Víctor Pereira MDin OV> 02/20/25 0701 DD/ 1554 TD/TT: 02/19/25 1623 Intravenous Therapy Nurse: us [facility] External Provider IMG MRI PROCEDURES Final Result * Hold Green Gel (02/12/2025 3:52 PM EDT) Hold Green Gel See Note [facility] Comment:Specimen held untest ed for 24 hours; Call to requestChemistry testing. 02/12/2025 3:52 PM EDT 02/12/2025 4:42 PM EDT us Generic External Data Provider HISTORICAL/NON OR DERABLE LABS Final Result Performing Organization Address City/[facility]/ZIP Co de Phone Number [facility] [address] [place] [phone] * (ABNORMAL) Sed Rate by Modified Alvaradoren (02/12/2025 3:52 PM EDT) Erythrocyte Sedimentation Rate 34(H) 0 - 20 MM/HR [facility] Comment:Patients with polycy themia and many hemoglobin abnormalitiesmay have depressed sed rates whereas patients with anemiamay have elevated sed rates. 02/12/2025 3:52 PM EDT 02/12/2025 3:53 PM EDT us Generic External Data Provider LAB BLOOD ORDERAB LES Final Result Performing Organization Address [facility]/ZIP Co de Phone Number [facility] [address] [place] [phone] * Influenza B (ID NOW Rapid Molecular) (02/01/2025 11:26 AM EDT) Influenza B Negative Negative, Indeterminate [facility] Swab 02/01/2025 11:2 6 AM EDT us Amira Fink MD POINT OF CARE TEST ENTER/E DIT ORDERABLES Final Result Performing Organization Address [facility] Co de Phone Number [facility] [address] [place] [phone] * Influenza A (ID NOW Rapid Molecular) (02/01/2025 11:26 AM EDT) Influenza A Negative Negative, Indeterminate [facility] Swab 02/01/2025 11:2 6 AM EDT Amira Fink MD POINT OF CARE TEST ENTER/E DIT ORDERABLES Final Result Performing Organization Address [facility] Co de Phone Number [facility] [address] [place] [phone] * POCT Rapid COVID Ag (02/01/2025 11:26 AM EDT) [facility] Rapid COVID Ag Negative [facility] Swab 02/01/2025 11:2 6 AM EDT Amira Fink MD POINT OF CARE TEST ENTER/E DIT ORDERABLES Final Result Performing Organization Address [facility] Co de Phone Number [facility] [address] [place] [phone] * POCT rapid strep A manually resulted (02/01/2025 11:26 AM EDT) [facility] Rapid Strep A Screen Negative Negative, None Detected [facility] Swab 02/01/2025 11:2 6 AM EDT Amira Fink MD POINT OF CARE TEST ENTER/E DIT ORDERABLES Final Result Performing Organization Address [facility] de Phone Number [facility] [address] [place] [phone] * (ABNORMAL) Basic Metabolic Panel, Fasting (01/04/2025 5:45 AM EDT) [facility] Sodium 139 135 - 145 mmol/L [facility] Potassium 4.5 3.3 - 5.1 mmol/L [facility] Chloride 108 96 - 108 mmol/L [facility] Carbon Dioxide 25 22 - 29 mmol/L [facility] Anion Gap 11(L) 12 - 20 [facility] Urea Nitrogen (BUN) 22(H) 9 - 16 mg/dL [facility] Creatinine, Serum 0.74 0.5 - 1.4 mg/dL [facility] Creatinine Clr Calc Pharmacy 76.4 [facility] Comment:Provided height and weight: 172.72 cm,73.5 kg.eGFR (calculated from the MDRD study equation) and eCrCl(calculated from the Cockcroft-Gault equation) are based ondifferent parameters and may not yield comparable results.If eCrCl result is absurd, please check patient'sheight/weight. Estimated Glomerular Filt Rate >60 [facility] Comment:Chronic Kidney Disea se: Estimated GFR < 60 mL/min/1.56c7Pmguyf Kidney Disease: Estimated GFR < 15 mL/min/1.73m2 Glucose Fasting 118(H) 60 - 99 mg/dL [facility] Comment:A fasting glucose fr om 100-125 mg/dl is considered impaired(pre-diabetes). Calcium 9.2 8.4 - 10.2 mg/dL [facility] 01/04/2025 5:45 AM EDT 01/04/2025 6:10 AM EDT us Generic External Data Provider LAB BLOOD ORDERAB LES Final Result [facility] [address] [place] [phone] * (ABNORMAL) CBC auto differential (01/04/2025 5:45 AM EDT) White Blood Count 10.4 4.8 - 10.8 X10*3/uL [facility] Red Blood Count 3.90(L) 4.20 - 5.50 X10*6/uL [facility] Hemoglobin 10.5(L) 12.0 - 16.0 g/dl [facility] Hematocrit 31.7(L) 37.0 - 47.0 % [facility] Mean Corpuscular Volume 81.3 80.0 - 98.0 fL [facility] Mean Corpuscular Hemoglobin 26.9(L) 27.0 - 33.0 pg [facility] Mean Corpuscular HGB Conc 33.1 31.0 - 35.0 g/dl [facility] Red Cell Distribution Width 13.2 11.0 - 16.0 % [facility] Platelet Count 237 160 - 400 X10*3/uL [facility] Mean Platelet Volume 11.0 9.4 - 12.3 fL [facility] Neutrophils Percent Auto 78.9(H) 45 - 73 % [facility] Imm Gran Pct Auto 0.7(H) 0.0 - 0.4 % [facility] Lymphocytes Percent Auto 11.2(L) 20 - 40 % [facility] Monocytes Percent Auto 9.1 2 - 11 % [facility] Eosinophils Percent Auto 0.0 0 - 4 % [facility] Basophils Percent Auto 0.1 0 - 2 % [facility] NRBC Pct Auto 0.0 0.0 - 0.2 /100WBC [facility] Neutrophils Absolute Auto 8.2 2.0 - 8.3 x10*3/uL [facility] Imm Gran Abs Auto 0.07(H) 0.00 - 0.03 X10*3/uL [facility] Lymphocytes Absolute Auto 1.2 1.2 - 4.9 X10*3/uL [facility] Monocytes Absolute Auto 1.0 0.1 - 1.2 X10*3/uL [facility] Eosinophils Absolute Auto 0.0 0.0 - 0.4 X10*3/uL [facility] Basophils Absolute Auto 0.0 0.0 - 0.2 X10*3/uL [facility] NRBC Abs Auto 0.000 0.0 - 0.012 X10*3/uL [facility] 01/04/2025 5:45 AM EDT 01/04/2025 6:10 AM EDT us Generic External Data Provider LAB BLOOD ORDERAB LES Final Result [facility] [address] [place] [phone] * Gross and Microscopic Level 4 (01/03/2025 9:52 AM EDT) 01/03/2025 9:52 AM EDT 01/03/2025 10:53 AM EDT [facility] - 01/08/2025 1:32 PM EDT ----- ------- Name: Zabrina Mcclelland Age/Sex: 64/F : 1960 Unit#: [id number] Attend Dr: Kobe Apodaca MD Re01/03/25 Status: [facility] Location: [facility] Disch: ----- ------- SPEC : [id number] RECD: 01/03/25 STATUS: EVONNE MADRID NUM: [id number] CALIN: 01/03/[address] [facility] [address]: Kobe Apodaca MD ENTERED: 01/03/25 SP TYPE: Surgical OTHR DR: Fadi hSeikh MD ORDERED: Gross Micro L4, Decal THIS [...] aggregating 4.5 x 4.0 x 0.5-1.0 cm. Tube Bending Machine Operator sections are submitted in a cassette labeled A1 following decalcification. CEDS IHC S/NG Disclaimer NOTE: Unless otherwise stated, all tissue is formalin-fixed and paraffin-embedded. Some or all of the immunohistochemical tests reported herein may have been developed and their performance characteristics determined by [facility]. They have not been cleared or approved by the U.S. Food and Drug Administration (FDA). However, the FDA CONTINUED ON NEXT PAGE ----- ------- Name: Zabrina Mcclelland Age/Sex: 64/F : 1960 Unit#: [id number] Attend Dr: Kobe Apodaca MD Re01/03/25 Status: [facility] Location: [facility] Disch: ----- ------- SPEC : [id number] RECD: 01/03/25 STATUS: EVONNE MADRID NUM: [id number] CALIN: 01/03/[address] [facility] [address]: Kobe Apodaca MD ENTERED: 01/03/25 SP TYPE: Surgical OTHR DR: Aguilar,Fadi GREER ORDERED: Gross Micro L4, Decal IHC S/NG Disclaimer (Continued) has determined that such clearance or approval is not necessary. This laboratory is certified under the Clinical Laboratory Improvement Amendments of 1988 (CLIA) as qualified to perform high complexity clinical laboratory testing. Copies To: Kobe Apodaca MD [facility] [address] [place] [address] Dr [address] [place], [place] [id number] Name,Fadi GERER [address] [phone] ----- ------- Signed (signature on file) Hanh Viveros MD 01/08/25 1332 ----- ------- END OF REPORT us Generic External Data Provider LAB CYTOLOGY ASHLEY LEDESMA Final Result [facility] [address], [place] [phone] * (ABNORMAL) CBC (12/29/2024 2:17 PM EDT) [facility] White Blood Count 4.7(L) 4.8 - 10.8 X10*3/uL [facility] Red Blood Count 4.58 4.20 - 5.50 X10*6/uL [facility] Hemoglobin 12.4 12.0 - 16.0 g/dl [facility] Hematocrit 38.4 37.0 - 47.0 % [facility] Mean Corpuscular Volume 83.8 80.0 - 98.0 fL [facility] Mean Corpuscular Hemoglobin 27.1 27.0 - 33.0 pg [facility] Mean Corpuscular HGB Conc 32.3 31.0 - 35.0 g/dl [facility] Red Cell Distribution Width 13.6 11.0 - 16.0 % [facility] Platelet Count 301 160 - 400 X10*3/uL [facility] Mean Platelet Volume 11.5 9.4 - 12.3 fL [facility] NRBC Pct Auto 0.0 0.0 - 0.2 /100WBC [facility] NRBC Abs Auto 0.000 0.0 - 0.012 X10*3/uL [facility] 12/29/2024 2:17 PM EDT 12/29/2024 2:17 PM EDT us Generic External Data Provider LAB BLOOD ORDERAB LES Final Result [facility] [address] [place] [phone] * (ABNORMAL) Basic Metabolic Panel (12/29/2024 2:17 PM EDT) [facility] Sodium 141 135 - 145 mmol/L [facility] Potassium 3.7 3.3 - 5.1 mmol/L [facility] Chloride 105 96 - 108 mmol/L [facility] Carbon Dioxide 30(H) 22 - 29 mmol/L [facility] Anion Gap 10(L) 12 - 20 [facility] Urea Nitrogen (BUN) 10 9 - 16 mg/dL [facility] Creatinine, Serum 0.77 0.5 - 1.4 mg/dL [facility] Creatinine Clr Calc Pharmacy 73.4 [facility] Comment:Provided height and weight: 172.72 cm,73.482 kg.eGFR (calculated from the MDRD study equation) and eCrCl(calculated from the Cockcroft-Gault equation) are based ondifferent parameters and may not yield comparable results.If eCrCl result is absurd, please check patient'sheight/weight. Estimated Glomerular Filt Rate >60 [facility] Comment:Chronic Kidney Disea se: Estimated GFR < 60 mL/min/1.59a4Mzxefs Kidney Disease: Estimated GFR < 15 mL/min/1.73m2 Glucose 81 60 - 115 mg/dL [facility] Calcium 10.4(H) 8.4 - 10.2 mg/dL [facility] 12/29/2024 2:17 PM EDT 12/29/2024 2:17 PM EDT us Generic External Data Provider LAB BLOOD ORDERAB LES Final Result [facility] [address] [place] [phone] * Type and screen (12/29/2024 2:07 PM EDT) Blood Type OP [facility] Antibody Screen NEGATIVE [facility] 12/29/2024 2:07 PM EDT 12/29/2024 2:27 PM EDT Narrative [facility] - 12/29/2024 3:18 PM EDT Spec expiration changed by ROSALEE on 12/29/24Reason: PATNURSING:Call Blood Bank (ext. [phone]) to band patient on admission.Type and Screen in effect until 2300 on 01/03/2025.Witnessed by MORRO us Generic External Data Provider LAB BLOOD BANK TE ST ORDERABLES Final Result Performing Organization Address [facility] Co de Phone Number [facility] [address] [place] [phone] * (ABNORMAL) MRSA Nasal Screen (12/13/2024 10:45 AM EDT) MRSA Nasal PCR NEGATIVE Negative [facility] SA Nasal PCR POSITIVE(A) Negative [facility] MRSA Interpretation SEE NOTE [facility] Comment:MRSA target DNA not detected; SA target DNA detected.A MRSA NEGATIVE, SA POSITIVE test result does not precludeMRSA nasal colonization. 12/13/2024 10:4 5 AM EDT 12/13/2024 11:03 AM EDT Generic External Data Provider LAB MICROBIOLOGY - GENERAL ORDERABLES Final Result Performing Organization Address [facility] Co de Phone Number [facility] [address] [place] [phone] * (ABNORMAL) Lipid Panel with Reflex to Direct LDL (12/09/2023 11:42 AM EDT) Triglycerides 124 <150 mg/dL [facility] Comment:Desirable Triglyceri de: less than 150 mg/dLBorderline High Triglyceride 150-199 mg/dLHigh Triglyceride: 200-499 mg/dLVery High Triglyceride: greater than or equal to 5OO mg/dL Cholesterol 227(H) <200 mg/dL [facility] Comment:Desirable Cholestero l: less than 200 mg/dLBorderline High Cholesterol: 200-239 mg/dLHigh Cholesterol: greater than 239 mg/dL LDL Cholesterol Calculated 129(H) <100 mg/dL [facility] Comment:Desirable LDL: less than 100 mg/dLNear Optimal/Above Optimal LDL: 110- 129 mg/dLBorderline High LDL: 130-159 mg/dLHigh LDL: 160-189 mg/dLVery High LDL: greater than or equal to 190 mg/dL HDL Cholesterol 74 >40 mg/dL [facility] Comment:Desirable HDL: great er than 40 mg/dL Note: This HDL assay may give artificially low results in patients with liver disease. Blood 12/09/2023 11:4 2 AM EDT 12/09/2023 1:03 PM EDT Esperanza Olsen MD LAB BLOOD ORDERABLES Fin al Result Performing Organization Address [facility] de Phone Number [facility] [address] [place] [phone] * Hepatitis Panel, General (12/09/2023 11:42 AM EDT) Hepatitis A IgM Nonreactive Nonreactive [facility] Comment:IgM antibodies to WALLACE V not detected; does not exclude earlyacute or recovered HAV infection. ~Hepatitis B Surface Antibody NONREACTIVE Nonreactive [facility] Comment:Nonreactive: < 8.00 mIU/mL Hepatitis B Core Antibody Nonreactive Nonreactive [facility] Hepatitis C Antibody Nonreactive Nonreactive [facility] Comment:Antibodies to HCV no t detected; does not exclude early acuteHCV infection. Hepatitis B Surface Ag Negative Negative [facility] Blood 12/09/2023 11:4 2 AM EDT 12/09/2023 1:03 PM EDT Esperanza Olsen MD LAB BLOOD ORDERABLES Fin al Result Performing Organization Address [facility] de Phone Number [facility] [address] [place] [phone] from Last 3 Months or Most Recently Relevant to Health Maintenance Insurance [facility] [employer] (HMO D-SNP) Care Teams Farm Adviser Relationship Specialty Start Date End Date Name, MD Fadi [address] [place] [address] PCP - General Internal Medicine 03/23/24 Nolberto A 01/05/25
--- OUTSIDE RECORDS SUMMARY | 2025-03-14 22:17 | XMS_ITS | Encounter Summary ---
Author Organization [facility] Address [address] [place] [address] Care Team Providers Care Grinding And Spraying Supervisor Name Role Phone Fransisca Conroy NP Primary Care Provider [phone] Encounter Details Date Type Department Care Team (Late st Contact Info) Description 11/01/2019 Transcribed Orders [facility] at [address] [facility] [address] [facility], [address] [place] [address] Sammy Espino MD [address] [facility] [address] [place] [address] Social History Tobacco Use Types [...] on filedocumented in this encounter Care Teams Grinding And Spraying Supervisor Relationship Specialty Start Date End Date Fransisca Conroy NP [address] [place] [phone] PCP - General Family Medicine 10/22/20 documented as of this encounter
[2025-03-14 22:19] LABS: Reflex Lactate? 2 Y
--- NOTE | 2025-03-14 23:32 | P.CONCC_ITS ---
Documented by User: FILOMENA Johnston 03/15/25 00:33 History of Present Illness Data of Consult Service Date: 03/14/25 Requesting physician: Asif Cid Primary Care Provider: MD AILYN Ruiz Reason for consult: Upper GI bleed The patient was seen in the emergency room per the request of the Internal Medicine physician; to determine whether or not the patient will need ICU level of care. The patient has been seen in the emergency room where she presented with complaints of altered mental status and weakness, dizziness for the past 20 minutes prior to presentation.? Has underlying history of anxiety, depression, vertigo, per the patient's daughter the patient has had a history of alcohol and drug abuse for the past several months. ?The patient states she only drank a few beers but looks away during interview, admits using cocaine for the 1st time in over 40 years. ?Patient also complained of periumbilical abdominal discomfort.? Her vital signs have been hemodynamically stable all throughout her ER stay with blood pressures above 130 systolic.? She is not tachycardic, not hypoxic, not tachypneic and afebrile. Reportedly the patient had some coffee-ground like emesis in the emergency room.? Upon transferred to a different room in the ER the patient was noted to have a white bag under her leg, when tested she was positive for cocaine.? Antiemetics, IV fluids, Zosyn, famotidine, vancomycin, Protonix and thiamine were given.? The patient has not vomited since. ?Guaiac stool test was negative.? Laboratories were reviewed in detail and their overall unremarkable white count 14.7 with a stable H and H is x2 and sodium level of 128.? Renal function is normal.? LFTs are within normal limits.? Anion gap of 23.? Her lactic acid did go from 6.2 up to 7.5 this is likely in the setting of her alcoholism, dehydration and cocaine use. Review of Systems 2 Review of Systems: Review of systems: As above, otherwise the patient denies any prior history of strokes, cold intolerance, migraine headaches, head trauma, no eyes, ears or nose problems, no problems swallowing or with phonation, no thyroid disease, denies any history of chest pain, palpitations, coronary disease, cough, sputum production, pneumonia, bronchitis, COPD or emphysema, abdominal pain, nausea, vomiting, diarrhea, hematuria, kidney stones, liver problems specifically cirrhosis, immunocompromise state of any kind, no history of DVT or PE, leg edema, fractures or extremity surgeries all other review of systems were reviewed and they were all negative. [facility] Past Medical History Medical History Depression with anxiety Constipation Osteoarthritis of left knee Heartburn Vertigo Osteoarthritis Depression with anxiety Psoriasis Surgical History Surgical History H/O oral surgery Hx of section Social History Social History Are you a primary healthcare insurance sales agent to a significant other at home: No Do you presently have visiting nurse or other home services: No Unable to assess alcohol history related to: Refusing to respond Alcohol intake: current Alcohol intake frequency: holidays/special occasions only Patient Tobacco Use Status: Former Tobacco user Tobacco use type: Cigarette Cigarettes Per Day: 2 Years Smoked: 40 Use of substances other than those prescribed or required for medical reasons: Refusing to respond Substance Use Type: Crack/Cocaine Substance Use Frequency: Recent Binge Advance Directives: No Advance Directives Information Provided: Yes service: No Current occupational status: disabled Current occupation: right hand dominant Meds Allergies Allergy/AdvReac Type Severity Reaction Status Date / Time No Known Allergies Allergy Verified 03/14/25 16:44 Home Medications ?Medication ?Instructions ?Recorded ?Confirmed ?Last Taken ?Type sertraline 50 mg tablet 50 mg PO DAILY PRN Anxiety 0 10/26/24 01/03/25 Unknown History fluocinolone 0.01 % scalp oil and 1 appl topical MOWEF R PRN Psoriasis 01/03/25 01/03/25 Unknown History shower cap halobetasol propionate 0.05 % 1 appl topical BID PRN P soriasis 01/03/25 01/03/25 Unknown History topical ointment lidocaine 5 % topical patch 1 patch topical DAILY PRN Pain 01/03/25 01/03/25 Unknown History multivitamin 1 tab PO DAILY 03/15/25 Unk nown History sennosides 8.6 mg-docusate sodium 1 tab PO DAILY 03/15 Unknown History 50 mg tablet (Stool Softener-Stimulant Laxative) ustekinumab 45 mg/0.5 mL 45 mg subcut Q12W 03/15/25 Unknown History subcutaneous syringe (Stelara) Physical Exam 2 Vital Signs: Vital Signs: Last Vital Signs Temp 98.4 F 03/14/25 22:04 Pulse 105 H 03/14/25 22:55 Resp 16 03/14/25 22:55 BP 170/92 H 03/14/25 22:55 Pulse Ox 96 03/14/25 22:55 O2 Del Method Nasal Cannula 03/14/25 22:55 O2 Flow Rate 2 03/14/25 22:55 BMI result Body Mass Index 26.2 During my evaluation, the patient does not look ill appearing, she is not in any acute distress, does not appear confused, is not using accessory muscles. Her skin is unremarkable without any lesions, edema erythema clubbing or cyanosis. Regular rate and rhythm no murmurs rubs gallops Lungs clear to auscultation bilaterally without wheezes rales rhonchi Abdomen positive bowel sounds in all 4 quadrants.? Soft, nontender.? No rebound or guarding.? No CVA tenderness. Musculoskeletal moving all 4 extremities upon request under major joints, no leg edema, no asymmetry.? No calf tenderness. Vascular 2+ pulses upper and lower extremities bilaterally Neuro nonfocal.? No deficits. Results Labs 03/15/25 05:06 03/15/25 05:06 Labs: Short CBC 03/14/25 03/14/25 Range/Units 16:48 20:15 WBC 14.7 H (4.8-10.8) X10*3/uL Hgb 12.4 11.7 L (12.0-16.0) g/dl Hct 37.0 35.9 L (37.0-47.0) % Plt Count 372 D (160-400) X10*3/uL BMP 03/14/25 17:45 Sodium 128 L Potassium 3.6 Chloride 90 L Carbon Dioxide 19 L BUN 9 Creatinine 0.52 Calcium 9.1 Liver Function 03/14/25 Range/Units 17:45 Total Bilirubin 0.7 (0.0-1.0) mg/dL AST 34 H (5-31) U/L ALT 19 (0-31) U/L Alkaline Phosphatase 67 (39-117) U/L Albumin 4.6 (3.5-5.0) g/dL Urine 03/14/25 Range/Units 20:04 Urine Color Yellow Urine Appearance Clear Urine pH 6.0 (5.0-9.0) Ur Specific Guys 1.025 (1.005-1.025) Urine Protein 30 (1+) H (Neg-Trace) mg/dL Urine Glucose (UA) Negative (Negative) mg/dL Assessment and Plan (1) UGIB (upper gastrointestinal bleed): Status: Acute Plan 1. Acute upper GI bleed rule out gastritis, esophagitis, variceal bleeding less likely 2. Hypovolemic hyponatremia 3. Acute lactic and metabolic acidosis likely due to alcohol consumption, cocaine use and dehydration (improved) 4. History of alcohol and drug abuse 5. Acute alcohol intoxication 6. Hypertension related to cocaine consumption 7. Possible left lung pneumonia 8. Trace pericardial and pleural effusions, monitor, no need of intervention. 9. Microcytic anemia rule out iron deficiency versus microscopic bleed At this point the patient is hemodynamically stable, she is not ill-appearing, the patient does not require ICU level of care.? We will treat the patient medically ready Internal Medicine team's discretion, procurement representative Dr. Palacios has been involving is aware of the case.? Trend H&H, IV fluids, CIWA protocol, phenobarbital protocol, type and screen. ?IV PPI plus minus octreotide.? Antibiotics. ?Treat blood pressure but avoid beta-blockers.? Monitor blood sugars.? Start thiamine, folic acid and multivitamin or per Internal Medicine team discretion. ?All of the above has been discussed with Dr. Cid. This patient counter and care had a low probability of a clinically significant, sudden, or life threatening deterioration of this patient's condition but still required my full and direct attention, intervention and personal management. Critical care time used for critical evaluation of this patient, diagnosis, treatment and coordination of care, review her records and documentation TOTAL CRITICAL CARE TIME ?60 MIN . discussion and coordination with consultants, completely separate from any procedures performed. Patient's care was discussed in detail with Dr. Corral.? He is aware of all the above as well as the plan of care for this patient. Total time managing care of this patient today: 60 minutes. Documented by User: Joseph Corral MD 03/15/25 08:26 [facility] Past Medical History Medical History Depression with anxiety Constipation Osteoarthritis of left knee Heartburn Vertigo Osteoarthritis Depression with anxiety Psoriasis Surgical History Surgical History H/O oral surgery Hx of section Social History Social History Are you a primary healthcare insurance sales agent to a significant other at home: No Do you presently have visiting nurse or other home services: No Unable to assess alcohol history related to: Refusing to respond Alcohol intake: current Alcohol intake frequency: holidays/special occasions only Patient Tobacco Use Status: Former Tobacco user Tobacco use type: Cigarette Cigarettes Per Day: 2 Years Smoked: 40 Use of substances other than those prescribed or required for medical reasons: Refusing to respond Substance Use Type: Crack/Cocaine Substance Use Frequency: Recent Binge Advance Directives: No Advance Directives Information Provided: Yes service: No Current occupational status: disabled Current occupation: right hand dominant Meds Allergies Allergy/AdvReac Type Severity Reaction Status Date / Time No Known Allergies Allergy Verified 03/14/25 16:44 Home Medications ?Medication ?Instructions ?Recorded ?Confirmed ?Last Taken ?Type sertraline 50 mg tablet 50 mg PO DAILY PRN Anxiety 0 10/26/24 01/03/25 Unknown History fluocinolone 0.01 % scalp oil and 1 appl topical MOWEF R PRN Psoriasis 01/03/25 01/03/25 Unknown History shower cap halobetasol propionate 0.05 % 1 appl topical BID PRN P soriasis 01/03/25 01/03/25 Unknown History topical ointment lidocaine 5 % topical patch 1 patch topical DAILY PRN Pain 01/03/25 01/03/25 Unknown History multivitamin 1 tab PO DAILY 03/15/25 Unk nown History sennosides 8.6 mg-docusate sodium 1 tab PO DAILY 03/15 Unknown History 50 mg tablet (Stool Softener-Stimulant Laxative) ustekinumab 45 mg/0.5 mL 45 mg subcut Q12W 03/15/25 Unknown History subcutaneous syringe (Stelara) Results Labs 03/15/25 05:06 03/15/25 05:06 Assessment and Plan (1) UGIB (upper gastrointestinal bleed): Status: Acute Plan 1. Acute upper GI bleed rule out gastritis, esophagitis, variceal bleeding less likely 2. Hypovolemic hyponatremia 3. Acute lactic and metabolic acidosis likely due to alcohol consumption, cocaine use and dehydration (improved) 4. History of alcohol and drug abuse 5. Acute alcohol intoxication 6. Hypertension related to cocaine consumption 7. Possible left lung pneumonia 8. Trace pericardial and pleural effusions, monitor, no need of intervention. 9. Microcytic anemia rule out iron deficiency versus microscopic bleed At this point the patient is hemodynamically stable, she is not ill-appearing, the patient does not require ICU level of care.? We will treat the patient medically ready Internal Medicine team's discretion, procurement representative Dr. Palacios has been involving is aware of the case.? Trend H&H, IV fluids, CIWA protocol, phenobarbital protocol, type and screen. ?IV PPI plus minus octreotide.? Antibiotics. ?Treat blood pressure but avoid beta-blockers.? Monitor blood sugars.? Start thiamine, folic acid and multivitamin or per Internal Medicine team discretion. ?All of the above has been discussed with Dr. Cid. This patient counter and care had a low probability of a clinically significant, sudden, or life threatening deterioration of this patient's condition but still required my full and direct attention, intervention and personal management. Patient's care was discussed in detail with Dr. Corral.? He is aware of all the above as well as the plan of care for this patient.
[2025-03-14 23:50] LABS: Anion Gap 18 (12-20); Blood Urea Nitrogen 8 mg/dL (9-16); Calcium 8.8 mg/dL (8.4-10.2); Carbon Dioxide 24 mmol/L (22-29); Chloride 95 mmol/L (96-108); Creatinine Clr Calc Pharmacy 106.6; Estimated Glomerular Filt Rate > 60; Potassium 3.9 mmol/L (3.3-5.1); Sodium 133 mmol/L (135-145)
[2025-03-14 23:51] LABS: ~Lactic Acid-LAB USE ONLY 2.7 mmol/L (0.5-2.0)
[2025-03-15] VITALS (14 sets, daily range): BP systolic 118–169; BP diastolic 65–95; PULSE 88–111; RESP 14–22; TEMP 36.1–37; O2SAT 92–98
--- NOTE | 2025-03-15 00:35 | PM.IMHP ---
History of Present Illness Date of Service: 03/14/25 Attending physician on admission: Asif Cid Chief Complaint: confusion, vomiting Patient is a 64-year-old female with a past medical history significant for depression, anxiety, osteoarthritis, vertigo, history TIA, alcohol use disorder and cocaine use, who presented to the ED due to altered mental status, dizziness and vomiting. The patient reports that the vomiting started last night and has been coffee-ground emesis with associated diarrhea. No melena or hematochezia. She reports she has been drinking frequent loose since Wednesday but reports not daily. He consumes beers but will not quantify the amount. She has had some confusion and periumbilical pain. She was vomiting in the [place] in the ED and had 3 large episodes of hematemesis and when the patient was moved to a room she was found to have cocaine on her. She denies any chest pain, shortness of breath or headache. No urinary symptoms including frequency, urgency or dysuria. She is now denying abdominal pain and reports that her nausea is better controlled. There is a mention of seizures in her medical history however she reports that she has never been diagnosed with seizures. Her workup in the ED did not show blood in the stool however her emesis was never sent for analysis. Hemoglobin has dropped slightly but no need for blood transfusion at this time. Imaging consistent with infiltrates and small bilateral pleural effusion, likely aspiration pneumonia. Lactic acid has been significantly elevated however ED provider spoke with service line coordinator who suggested this is likely secondary to alcoholic gastritis. Tachycardia likely secondary to cocaine. Her confusion has subsided. There was also an incidental finding of a right humeral lesion on her imaging. She denies any right-sided arm pain. Review of Systems Constitutional: Constitutional: Denies body ache(s), Denies chills, Denies fatigue, Denies fever(s) and Denies headache(s) Eyes: Eyes: Denies change in vision ENT: Denies headache(s), Denies nasal congestion and Denies sore throat Cardiovascular: Cardiovascular: Denies chest pain, Denies rapid heart rate, Denies leg edema, Denies lightheadedness and Denies dyspnea Respiratory: Respiratory: Denies cough, Denies dyspnea and Denies wheezing Gastrointestinal: Gastrointestinal: Reports as per HPI Genitourinary: Genitourinary: Denies dysuria and Denies urinary urgency Musculoskeletal: Musculoskeletal: Denies myalgias Integumentary/Breasts: Skin/Breast: Denies rash Neurologic: Reports confusion and Denies headache(s) Psychiatric: Psychiatric: Reports confusion Endocrine: Endocrine: Denies fatigue Hematologic/Lymphatic: Hematologic/Lymphatic: Denies easy bleeding and Denies easy bruising Allergic/Immunologic: Allergic/Immunologic: Denies wheezing [facility], [facility] Medical History Depression with anxiety Constipation Osteoarthritis of left knee Heartburn Vertigo Osteoarthritis Depression with anxiety Psoriasis Functional capacity: independent ambulation Surgical History H/O oral surgery Hx of section Social History Are you a primary rn intensive care unit to a significant other at home: No Do you presently have visiting nurse or other home services: No Unable to assess alcohol history related to: Refusing to respond Alcohol intake: current Alcohol intake frequency: holidays/special occasions only Patient Tobacco Use Status: Former Tobacco user Tobacco use type: Cigarette Cigarettes Per Day: 2 Years Smoked: 40 Use of substances other than those prescribed or required for medical reasons: Refusing to respond Substance Use Type: Crack/Cocaine Advance Directives: No Advance Directives Information Provided: Yes service: No Current occupational status: disabled Current occupation: right hand dominant Narrative: Consuming beer regularly, amount unable to be quantified. Admits to cocaine use. Meds Allergies Allergy/AdvReac Type Severity Reaction Status Date / Time No Known Allergies Allergy Verified 03/14/25 16:44 Home Medications ?Medication ?Instructions ?Recorded ?Confirmed ?Last Taken ?Type sertraline 50 mg tablet 50 mg PO DAILY PRN Anxiety 10/26/24 01/03/25 Unknown History ustekinumab 45 mg/0.5 mL 45 mg subcut Q12W 10/26/24 01/03/25 10/24/24 History subcutaneous syringe (Stelara) cyclobenzaprine 10 mg tablet 10 mg PO Q8H PRN Muscle Spasm 12/13/24 01/03/25 Unknown History clobetasol 0.05 % topical cream 1 appl topical BEDTIME PRN 01/03/25 01/03/25 Unknown History Dry/Itchy Skin fluocinolone 0.01 % scalp oil and 1 appl topical MOWEFR PRN Psoriasis 01/03/25 01/03/25 Unknown History shower cap halobetasol propionate 0.05 % 1 appl topical BID PRN Psoriasis 01/03/25 01/03/25 Unknown History topical ointment lidocaine 5 % topical patch 1 patch topical DAILY PRN Pain 01/03/25 01/03/25 Unknown History Physical Exam Vital Signs and Narrative: Vital Signs: Last Vital Signs Temp 98.4 F 03/14/25 22:04 Pulse 105 H 03/14/25 22:55 Resp 16 03/14/25 22:55 BP 170/92 H 03/14/25 22:55 Pulse Ox 96 03/14/25 22:55 O2 Del Method Nasal Cannula 03/14/25 22:55 O2 Flow Rate 2 03/14/25 22:55 BMI result Body Mass Index 26.2 General: AOx3, no acute distress Resp: CTA bilaterally CVS: S1, S2, RRR GI: +BS, NT, no distention Skin: Warm, dry Neuro: Cranial nerves II-XII grossly intact bilaterally. Motor grossly intact bilaterally Extremities: No pittingedema Psych: Appropriate affect Const: General: confusion Orientation/consciousness: confusion Neuro: General: confusion Results Labs 03/14/25 20:15 03/14/25 23:12 Labs: Laboratory Results - last 24 hr 03/14/25 03/14/25 03/14/25 16:48 17:03 17:10 MCV 78.4 L MCH 26.3 L MCHC 33.5 RDW 13.0 Plt Count 372 D MPV 10.7 Immature Gran % (Auto) 0.4 Neut % (Auto) 88.9 H Lymph % (Auto) 6.8 L [place] % (Auto) 3.5 Eos % (Auto) 0.1 Baso % (Auto) 0.3 Lymph # (Auto) 1.0 L [place] # (Auto) 0.5 Eos # (Auto) 0.0 Baso # (Auto) 0.0 Abs Immat Gran (auto) 0.06 H Absolute Neuts (auto) 13.0 H Absolute Nucleated RBC 0.000 Nucleated RBC % (auto) 0.0 Hold Purple Top SEE NOTE PT 11.4 INR 1.0 VBG pH VBG pCO2 VBG pO2 VBG HCO3 VBG O2 Saturation VBG Base Excess Anion Gap Estim Creat Clear Calc Estimated GFR POC Glucose 79 Random Glucose Lactic Acid 6.2 H* Lactic Acid F/U @ 2Hr Lactic Acid F/U @ 4Hr Calcium Magnesium Total Bilirubin AST ALT Alkaline Phosphatase Ammonia 46 Troponin I High Sens < 2.7 Total Protein Albumin Urine Color Urine Appearance Urine pH Ur Specific [place] Urine Protein Urine Glucose (UA) Urine Ketones Urine Blood Urine Nitrite Ur Leukocyte Esterase Urine RBC Urine WBC Ur Squamous Epith Cells Urine Bacteria Hyaline Casts Stool Occult Blood Salicylates < 5.0 L Urine Opiates Screen Ur Buprenorphine Scrn Ur Oxycodone Screen Urine Methadone Screen Urine Fentanyl Screen Ur Barbiturates Screen Ur Phencyclidine Scrn Ur Amphetamines Screen U Benzodiazepines Scrn Urine Cocaine Screen U Marijuana (THC) Screen Ethyl Alcohol Blood Type O Positive Antibody Screen NEGATIVE 03/14/25 03/14/25 03/14/25 17:44 17:45 18:42 MCV MCH MCHC RDW Plt Count MPV Immature Gran % (Auto) Neut % (Auto) Lymph % (Auto) [place] % (Auto) Eos % (Auto) Baso % (Auto) Lymph # (Auto) [place] # (Auto) Eos # (Auto) Baso # (Auto) Abs Immat Gran (auto) Absolute Neuts (auto) Absolute Nucleated RBC Nucleated RBC % (auto) Hold Purple Top PT INR VBG pH VBG pCO2 VBG pO2 VBG HCO3 VBG O2 Saturation VBG Base Excess Anion Gap 23 H Estim Creat Clear Calc 110.7 Estimated GFR > 60 POC Glucose Random Glucose 88 Lactic Acid Lactic Acid F/U @ 2Hr Lactic Acid F/U @ 4Hr Calcium 9.1 Magnesium 1.8 Total Bilirubin 0.7 AST 34 H ALT 19 Alkaline Phosphatase 67 Ammonia Troponin I High Sens Total Protein 7.9 Albumin 4.6 Urine Color Urine Appearance Urine pH Ur Specific [place] Urine Protein Urine Glucose (UA) Urine Ketones Urine Blood Urine Nitrite Ur Leukocyte Esterase Urine RBC Urine WBC Ur Squamous Epith Cells Urine Bacteria Hyaline Casts Stool Occult Blood NEGATIVE Salicylates Urine Opiates Screen Ur Buprenorphine Scrn Ur Oxycodone Screen Urine Methadone Screen Urine Fentanyl Screen Ur Barbiturates Screen Ur Phencyclidine Scrn Ur Amphetamines Screen U Benzodiazepines Scrn Urine Cocaine Screen U Marijuana (THC) Screen Ethyl Alcohol 110 Blood Type Antibody Screen 03/14/25 03/14/25 03/14/25 20:04 20:05 20:15 MCV MCH MCHC RDW Plt Count MPV Immature Gran % (Auto) Neut % (Auto) Lymph % (Auto) [place] % (Auto) Eos % (Auto) Baso % (Auto) Lymph # (Auto) [place] # (Auto) Eos # (Auto) Baso # (Auto) Abs Immat Gran (auto) Absolute Neuts (auto) Absolute Nucleated RBC Nucleated RBC % (auto) Hold Purple Top PT INR VBG pH VBG pCO2 VBG pO2 VBG HCO3 VBG O2 Saturation VBG Base Excess Anion Gap Estim Creat Clear Calc Estimated GFR POC Glucose Random Glucose Lactic Acid Lactic Acid F/U @ 2Hr 7.5 H* Lactic Acid F/U @ 4Hr Calcium Magnesium Total Bilirubin AST ALT Alkaline Phosphatase Ammonia Troponin I High Sens Total Protein Albumin Urine Color Yellow Urine Appearance Clear Urine pH 6.0 Ur Specific [place] 1.025 Urine Protein 30 (1+) H Urine Glucose (UA) Negative Urine Ketones 40 Urine Blood Small (1+) H Urine Nitrite Negative Ur Leukocyte Esterase Negative Urine RBC 3-5 H Urine WBC 0-5 Ur Squamous Epith Cells 0-2 Urine Bacteria None Seen Hyaline Casts 0-2 Stool Occult Blood Salicylates Urine Opiates Screen Not Detected Ur Buprenorphine Scrn Not Detected Ur Oxycodone Screen Not Detected Urine Methadone Screen Not Detected Urine Fentanyl Screen Not Detected Ur Barbiturates Screen Not Detected Ur Phencyclidine Scrn Not Detected Ur Amphetamines Screen Not Detected U Benzodiazepines Scrn Not Detected Urine Cocaine Screen POSITIVE H U Marijuana (THC) Screen Not Detected Ethyl Alcohol Blood Type Antibody Screen 03/14/25 03/14/25 03/14/25 20:22 23:12 23:14 MCV MCH MCHC RDW Plt Count MPV Immature Gran % (Auto) Neut % (Auto) Lymph % (Auto) [place] % (Auto) Eos % (Auto) Baso % (Auto) Lymph # (Auto) [place] # (Auto) Eos # (Auto) Baso # (Auto) Abs Immat Gran (auto) Absolute Neuts (auto) Absolute Nucleated RBC Nucleated RBC % (auto) Hold Purple Top SEE NOTE PT INR VBG pH 7.33 VBG pCO2 39 VBG pO2 45 VBG HCO3 20 L VBG O2 Saturation 62.0 VBG Base Excess -4.6 Anion Gap 18 Estim Creat Clear Calc 106.6 Estimated GFR > 60 POC Glucose Random Glucose 102 Lactic Acid Lactic Acid F/U @ 2Hr Lactic Acid F/U @ 4Hr 2.7 H* Calcium 8.8 Magnesium Total Bilirubin AST ALT Alkaline Phosphatase Ammonia Troponin I High Sens Total Protein Albumin Urine Color Urine Appearance Urine pH Ur Specific [place] Urine Protein Urine Glucose (UA) Urine Ketones Urine Blood Urine Nitrite Ur Leukocyte Esterase Urine RBC Urine WBC Ur Squamous Epith Cells Urine Bacteria Hyaline Casts Stool Occult Blood Salicylates Urine Opiates Screen Ur Buprenorphine Scrn Ur Oxycodone Screen Urine Methadone Screen Urine Fentanyl Screen Ur Barbiturates Screen Ur Phencyclidine Scrn Ur Amphetamines Screen U Benzodiazepines Scrn Urine Cocaine Screen U Marijuana (THC) Screen Ethyl Alcohol Blood Type Antibody Screen Assessment and Plan (1) UGIB (upper gastrointestinal bleed): Status: Acute (2) Hematemesis: Qualifiers: Nausea presence: with nausea Qualified Code(s): K92.0 - Hematemesis Status: Acute (3) Esophagitis: Status: Acute (4) Acidosis, lactic: Status: Acute (5) Pneumonia: Status: Acute (6) Pleural effusion: Status: Acute (7) Humerus lesion, right: Status: Acute (8) Toxic encephalopathy: Status: Acute (9) Prolonged QT interval: Status: Acute Plan Patient is a 64-year-old female with a past medical history significant for depression, anxiety, osteoarthritis, vertigo, history TIA, alcohol use disorder and cocaine use, who presented to the ED due to altered mental status, dizziness and vomiting. multiple episodes of CGE in ED UGIB, hematemesis, esophagitis - NPO - GI consult - PPI - no cirrhosis on CT, no further octreotide - LR 80/hr - serial H+H acute lactic acidosis, likely secondary to etoh gastritis SIRS+, pneumonia likely aspiration, pleural effusions - tachycarida likley from cocaine and lactic acid from etoh gastritis - vancomycin and zosyn toxic encephalopathy, resolved etoh abuse, cocaine use - monitor CIWA, if elevated stat phenobarb - thiamine, folic acid, multivitamin - addiction med consult prolonged QT - mag low normal, given 2g additional - avoid QT prolonging agents ?R humerus lesion on xray - CT R humerus - check LDH depression/anxiety - continue home meds med rec pending full code VTE prophy: SCDs pt with upper GI bleed, hematemesis, esophagitis, acute lactic acidosis , likely aspiration pneumonia, requiring admission for at least 2 midnight stay for further evaluation, IV antibiotics and monitoring. Quality Stroke Does the patient have a stroke diagnosis?: No VTE Prior VTE?: No VTE Risk Level:: Medical - moderate - high VTE Device Contraindication: N/A - Device Ordered VTE Drug Contraindication: Treatment Not Indicated
[2025-03-15] MEDS: Lactated Ringers 1,000 ML 80 ML IVCONT ×2 (01:18→17:21)
[2025-03-15 01:21] LABS: Hematocrit 35.9 % (37.0-47.0); Hemoglobin 11.7 g/dl (12.0-16.0)
--- NOTE | 2025-03-15 03:41 | PC.NURSE ---
Assumed care of this pt at 0300. Pt resting quietly in room. Sinus tach on monitor. Hypertensive [id number]. Denies any discomfort. Pure wick in place. IVF checked against JUL. Pending bed assignment.
[2025-03-15 03:51] LABS: HBS Num1 0.58 mIU/mL (0-7.99); HBc Num1 0.17 S/CO (0.00-0.79); HBsAGNum1 0.61 S/CO (0.00-0.99); Hepatitis A Antibody IgM 0.23 Index (0-0.79); Hepatitis B Surface Antigen Negative (Negative); ~HepC Num1 0.11 S/CO (0.00-0.79); ~Hepatitis A Antibody IgM Nonreactive (Nonreactive); ~Hepatitis B Surface Antibody NONREACTIVE (Nonreactive); ~Hepatitis C Antibody Nonreactive (Nonreactive)
--- NOTE | 2025-03-15 04:15 | HO.NURTONUR ---
64YF coming in from home for confusion, on arrival to ED pt had 3 episodes of hematemesis. Reports periumbilical abd pain. While pt was being changed over she was found to have cocaine on her. Admits to using cocaine last pm. Has been drinking unknown amt of beers over the past 5 days. Labs significant for elevated lactic however trending down, hemoglobin slightly dropped. No blood transfusion needed at this time. Possible pneumonia per CXR. Incidental finding of a right humeral lesion on her imaging. Pt denies rt arm pain. Pt was treated with protonix IV, octreotide, electrolyte replacements, IVabx, and IVF. LR@80ml/hr. Pt has 20gRAC and 20LUA. Pt using purewick d/t frequent urination. NSR- ST on monitor. Afebrile. SBP 150-170s. Pt placed on 2LNC while sleeping after dropping sats to 86%. Has not had anymore episodes of vomiting. Pt is NPO at this time. PMH- anxiety, depression, TIA (no residuals), ETOH use, HTN
[2025-03-15 04:22] LABS: MRSA Nasal PCR NEGATIVE (Negative); SA Nasal PCR POSITIVE (Negative)
[2025-03-15 05:24] LABS: Hematocrit 36.6 % (37.0-47.0); Hemoglobin 11.9 g/dl (12.0-16.0); Imm Gran Abs Auto 0.05 X10*3/uL (0.00-0.03); Imm Gran Pct Auto 0.4 % (0.0-0.4); Lymphocytes Absolute Auto 0.9 X10*3/uL (1.2-4.9); Mean Corpuscular HGB Conc 32.5 g/dl (31.0-35.0); Mean Corpuscular Hemoglobin 25.7 pg (27.0-33.0); Mean Corpuscular Volume 79.0 fL (80.0-98.0); NRBC Abs Auto 0.000 X10*3/uL (0.0-0.012); NRBC Pct Auto 0.0 /100WBC (0.0-0.2); PLT CLUMP 1; Red Blood Count 4.63 X10*6/uL (4.20-5.50); SCAN SMEAR FLAG 1
[2025-03-15 05:25] LABS: White Blood Count 11.8 X10*3/uL (4.8-10.8)
[2025-03-15 05:26] LABS: MANUAL DIFF FLAG NO
[2025-03-15 05:44] LABS: Platelet Count 170 X10*3/uL (160-400)
[2025-03-15 05:47] LABS: Alanine Aminotransferase 11 U/L (0-31); Albumin Level 4.2 g/dL (3.5-5.0); Alkaline Phosphatase 61 U/L (39-117); Anion Gap 23 (12-20); Aspartate Amino Transferase 51 U/L (5-31); Blood Urea Nitrogen 10 mg/dL (9-16); Calcium 8.9 mg/dL (8.4-10.2); Carbon Dioxide 16 mmol/L (22-29); Chloride 109 mmol/L (96-108); Creatinine Clr Calc Pharmacy 91.4; Estimated Glomerular Filt Rate > 60; Magnesium 2.5 mg/dL (1.6-2.6); Potassium 5.5 mmol/L (3.3-5.1); Sodium 142 mmol/L (135-145); Total Protein 8.0 g/dL (6.5-8.0)
--- NOTE | 2025-03-15 06:44 | PHA.PROG ---
Admission Date/Time: March 14, 2025 23:54 Indication: Respiratory Weight in k.6 kg Adjusted body weight in Kg: [place] body weight in Kg: Obesity Dosing Indication % IBW: Serum Creatinine - Last 168 Hours 03/14/25 03/14/25 03/15/25 17:45 23:12 05:06 Creatinine 0.52 0.54 0.63 Estimated CrCl and GFR - Last 168 Hours 03/14/25 03/14/25 03/15/25 17:45 23:12 05:06 Estim Creat Clear Calc 110.7 106.6 91.4 Estimated GFR > 60 > 60 > 60 Vancomycin Loading Dose: 2000 mg Current Vancomycin Dosing Regimen: 1000 mg Q12H Vancomycin Monitoring using AUC goal of 400 - 600 range with trough as surrogate marker: Predicted AUC 499 and trough 15.4 Date and Time for next Vancomycin Level to be drawn: 03/16/25 @0700 Pharmacist Comments on Vancomycin Plan: Vancomycin dosing will take advantage of [employer] as a clinical decision support tool that uses Bayesian modeling to calculate individual patient's pharmacokinetic parameters and forecast the patient's drug concentration time course with the target goal AUC 24 range of 400 - 600 mg/L/hr.
--- NOTE | 2025-03-15 07:46 | HO.ANESPROP2 ---
Documented by User: Mitzy Pittman NP 03/15/25 08:05 HPI - Anesthesia Eval Consult details Narrative: 64 yr old female for Upper Endoscopy w/ Gold Probe +Cocaine Hyperkalemia: K+ 5.5 (hemolyzed) CXR reveals mild left lower lobe opacities suggestive of atelectasis versus infiltrates: sats 98% on 2 liters O2 TIA vs seizure: saw [facility] neuro 12/2024 after having head/neck CTA 10/2024 for reports of dizziness & tongue numbness; imaging showed: Patent head and neck CTA; String of beads appearance of the proximal cervical left ICA. This is nonspecific but can be seen in fibromyalgia. An EEG was ordered but not yet done [facility] Active Problems Active Problems: All Active Problems Prolonged QT interval (Acute) Toxic encephalopathy (Acute) Humerus lesion, right (Acute) Pleural effusion (Acute) Pneumonia (Acute) UGIB (upper gastrointestinal bleed) (Acute) Hematemesis (Acute) Acidosis, lactic (Acute) Esophagitis (Acute) Sepsis (Acute) Fibromuscular dysplasia of carotid artery (Acute) Seizure disorder (Acute) TIA (transient ischemic attack) (Acute) Status post total knee replacement, left (Acute) Past Medical History Medical History Depression with anxiety Constipation Osteoarthritis of left knee Heartburn Vertigo Osteoarthritis Depression with anxiety Psoriasis Functional capacity: independent ambulation Family History Family history of problems with anesthesia: No Surgical History Surgical History H/O knee surgery H/O oral surgery Hx of section History of Problems with Anesthesia: No Social History Social History Are you a primary emergency care tech to a significant other at home: No Do you presently have visiting nurse or other home services: No Alcohol intake: current Alcohol intake frequency: a few times a week Patient Tobacco Use Status: Former Tobacco user Tobacco use type: Cigarette Cigarettes Per Day: 2 Years Smoked: 40 Substance Use Type: Crack/Cocaine service: No Current occupational status: disabled Current occupation: right hand dominant Meds Allergies Allergy/AdvReac Type Severity Reaction Status Date / Time No Known Allergies Allergy Verified 03/14/25 16:44 Active Medications: Current Medications Acetaminophen (Acetaminophen 325 Mg Tablet) 650 mg PO Q6H PRN PRN Reason: Pain, Mild 1-3,fever,headache Calcium Carbonate (Calcium Carbonate 750 Mg Tab.Chew) 750 mg PO Q4H PRN PRN Reason: Heartburn Folic Acid (Folic Acid 1 Mg Tablet) 1 mg PO DAILY [facility] Stop: 03/18/25 08:59 Piperacillin Sod/Tazobactam (Sod 3.375 gm/ Sodium Chloride) 50 mls @ 100 mls/hr IV Q6H [facility] Last Infusion: 03/15/25 07:37 Dose: Infused Lactated Ringer's (Lr) 1,000 mls @ 80 mls/hr IVCONT .[id number] [facility] Last Admin: 03/15/25 01:18 Dose: 80 mls/hr Vancomycin HCl 1,000 mg/ (Sodium Chloride) 270 mls @ 270 mls/hr IV Q12H [facility] Magnesium Hydroxide (Milk Of Magnesia 30 Ml Oral.Susp) 30 ml PO DAILY PRN PRN Reason: Constipation Melatonin (Melatonin 3 Mg Tablet) 6 mg PO BEDTIME PRN PRN Reason: Insomnia Morphine Sulfate (Morphine Sulfate 4 Mg/Ml Cartridge) 2 mg IVPUSH Q4H PRN; Protocol PRN Reason: Pain, Severe (Pain Scale 7-10) Multivitamins/Vitamin C (Multivitamin Tablet) 1 tab PO DAILY [facility] Stop: 03/18/25 08:59 Oxycodone HCl (Oxycodone Hcl Immed Release 5 Mg Tablet) 5 mg PO Q6H PRN PRN Reason: Pain, Moderate(Pain Scale 4-6) Pantoprazole Sodium (Pantoprazole Sodium 40 Mg/10 Ml Vial) 40 mg IVPUSH BID@0630,1630 [facility] Last Admin: 03/15/25 06:39 Dose: 40 mg Pharmacy Consult (Consult Rx Vancomycin Dosing) 1 each MISCELLANE DAILY PRN PRN Reason: Consult order Sodium Chloride (0.9 % Sodium Chloride Flush 3 Ml Syringe) 3 ml IVFLUSH QSHIFT [facility] Last Admin: 03/15/25 07:03 Dose: Not Given Thiamine HCl (Thiamine Hcl 100 Mg Tablet) 100 mg PO DAILY [facility] Stop: 03/18/25 08:59 Home Medications ?Medication ?Instructions ?Recorded ?Confirmed ?Last Taken ?Type sertraline 50 mg tablet 50 mg PO DAILY PRN Anxiety 10/26/24 03/15/25 Unknown History multivitamin 1 tab PO DAILY 03/15/25 03/15/25 03/13/25 History oxycodone 5 mg tablet 5 mg PO DAILY PRN Pain, 03/15/25 03/15/25 Unknown History Moderate(Pain Scale 4-6) sennosides 8.6 mg-docusate sodium 1 tab PO DAILY 03/15/25 03/15/25 Unknown History 50 mg tablet (Stool Softener-Stimulant Laxative) ustekinumab 45 mg/0.5 mL 45 mg subcut [id number] 03/15/25 03/15/25 11/29/24 History subcutaneous syringe (Stelara) Exam Height,Weight and Vital Signs: Height 5 ft 6 in Weight 73.6 kg Last Vital Signs Temp 98.4 F 03/14/25 22:04 Pulse 96 03/15/25 07:38 Resp 16 03/15/25 07:38 BP 158/86 H 03/15/25 07:38 Pulse Ox 98 03/15/25 07:38 O2 Del Method Nasal Cannula 03/15/25 07:38 O2 Flow Rate 2 03/15/25 07:38 Pertinent Lab Results Pertinent Lab Results: Laboratory Tests 03/14/25 03/14/25 03/14/25 16:48 17:03 17:10 WBC 14.7 H RBC 4.72 D Hgb 12.4 Hct 37.0 MCV 78.4 L MCH 26.3 L MCHC 33.5 RDW 13.0 Plt Count 372 D MPV 10.7 Immature Gran % (Auto) 0.4 Neut % (Auto) 88.9 H Lymph % (Auto) 6.8 L Ross % (Auto) 3.5 Eos % (Auto) 0.1 Baso % (Auto) 0.3 Lymph # (Auto) 1.0 L Ross # (Auto) 0.5 Eos # (Auto) 0.0 Baso # (Auto) 0.0 Abs Immat Gran (auto) 0.06 H Absolute Neuts (auto) 13.0 H Absolute Nucleated RBC 0.000 Nucleated RBC % (auto) 0.0 Hold Purple Top SEE NOTE PT 11.4 INR 1.0 VBG pH VBG pCO2 VBG pO2 VBG HCO3 VBG O2 Saturation VBG Base Excess Sodium Potassium Chloride Carbon Dioxide Anion Gap BUN Creatinine Estim Creat Clear Calc Estimated GFR POC Glucose 79 Random Glucose Lactic Acid 6.2 H* Lactic Acid F/U @ 2Hr Lactic Acid F/U @ 4Hr Calcium Magnesium Total Bilirubin AST ALT Alkaline Phosphatase Ammonia 46 Lactate Dehydrogenase Troponin I High Sens < 2.7 Total Protein Albumin Hold Red Top Urine Color Urine Appearance Urine pH Ur Specific Proctor Urine Protein Urine Glucose (UA) Urine Ketones Urine Blood Urine Nitrite Ur Leukocyte Esterase Urine RBC Urine WBC Ur Squamous Epith Cells Urine Bacteria Hyaline Casts Nasal Screen MRSA (PCR) Nasal S. aureus Screen Nasal MRSA/S.aureus Interp Stool Occult Blood Salicylates < 5.0 L Urine Opiates Screen Ur Buprenorphine Scrn Ur Oxycodone Screen Urine Methadone Screen Urine Fentanyl Screen Ur Barbiturates Screen Ur Phencyclidine Scrn Ur Amphetamines Screen U Benzodiazepines Scrn Urine Cocaine Screen U Marijuana (THC) Screen Ethyl Alcohol Hepatitis A IgM Ab Hep Bs Antigen Hep Bs Antibody Hep B Core Total Ab Hepatitis C Ab (EIA) Blood Type O Positive Antibody Screen NEGATIVE 03/14/25 03/14/25 03/14/25 17:44 17:45 18:42 WBC RBC Hgb Hct MCV MCH MCHC RDW Plt Count MPV Immature Gran % (Auto) Neut % (Auto) Lymph % (Auto) Ross % (Auto) Eos % (Auto) Baso % (Auto) Lymph # (Auto) Ross # (Auto) Eos # (Auto) Baso # (Auto) Abs Immat Gran (auto) Absolute Neuts (auto) Absolute Nucleated RBC Nucleated RBC % (auto) Hold Purple Top PT INR VBG pH VBG pCO2 VBG pO2 VBG HCO3 VBG O2 Saturation VBG Base Excess Sodium 128 L Potassium 3.6 Chloride 90 L Carbon Dioxide 19 L Anion Gap 23 H BUN 9 Creatinine 0.52 Estim Creat Clear Calc 110.7 Estimated GFR > 60 POC Glucose Random Glucose 88 Lactic Acid Lactic Acid F/U @ 2Hr Lactic Acid F/U @ 4Hr Calcium 9.1 Magnesium 1.8 Total Bilirubin 0.7 AST 34 H ALT 19 Alkaline Phosphatase 67 Ammonia Lactate Dehydrogenase Troponin I High Sens Total Protein 7.9 Albumin 4.6 Hold Red Top Urine Color Urine Appearance Urine pH Ur Specific Proctor Urine Protein Urine Glucose (UA) Urine Ketones Urine Blood Urine Nitrite Ur Leukocyte Esterase Urine RBC Urine WBC Ur Squamous Epith Cells Urine Bacteria Hyaline Casts Nasal Screen MRSA (PCR) Nasal S. aureus Screen Nasal MRSA/S.aureus Interp Stool Occult Blood NEGATIVE Salicylates Urine Opiates Screen Ur Buprenorphine Scrn Ur Oxycodone Screen Urine Methadone Screen Urine Fentanyl Screen Ur Barbiturates Screen Ur Phencyclidine Scrn Ur Amphetamines Screen U Benzodiazepines Scrn Urine Cocaine Screen U Marijuana (THC) Screen Ethyl Alcohol 110 Hepatitis A IgM Ab Nonreactive Hep Bs Antigen Negative Hep Bs Antibody NONREACTIVE Hep B Core Total Ab Nonreactive Hepatitis C Ab (EIA) Nonreactive Blood Type Antibody Screen 03/14/25 03/14/25 03/14/25 20:04 20:05 20:15 WBC RBC Hgb 11.7 L Hct 35.9 L MCV MCH MCHC RDW Plt Count MPV Immature Gran % (Auto) Neut % (Auto) Lymph % (Auto) Ross % (Auto) Eos % (Auto) Baso % (Auto) Lymph # (Auto) Ross # (Auto) Eos # (Auto) Baso # (Auto) Abs Immat Gran (auto) Absolute Neuts (auto) Absolute Nucleated RBC Nucleated RBC % (auto) Hold Purple Top PT INR VBG pH VBG pCO2 VBG pO2 VBG HCO3 VBG O2 Saturation VBG Base Excess Sodium Potassium Chloride Carbon Dioxide Anion Gap BUN Creatinine Estim Creat Clear Calc Estimated GFR POC Glucose Random Glucose Lactic Acid Lactic Acid F/U @ 2Hr 7.5 H* Lactic Acid F/U @ 4Hr Calcium Magnesium Total Bilirubin AST ALT Alkaline Phosphatase Ammonia Lactate Dehydrogenase Troponin I High Sens Total Protein Albumin Hold Red Top Urine Color Yellow Urine Appearance Clear Urine pH 6.0 Ur Specific Proctor 1.025 Urine Protein 30 (1+) H Urine Glucose (UA) Negative Urine Ketones 40 Urine Blood Small (1+) H Urine Nitrite Negative Ur Leukocyte Esterase Negative Urine RBC 3-5 H Urine WBC 0-5 Ur Squamous Epith Cells 0-2 Urine Bacteria None Seen Hyaline Casts 0-2 Nasal Screen MRSA (PCR) Nasal S. aureus Screen Nasal MRSA/S.aureus Interp Stool Occult Blood Salicylates Urine Opiates Screen Not Detected Ur Buprenorphine Scrn Not Detected Ur Oxycodone Screen Not Detected Urine Methadone Screen Not Detected Urine Fentanyl Screen Not Detected Ur Barbiturates Screen Not Detected Ur Phencyclidine Scrn Not Detected Ur Amphetamines Screen Not Detected U Benzodiazepines Scrn Not Detected Urine Cocaine Screen POSITIVE H U Marijuana (THC) Screen Not Detected Ethyl Alcohol Hepatitis A IgM Ab Hep Bs Antigen Hep Bs Antibody Hep B Core Total Ab Hepatitis C Ab (EIA) Blood Type Antibody Screen 03/14/25 03/14/25 03/14/25 20:22 23:12 23:14 WBC RBC Hgb Hct MCV MCH MCHC RDW Plt Count MPV Immature Gran % (Auto) Neut % (Auto) Lymph % (Auto) Ross % (Auto) Eos % (Auto) Baso % (Auto) Lymph # (Auto) Ross # (Auto) Eos # (Auto) Baso # (Auto) Abs Immat Gran (auto) Absolute Neuts (auto) Absolute Nucleated RBC Nucleated RBC % (auto) Hold Purple Top SEE NOTE PT INR VBG pH 7.33 VBG pCO2 39 VBG pO2 45 VBG HCO3 20 L VBG O2 Saturation 62.0 VBG Base Excess -4.6 Sodium 133 L Potassium 3.9 Chloride 95 L Carbon Dioxide 24 Anion Gap 18 BUN 8 L Creatinine 0.54 Estim Creat Clear Calc 106.6 Estimated GFR > 60 POC Glucose Random Glucose 102 Lactic Acid Lactic Acid F/U @ 2Hr Lactic Acid F/U @ 4Hr 2.7 H* Calcium 8.8 Magnesium Total Bilirubin AST ALT Alkaline Phosphatase Ammonia Lactate Dehydrogenase 238 H Troponin I High Sens Total Protein Albumin Hold Red Top Urine Color Urine Appearance Urine pH Ur Specific Proctor Urine Protein Urine Glucose (UA) Urine Ketones Urine Blood Urine Nitrite Ur Leukocyte Esterase Urine RBC Urine WBC Ur Squamous Epith Cells Urine Bacteria Hyaline Casts Nasal Screen MRSA (PCR) Nasal S. aureus Screen Nasal MRSA/S.aureus Interp Stool Occult Blood Salicylates Urine Opiates Screen Ur Buprenorphine Scrn Ur Oxycodone Screen Urine Methadone Screen Urine Fentanyl Screen Ur Barbiturates Screen Ur Phencyclidine Scrn Ur Amphetamines Screen U Benzodiazepines Scrn Urine Cocaine Screen U Marijuana (THC) Screen Ethyl Alcohol Hepatitis A IgM Ab Hep Bs Antigen Hep Bs Antibody Hep B Core Total Ab Hepatitis C Ab (EIA) Blood Type Antibody Screen 03/15/25 03/15/25 03/15/25 01:12 01:52 05:06 WBC 11.8 H RBC 4.63 Hgb 11.7 L 11.9 L Hct 35.9 L 36.6 L MCV 79.0 L MCH 25.7 L MCHC 32.5 RDW 13.2 Plt Count 170 D MPV 11.3 Immature Gran % (Auto) 0.4 Neut % (Auto) 82.4 H Lymph % (Auto) 7.9 L Ross % (Auto) 9.0 Eos % (Auto) 0.2 Baso % (Auto) 0.1 Lymph # (Auto) 0.9 L Ross # (Auto) 1.1 Eos # (Auto) 0.0 Baso # (Auto) 0.0 Abs Immat Gran (auto) 0.05 H Absolute Neuts (auto) 9.7 H Absolute Nucleated RBC 0.000 Nucleated RBC % (auto) 0.0 Hold Purple Top PT INR VBG pH VBG pCO2 VBG pO2 VBG HCO3 VBG O2 Saturation VBG Base Excess Sodium 142 Potassium 5.5 H D Chloride 109 H Carbon Dioxide 16 L Anion Gap 23 H BUN 10 Creatinine 0.63 Estim Creat Clear Calc 91.4 Estimated GFR > 60 POC Glucose Random Glucose 92 Lactic Acid Lactic Acid F/U @ 2Hr Lactic Acid F/U @ 4Hr Calcium 8.9 Magnesium 2.5 Total Bilirubin 1.0 AST 51 H ALT 11 Alkaline Phosphatase 61 Ammonia Lactate Dehydrogenase Troponin I High Sens Total Protein 8.0 Albumin 4.2 Hold Red Top See Note Urine Color Urine Appearance Urine pH Ur Specific Proctor Urine Protein Urine Glucose (UA) Urine Ketones Urine Blood Urine Nitrite Ur Leukocyte Esterase Urine RBC Urine WBC Ur Squamous Epith Cells Urine Bacteria Hyaline Casts Nasal Screen MRSA (PCR) NEGATIVE Nasal S. aureus Screen POSITIVE A Nasal MRSA/S.aureus Interp SEE NOTE Stool Occult Blood Salicylates Urine Opiates Screen Ur Buprenorphine Scrn Ur Oxycodone Screen Urine Methadone Screen Urine Fentanyl Screen Ur Barbiturates Screen Ur Phencyclidine Scrn Ur Amphetamines Screen U Benzodiazepines Scrn Urine Cocaine Screen U Marijuana (THC) Screen Ethyl Alcohol Hepatitis A IgM Ab Hep Bs Antigen Hep Bs Antibody Hep B Core Total Ab Hepatitis C Ab (EIA) Blood Type Antibody Screen Assessment and Plan Final Anesthetic Review Family History of Problems with Anesthesia: No History of Problems with Anesthesia: No Documented by User: Michelle Teresa MD 03/15/25 11:50 [facility] Past Medical History Medical History Depression with anxiety Constipation Osteoarthritis of left knee Heartburn Vertigo Osteoarthritis Depression with anxiety Psoriasis Surgical History Surgical History H/O knee surgery H/O oral surgery Hx of section Social History Social History Are you a primary emergency care tech to a significant other at home: No Do you presently have visiting nurse or other home services: No Alcohol intake: current Alcohol intake frequency: a few times a week Patient Tobacco Use Status: Former Tobacco user Tobacco use type: Cigarette Cigarettes Per Day: 2 Years Smoked: 40 Substance Use Type: Crack/Cocaine service: No Current occupational status: disabled Current occupation: right hand dominant Meds Allergies Allergy/AdvReac Type Severity Reaction Status Date / Time No Known Allergies Allergy Verified 03/14/25 16:44 Home Medications ?Medication ?Instructions ?Recorded ?Confirmed ?Last Taken ?Type sertraline 50 mg tablet 50 mg PO DAILY PRN Anxiety 10/26/24 03/15/25 Unknown History multivitamin 1 tab PO DAILY 03/15/25 03/15/25 03/13/25 History oxycodone 5 mg tablet 5 mg PO DAILY PRN Pain, 03/15/25 03/15/25 Unknown History Moderate(Pain Scale 4-6) sennosides 8.6 mg-docusate sodium 1 tab PO DAILY 03/15/25 03/15/25 Unknown History 50 mg tablet (Stool Softener-Stimulant Laxative) ustekinumab 45 mg/0.5 mL 45 mg subcut [id number] 03/15/25 03/15/25 11/29/24 History subcutaneous syringe (Stelara) Exam Airway Mallampati Class: II TM Dist: >3cm Neck ROM: Full Denture: Upper and Lower Heart: rrr Lungs: cta Assessment and Plan Assessment Anesthesia Assessment: Anesthesia Plan Discussed and Chart Reviewed Final Anesthetic Review NPO: Yes ASA Class: III Final Preanesthetic Review: No Changes in Pt Med Stat, Meds/Allgs Chart Reviewed, Consent Obtained/Reviewed and Anes Risks/Benef Reviewed Patient Risk: Intermediate Procedure Risk: Low Anesthetic Plan Anesthetic Plan: MAC: Disposition: Standard PACU
[2025-03-15 08:53] LABS: Hematocrit 34.4 % (37.0-47.0); Hemoglobin 11.4 g/dl (12.0-16.0)
--- NOTE | 2025-03-15 09:14 | PM.EVENT ---
Event Note Date of Service: 03/15/25 Event Note: GI consult dictated Emergent EGD planned for later today for evaluation of UGI bleeding. Zabrina is aware of risks and benefits and agrees to proceed. Time Spent With Patient Time: Total time managing care of this patient today ____ minutes.
--- NOTE | 2025-03-15 09:49 | MHC.CM.PN ---
Addendum entered by Claudette Fay 03/15/25 11:59: Patient is part of [facility] & [facility] for [facility]. Original Note: CM met with Patient at bedside, in the ED and addressed IMM with her, providing Patient with the original and a copy will be placed on the chart. Patient lives in an apartment with her Daughter/Ebony, who will transport at time of dc. Home self care is Patient's goal and CM has initiated and will follow for dc planning. PCP is Dr. Fadi Sheikh.
--- NOTE | 2025-03-15 10:04 | CONS_ITS ---
DATE OF SERVICE: 03/15/2025 REFERRING PHYSICIAN: Dr. Laws REASON FOR CONSULTATION: Upper GI bleeding. HISTORY OF PRESENT ILLNESS: The patient is a pleasant 64-year-old woman, who was admitted to the hospital after presenting to the emergency room yesterday with complaints of vomiting coffee-grounds. She was brought to the emergency department with a change in mental status, and during her hospitalization, reported vomiting coffee-ground materials. She does complain of some epigastric pain and gets occasional reflux at home, but does not take anything for this. She does have a history of intermittent alcohol use and also has a history of cocaine use in the past. In the emergency department, she was evaluated with laboratory studies, which showed a hematocrit of 37 on admission. This dropped to 34.4 today. There has been no melena. Her vomiting was treated with antiemetics, and she has had no further vomiting since admission. She denies a prior history of peptic ulcer disease and has not undergone upper endoscopy. PAST MEDICAL HISTORY: 1. Anxiety/depression. 2. Osteoarthritis. 3. Constipation. 4. Heartburn. 5. Psoriasis. CURRENT MEDICATIONS: Her current medication list is reviewed in the chart. ALLERGIES: THERE ARE NONE REPORTED. FAMILY HISTORY: This is reviewed with the patient and is noncontributory. SOCIAL HISTORY: Alcohol and substance use are as above. REVIEW OF SYSTEMS: SKIN: No pruritus. HEENT: Negative. CARDIOPULMONARY: No shortness of breath or chest pain. GASTROINTESTINAL: As above. GENITOURINARY: Negative. NEUROPSYCHIATRIC: Negative. PHYSICAL EXAMINATION: GENERAL: Shows a pleasant female, lying comfortably in bed. VITAL SIGNS: Reviewed in the electronic medical record and are stable. SKIN: Anicteric. HEENT: Shows no scleral icterus. NECK: Without lymphadenopathy or thyromegaly. LUNGS: Clear. HEART: Shows regular rate and rhythm. S1, S2. No murmur. ABDOMEN: Soft without focal masses or tenderness. Bowel sounds are present. No organomegaly is noted. EXTREMITIES: Without edema. LABORATORY DATA AND IMAGING STUDIES: Reviewed. CT scanning of the abdomen and pelvis showed fluid distention of the distal esophagus with nonspecific wall thickening. IMPRESSION: Upper gastrointestinal bleeding. PLAN: Her upper GI bleeding appears most consistent with bleeding from erosive esophagitis or Vero-Salvador tear. Other causes could include peptic ulcer disease and malignancy. I have recommended further evaluation with upper endoscopy. She understands risks and benefits of the procedure and agrees to proceed. This will be scheduled for later today. MD JENNIFER Vivas/MARILYN / [phone]
--- NOTE | 2025-03-15 10:06 | PC.NURSE ---
both iv patent
--- NOTE | 2025-03-15 10:17 | PHA.MEDREC ---
Addendum entered by Desmond Raymond PharmD 03/15/25 10:26: reviewed Original Note: Pharmacy Consult ? Medication Reconciliation Pharmacy has completed the medication reconciliation. Patient is a poor historian, she instructed me to call her daughter. Spoke to patients daughter Ebony over the phone to confirm med list. Daughter was able to confirm all of patient medications. Daughter confirmed Stelara 45 mg every 4 months , last dose was in November and next dose is in March. Patient last had her medications 2 days ago.
--- NOTE | 2025-03-15 11:48 | PM.EVENT ---
Event Note Date of Service: 03/15/25 Event Note: EGD dictated Erosive esophagitis and hiatal hernia no active bleeding antral biopsies obtained REC bid ppi advance diet d/c when stable Time Spent With Patient Time: Total time managing care of this patient today ____ minutes.
[2025-03-15] MEDS: 0.9 % Sodium Chloride Flush 3 ML SYRINGE IVFLUSH ×2 (16:57→20:08)
--- NOTE | 2025-03-15 17:09 | MHC.RECOVRN ---
TW contacted at [facility] in [place] to verify methadone dosing history. Per [facility] Bates, they have no patient by this name or .
--- NOTE | 2025-03-15 17:32 | PC.NURSE ---
Pt arrived from endoscopy via stretcher. She is alert and oriented. Ambulated independently to bath room. She reports urinary urgency. She is edentulous; her dentures are not with her. Wears contacts. Not scoring on CIWA at this time. She denies drinking every day, but attributes he blackout and fall to drinking at her friend's house. Pt lives with her daughter and grandsons. She reports that her family member has medication that can help her stop her smoking. She was vague about the topic of substance use d/t her grandchildren in the room, but she is very motivated to stop.
[2025-03-15 17:54] LABS: Hematocrit 33.4 % (37.0-47.0); Hemoglobin 10.8 g/dl (12.0-16.0)
--- NOTE | 2025-03-15 17:59 | HO.PM.IMPN ---
Subjective Subjective Date of Service: 03/15/25 Interval History: Underwent EGD earlier in the day that found no acute bleeding but evidence of erosive esophagitis Pt currently complaining of severe heartburn Denies shortness or breath or cough No nausea, vomiting, or abdominal pain Review of Systems Review of Systems: Yes all other systems are reviewed and are negative Physical Exam Exam: Exam: General: AOx3, no acute distress Resp: CTA bilaterally CVS: S1, S2, RRR GI: +BS, NT, no distention Skin: Warm, dry Neuro: Cranial nerves II-XII grossly intact bilaterally. Motor grossly intact bilaterally Extremities: No edema Psych: Appropriate affect Vital Signs: Vital Signs: Last Vital Signs Temp 98.6 F 03/15/25 16:00 Pulse 100 03/15/25 16:00 Resp 18 03/15/25 16:00 BP 138/95 H 03/15/25 16:00 Pulse Ox 95 03/15/25 16:00 O2 Del Method Room Air 03/15/25 16:00 O2 Flow Rate 2 03/15/25 07:38 BMI result Body Mass Index 26.2 Objective Data Active Medications Acetaminophen (Acetaminophen 325 Mg Tablet) 650 mg PO Q6H PRN PRN Reason: Pain, Mild 1-3,fever,headache Aspirin (Aspirin 325 Mg Tablet) 325 mg PO BID TRINO Calcium Carbonate (Calcium Carbonate 750 Mg Tab.Chew) 750 mg PO Q4H PRN PRN Reason: Heartburn Docusate Sodium (Docusate Sodium 100 Mg Capsule) 100 mg PO BID TRINO Folic Acid (Folic Acid 1 Mg Tablet) 1 mg PO DAILY [facility] [place] Stop: 03/18/25 08:59 Last Admin: 03/15/25 08:36 Dose: Not Given Documented By: RAFAEL Non-Admin Reason: NPO Piperacillin Sod/Tazobactam (Sod 3.375 gm/ Sodium Chloride) 50 mls @ 100 mls/hr IV Q6H [facility] [place] Last Infusion: 03/15/25 17:20 Dose: Infused Documented By: JASKARAN Lactated Ringer's (Lr) 1,000 mls @ 80 mls/hr IVCONT .[id number] [facility] [place] Last Admin: 03/15/25 17:21 Dose: 80 mls/hr Documented By: JASKARAN Vancomycin HCl 1,000 mg/ (Sodium Chloride) 270 mls @ 270 mls/hr IV Q12H [facility] [place] Last Infusion: 03/15/25 09:39 Dose: Infused Documented By: RAFAEL Magnesium Hydroxide (Milk Of Magnesia 30 Ml Oral.Susp) 30 ml PO DAILY PRN PRN Reason: Constipation Melatonin (Melatonin 3 Mg Tablet) 6 mg PO BEDTIME PRN PRN Reason: Insomnia Morphine Sulfate (Morphine Sulfate 4 Mg/Ml Cartridge) 2 mg IVPUSH Q4H PRN; Protocol PRN Reason: Pain, Severe (Pain Scale 7-10) Multivitamins/Vitamin C (Multivitamin Tablet) 1 tab PO DAILY [facility] [place] Stop: 03/18/25 08:59 Last Admin: 03/15/25 08:35 Dose: Not Given Documented By: RAFAEL Non-Admin Reason: NPO Naloxone HCl (Naloxone Hcl 0.4 Mg/Ml Vial) 0.04 mg IVPUSH Q5M PRN PRN Reason: Excessive sedation or RR < 8 Oxycodone HCl (Oxycodone Hcl Immed Release 5 Mg Tablet) 5 mg PO Q6H PRN PRN Reason: Pain, Moderate(Pain Scale 4-6) Oxycodone HCl (Oxycodone Hcl Immed Release 5 Mg Tablet) 5 mg PO DAILY PRN PRN Reason: Pain, Moderate(Pain Scale 4-6) Pantoprazole Sodium (Pantoprazole Sodium 40 Mg/10 Ml Vial) 40 mg IVPUSH BID@0630,1630 [facility] [place] Last Admin: 03/15/25 16:56 Dose: 40 mg Documented By: JOSÉ LUIS Pharmacy Consult (Consult Rx Vancomycin Dosing) 1 each MISCELLANE DAILY PRN PRN Reason: Consult order Sertraline HCl (Sertraline Hcl 50 Mg Tablet) 50 mg PO DAILY PRN PRN Reason: Anxiety Sodium Chloride (0.9 % Sodium Chloride Flush 3 Ml Syringe) 3 ml IVFLUSH QSHIFT [facility] [place] Last Admin: 03/15/25 16:57 Dose: 3 ml Documented By: JOSÉ LUIS Thiamine HCl (Thiamine Hcl 100 Mg Tablet) 100 mg PO DAILY [facility] [place] Stop: 03/18/25 08:59 Last Admin: 03/15/25 08:36 Dose: Not Given Documented By: RAFAEL Non-Admin Reason: NPO Labs 03/15/25 17:34 03/15/25 05:06 Labs: Laboratory Results - last 24 hr 03/14/25 03/14/25 03/14/25 17:44 17:45 18:42 MCV MCH MCHC RDW Plt Count MPV Immature Gran % (Auto) Neut % (Auto) Lymph % (Auto) [place] % (Auto) Eos % (Auto) Baso % (Auto) Lymph # (Auto) [place] # (Auto) Eos # (Auto) Baso # (Auto) Abs Immat Gran (auto) Absolute Neuts (auto) Absolute Nucleated RBC Nucleated RBC % (auto) Hold Purple Top VBG pH VBG pCO2 VBG pO2 VBG HCO3 VBG O2 Saturation VBG Base Excess Anion Gap 23 H Estim Creat Clear Calc 110.7 Estimated GFR > 60 Random Glucose 88 Lactic Acid F/U @ 2Hr Lactic Acid F/U @ 4Hr Calcium 9.1 Magnesium 1.8 Total Bilirubin 0.7 AST 34 H ALT 19 Alkaline Phosphatase 67 Lactate Dehydrogenase Total Protein 7.9 Albumin 4.6 Hold Red Top Urine Color Urine Appearance Urine pH Ur Specific [place] Urine Protein Urine Glucose (UA) Urine Ketones Urine Blood Urine Nitrite Ur Leukocyte Esterase Urine RBC Urine WBC Ur Squamous Epith Cells Urine Bacteria Hyaline Casts Nasal Screen MRSA (PCR) Nasal S. aureus Screen Nasal MRSA/S.aureus Interp Stool Occult Blood NEGATIVE Urine Opiates Screen Ur Buprenorphine Scrn Ur Oxycodone Screen Urine Methadone Screen Urine Fentanyl Screen Ur Barbiturates Screen Ur Phencyclidine Scrn Ur Amphetamines Screen U Benzodiazepines Scrn Urine Cocaine Screen U Marijuana (THC) Screen Ethyl Alcohol 110 Hepatitis A IgM Ab Nonreactive Hep Bs Antigen Negative Hep Bs Antibody NONREACTIVE Hep B Core Total Ab Nonreactive Hepatitis C Ab (EIA) Nonreactive 03/14/25 03/14/25 03/14/25 20:04 20:05 20:15 MCV MCH MCHC RDW Plt Count MPV Immature Gran % (Auto) Neut % (Auto) Lymph % (Auto) [place] % (Auto) Eos % (Auto) Baso % (Auto) Lymph # (Auto) [place] # (Auto) Eos # (Auto) Baso # (Auto) Abs Immat Gran (auto) Absolute Neuts (auto) Absolute Nucleated RBC Nucleated RBC % (auto) Hold Purple Top VBG pH VBG pCO2 VBG pO2 VBG HCO3 VBG O2 Saturation VBG Base Excess Anion Gap Estim Creat Clear Calc Estimated GFR Random Glucose Lactic Acid F/U @ 2Hr 7.5 H* Lactic Acid F/U @ 4Hr Calcium Magnesium Total Bilirubin AST ALT Alkaline Phosphatase Lactate Dehydrogenase Total Protein Albumin Hold Red Top Urine Color Yellow Urine Appearance Clear Urine pH 6.0 Ur Specific [place] 1.025 Urine Protein 30 (1+) H Urine Glucose (UA) Negative Urine Ketones 40 Urine Blood Small (1+) H Urine Nitrite Negative Ur Leukocyte Esterase Negative Urine RBC 3-5 H Urine WBC 0-5 Ur Squamous Epith Cells 0-2 Urine Bacteria None Seen Hyaline Casts 0-2 Nasal Screen MRSA (PCR) Nasal S. aureus Screen Nasal MRSA/S.aureus Interp Stool Occult Blood Urine Opiates Screen Not Detected Ur Buprenorphine Scrn Not Detected Ur Oxycodone Screen Not Detected Urine Methadone Screen Not Detected Urine Fentanyl Screen Not Detected Ur Barbiturates Screen Not Detected Ur Phencyclidine Scrn Not Detected Ur Amphetamines Screen Not Detected U Benzodiazepines Scrn Not Detected Urine Cocaine Screen POSITIVE H U Marijuana (THC) Screen Not Detected Ethyl Alcohol Hepatitis A IgM Ab Hep Bs Antigen Hep Bs Antibody Hep B Core Total Ab Hepatitis C Ab (EIA) 03/14/25 03/14/25 03/14/25 20:22 23:12 23:14 MCV MCH MCHC RDW Plt Count MPV Immature Gran % (Auto) Neut % (Auto) Lymph % (Auto) [place] % (Auto) Eos % (Auto) Baso % (Auto) Lymph # (Auto) [place] # (Auto) Eos # (Auto) Baso # (Auto) Abs Immat Gran (auto) Absolute Neuts (auto) Absolute Nucleated RBC Nucleated RBC % (auto) Hold Purple Top SEE NOTE VBG pH 7.33 VBG pCO2 39 VBG pO2 45 VBG HCO3 20 L VBG O2 Saturation 62.0 VBG Base Excess -4.6 Anion Gap 18 Estim Creat Clear Calc 106.6 Estimated GFR > 60 Random Glucose 102 Lactic Acid F/U @ 2Hr Lactic Acid F/U @ 4Hr 2.7 H* Calcium 8.8 Magnesium Total Bilirubin AST ALT Alkaline Phosphatase Lactate Dehydrogenase 238 H Total Protein Albumin Hold Red Top Urine Color Urine Appearance Urine pH Ur Specific [place] Urine Protein Urine Glucose (UA) Urine Ketones Urine Blood Urine Nitrite Ur Leukocyte Esterase Urine RBC Urine WBC Ur Squamous Epith Cells Urine Bacteria Hyaline Casts Nasal Screen MRSA (PCR) Nasal S. aureus Screen Nasal MRSA/S.aureus Interp Stool Occult Blood Urine Opiates Screen Ur Buprenorphine Scrn Ur Oxycodone Screen Urine Methadone Screen Urine Fentanyl Screen Ur Barbiturates Screen Ur Phencyclidine Scrn Ur Amphetamines Screen U Benzodiazepines Scrn Urine Cocaine Screen U Marijuana (THC) Screen Ethyl Alcohol Hepatitis A IgM Ab Hep Bs Antigen Hep Bs Antibody Hep B Core Total Ab Hepatitis C Ab (EIA) 03/15/25 03/15/25 03/15/25 01:12 01:52 05:06 MCV 79.0 L MCH 25.7 L MCHC 32.5 RDW 13.2 Plt Count 170 D MPV 11.3 Immature Gran % (Auto) 0.4 Neut % (Auto) 82.4 H Lymph % (Auto) 7.9 L [place] % (Auto) 9.0 Eos % (Auto) 0.2 Baso % (Auto) 0.1 Lymph # (Auto) 0.9 L [place] # (Auto) 1.1 Eos # (Auto) 0.0 Baso # (Auto) 0.0 Abs Immat Gran (auto) 0.05 H Absolute Neuts (auto) 9.7 H Absolute Nucleated RBC 0.000 Nucleated RBC % (auto) 0.0 Hold Purple Top VBG pH VBG pCO2 VBG pO2 VBG HCO3 VBG O2 Saturation VBG Base Excess Anion Gap 23 H Estim Creat Clear Calc 91.4 Estimated GFR > 60 Random Glucose 92 Lactic Acid F/U @ 2Hr Lactic Acid F/U @ 4Hr Calcium 8.9 Magnesium 2.5 Total Bilirubin 1.0 AST 51 H ALT 11 Alkaline Phosphatase 61 Lactate Dehydrogenase Total Protein 8.0 Albumin 4.2 Hold Red Top See Note Urine Color Urine Appearance Urine pH Ur Specific [place] Urine Protein Urine Glucose (UA) Urine Ketones Urine Blood Urine Nitrite Ur Leukocyte Esterase Urine RBC Urine WBC Ur Squamous Epith Cells Urine Bacteria Hyaline Casts Nasal Screen MRSA (PCR) NEGATIVE Nasal S. aureus Screen POSITIVE A Nasal MRSA/S.aureus Interp SEE NOTE Stool Occult Blood Urine Opiates Screen Ur Buprenorphine Scrn Ur Oxycodone Screen Urine Methadone Screen Urine Fentanyl Screen Ur Barbiturates Screen Ur Phencyclidine Scrn Ur Amphetamines Screen U Benzodiazepines Scrn Urine Cocaine Screen U Marijuana (THC) Screen Ethyl Alcohol Hepatitis A IgM Ab Hep Bs Antigen Hep Bs Antibody Hep B Core Total Ab Hepatitis C Ab (EIA) Assessment and Plan (1) Hematemesis: Status: Acute (2) UGIB (upper gastrointestinal bleed): Status: Acute Plan Patient is a 64-year-old female with a past medical history significant for depression, anxiety, osteoarthritis, vertigo, history TIA, alcohol use disorder and cocaine use, who presented to the ED due to altered mental status, dizziness and vomiting. multiple episodes of CGE in ED UGIB, hematemesis, esophagitis - pt underwent EGD by GI earlier in the day that found erosive esophagitis and hiatal hernia, but no active bleeding - GI following, recommend PPI b.i.d. and follow up outpatient for biopsies - no cirrhosis on CT, no further octreotide - serial H+H acute lactic acidosis, likely secondary to etoh gastritis SIRS+, question of aspiration pneumonia, pleural effusions - tachycarida likley from cocaine and lactic acid from etoh gastritis - pt asymptomatic: Denies SOB, cough, difficulty breathing - continue empiric zosyn for now toxic encephalopathy, resolved - in the setting of etoh abuse, cocaine use - monitor CIWA, if elevated stat phenobarb - thiamine, folic acid, multivitamin - addiction med consult prolonged QT - mag low normal, given 2g additional - avoid QT prolonging agents ?R humerus lesion on xray - CT R humerus - check LDH depression/anxiety - continue home meds full code VTE prophy: SCDs Pt will require continued hospitalization for monitoring of H&H in the setting hematemesis. If patient's H&H and vitals stable, pt will likely be able to be discharged home tomorrow on oral PPI and short course of antibiotics. Quality Stroke Does the patient have a stroke diagnosis?: No VTE Prior VTE?: No VTE Risk Level:: Medical - moderate - high VTE Device Contraindication: N/A - Device Ordered VTE Drug Contraindication: Treatment Not Indicated
--- NOTE | 2025-03-15 18:28 | PC.NURSE ---
Pt reports frequent heart burn. Taking TUMS
--- NOTE | 2025-03-15 18:50 | PC.NURSE ---
Pt gives her consent to give any health care information to Ebony gee. [phone]
--- NOTE | 2025-03-15 22:20 | OP_ITS ---
DATE OF SERVICE: 03/15/2025 SURGEON: Rogelio Palacios MD INDICATIONS: Upper GI bleeding. PREOPERATIVE DIAGNOSIS: POSTOPERATIVE DIAGNOSIS: PROCEDURE PERFORMED: Upper endoscopy with biopsy. ESTIMATED BLOOD LOSS: COMPLICATIONS: ANESTHESIA: Monitored anesthesia care. ASSISTANTS: SPECIMENS: DESCRIPTION OF PROCEDURE: A history and physical was performed. The risks and benefits of the procedure were explained to the patient, and informed consent was obtained. The patient was placed in the left lateral decubitus position. The Olympus video gastroscope was introduced into the esophagus, stomach, and duodenum. Examination was performed. The scope was removed. She tolerated the procedure well and was returned to recovery area in stable condition. FINDINGS: Esophagus: The esophagus showed erosive esophagitis extending up from about 20 cm to the EG junction at 35 cm. There was a moderate-sized hiatal hernia. No active bleeding was identified. Stomach: The stomach showed no evidence of masses, ulcers, or polyps. Duodenum: The bulb and 2nd portion were normal. Antral biopsies were obtained from the stomach to evaluate for H pylori. IMPRESSION: Erosive esophagitis and hiatal hernia. RECOMMENDATION: 1. Follow up the biopsy results. 2. Continue high-dose proton pump inhibitor. 3. Advance diet. MD JENNIFER Vivas/MARILYN / [phone]
[2025-03-16 02:13] LABS: Hematocrit 29.4 % (37.0-47.0); Hemoglobin 9.5 g/dl (12.0-16.0)
[2025-03-16 03:09] VITALS: BP 119/58; PULSE 87; RESP 18; TEMP 36.6; O2SAT 94
[2025-03-16] MEDS: Lactated Ringers 1,000 ML 80 ML IVCONT (06:11)
[2025-03-16 06:47] LABS: MANUAL DIFF FLAG NO
[2025-03-16 07:00] LABS: Hematocrit 30.5 % (37.0-47.0); Hemoglobin 9.9 g/dl (12.0-16.0); Imm Gran Abs Auto 0.04 X10*3/uL (0.00-0.03); Imm Gran Pct Auto 0.4 % (0.0-0.4); Lymphocytes Absolute Auto 1.3 X10*3/uL (1.2-4.9); Mean Corpuscular HGB Conc 32.5 g/dl (31.0-35.0); Mean Corpuscular Hemoglobin 26.1 pg (27.0-33.0); Mean Corpuscular Volume 80.3 fL (80.0-98.0); NRBC Abs Auto 0.000 X10*3/uL (0.0-0.012); NRBC Pct Auto 0.0 /100WBC (0.0-0.2); Platelet Count 269 X10*3/uL (160-400); Red Blood Count 3.80 X10*6/uL (4.20-5.50); White Blood Count 10.1 X10*3/uL (4.8-10.8)
[2025-03-16 07:10] LABS: Alanine Aminotransferase 9 U/L (0-31); Albumin Level 3.6 g/dL (3.5-5.0); Alkaline Phosphatase 45 U/L (39-117); Aspartate Amino Transferase 22 U/L (5-31); Blood Urea Nitrogen 12 mg/dL (9-16); Calcium 8.6 mg/dL (8.4-10.2); Creatinine Clr Calc Pharmacy 87.2; Estimated Glomerular Filt Rate > 60; Magnesium 2.4 mg/dL (1.6-2.6); Total Protein 6.3 g/dL (6.5-8.0)
[2025-03-16 07:23] LABS: Anion Gap 11 (12-20); Carbon Dioxide 26 mmol/L (22-29); Chloride 107 mmol/L (96-108); Potassium 3.3 mmol/L (3.3-5.1); Sodium 141 mmol/L (135-145)
[2025-03-16 07:48] VITALS: BP 145/70; PULSE 85; RESP 18; TEMP 36.3; O2SAT 95
--- NOTE | 2025-03-16 08:21 | HO.POSTANES ---
Post Anesthesia Evaluation Post Anesthesia Evaluation Date of Service: 03/16/25 Vital Signs: Vital Signs Temp Pulse Resp BP Pulse Ox O2 Del Method 03/16/25 07:48 97.4 F 85 18 145/70 H 95 Room Air 03/16/25 03:09 97.9 F 87 18 119/58 L 94 Nasal Cannula 03/15/25 23:39 98.1 F 89 18 134/71 95 Room Air Anesthesia: Monitored Mental Status: Awake Pain Control: Satisfactory Nausea/Vomiting: None Hydration: Adequate Anesthesia-Related Issues: No Anes. Related Issues
--- NOTE | 2025-03-16 09:37 | HO.ADDICT_ITS ---
History of Present Illness Date of Service: 03/16/2025 Chief Complaint: sepsis, vomiting Reason for Consult: cocaine use Sources of Information: patient interviewed and chart reviewed HPI Narrative: Patient is a 64 year old female who presented to [facility] ED with AMS, n/v. In ED, had episodes of hematemesis was admitted with lactic acidosis concern and for UGI bleed Consult requested as patient had reportedly been drinking and using cocaine. Patient seen in room 446. She is awake, alert, pleasant and engaged in interview. She shares that she is embarrassed by being the hospital. I don't do this stuff. I am a grandmother, I was so stupid She states that she was with a friend who offered her beer, and she accepted. She states they were drinking and reminiscing, when the friend started using cocaine. patient states, she used one line and felt so sick afterwards. She reports she was vomiting at friends house. Does not recall how much she drank She denies any previous OFELIA diagnosis, but does acknowledge that she had used cocaine on the weekends when she was younger, but had stopped many, many years ago. She states last time she ever did it was for her 39th birthday, and never after that. She reports very occasional alcohol use-- sometimes I will have a raymundo or a glass of wine, but that's it She denies any withdrawal sx Denies any history of treatment, denies any history of withdrawal sx Appears comfortable. VS WNL Endoscopy showing erosive esophagitis. Medical Evaluation Reviewed: Yes Review of Systems Constitutional: Reports as per HPI and Reports no additional constitutional complaints Diagnostics Vital Signs (24Hr): Vital Signs - 24 hr 03/15/25 10:02 03/15/25 11:56 03/15/25 12:11 Temperature 97.3 F 97 F Pulse Rate 99 111 H 107 H Respiratory Rate 17 18 18 Blood Pressure 144/78 H 120/68 118/65 Pulse Oximetry 96 92 92 Oxygen Delivery Method Room Air Room Air Room Air 03/15/25 12:26 03/15/25 12:41 03/15/25 13:45 Temperature Pulse Rate 88 91 95 Respiratory Rate 18 14 14 Blood Pressure 145/73 H 145/80 H 144/72 H Pulse Oximetry 96 92 92 Oxygen Delivery Method Room Air Room Air Room Air 03/15/25 14:45 03/15/25 15:52 03/15/25 16:00 Temperature 97 F 98.6 F Pulse Rate 94 88 100 Respiratory Rate 16 16 18 Blood Pressure 138/73 159/72 H 138/95 H Pulse Oximetry 94 96 95 Oxygen Delivery Method Room Air Room Air Room Air 03/15/25 19:29 03/15/25 23:39 03/16/25 03:09 Temperature 97.6 F 98.1 F 97.9 F Pulse Rate 109 H 89 87 Respiratory Rate 18 18 18 Blood Pressure 150/76 H 134/71 119/58 L Pulse Oximetry 93 95 94 Oxygen Delivery Method Room Air Room Air Nasal Cannula 03/16/25 07:48 Temperature 97.4 F Pulse Rate 85 Respiratory Rate 18 Blood Pressure 145/70 H Pulse Oximetry 95 Oxygen Delivery Method Room Air BMI result Body Mass Index 26.2 Labs 03/16/25 06:19 03/16/25 06:19 Labs: Laboratory Results - last 48 hr 03/14/25 03/14/25 03/14/25 16:48 17:03 17:10 WBC 14.7 H RBC 4.72 D Hgb 12.4 Hct 37.0 MCV 78.4 L MCH 26.3 L MCHC 33.5 RDW 13.0 Plt Count 372 D MPV 10.7 Immature Gran % (Auto) 0.4 Neut % (Auto) 88.9 H Lymph % (Auto) 6.8 L [place] % (Auto) 3.5 Eos % (Auto) 0.1 Baso % (Auto) 0.3 Lymph # (Auto) 1.0 L [place] # (Auto) 0.5 Eos # (Auto) 0.0 Baso # (Auto) 0.0 Abs Immat Gran (auto) 0.06 H Absolute Neuts (auto) 13.0 H Absolute Nucleated RBC 0.000 Nucleated RBC % (auto) 0.0 Hold Purple Top SEE NOTE PT 11.4 INR 1.0 VBG pH VBG pCO2 VBG pO2 VBG HCO3 VBG O2 Saturation VBG Base Excess Sodium Potassium Chloride Carbon Dioxide Anion Gap BUN Creatinine Estim Creat Clear Calc Estimated GFR POC Glucose 79 Random Glucose Lactic Acid 6.2 H* Lactic Acid F/U @ 2Hr Lactic Acid F/U @ 4Hr Calcium Magnesium Total Bilirubin AST ALT Alkaline Phosphatase Ammonia 46 Lactate Dehydrogenase Troponin I High Sens < 2.7 Total Protein Albumin Hold Red Top Urine Color Urine Appearance Urine pH Ur Specific Register Urine Protein Urine Glucose (UA) Urine Ketones Urine Blood Urine Nitrite Ur Leukocyte Esterase Urine RBC Urine WBC Ur Squamous Epith Cells Urine Bacteria Hyaline Casts Nasal Screen MRSA (PCR) Nasal S. aureus Screen Nasal MRSA/S.aureus Interp Stool Occult Blood Salicylates < 5.0 L Urine Opiates Screen Ur Buprenorphine Scrn Ur Oxycodone Screen Urine Methadone Screen Urine Fentanyl Screen Ur Barbiturates Screen Ur Phencyclidine Scrn Ur Amphetamines Screen U Benzodiazepines Scrn Urine Cocaine Screen U Marijuana (THC) Screen Ethyl Alcohol Hepatitis A IgM Ab Hep Bs Antigen Hep Bs Antibody Hep B Core Total Ab Hepatitis C Ab (EIA) Blood Type O Positive Antibody Screen NEGATIVE 03/14/25 03/14/25 03/14/25 17:44 17:45 18:42 WBC RBC Hgb Hct MCV MCH MCHC RDW Plt Count MPV Immature Gran % (Auto) Neut % (Auto) Lymph % (Auto) [place] % (Auto) Eos % (Auto) Baso % (Auto) Lymph # (Auto) [place] # (Auto) Eos # (Auto) Baso # (Auto) Abs Immat Gran (auto) Absolute Neuts (auto) Absolute Nucleated RBC Nucleated RBC % (auto) Hold Purple Top PT INR VBG pH VBG pCO2 VBG pO2 VBG HCO3 VBG O2 Saturation VBG Base Excess Sodium 128 L Potassium 3.6 Chloride 90 L Carbon Dioxide 19 L Anion Gap 23 H BUN 9 Creatinine 0.52 Estim Creat Clear Calc 110.7 Estimated GFR > 60 POC Glucose Random Glucose 88 Lactic Acid Lactic Acid F/U @ 2Hr Lactic Acid F/U @ 4Hr Calcium 9.1 Magnesium 1.8 Total Bilirubin 0.7 AST 34 H ALT 19 Alkaline Phosphatase 67 Ammonia Lactate Dehydrogenase Troponin I High Sens Total Protein 7.9 Albumin 4.6 Hold Red Top Urine Color Urine Appearance Urine pH Ur Specific [place] Urine Protein Urine Glucose (UA) Urine Ketones Urine Blood Urine Nitrite Ur Leukocyte Esterase Urine RBC Urine WBC Ur Squamous Epith Cells Urine Bacteria Hyaline Casts Nasal Screen MRSA (PCR) Nasal S. aureus Screen Nasal MRSA/S.aureus Interp Stool Occult Blood NEGATIVE Salicylates Urine Opiates Screen Ur Buprenorphine Scrn Ur Oxycodone Screen Urine Methadone Screen Urine Fentanyl Screen Ur Barbiturates Screen Ur Phencyclidine Scrn Ur Amphetamines Screen U Benzodiazepines Scrn Urine Cocaine Screen U Marijuana (THC) Screen Ethyl Alcohol 110 Hepatitis A IgM Ab Nonreactive Hep Bs Antigen Negative Hep Bs Antibody NONREACTIVE Hep B Core Total Ab Nonreactive Hepatitis C Ab (EIA) Nonreactive Blood Type Antibody Screen 03/14/25 03/14/25 03/14/25 20:04 20:05 20:15 WBC RBC Hgb 11.7 L Hct 35.9 L MCV MCH MCHC RDW Plt Count MPV Immature Gran % (Auto) Neut % (Auto) Lymph % (Auto) [place] % (Auto) Eos % (Auto) Baso % (Auto) Lymph # (Auto) [place] # (Auto) Eos # (Auto) Baso # (Auto) Abs Immat Gran (auto) Absolute Neuts (auto) Absolute Nucleated RBC Nucleated RBC % (auto) Hold Purple Top PT INR VBG pH VBG pCO2 VBG pO2 VBG HCO3 VBG O2 Saturation VBG Base Excess Sodium Potassium Chloride Carbon Dioxide Anion Gap BUN Creatinine Estim Creat Clear Calc Estimated GFR POC Glucose Random Glucose Lactic Acid Lactic Acid F/U @ 2Hr 7.5 H* Lactic Acid F/U @ 4Hr Calcium Magnesium Total Bilirubin AST ALT Alkaline Phosphatase Ammonia Lactate Dehydrogenase Troponin I High Sens Total Protein Albumin Hold Red Top Urine Color Yellow Urine Appearance Clear Urine pH 6.0 Ur Specific [place] 1.025 Urine Protein 30 (1+) H Urine Glucose (UA) Negative Urine Ketones 40 Urine Blood Small (1+) H Urine Nitrite Negative Ur Leukocyte Esterase Negative Urine RBC 3-5 H Urine WBC 0-5 Ur Squamous Epith Cells 0-2 Urine Bacteria None Seen Hyaline Casts 0-2 Nasal Screen MRSA (PCR) Nasal S. aureus Screen Nasal MRSA/S.aureus Interp Stool Occult Blood Salicylates Urine Opiates Screen Not Detected Ur Buprenorphine Scrn Not Detected Ur Oxycodone Screen Not Detected Urine Methadone Screen Not Detected Urine Fentanyl Screen Not Detected Ur Barbiturates Screen Not Detected Ur Phencyclidine Scrn Not Detected Ur Amphetamines Screen Not Detected U Benzodiazepines Scrn Not Detected Urine Cocaine Screen POSITIVE H U Marijuana (THC) Screen Not Detected Ethyl Alcohol Hepatitis A IgM Ab Hep Bs Antigen Hep Bs Antibody Hep B Core Total Ab Hepatitis C Ab (EIA) Blood Type Antibody Screen 03/14/25 03/14/25 03/14/25 20:22 23:12 23:14 WBC RBC Hgb Hct MCV MCH MCHC RDW Plt Count MPV Immature Gran % (Auto) Neut % (Auto) Lymph % (Auto) [place] % (Auto) Eos % (Auto) Baso % (Auto) Lymph # (Auto) [place] # (Auto) Eos # (Auto) Baso # (Auto) Abs Immat Gran (auto) Absolute Neuts (auto) Absolute Nucleated RBC Nucleated RBC % (auto) Hold Purple Top SEE NOTE PT INR VBG pH 7.33 VBG pCO2 39 VBG pO2 45 VBG HCO3 20 L VBG O2 Saturation 62.0 VBG Base Excess -4.6 Sodium 133 L Potassium 3.9 Chloride 95 L Carbon Dioxide 24 Anion Gap 18 BUN 8 L Creatinine 0.54 Estim Creat Clear Calc 106.6 Estimated GFR > 60 POC Glucose Random Glucose 102 Lactic Acid Lactic Acid F/U @ 2Hr Lactic Acid F/U @ 4Hr 2.7 H* Calcium 8.8 Magnesium Total Bilirubin AST ALT Alkaline Phosphatase Ammonia Lactate Dehydrogenase 238 H Troponin I High Sens Total Protein Albumin Hold Red Top Urine Color Urine Appearance Urine pH Ur Specific [place] Urine Protein Urine Glucose (UA) Urine Ketones Urine Blood Urine Nitrite Ur Leukocyte Esterase Urine RBC Urine WBC Ur Squamous Epith Cells Urine Bacteria Hyaline Casts Nasal Screen MRSA (PCR) Nasal S. aureus Screen Nasal MRSA/S.aureus Interp Stool Occult Blood Salicylates Urine Opiates Screen Ur Buprenorphine Scrn Ur Oxycodone Screen Urine Methadone Screen Urine Fentanyl Screen Ur Barbiturates Screen Ur Phencyclidine Scrn Ur Amphetamines Screen U Benzodiazepines Scrn Urine Cocaine Screen U Marijuana (THC) Screen Ethyl Alcohol Hepatitis A IgM Ab Hep Bs Antigen Hep Bs Antibody Hep B Core Total Ab Hepatitis C Ab (EIA) Blood Type Antibody Screen 03/15/25 03/15/25 03/15/25 01:12 01:52 05:06 WBC 11.8 H RBC 4.63 Hgb 11.7 L 11.9 L Hct 35.9 L 36.6 L MCV 79.0 L MCH 25.7 L MCHC 32.5 RDW 13.2 Plt Count 170 D MPV 11.3 Immature Gran % (Auto) 0.4 Neut % (Auto) 82.4 H Lymph % (Auto) 7.9 L [place] % (Auto) 9.0 Eos % (Auto) 0.2 Baso % (Auto) 0.1 Lymph # (Auto) 0.9 L [place] # (Auto) 1.1 Eos # (Auto) 0.0 Baso # (Auto) 0.0 Abs Immat Gran (auto) 0.05 H Absolute Neuts (auto) 9.7 H Absolute Nucleated RBC 0.000 Nucleated RBC % (auto) 0.0 Hold Purple Top PT INR VBG pH VBG pCO2 VBG pO2 VBG HCO3 VBG O2 Saturation VBG Base Excess Sodium 142 Potassium 5.5 H D Chloride 109 H Carbon Dioxide 16 L Anion Gap 23 H BUN 10 Creatinine 0.63 Estim Creat Clear Calc 91.4 Estimated GFR > 60 POC Glucose Random Glucose 92 Lactic Acid Lactic Acid F/U @ 2Hr Lactic Acid F/U @ 4Hr Calcium 8.9 Magnesium 2.5 Total Bilirubin 1.0 AST 51 H ALT 11 Alkaline Phosphatase 61 Ammonia Lactate Dehydrogenase Troponin I High Sens Total Protein 8.0 Albumin 4.2 Hold Red Top See Note Urine Color Urine Appearance Urine pH Ur Specific [place] Urine Protein Urine Glucose (UA) Urine Ketones Urine Blood Urine Nitrite Ur Leukocyte Esterase Urine RBC Urine WBC Ur Squamous Epith Cells Urine Bacteria Hyaline Casts Nasal Screen MRSA (PCR) NEGATIVE Nasal S. aureus Screen POSITIVE A Nasal MRSA/S.aureus Interp SEE NOTE Stool Occult Blood Salicylates Urine Opiates Screen Ur Buprenorphine Scrn Ur Oxycodone Screen Urine Methadone Screen Urine Fentanyl Screen Ur Barbiturates Screen Ur Phencyclidine Scrn Ur Amphetamines Screen U Benzodiazepines Scrn Urine Cocaine Screen U Marijuana (THC) Screen Ethyl Alcohol Hepatitis A IgM Ab Hep Bs Antigen Hep Bs Antibody Hep B Core Total Ab Hepatitis C Ab (EIA) Blood Type Antibody Screen 03/15/25 03/15/25 03/16/25 08:37 17:34 02:04 WBC RBC Hgb 11.4 L 10.8 L 9.5 L Hct 34.4 L 33.4 L 29.4 L MCV MCH MCHC RDW Plt Count MPV Immature Gran % (Auto) Neut % (Auto) Lymph % (Auto) [place] % (Auto) Eos % (Auto) Baso % (Auto) Lymph # (Auto) [place] # (Auto) Eos # (Auto) Baso # (Auto) Abs Immat Gran (auto) Absolute Neuts (auto) Absolute Nucleated RBC Nucleated RBC % (auto) Hold Purple Top PT INR VBG pH VBG pCO2 VBG pO2 VBG HCO3 VBG O2 Saturation VBG Base Excess Sodium Potassium Chloride Carbon Dioxide Anion Gap BUN Creatinine Estim Creat Clear Calc Estimated GFR POC Glucose Random Glucose Lactic Acid Lactic Acid F/U @ 2Hr Lactic Acid F/U @ 4Hr Calcium Magnesium Total Bilirubin AST ALT Alkaline Phosphatase Ammonia Lactate Dehydrogenase Troponin I High Sens Total Protein Albumin Hold Red Top Urine Color Urine Appearance Urine pH Ur Specific [place] Urine Protein Urine Glucose (UA) Urine Ketones Urine Blood Urine Nitrite Ur Leukocyte Esterase Urine RBC Urine WBC Ur Squamous Epith Cells Urine Bacteria Hyaline Casts Nasal Screen MRSA (PCR) Nasal S. aureus Screen Nasal MRSA/S.aureus Interp Stool Occult Blood Salicylates Urine Opiates Screen Ur Buprenorphine Scrn Ur Oxycodone Screen Urine Methadone Screen Urine Fentanyl Screen Ur Barbiturates Screen Ur Phencyclidine Scrn Ur Amphetamines Screen U Benzodiazepines Scrn Urine Cocaine Screen U Marijuana (THC) Screen Ethyl Alcohol Hepatitis A IgM Ab Hep Bs Antigen Hep Bs Antibody Hep B Core Total Ab Hepatitis C Ab (EIA) Blood Type Antibody Screen 03/16/25 06:19 WBC 10.1 RBC 3.80 L Hgb 9.9 L Hct 30.5 L MCV 80.3 MCH 26.1 L MCHC 32.5 RDW 13.2 Plt Count 269 D MPV 11.1 Immature Gran % (Auto) 0.4 Neut % (Auto) 78.3 H Lymph % (Auto) 13.1 L [place] % (Auto) 7.5 Eos % (Auto) 0.4 Baso % (Auto) 0.3 Lymph # (Auto) 1.3 [place] # (Auto) 0.8 Eos # (Auto) 0.0 Baso # (Auto) 0.0 Abs Immat Gran (auto) 0.04 H Absolute Neuts (auto) 7.9 Absolute Nucleated RBC 0.000 Nucleated RBC % (auto) 0.0 Hold Purple Top PT INR VBG pH VBG pCO2 VBG pO2 VBG HCO3 VBG O2 Saturation VBG Base Excess Sodium 141 Potassium 3.3 D Chloride 107 Carbon Dioxide 26 Anion Gap 11 L BUN 12 Creatinine 0.66 Estim Creat Clear Calc 87.2 Estimated GFR > 60 POC Glucose Random Glucose 99 Lactic Acid Lactic Acid F/U @ 2Hr Lactic Acid F/U @ 4Hr Calcium 8.6 Magnesium 2.4 Total Bilirubin 0.6 AST 22 ALT 9 Alkaline Phosphatase 45 Ammonia Lactate Dehydrogenase Troponin I High Sens Total Protein 6.3 L Albumin 3.6 Hold Red Top Urine Color Urine Appearance Urine pH Ur Specific [place] Urine Protein Urine Glucose (UA) Urine Ketones Urine Blood Urine Nitrite Ur Leukocyte Esterase Urine RBC Urine WBC Ur Squamous Epith Cells Urine Bacteria Hyaline Casts Nasal Screen MRSA (PCR) Nasal S. aureus Screen Nasal MRSA/S.aureus Interp Stool Occult Blood Salicylates Urine Opiates Screen Ur Buprenorphine Scrn Ur Oxycodone Screen Urine Methadone Screen Urine Fentanyl Screen Ur Barbiturates Screen Ur Phencyclidine Scrn Ur Amphetamines Screen U Benzodiazepines Scrn Urine Cocaine Screen U Marijuana (THC) Screen Ethyl Alcohol Hepatitis A IgM Ab Hep Bs Antigen Hep Bs Antibody Hep B Core Total Ab Hepatitis C Ab (EIA) Blood Type Antibody Screen Mental Status Exam Mental Status Exam Patient Appearance: Appropriate Level of Consciousness: Awake, Appropriate and Alert Affect Description: Calm Speech Pattern: Clear Thought Process: Intact Thought Content: positive for Intact Judgement: Good Medications Medications Current Medications Acetaminophen (Acetaminophen 325 Mg Tablet) 650 mg PO Q6H PRN PRN Reason: Pain, Mild 1-3,fever,headache Aspirin (Aspirin 325 Mg Tablet) 325 mg PO BID [facility] Last Admin: 03/16/25 08:24 Dose: 325 mg Calcium Carbonate (Calcium Carbonate 750 Mg Tab.Chew) 750 mg PO Q4H PRN PRN Reason: Heartburn Last Admin: 03/15/25 18:28 Dose: 750 mg Docusate Sodium (Docusate Sodium 100 Mg Capsule) 100 mg PO BID [facility] Last Admin: 03/16/25 08:24 Dose: 100 mg Folic Acid (Folic Acid 1 Mg Tablet) 1 mg PO DAILY [facility] Stop: 03/18/25 08:59 Last Admin: 03/16/25 08:24 Dose: 1 mg Piperacillin Sod/Tazobactam (Sod 3.375 gm/ Sodium Chloride) 50 mls @ 100 mls/hr IV Q6H [facility] Last Infusion: 03/16/25 08:23 Dose: Infused Lactated Ringer's (Lr) 1,000 mls @ 80 mls/hr IVCONT .[id number] [facility] Last Admin: 03/16/25 06:11 Dose: 80 mls/hr Magnesium Hydroxide (Milk Of Magnesia 30 Ml Oral.Susp) 30 ml PO DAILY PRN PRN Reason: Constipation Melatonin (Melatonin 3 Mg Tablet) 6 mg PO BEDTIME PRN PRN Reason: Insomnia Morphine Sulfate (Morphine Sulfate 4 Mg/Ml Cartridge) 2 mg IVPUSH Q4H PRN; Protocol PRN Reason: Pain, Severe (Pain Scale 7-10) Multivitamins/Vitamin C (Multivitamin Tablet) 1 tab PO DAILY [facility] Stop: 03/18/25 08:59 Last Admin: 03/16/25 08:24 Dose: 1 tab Naloxone HCl (Naloxone Hcl 0.4 Mg/Ml Vial) 0.04 mg IVPUSH Q5M PRN PRN Reason: Excessive sedation or RR < 8 Oxycodone HCl (Oxycodone Hcl Immed Release 5 Mg Tablet) 5 mg PO Q6H PRN PRN Reason: Pain, Moderate(Pain Scale 4-6) Oxycodone HCl (Oxycodone Hcl Immed Release 5 Mg Tablet) 5 mg PO DAILY PRN PRN Reason: Pain, Moderate(Pain Scale 4-6) Pantoprazole Sodium (Pantoprazole Sodium 40 Mg/10 Ml Vial) 40 mg IVPUSH BID@0630,1630 [facility] Last Admin: 03/16/25 06:11 Dose: 40 mg Sertraline HCl (Sertraline Hcl 50 Mg Tablet) 50 mg PO DAILY PRN PRN Reason: Anxiety Sodium Chloride (0.9 % Sodium Chloride Flush 3 Ml Syringe) 3 ml IVFLUSH QSHIFT [facility] Last Admin: 03/16/25 08:24 Dose: Not Given Thiamine HCl (Thiamine Hcl 100 Mg Tablet) 100 mg PO DAILY [facility] Stop: 03/18/25 08:59 Last Admin: 03/16/25 08:24 Dose: 100 mg Allergies Allergies Allergy/AdvReac Type Severity Reaction Status Date / Time No Known Allergies Allergy Verified 03/14/25 16:44 Assessment & Plan Assessment & Plan (1) Toxic encephalopathy: Status: Acute Code(s): G92.9 - Unspecified toxic encephalopathy Assessment and Plan: * AMS resolved. * no concern for AUD/OFELIA given patient report and history --isolated incident * risk reduction discussion -including reminder to eat prior to ever drinking alcohol, and limiting time with acquaintances who use drugs and alcohol * no additional follow up needed at this time Total time managing care of this patient today __45__ minutes. PMFSH Past Medical History Medical History Depression with anxiety Constipation Osteoarthritis of left knee Heartburn Vertigo Osteoarthritis Depression with anxiety Psoriasis Surgical History Surgical History H/O knee surgery H/O oral surgery Hx of section Social History Social History Household Members: Family Housing: Apartment Are you a primary director medicare sales to a significant other at home: No Do you presently have visiting nurse or other home services: No Alcohol intake: current Alcohol intake frequency: a few times a week Patient Tobacco Use Status: Current everyday Tobacco user Tobacco use type: Cigarette Cigarettes Per Day: 2 Years Smoked: 40 Substance Use Type: Crack/Cocaine service: No Current occupational status: disabled Current occupation: right hand dominant
[2025-03-16 12:00] VITALS: BP 108/67; PULSE 87; RESP 18; TEMP 36.7; O2SAT 97
--- NOTE | 2025-03-16 14:20 | P.DS_ITS ---
DS: Providers Provider Date of Service: 03/16/25 Date of admission: 03/14/25 23:54 Date of discharge: 03/16/25 Primary care physician: Fadi Sheikh MD Consults: 03/15/25 00:35 Addiction Medicine Provider Routine Consulting Provider: Addiction Covering Reason for consultation: cocaine and etoh Has provider been notified: No Consult to Gastroenterology Routine Consulting Provider: Rogelio Palacios Reason for consultation: CGE Has provider been notified: Yes DS: Diagnosis Discharge Diagnosis (1) Toxic encephalopathy: Status: Acute DS: Summary Hospital Course Hospital Course: From admission HPI: Date of Service: 03/14/25 Attending physician on admission: Asif Cid Chief Complaint: confusion, vomiting Patient is a 64-year-old female with a past medical history significant for depression, anxiety, osteoarthritis, vertigo, history TIA, alcohol use disorder and cocaine use, who presented to the ED due to altered mental status, dizziness and vomiting. The patient reports that the vomiting started last night and has been coffee-ground emesis with associated diarrhea. No melena or hematochezia. She reports she has been drinking frequent loose since Wednesday but reports not daily. He consumes beers but will not quantify the amount. She has had some confusion and periumbilical pain. She was vomiting in the [place] in the ED and had 3 large episodes of hematemesis and when the patient was moved to a room she was found to have cocaine on her. She denies any chest pain, shortness of breath or headache. No urinary symptoms including frequency, urgency or dysuria. She is now denying abdominal pain and reports that her nausea is better controlled. There is a mention of seizures in her medical history however she reports that she has never been diagnosed with seizures. Her workup in the ED did not show blood in the stool however her emesis was never sent for analysis. Hemoglobin has dropped slightly but no need for blood transfusion at this time. Imaging consistent with infiltrates and small bilateral pleural effusion, likely aspiration pneumonia. Lactic acid has been significantly elevated however ED provider spoke with correction worker who suggested this is likely secondary to alcoholic gastritis. Tachycardia likely secondary to cocaine. Her confusion has subsided. There was also an incidental finding of a right humeral lesion on her imaging. She denies any right-sided arm pain. Hospital course: The pt was admitted to the hospital for acute encephalopathy and question of coffee-ground emesis concerning for possible upper GI bleed in the setting of cocaine and alcohol use. Pt was treated with IV ppi, IVF, and empiric Zosyn for concerns of aspiration pneumonia. H&H was monitored and was below baseline, but stable throughout hospital stay. Pt was seen and evaluated by GI and underwent an upper endoscopy on 03/15 that showed erosive esophagitis and hiatal hernia, but negative for active bleed. Biopsies were taken, and recommendation was to start oral omeprazole 40 mg b.i.d.. Today patient's mentation appears back to baseline, and pt has no acute medical complaints. Denies nausea, vomiting, abdominal pain. Denies right arm pain or any known trauma to the area. No cough, difficulty breathing, or SOB. Pt will be discharged on omeprazole 40 mg b.i.d. times 14 days. Pt is not hypoxic and her lungs are CTA; there was no indication to continue empiric antibiotics for possible aspiration pneumonia upon discharge. Pt should follow up with her PCP in 1 week's time for routine post hospitalization visit and monitoring of labs especially H&H. Incidental finding on chest x-ray showed the possibility of a right humerus lesion. Pt should follow up with her PCP for outpatient CT right humerus and any additional workup if necessary. She should resume all other home medications. Pt was strongly encouraged to abstain from alcohol and cocaine use in the community and use whatever familial, social, and community support that she can to maintain her sobriety. Time Attestation Discharge Coordination Time (in mins): 35 Quality: Safe Use of Opioids Does Pt have an Active Cancer Diagnosis on the Problem List?: No Quality: Stroke Does the patient have a stroke diagnosis?: No Physical Exam Exam: Exam: General: AOx3, no acute distress Resp: CTA bilaterally CVS: S1, S2, RRR GI: +BS, NT, no distention Skin: Warm, dry Neuro: Cranial nerves II-XII grossly intact bilaterally. Motor grossly intact bilaterally Extremities: No edema Psych: Appropriate affect Vital Signs: Vital Signs: Last Vital Signs Temp 98.0 F 03/16/25 12:00 Pulse 87 03/16/25 12:00 Resp 18 03/16/25 12:00 BP 108/67 03/16/25 12:00 Pulse Ox 97 03/16/25 12:00 O2 Del Method Room Air 03/16/25 12:00 O2 Flow Rate 2 10/23/25 07:38 BMI result Body Mass Index 26.2 DS: Data Data Completed and Pending Pending studies at discharge: Pending at discharge 03/15/25 11:42 Surgical [PTH] Routine Labs on day of discharge: Laboratory Results - last 24 hr 03/15/25 03/16/25 03/16/25 17:34 02:04 06:19 WBC 10.1 RBC 3.80 L Hgb 10.8 L 9.5 L 9.9 L Hct 33.4 L 29.4 L 30.5 L MCV 80.3 MCH 26.1 L MCHC 32.5 RDW 13.2 Plt Count 269 D MPV 11.1 Immature Gran % (Auto) 0.4 Neut % (Auto) 78.3 H Lymph % (Auto) 13.1 L Maverick % (Auto) 7.5 Eos % (Auto) 0.4 Baso % (Auto) 0.3 Lymph # (Auto) 1.3 Maverick # (Auto) 0.8 Eos # (Auto) 0.0 Baso # (Auto) 0.0 Abs Immat Gran (auto) 0.04 H Absolute Neuts (auto) 7.9 Absolute Nucleated RBC 0.000 Nucleated RBC % (auto) 0.0 Sodium 141 Potassium 3.3 D Chloride 107 Carbon Dioxide 26 Anion Gap 11 L BUN 12 Creatinine 0.66 Estim Creat Clear Calc 87.2 Estimated GFR > 60 Random Glucose 99 Calcium 8.6 Magnesium 2.4 Total Bilirubin 0.6 AST 22 ALT 9 Alkaline Phosphatase 45 Total Protein 6.3 L Albumin 3.6 Preliminary micro results at discharge 03/14/25 17:00 Blood Culture - Preliminary Blood - Venous No growth after 24 hours. 03/14/25 16:48 Blood Culture - Preliminary Blood - Venous No growth after 24 hours. Discharge Plan Discharge Anticipated Discharge Date/Time: 03/16/25 14:21 Patient Disposition: Home, Self-Care Discharge Diagnosis: Hematemesis in the setting of erosive esophagitis Referrals: Name,MD Fadi [Primary Care Provider, Internal Medicine] - 1 Week Discharge Medications: New omeprazole 40 mg capsule,delayed release(DR/EC) 40 mg PO BID Qty: 28 0RF Rx Instructions: Take one tablet twice a day for the next 14 days, starting on 03/17 and ending the evening of 03/30 Continued (DME) walker [facility] See Rx Instructions .MEDSUPPLY Qty: 1 0RF Rx Instructions: Folding front wheeled janie acetaminophen 325 mg Tablet 650 mg PO Q6H PRN (Reason: Pain, Mild 1-3,Fever,Headache) 30 Days Qty: 240 0RF aspirin 325 mg Tablet 325 mg PO BID 42 Days Qty: 84 0RF docusate sodium 100 mg Capsule 100 mg PO BID 30 Days Qty: 60 0RF multivitamin Tablet 1 tab PO DAILY sennosides-docusate sodium [Stool Softener-Stimulant Laxat] 8.6-50 mg tablet 1 tab PO DAILY ustekinumab [Stelara] 45 mg/0.5 mL syringe 45 mg SUBCUT [id number] oxycodone 5 mg tablet 5 mg PO DAILY PRN (Reason: Pain, Moderate(Pain Scale 4-6)) Rx Instructions: Partial Fill upon patient request. sertraline 50 mg tablet 50 mg PO DAILY PRN (Reason: Anxiety) (DME) shower chair See Rx Instructions .ROUTE .MEDSUPPLY Qty: 1 0RF Rx Instructions: As directed Discharge Orders: Discharge Order (Routine); Ordered 03/16/25 Ordered By: Bear Tubbs Activity on Discharge: As tolerated Stand Alone Forms: Patient Portal Discharge page Print Language: Greenlandic Care Plan Goals: See below Health Concerns: Erosive esophagitis Hiatal hernia Upper GI bleed Acute metabolic encephalopathy Cocaine use disorder Plan of Treatment: You were admitted to the hospital for acute encephalopathy and coffee-ground emesis concerning for possible upper GI bleed in the setting of cocaine and alcohol use. Your blood levels were monitored and were stable throughout her hospital stay. You were seen and evaluated by GI and underwent an upper endoscopy that showed erosive esophagitis and hiatal hernia, but no active bleeding. You were treated with IV proton pump inhibitor as well as empiric antibiotics for possible aspiration pneumonia. However, you do not have either a cough with SOB, and there are no indications to continue antibiotic treatment upon discharge. -- for erosive esophagitis, take omeprazole 40 mg twice a day for the next 14 days, ending 03/30 -- follow up with Dr. Shook in GI for EGD biopsy results and further management of esophagitis -- follow up with your PCP in 1 week time for post hospitalization visit, including routine labs and monitoring of your blood levels -- you were strongly encouraged to abstain from both cocaine and alcohol use, and use whatever social, familial, and community support you can in order to maintain your sobriety -- incidental finding on chest x-ray showed the possibility of a right humerus lesion. Follow up with your PCP for outpatient CT of right humerus in any necessary additional workup -- resume all of your other home medications Assessment: See discharge summary
--- NOTE | 2025-03-27 07:28 | P.CDIM_ITS ---
PROVIDER RESPONSE TEXT: To clarify, the appropriate diagnosis supported by the clinical indicators: Hyperkalemia: Resolved QUERY TEXT: PHYSICIAN'S DOCUMENTATION REQUEST Date of Query: 03/16/2025 07:26 AM EDT Patient Name: Zabrina Mcclelland Admit Date: 03/15/2025 Dear Bear BUTT, A review of the medical record indicates additional documentation may be needed. Please review below and update the documentation accordingly. Clinical Indicators: LABS: Potassium 5.5 H Based on the above, is there a diagnosis that correlates with these findings? Hyperkalemia resolved, possible, probable, suspected etc. Labs indicate a diagnosis of (please specify) Other (explain) Clinically unable to determine (explain) Thank you, Amanda Sanz, CCS, CDIS Use of terms such as suspected, likely, concern for, or probable (associated with a specific diagnosis that is being evaluated, monitored, or treated as if it exists) are acceptable and can be coded in the inpatient setting, when documented at the time of discharge. Please use your independent medical judgment in providing your response. THIS QUERY IS PART OF THE PERMANENT MEDICAL RECORD
== END 2025-03-16 16:06 | disposition home or self-care (01) | DRG 917 ==
LOC: HO.ED 19:09 → HO.EDOVER 03-15 → HO.IMC 03-15 15:11
PROVIDERS: Emergency Medicine; Internal Medicine Gastroenterology; Admitting Provider Physician Assistant; Emergency Provider Student in an Organized Health Care Education/Training Program; PCP Internal Medicine Geriatric Medicine; Visit Provider Student in an Organized Health Care Education/Training Program
PROC: 0DB78ZX Excision of Stomach, Pylorus, Via Natural or Artificial Opening Endoscopic, Diagnostic (ICD-10-PCS; principal; 2025-03-15 12:20)
DX: T40.5X1A Poisoning by cocaine, accidental (unintentional), initial encounter (principal); G92.8 Other toxic encephalopathy; J69.0 Pneumonitis due to inhalation of food and vomit; K22.11 Ulcer of esophagus with bleeding; K29.21 Alcoholic gastritis with bleeding; E87.1 Hypo-osmolality and hyponatremia; E87.21 Acute metabolic acidosis; J91.8 Pleural effusion in other conditions classified elsewhere; R65.10 Systemic inflammatory response syndrome (SIRS) of non-infectious origin without acute organ dysfunction; K44.9 Diaphragmatic hernia without obstruction or gangrene; F17.210 Nicotine dependence, cigarettes, uncomplicated; E87.5 Hyperkalemia; Z71.6 Tobacco abuse counseling; Y90.5 Blood alcohol level of 100-119 mg/100 ml; R94.31 Abnormal electrocardiogram [ECG] [EKG]; R00.0 Tachycardia, unspecified; F41.9 Anxiety disorder, unspecified; F10.929 Alcohol use, unspecified with intoxication, unspecified; F32.A Depression, unspecified; E86.1 Hypovolemia; E86.0 Dehydration; D50.9 Iron deficiency anemia, unspecified; Z79.899 Other long term (current) drug therapy
CPT/HCPCS: 36415; 70450; 71045; 74177; 80048; 80053; 80179; 80307; 81001; 82140; 82272; 82803; 82947; 83605; 83615; 83735; 84484; 85014; 85018; 85025; 85610; 86704; 86706; 86709; 86803; 86850; 86900; 86901; 87040; 87340; 87640; 87641; 88305; 88313; 88342; 93005; 99285; J0131; J0690; J1308; J1805; J2003; J2312; J2354; J2470; J2543; J2704; J3360; J3373; J3374; J3411; J3475; J7120; Q9967

== ENCOUNTER → 2025-03-14 16:51 | Outpatient (BNV) | payer OTHER, SELFPAY | PROVIDERS: Emergency Provider Emergency Medicine; PCP Internal Medicine Geriatric Medicine; Visit Provider Radiology Diagnostic Radiology | DX: R10.33 Periumbilical pain (principal); J90 Pleural effusion, not elsewhere classified; R41.82 Altered mental status, unspecified; I31.39 Other pericardial effusion (noninflammatory); R91.8 Other nonspecific abnormal finding of lung field | CPT/HCPCS: 70450; 71045; 74177 ==

== ENCOUNTER → 2025-03-14 16:52 | Outpatient (BNV) | payer OTHER, SELFPAY | PROVIDERS: Admitting Provider Physician Assistant; Emergency Provider Student in an Organized Health Care Education/Training Program; PCP Internal Medicine Geriatric Medicine; Visit Provider Internal Medicine Cardiovascular Disease | DX: R94.31 Abnormal electrocardiogram [ECG] [EKG] (principal); R53.1 Weakness; I49.9 Cardiac arrhythmia, unspecified | CPT/HCPCS: 93010 ==

== ENCOUNTER → 2025-03-14 23:54 | Outpatient (BNV) | payer OTHER, SELFPAY | PROVIDERS: Admitting Provider Physician Assistant; Emergency Provider Student in an Organized Health Care Education/Training Program; PCP Internal Medicine Geriatric Medicine; Visit Provider Student in an Organized Health Care Education/Training Program | DX: K92.2 Gastrointestinal hemorrhage, unspecified (principal); K92.0 Hematemesis; K20.90 Esophagitis, unspecified without bleeding; E87.20 Acidosis, unspecified; J18.9 Pneumonia, unspecified organism; J90 Pleural effusion, not elsewhere classified; M89.9 Disorder of bone, unspecified; G92.9 Unspecified toxic encephalopathy; R94.31 Abnormal electrocardiogram [ECG] [EKG] | CPT/HCPCS: 99223 ==

== ENCOUNTER → 2025-03-14 23:54 | Outpatient (BNV) | payer OTHER, SELFPAY | PROVIDERS: Admitting Provider Physician Assistant; Emergency Provider Student in an Organized Health Care Education/Training Program; PCP Internal Medicine Geriatric Medicine; Visit Provider Physician Assistant Medical | DX: K92.2 Gastrointestinal hemorrhage, unspecified (principal) | CPT/HCPCS: 99223 ==

== ENCOUNTER → 2025-03-14 23:54 | Outpatient (BNV) | payer OTHER, SELFPAY | PROVIDERS: Admitting Provider Physician Assistant; Emergency Provider Student in an Organized Health Care Education/Training Program; PCP Internal Medicine Geriatric Medicine; Visit Provider Nurse Practitioner Psychiatric/Mental Health | DX: G92.9 Unspecified toxic encephalopathy (principal) | CPT/HCPCS: 99221 ==

== ENCOUNTER 2025-03-20 08:43 | Outpatient (REF) | payer OTHER, SELFPAY ==
--- OUTSIDE RECORDS SUMMARY | 2025-03-21 09:24 | XMS_ITS | Encounter Summary ---
Author Organization [facility] Address [address] [place] [address] Care Team Providers Care Medical Coding Instructor Name Role Phone Fransisca Conroy NP Primary Care Provider [phone] Reason for Referral * Physical Medicine (Routine) - Closed Specialty Diagnoses / Procedures Referred By Contact Referred To Contact Physical Therapy / Rehabilitation Diagnoses Large breasts Left shoulder pain, unspecified chronicity Right shoulder pain, unspecified chronicity Aleena Tanner APRN [address] [place] [address] Phone: tel:[phone] fax:[phone] [facility] [address] Phone: tel: fax: Referral ID Status Reason Start Date Expiration Date Visits Re quested Visits Authorized [id number] Closed 01/07/2017 01/21/2017 1 1 Encounter Details Date Type Department Care Team (Latest Contact Info) Description 11/27/2016 Transcribed Orders [facility] [phone] Aleena Tanner APRN [address] [place] [address] Large breasts (Primary Dx); Left [...] r Schedule Ambulatory referral to Rehab Services (PT/OT/COMMUNITY DIRECTOR) Outpatient Referral Routine Large breasts Left shoulder pain, unspecified chronicity Right shoulder pain, unspecified chronicity Ordered: 11/27/2016 documented as of this encounter Visit Diagnoses Diagnosis Large breasts- Primary Hypertrophy of breast Left shoulder pain, unspecified chronicity Right shoulder pain, unspecified chronicity documented in this encounter Care Teams Medical Coding Instructor Relationship Specialty Start Date End Date Fransisca Cnoroy NP [address] [place] [address] PCP - General Family Medicine 10/22/20 documented as of this encounter
--- OUTSIDE RECORDS SUMMARY | 2025-03-21 09:24 | XMS_ITS | Clinical Summary ---
Author Organization [facility] Address [address] [place] [address] Phone Care Team Providers Care Asphalt Paver Operator Name Role Phone ConroyFransisca patel HARLEEN Primary Care Provider [phone]- [phone] Allergies No known active allergies Medications SENNA [...] 145 mmol/L 12/09/2020 10:16 PM EDT + [facility] Potassium 3.1(L) 3.5 - 5.1 mmol/L 12/09/2020 10:16 PM EDT [facility] Chloride 110(H) 98 - 107 mmol/L 12/09/2020 10:16 PM EDT [facility] CO2 25 21 - 32 mmol/L 12/09/2020 10:16 PM EDT [facility] Anion Gap 7 5 - 15 mmol/L 12/09/2020 10:16 PM EDT [facility] Glucose 89 65 - 110 mg/dL 12/09/2020 10:16 PM EDT [facility] Comment: Non-fastin-110 mg/dL Fasting (minimum 6 hrs): 65-99 mg/dL BUN 12 7 - 18 mg/dL 12/09/2020 10:16 PM EDT [facility] Creatinine 0.82 0.55 - 1.02 mg/dL 12/09/2020 10:16 PM EDT [facility] eGFR (-CHADIAN) >60 >60 mL/min/1. 73m2 12/09/2020 10:16 PM EDT [facility] eGFR (NON -Cameroonian) >60 >60 mL/min/1. 73m2 12/09/2020 10:16 PM EDT [facility] Comment: (NOTE) These are estimated GFR [...] - 10.1 mg/dL 12/09/2020 10:16 PM EDT [facility] Total Protein 7.6 6.4 - 8.2 g/dL 12/09/2020 10:16 PM EDT [facility] Albumin 3.4 3.4 - 5.0 g/dL 12/09/2020 10:16 PM EDT [facility] Globulin 4.2 2.5 - 5.0 g/dL 12/09/2020 10:16 PM EDT [facility] Total Bilirubin 0.4 <1.0 mg/dL 12/09/2020 10:16 PM EDT [facility] Comment:Use of this assay is not recommended for patients undergoing treatment with Eltrombopag due to the potential for falsely elevated results. Alkaline Phosphatase 62 45 - 117 U/L 12/09/2020 10:16 PM EDT [facility] Alanine Aminotransferase (ALT) 26 13 - 56 U/L 12/09/2020 10:16 PM EDT [facility] Aspartate Aminotransferase (AST) 19 15 - 37 U/L 12/09/2020 10:16 PM EDT [facility] Blood Venipuncture / Unknown 12/09/2020 9:40 PM EDT 12/09/2020 9:46 PM EDT us Kassie BUTT LAB BLOOD ORDERABLES Final Re sult [facility] [address] [place] [address] * Mammography Screening Danny Bilateral (11/16/2016 11:15 AM EDT) Anatomical Region Laterality Modality Breast Bilateral Mammography 11/17/2016 5:33 PM EDT Narrative 11/17/2016 5:33 PM EDT [address] [address] MAMMO SCREENING DANNY BILATERAL ARUNA Hansen: F : [id number] Service Date: 2016-11-16 [id number] BILATERAL MAMMOGRAPHY WITH TOMOSYNTHESIS CLINICAL INDICATION: Screening [...] Img Yesika :R: US :D: Heterogeneou LOCATION: [place], [place] Signed By: Mamadou Denton MD, 17:33:20 Procedure Note Mamadou Denton MD - 11/17/[address] [address] MAMMO SCREENING DANNY BILATERAL ARUNA MEDEROS Sex: F : [id number] Service Date: 2016-11-16 [id number] BILATERAL MAMMOGRAPHY WITH TOMOSYNTHESIS CLINICAL INDICATION: Screening [...] Img Yesika :R: US :D: Heterogeneou LOCATION: [place], [place] Signed By: Mamadou Denton MD, 17:33:20 us Aleena Tanner APRN IM MAMMOGRAPHY ORDERABLES Final Result from Last 3 Months or Most Recently Relevant to Health Maintenance Insurance [place] Member Subscriber Plan / Payer (Ef fective 2017-Present) Name:Sung Aruna Relation to Subscriber:Self Name:Aruna Mederos Payer ID:[id number] Group ID:Not on file Type:Not on file Address: [address] [place] [id number] Care Teams Asphalt Paver Operator Relationship Specialty Start Date End Date Fransisca Conroy NP [address] [place] [address] PCP - General Family Medicine 10/22/20
--- OUTSIDE RECORDS SUMMARY | 2025-03-21 09:24 | XMS_ITS | Encounter Summary ---
Author Organization [employer] Address [address] [facility] [address] [place] [address] Care Team Providers Care Pin Machine Tender Name Role Phone Name, Fadi GREER Primary Care Provider [phone] Reason for Visit * Reason Comments Transition Of Care (Tcm) HDF unscheduled . Encounter Details Date Type Department Care Team ([facility] st Contact Info) Description 03/19/2025 Patient Outreach [facility] [address] [place], [place] [id number] Name, MD Fadi [address] [place] [address] Transition Of Care (Tcm) (HDF unscheduled.) Social History Tobacco Use Types Packs/Day Years [...] as of this encounter Miscellaneous Notes * Significant Event - Nereyda Pfeiffer - 03/19/2025 11:20 AM EDT 03/19/25 1023 Hospital Discharges and Admission for [facility] Type of Visit Hospital Admission Date of Admission/Visit 03/14/25 Date of Discharge 03/16/25 [facility] Diagnosis Toxic encephalopathy Disposition Discharged Home Follow-Up Actions Follow-Up Needed Provider appointment Follow-Up Outcome -- Initial Contact Date 03/19/25 Unable to schedule patient. Number disconnected. CC contacted daughter and stated she was unable tospeak at the moment. documented in this encounter Plan of Treatment Upcoming Encounters Date Type Department Care Team (Late st Contact Info) Description 04/23/2025 11:15 AM EST Office Visit [facility] [address] [place] [address] Name, MD Fadi [address] [place] [address] documented as of this encounter Visit Diagnoses Not on filedocumented in this encounter Additional Health Concerns Assessment Noted Time PHQ-9 Depression Total Score: 6 10/24/19 11:07 AM EDT documented as of this encounter Care Teams Pin Machine Tender Relationship Specialty Start Date End Date Name, MD Fadi [address] [place] [address] PCP - General Internal Medicine 03/23/24 Nolberto A 01/05/25 documented as of this encounter
--- OUTSIDE RECORDS SUMMARY | 2025-03-21 09:24 | XMS_ITS | Encounter Summary ---
Author Organization [facility] Address [address] [place] [address] Care Team Providers Care Toe Stripper Name Role Phone Fransisca Conroy NP Primary Care Provider [phone] Encounter Details Date Type Department Care Team (Late st Contact Info) Description 11/01/2019 Transcribed Orders [facility] at [address] [facility] [address] [facility], [address] [place] [address] Sammy Espino MD [address] [facility] [address] [place] [address] Social History Tobacco Use Types [...] on filedocumented in this encounter Care Teams Toe Stripper Relationship Specialty Start Date End Date Fransisca Conroy NP [address] [place] [phone] PCP - General Family Medicine 10/22/20 documented as of this encounter
--- OUTSIDE RECORDS SUMMARY | 2025-03-21 09:24 | XMS_ITS | Clinical Summary ---
Author Organization [facility] Address [address] [place] [address] Care Team Providers Care Bone Crusher Name Role Phone FloresAleena JACKLYN Primary Care [...] to complete this topic Insurance Care Teams Bone Crusher Relationship Specialty Start Date End Date Aleena Tanner APRN [address] [place] [address] PCP - General 02/17/19
--- OUTSIDE RECORDS SUMMARY | 2025-03-21 09:25 | XMS_ITS | Encounter Summary ---
Author Organization [facility] Address [address] [place] [address] Care Team Providers Care Tanyard Worker Name Role Phone Conroy, Fransisca HARLEEN Primary Care Provider [phone] Reason for Visit * Reason Comments Medication Refill Encounter Details Date Type Department Care Team (Late st Contact Info) Description 07/14/[address] [address] Shilpi Romero APRN [address] [place] [address] Medication Refill Social History Tobacco [...] on filedocumented in this encounter Care Teams Tanyard Worker Relationship Specialty Start Date End Date Fransisca Conroy NP [address] [place] [phone] PCP - General Family Medicine 10/22/20 documented as of this encounter
--- OUTSIDE RECORDS SUMMARY | 2025-03-21 09:25 | XMS_ITS | Clinical Summary ---
Author Organization [employer] Address [address] [facility] [address] [place] [address] Care Team Providers Care Outbound Telemarketer Name Role Phone Name, Fadi GREER Primary Care Provider Allergies No known active allergies Medications * [...] Encounters Date Type Department Care Team Description 03/19/2025 Patient Outreach [facility] [address] [place] [phone] Fadi Sheikh MD Transition Of Care (Tcm) (HDF unscheduled.) 03/14/2025 Orders Only GENERIC EXTERNAL DATA DEPARTMENT Provider, Generic External Data 03/06/2025 Refill [facility] [address] [place] [phone] Jayjay Orta MD 02/12/2025 Orders Only GENERIC EXTERNAL DATA DEPARTMENT Provider, Generic External Data 02/08/2025 11:15 AM EDT Office Visit [address] [address] Fadi Sheikh MD Left knee pain, unspecified chronicity (Primary Dx); History of total left knee replacement (TKR) 02/08/2025 Travel 02/07/[address] [address] Mando Louise MD Psoriasis 02/01/2025 11:20 AM EDT Office Visit [facility] [address] [place] [phone] Amira Fink MD Pharyngitis, unspecified etiology 02/01/2025 Travel 01/24/[address] [address] Fadi Sheikh MD Nurse Triage 01/04/2025 Orders Only GENERIC EXTERNAL DATA DEPARTMENT Provider, Generic External Data 01/03/2025 Orders Only GENERIC EXTERNAL DATA DEPARTMENT Provider, Generic External Data 12/30/2024 Refill [facility] [address] [place] [address] Fadi Sheikh MD Psoriasis 12/29/2024 Orders Only GENERIC EXTERNAL DATA DEPARTMENT Provider, Generic External Data 12/27/2024 Telephone [facility] [address] [place] [address] NameFadi MD Prior Auth DME (Pt walked requesting DME for walker for surgery , adjustable shower seat surgery is on December [facility]. Pt stated she hasn't heard of anything about her request and her surgery is coming up ///) 12/19/2024 Telephone [facility] [address] [place] [address] Faid Sheikh MD Prior Auth DME (Pt requesting DME for walker for surgery , surgery is on December in [facility].) from Last 3 Months Immunizations Immunization Administration [...] Description 04/23/2025 11:15 AM EST Office Visit [facility] [address] [place] [address] Name, MD Fadi [address] [place] [address] Health Maintenance Due Date Last Done Comments CT Colonography 1960 Colonoscopy 1960 Colorectal Cancer Screening 1960 FIT DNA/Cologuard 1960 FIT 1960 FOBT 1960 Sigmoidoscopy 1960 Pneumococcal Vaccine: 50+ Years (1 of 2 - PCV) 09/08/1978 Pap Smear 09/08/1980 Cervical Cancer Screening 09/08/1989 HPV/Cotest 09/08/1989 Zoster Vaccines (1 of 2) 09/08/2009 Mammogram 12/22/2018 12/22/2016, 11/16/2016, 11/16/2016 RSV Patients and Patients Aged 60 years or older (1 - Risk 60-74 years 1-dose series) 2019 COVID-19 Vaccine (1 - 2023-2 5 season) 2025 Influenza Vaccine (#1) 2025 Alcohol/Substance Use Screening 03/23/2025 03/23/2024 Depression Screening 10/23/2025 10/23/2024, 10/23/2024 SDOH Screening 11/16/2025 11/16/2024 Tobacco Screening 02/08/2026 02/08/2025 Lipid Panel 12/08/2028 12/09/2023 DTaP/Tdap/Td Vaccines (2 - T d or Tdap) 03/23/2034 03/23/2024 Hepatitis C Screening Completed 12/09/2023 HIB Vaccines [...] Name Priority Date/Time Associated Diagnosis Comments HOLD LAVENDER - POSSIBLE HEMATOLOGY Routine 03/14/2025 11:14 PM EDT LACTIC ACID LAB USE ONLY Routine 03/14/2025 11:12 PM EDT BASIC METABOLIC PANEL Routine 03/14/2025 11:[address] HEAD WO CONTRAST Routine 03/14/2025 8 :[address] ABDOMEN PELVIS W CONTRAST Routine 03/14/2025 8:49 PM EDT VENOUS BLOOD GAS Routine 03/14/2025 8:22 PM EDT LACTIC ACID LAB USE ONLY Routine 03/14/2025 8:15 PM EDT HEMOGLOBIN + HEMATOCRIT Routine 03/14/2025 [...] 12/25/2024 4 :29 PM EDT Memory problem HEPATITIS PANEL, GENERAL Routine 12/09/2023 11:42 AM EDT Psoriasis Arthritis of left knee LIPID PANEL WITH REFLEX TO DIRECT LDL Routine 12/09/2023 11:42 AM EDT Elevated blood pressure reading from Last 3 Months or Most Recently Relevant to Health Maintenance Results * Hold Lavender - Possible Hematology (03/14/2025 11:14 PM EDT) Hold Lavender - Possible Hematololgy SEE NOTE [facility] Comment:Specimen will be hel d untested for 8 hours. Call Hematologyif testing is desired. 03/14/2025 11:1 4 PM EDT 03/14/2025 11:50 PM EDT us Generic External Data Provider HISTORICAL/NON OR DERABLE LABS Final Result [facility] [address] [place] [address] [phone] * (ABNORMAL) Lactic Acid (03/14/2025 11:12 PM EDT) Only the most recent of2 resultswithin the time period is included. Lactic Acid 2.7(HH) 0.5 - 2.0 mmol/L [facility] Comment:Critical value for t est(s):LACTIC ACID Results called toand read back by: YANET Person calling:ERICKAate:03/14/25 Time:2351 03/14/2025 11:1 2 PM EDT 03/14/2025 11:21 PM EDT Narrative [facility] - 03/14/2025 11:51 PM EDT Spoke to Mirella about it. Numerous people have attemptedblood draws us Generic External Data Provider LAB BLOOD ORDERAB LES Final Result [facility] [address] [place] [phone] * (ABNORMAL) Basic Metabolic Panel (03/14/2025 11:12 PM EDT) Only the most recent of2 resultswithin the time period is included. Sodium 133(L) 135 - 145 mmol/L [facility] Potassium 3.9 3.3 - 5.1 mmol/L [facility] Chloride 95(L) 96 - 108 mmol/L [facility] Carbon Dioxide 24 22 - 29 mmol/L [facility] Anion Gap 18 12 - 20 [facility] Urea Nitrogen (BUN) 8(L) 9 - 16 mg/dL [facility] Creatinine, Serum 0.54 0.5 - 1.4 mg/dL [facility] Creatinine Clr Calc Pharmacy 106.6 [facility] Comment:Provided height and weight: 167.64 cm,73.6 kg.eGFR (calculated from the MDRD study equation) and eCrCl(calculated from the Cockcroft-Gault equation) are based ondifferent parameters and may not yield comparable results.If eCrCl result is absurd, please check patient'sheight/weight. Estimated Glomerular Filt Rate >60 [facility] Comment:Chronic Kidney Disea se: Estimated GFR < 60 mL/min/1.14s8Ntjamb Kidney Disease: Estimated GFR < 15 mL/min/1.73m2 Glucose 102 60 - 115 mg/dL [facility] Calcium 8.8 8.4 - 10.2 mg/dL [facility] 03/14/2025 11:1 2 PM EDT 03/14/2025 11:21 PM EDT us Generic External Data Provider LAB BLOOD ORDERAB LES Final Result [facility] [address] [place] [phone] * CT Head w/o Contrast (03/14/2025 8:50 PM EDT) Only the most recent of2 resultswithin the time period is included. Anatomical Region Laterality Modality Head, Neck Computed Tomogra phy 03/14/2025 8:50 PM EDT Narrative 03/14/2025 8:51 PM EDT [address] [address] [address] Scan Report Signed Patient: Zabrina Mcclelland MR#: [id number] : 1960 Acct:[id number] Age/Sex: 64 / F ADM Date: 03/14/25 Loc: .ED Attending Dr: Ordering Physician: Britany Villa PA-C Date of Service: 03/14/25 Procedure(s): CT head/brain wo IV con Accession Number(s): [id number] cc: Britany Villa PA-C; Name,Fadi GREER Report Number: [id number]: Total DLP = 1248.00 mGy-cm Reason for [...] in OV> 03/14/252050 DD/ 49 TD/TT: 03/14/252049 Ripsawyer: Procedure Note Donotuseinterpreter, Image - 03/14/[address] [place] [address] [address] Scan Report Signed Patient: Lizzeth Mcclelland#: [id number] : 1960Acct:[id number] Age/Sex: 64 / FADM Date: 03/14/25 Loc: HO.ED Attending Dr: Ordering Physician: Britany Villa PA-C Date of Service: 03/14/25 Procedure(s): CT head/brain wo IV con Accession Number(s): [id number] cc: Britany Villa PA-C; Name,Fadi GREER Report Number: [id number]: Total DLP = 1248.00 mGy-cm Reason for [...] in OV> 03/14/252050 DD/ 49 TD/TT: 03/14/252049 Ripsawyer: us [facility] External Provider IMG CT PROCEDURES Final Result * CT Abdomen Pelvis w/ Contrast (03/14/2025 8:49 PM EDT) Anatomical Region Laterality Modality Body, Pelvis, Abdomen Computed T omography 03/14/2025 8:49 PM EDT Narrative 03/14/2025 8:51 PM EDT [address] [address] [address] Scan Report Signed Patient: Zabrina Mcclelland MR#: [id number] : 1960 Acct:[id number] Age/Sex: 64 / F ADM Date: 03/14/25 Loc: HO.ED Attending Dr: Ordering Physician: Britany Villa PA-C Date of Service: 03/14/25 Procedure(s): CT abdomen pelvis w IV con Accession Number(s): [id number] cc: Britany Villa PA-C; Name,Fadi GREER Report Number: [id number]: Total DLP = 854.00 mGy-cm Reason for [...] in OV> 03/14/252050 DD/ 48 TD/TT: 03/14/252048 Ripsawyer: Procedure Note Donotuseinterpreter, Image - 03/14/[address] [address] [address] Scan Report Signed Patient: Zabrina McclellandMR#: [id number] : 1960Acct:[id number] Age/Sex: 64 / FADM Date: 03/14/25 Loc: HO.ED Attending Dr: Ordering Physician: Britany Villa PA-C Date of Service: 03/14/25 Procedure(s): CT abdomen pelvis w IV con Accession Number(s): [id number] cc: Britany Villa PA-C; Name,Fadi GREER Report Number: [id number]: Total DLP = 854.00 mGy-cm Reason for [...] in OV> 03/14/252050 DD/ 48 TD/TT: 03/14/252048 Ripsawyer: us [facility] External Provider IMG CT PROCEDURES Final Result * (ABNORMAL) VENOUS BLOOD GAS (03/14/2025 8:22 PM EDT) VBG pH 7.33 7.32 - 7.43 [facility] Comment:METER #: [id number] additional_comment: Carlos dior VBG PCO2 39 mmHg [facility] Comment:METER #: [id number] additional_comment: Carlos dior VBG PO2 45 mmHg [facility] Comment:METER #: [id number] additional_comment: Carlos dior VBG Base Excess -4.6 mmol/L [facility] Comment:METER #: [id number] additional_comment: Carlos dior VBG HCO3 20(L) 22 - 26 mmol/L [facility] Comment:METER #: [id number] additional_comment: Carlos dior O2 Sat, Jairon 62.0 % [facility] Comment:METER #: [id number] additional_comment: Carlos dior 03/14/2025 8:22 PM EDT 03/14/2025 8:25 PM EDT us Generic External Data Provider LAB BLOOD ORDERAB LES Final Result [facility] [address] [place] [phone] * (ABNORMAL) Hemoglobin and Hematocrit (03/14/2025 8:15 PM EDT) Hemoglobin 11.7(L) 12.0 - 16.0 g/dl [facility] Hematocrit 35.9(L) 37.0 - 47.0 % [facility] 03/14/2025 8:15 PM EDT 03/14/2025 8:19 PM EDT us Generic External Data Provider LAB BLOOD ORDERAB LES Final Result [facility] [address] [place] [address] [phone] * (ABNORMAL) Drug Monitoring, Panel 1, Screen, Urine (03/14/2025 8:05 PM EDT) Opiate Screen Urine Not Detected Not Detect [facility] Comment:Opiate cut-off is 30 0 ng/mL.Positive results are unconfirmed and should not be used fornon-medical purposes. Barbiturates, Urine Not Detected Not Detect [facility] Comment:Barbiturate cut-off is 200 ng/mL.Positive results are unconfirmed and should not be used fornon-medical purposes. Phencyclidine Screen Urine Not Detected Not Detect [facility] Comment:Phencyclidine cut-of f is 25 ng/mL.Positive results are unconfirmed and should not be used fornon-medical purposes. Amphetamine Screen Urine Not Detected Not Detect [facility] Comment:Amphetamine cut-off is 1000 ng/mL.Positive results are unconfirmed and should not be used fornon-medical purposes. Benzodiazepines Screen Urine Not Detected Not Detect [facility] Comment:Benzodiazepine cut-o ff is 200 ng/mL.Positive results are unconfirmed and should not be used fornon-medical purposes. Cocaine Screen Urine POSITIVE(A) Not Detect [facility] Comment:Cocaine cut-off is 3 00 ng/mL.Positive results are unconfirmed and should not be used fornon-medical purposes. Cannabinoid Screen Urine Not Detected Not Detect [facility] Comment:Cannabinoid cut-off is 50 ng/mL.Positive results are unconfirmed and should not be used fornon-medical purposes. Methadone Screen, Urine Not Detected Not Detect ng/mL [facility] Comment:Methadone cut-off is 300 ng/mL.Positive results are unconfirmed and should not be used fornon-medical purposes. FENTANYL URINE Not Detected Not Detect [facility] Comment:Fentanyl cut-off is 1 ng/mL.Positive results are unconfirmed and should not be used fornon-medical purposes. Oxycodone Urine Screen Not Detected Not Detect ng/mL [facility] Comment:Oxycodone cut-off is 100 ng/mL.Positive results are unconfirmed and should not be used fornon-medical purposes. Buprenorphine Screen Not Detected Not Detect ng/mL [facility] Comment:Buprenorphine cut-of f is 5 ng/mL.Positive results are unconfirmed and should not be used fornon-medical purposes. 03/14/2025 8:05 PM EDT 03/14/2025 8:08 PM EDT us Generic External Data Provider LAB URINE ORDERAB LES Final Result [facility] [address] [place] [phone] * (ABNORMAL) Urinalysis, Complete, with Reflex to Culture (03/14/2025 8:04 PM EDT) Color Urine Yellow [facility] Appearance Urine Clear [facility] PH 6.0 5.0 - 9.0 [facility] Glucose Urine UA Negative Negative mg/dL [facility] Urine Blood Small (1+)(A) Negative [facility] Specific [place] - Urine 1.025 1.005 - 1.025 [facility] Urine Protein 30 (1+)(A) Neg-Trace mg/dL [facility] Urine Ketones 40 Negative mg/dL [facility] Nitrite Urine Negative Negative [facility] Leukocyte Esterase Urine Negative Negative [facility] RBC Urine 3-5(A) 0 - 2 /HPF [facility] Urine WBC 0-5 0 - 5 /HPF [facility] Urine Squamous Epithelial Cell 0-2 0 - 2 /HPF [facility] Urine Bacteria None Seen None Seen [facility] Hyaline Casts, Urine 0-2 0 - 2 /LPF [facility] 03/14/2025 8:04 PM EDT 03/14/2025 8:08 PM EDT Narrative [facility] - 03/14/2025 8:19 PM EDT [id number], [employer] us Generic External Data Provider LAB URINE ORDERAB LES Final Result Performing Organization Address [facility] de Phone Number [facility] [address] [place] [phone] * OBSX1 (03/14/2025 6:42 PM EDT) OBS1 NEGATIVE NEGATIVE [facility] 03/14/2025 6:42 PM EDT 03/14/2025 6:46 PM EDT Generic External Data Provider LAB BLOOD ORDERAB LES Final Result Performing Organization Address [facility] de Phone Number [facility] [address] [place] [phone] * MR Brain w/o Contrast (02/19/2025 3:54 PM EDT) Anatomical Region Laterality Modality Brain Magnetic Resonan ce 02/19/2025 3:54 PM EDT Narrative 02/20/2025 7:03 AM EDT [address] [address] Magnetic Resonance Report Signed Patient: Zabrina Mcclelland MR#: [id number] : 1960 Acct:[id number] Age/Sex: 64 / F ADM Date: 02/19/25 Loc: HO.MRI Attending Dr: Miriam Strong MD Ordering Physician: Miriam Strong MD Date of Service: 02/19/25 Procedure(s): MR head/brain wo con Accession Number(s): [id number] cc: Miriam Strong MD; Name,Fadi GREER Reason [...] 02/20/25 0701 DD/ 1554 TD/TT: 02/19/25 1623 Ripsawyer: Procedure Note Donotuseinterpreter, Image - 02/20/[address] [address] Magnetic Resonance Report Signed Patient: Zabrina Mcclelland#: [id number] : 1960Acct:[id number] Age/Sex: 64 / FADM Date: 02/19/25 Loc: HO.MRI Attending Dr: Miriam Strong MD Ordering Physician: Miriam Strong MD Date of Service: 02/19/25 Procedure(s): MR head/brain wo con Accession Number(s): [id number] cc: Miriam Strong MD; Name,Fadi GREER Reason [...] Víctor Hicks MD 02/20/2025 07:01 AM EDT RP Dictated By: Víctor Fortune MD Signed By: <Electronically signed by Víctor Pereira MDin OV> 02/20/25 0701 DD/ 1554 TD/TT: 02/19/25 1623 Ripsawyer: us [facility] External Provider IMG MRI PROCEDURES Final Result * Hold Green Gel (02/12/2025 3:52 PM EDT) Hold Green Gel See Note [facility] Comment:Specimen held untest ed for 24 hours; Call to requestChemistry testing. 02/12/2025 3:52 PM EDT 02/12/2025 4:42 PM EDT Generic External Data Provider HISTORICAL/NON OR DERABLE LABS Final Result Performing Organization Address [facility] de Phone Number [facility] [address] [place] [phone] * (ABNORMAL) Sed Rate by Modified Errolergren (02/12/2025 3:52 PM EDT) [facility] [address] [facility] Erythrocyte Sedimentation Rate 34(H) 0 - 20 MM/HR [facility] Comment:Patients with polycy themia and many hemoglobin abnormalitiesmay have depressed sed rates whereas patients with anemiamay have elevated sed rates. 02/12/2025 3:52 PM EDT 02/12/2025 3:53 PM EDT Generic External Data Provider LAB BLOOD ORDERAB LES Final Result Performing Organization Address [facility] de Phone Number [facility] [address] [place] [phone] * Influenza B (ID NOW Rapid Molecular) (02/01/2025 11:26 AM EDT) [facility] [address] Influenza B Negative Negative, Indeterminate [facility] Swab 02/01/2025 11:2 6 AM EDT Amira Fink MD POINT OF CARE TEST ENTER/E DIT ORDERABLES Final Result Performing Organization Address [facility] de Phone Number [facility] [address] [place] [phone] * Influenza A (ID NOW Rapid Molecular) (02/01/2025 11:26 AM EDT) [facility] [address] Influenza A Negative Negative, Indeterminate [facility] Swab 02/01/2025 11:2 6 AM EDT Amira Fink MD POINT OF CARE TEST ENTER/E DIT ORDERABLES Final Result Performing Organization Address [facility]/ZIP Co de Phone Number [facility] [address] [place] [phone] * POCT Rapid COVID Ag (02/01/2025 11:26 AM EDT) Rapid COVID Ag Negative [facility] Swab 02/01/2025 11:2 6 AM EDT Amira Fink MD POINT OF CARE TEST ENTER/E DIT ORDERABLES Final Result Performing Organization Address [facility] Co de Phone Number [facility] [address] [place] [phone] * POCT rapid strep A manually resulted (02/01/2025 11:26 AM EDT) [facility] [address] Rapid Strep A Screen Negative Negative, None Detected [facility] Swab 02/01/2025 11:2 6 AM EDT Amira Fink MD POINT OF CARE TEST ENTER/E DIT ORDERABLES Final Result Performing Organization Address [facility] Co de Phone Number [facility] [address] [place] [phone] * (ABNORMAL) Basic Metabolic Panel, Fasting (01/04/2025 5:45 AM EDT) [facility] [address] Sodium 139 135 - 145 mmol/L [facility] Potassium 4.5 3.3 - 5.1 mmol/L [facility] Chloride 108 96 - 108 mmol/L [facility] Carbon Dioxide 25 22 - 29 mmol/L [facility] Anion Gap 11(L) 12 - 20 [facility] Urea Nitrogen (BUN) 22(H) 9 - 16 mg/dL [facility] Creatinine, Serum 0.74 0.5 - 1.4 mg/dL [facility] Creatinine Clr Calc Pharmacy 76.4 [facility] Comment:Provided height and weight: 172.72 cm,73.5 kg.eGFR (calculated from the MDRD study equation) and eCrCl(calculated from the Cockcroft-Gault equation) are based ondifferent parameters and may not yield comparable results.If eCrCl result is absurd, please check patient'sheight/weight. Estimated Glomerular Filt Rate >60 [facility] Comment:Chronic Kidney Disea se: Estimated GFR < 60 mL/min/1.40k4Urclss Kidney Disease: Estimated GFR < 15 mL/min/1.73m2 Glucose Fasting 118(H) 60 - 99 mg/dL [facility] Comment:A fasting glucose fr om 100-125 mg/dl is considered impaired(pre-diabetes). Calcium 9.2 8.4 - 10.2 mg/dL [facility] 01/04/2025 5:45 AM EDT 01/04/2025 6:10 AM EDT us Generic External Data Provider LAB BLOOD ORDERAB LES Final Result [facility] [address] [place] [phone] * (ABNORMAL) CBC auto differential (01/04/2025 5:45 AM EDT) White Blood Count 10.4 4.8 - 10.8 X10*3/uL [facility] Red Blood Count 3.90(L) 4.20 - 5.50 X10*6/uL [facility] Hemoglobin 10.5(L) 12.0 - 16.0 g/dl [facility] Hematocrit 31.7(L) 37.0 - 47.0 % [facility] Mean Corpuscular Volume 81.3 80.0 - 98.0 fL [facility] Mean Corpuscular Hemoglobin 26.9(L) 27.0 - 33.0 pg [facility] Mean Corpuscular HGB Conc 33.1 31.0 - 35.0 g/dl [facility] Red Cell Distribution Width 13.2 11.0 - 16.0 % [facility] Platelet Count 237 160 - 400 X10*3/uL [facility] Mean Platelet Volume 11.0 9.4 - 12.3 fL [facility] Neutrophils Percent Auto 78.9(H) 45 - 73 % [facility] Imm Gran Pct Auto 0.7(H) 0.0 - 0.4 % [facility] Lymphocytes Percent Auto 11.2(L) 20 - 40 % [facility] Monocytes Percent Auto 9.1 2 - 11 % [facility] Eosinophils Percent Auto 0.0 0 - 4 % [facility] Basophils Percent Auto 0.1 0 - 2 % [facility] NRBC Pct Auto 0.0 0.0 - 0.2 /100WBC [facility] Neutrophils Absolute Auto 8.2 2.0 - 8.3 x10*3/uL [facility] Imm Gran Abs Auto 0.07(H) 0.00 - 0.03 X10*3/uL [facility] Lymphocytes Absolute Auto 1.2 1.2 - 4.9 X10*3/uL [facility] Monocytes Absolute Auto 1.0 0.1 - 1.2 X10*3/uL [facility] Eosinophils Absolute Auto 0.0 0.0 - 0.4 X10*3/uL [facility] Basophils Absolute Auto 0.0 0.0 - 0.2 X10*3/uL [facility] NRBC Abs Auto 0.000 0.0 - 0.012 X10*3/uL [facility] 01/04/2025 5:45 AM EDT 01/04/2025 6:10 AM EDT us Generic External Data Provider LAB BLOOD ORDERAB LES Final Result [facility] [address] [place] [phone] * Gross and Microscopic Level 4 (01/03/2025 9:52 AM EDT) 01/03/2025 9:52 AM EDT 01/03/2025 10:53 AM EDT [facility] - 01/08/2025 1:32 PM EDT ----- ------- Name: Sung ChristineZabrina Age/Sex: 64/F : 1960 Unit#: [id number] Attend Dr: Kobe Apodaca MD Re01/03/25 Status: [facility] Location: [facility] Disch: ----- ------- SPEC : [id number] RECD: 01/03/253 STATUS: EVONNE GAMALRayna NUM: [id number] CALIN: 01/03/2552 [facility] DR: Kobe Apodaca MD ENTERED: 01/03/25-1099 SP TYPE: Surgical OTHR DR: Fadi Sheikh MD ORDERED: Gross Micro L4, Decal THIS IS A CORRECTED REPORT 01/08/25-1330 This is a corrected report. Any previous [...] aggregating 4.5 x 4.0 x 0.5-1.0 cm. Track Rider sections are submitted in a cassette labeled A1 following decalcification. [facility] IHC S/NG Disclaimer NOTE: Unless otherwise stated, all tissue is formalin-fixed and paraffin-embedded. Some or all of the immunohistochemical tests reported herein may have been developed and their performance characteristics determined by [facility]. They have not been cleared or approved by the U.S. Food and Drug Administration (FDA). However, the FDA CONTINUED ON NEXT PAGE ----- ------- Name: Zabrina Mcclelland Age/Sex: 64/F : 1960 Unit#: [id number] Attend Dr: Kobe Apodaca MD Re01/03/25 Status: [facility] Location: [facility] Disch: ----- ------- SPEC : [id number] RECD: 01/03/25-3223 STATUS: EVONNE MADRID NUM: [id number] CALIN: 01/03/25-[address]: Kobe Apodaca MD ENTERED: 01/03/25-1099 SP TYPE: Surgical OTHR DR: Fadi Sheikh MD ORDERED: Gross Micro L4, Decal IHC S/NG Disclaimer (Continued) has determined that such clearance or approval is not necessary. This laboratory is certified under the Clinical Laboratory Improvement Amendments of 1988 (CLIA) as qualified to perform high complexity clinical laboratory testing. Copies To: Kobe Apodaca MD [facility] [address] [place] [address] Dr [address] [place], [place] [phone] Name,Fadi GREER [facility] [address] [place] [address] ----- ------- Signed (signature on file) Hanh Viveros MD 01/08/25 1332 ----- ------- END OF REPORT us Generic External Data Provider LAB CYTOLOGY ASHLEY LEDESMA Final Result [facility] [address], [place] [phone] * (ABNORMAL) CBC (12/29/2024 2:17 PM EDT) White Blood Count 4.7(L) 4.8 - 10.8 X10*3/uL [facility] Red Blood Count 4.58 4.20 - 5.50 X10*6/uL [facility] Hemoglobin 12.4 12.0 - 16.0 g/dl [facility] Hematocrit 38.4 37.0 - 47.0 % [facility] Mean Corpuscular Volume 83.8 80.0 - 98.0 fL [facility] Mean Corpuscular Hemoglobin 27.1 27.0 - 33.0 pg [facility] Mean Corpuscular HGB Conc 32.3 31.0 - 35.0 g/dl [facility] Red Cell Distribution Width 13.6 11.0 - 16.0 % [facility] Platelet Count 301 160 - 400 X10*3/uL [facility] Mean Platelet Volume 11.5 9.4 - 12.3 fL [facility] NRBC Pct Auto 0.0 0.0 - 0.2 /100WBC [facility] NRBC Abs Auto 0.000 0.0 - 0.012 X10*3/uL [facility] 12/29/2024 2:17 PM EDT 12/29/2024 2:17 PM EDT us Generic External Data Provider LAB BLOOD ORDERAB LES Final Result [facility] [address] [place] [phone] * Type and screen (12/29/2024 2:07 PM EDT) Blood Type OP [facility] Antibody Screen NEGATIVE [facility] 12/29/2024 2:07 PM EDT 12/29/2024 2:27 PM EDT Narrative [facility] - 12/29/2024 3:18 PM EDT Spec expiration changed by ROSALEE on 12/29/24Reason: PATNURSING:Call Blood Bank (ext. [phone]) to band patient on admission.Type and Screen in effect until 2300 on 01/03/2025.Witnessed by MORRO us Generic External Data Provider LAB BLOOD BANK TE ST ORDERABLES Final Result Performing Organization Address [facility] Co de Phone Number [facility] [address] [place] [address] [phone] * (ABNORMAL) Lipid Panel with Reflex to Direct LDL (12/09/2023 11:42 AM EDT) Triglycerides 124 <150 mg/dL [facility] Comment:Desirable Triglyceri de: less than 150 mg/dLBorderline High Triglyceride 150-199 mg/dLHigh Triglyceride: 200-499 mg/dLVery High Triglyceride: greater than or equal to 5OO mg/dL Cholesterol 227(H) <200 mg/dL [facility] Comment:Desirable Cholestero l: less than 200 mg/dLBorderline High Cholesterol: 200-239 mg/dLHigh Cholesterol: greater than 239 mg/dL LDL Cholesterol Calculated 129(H) <100 mg/dL [facility] Comment:Desirable LDL: less than 100 mg/dLNear Optimal/Above Optimal LDL: 110- 129 mg/dLBorderline High LDL: 130-159 mg/dLHigh LDL: 160-189 mg/dLVery High LDL: greater than or equal to 190 mg/dL HDL Cholesterol 74 >40 mg/dL [facility] Comment:Desirable HDL: great er than 40 mg/dL Note: This HDL assay may give artificially low results in patients with liver disease. Blood 12/09/2023 11:4 2 AM EDT 12/09/2023 1:03 PM EDT us Esperanza Olsen MD LAB BLOOD ORDERABLES Fin al Result Performing Organization Address [facility]/ZIP Co de Phone Number [facility] [address] [place] [address] [phone] * Hepatitis Panel, General (12/09/2023 11:42 AM EDT) Hepatitis A IgM Nonreactive Nonreactive [facility] Comment:IgM antibodies to WALLACE V not detected; does not exclude earlyacute or recovered HAV infection. ~Hepatitis B Surface Antibody NONREACTIVE Nonreactive [facility] Comment:Nonreactive: < 8.00 mIU/mL Hepatitis B Core Antibody Nonreactive Nonreactive [facility] Hepatitis C Antibody Nonreactive Nonreactive [facility] Comment:Antibodies to HCV no t detected; does not exclude early acuteHCV infection. Hepatitis B Surface Ag Negative Negative [facility] Blood 12/09/2023 11:4 2 AM EDT 12/09/2023 1:03 PM EDT Esperanza Olsen MD LAB BLOOD ORDERABLES Fin al Result [facility] [address] [place] [phone] [phone] from Last 3 Months or Most Recently Relevant to Health Maintenance Insurance [facility]AND[facility] OPTIONS (HMO D-SNP) Care Teams Outbound Telemarketer Relationship Specialty Start Date End Date Name, MD Fadi [address] [place] [address] PCP - General Internal Medicine 03/23/24 Nolberto A 01/05/25
== END 2025-03-20 08:44 | disposition home or self-care (01) ==
LOC: HO.HOSX 08:43
PROVIDERS: Visit Provider Physician Assistant
DX: Z13.89 Encounter for screening for other disorder (principal)

== ENCOUNTER 2025-03-30 10:46 | Outpatient (REF) | payer OTHER, SELFPAY ==
--- NOTE | ~2025-03-30 | XR_ITS ---
EXAMINATION: XR HUMERUS, RIGHT CLINICAL INFORMATION: Right humeral abnormality on chest X-ray COMPARISON: None available. TECHNIQUE: AP and lateral views of the right humerus. 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 No acute cortical disruption. No lytic or blastic lesions. Degenerative changes in the acromioclavicular joint. 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 Electronically signed by: Víctor Hicks MD 03/30/2025 11:05 AM ROBERT HARTLEY
--- OUTSIDE RECORDS SUMMARY | 2025-03-30 10:00 | XMS_ITS | Encounter Summary ---
Author Organization [employer] Address [address] [facility] [address] [place] [address] Care Team Providers Care General Accounting Clerk Name Role Phone Fadi Sheikh MD Primary Care Provider [phone] Reason for Referral * Medications - Closed Specialty Diagnoses / Procedures Referred By Carmen t Referred To Contact Diagnoses Primary osteoarthritis involving multiple joints Fadi Sheikh MD [address] [place] [phone] Phone: tel: fax: Referral ID Status Reason Start Date Expiration Date Visits Re quested Visits Authorized [id number] Closed 1 1 Reason for Visit * Reason Comments HDF Encounter Details Date Type Department Care Team (Latest Contact Info) Description 03/30/2025 10:00 AM EST Office Visit [facility] [address] [place] [phone] Fadi Sheikh MD [address] [place] [phone] Erosive gastritis with hemorrhage (Primary Dx); H. pylori infection; Primary osteoarthritis involving multiple joints; Abnormal x-ray of humerus; Vaccine refused by patient Social History Tobacco Use Types Packs/Day Years Used Date Smoking Tobacco: Some Days Cigarettes Passive Smoke Exposure: Current Smokeless Tobacco: Never Tobacco Cessation:Ready to Q uit: Not Asked; Counseling Given: Not Answered Alcohol Use Standard Drinks/Week Comments Yes 0 (1 standard drink = 0.6 oz pur e alcohol) socially Alcohol Answer Date Recorded How often do you have a drink containing alcohol ? 1 03/30/2025 How many drinks containing a lcohol do you have on a typical day when you are drinking? 0 03/30/2025 How often do you have six or more drinks on one occasion? 0 03/30/2025 Depression Answer Date Recorded Patient Health Questionnaire-9 [...] AM EDT documented as of this encounter Last Filed Vital Signs Vital Sign Reading Time Taken Comments Blood Pressure 136/74 03/30/2025 9:57 AM EST Pulse 94 03/30/2025 9:57 AM EST Temperature 36.6 C (97.8 F) 03/30/2025 9:57 AM EST Respiratory Rate 18 03/30/2025 9:57 AM EST Oxygen Saturation 97% 03/30/2025 9:57 AM EST Inhaled Oxygen Concentration - - Weight 70.7 kg (155 lb 12.8 oz) 03/30/2025 9:57 AM EST Height 167.6 cm (5' 6 ) 03/30/2025 9:57 AM EST Body Mass Index 25.15 03/30/2025 9:57 AM EST documented in this encounter Functional Status * Over the last 2 weeks, how often have you been bothered by any of the following problems? Question Answer Date of Assessment Author Feeling nervous, anxious, or on edge 3 03/30/2025 9:59 AM EST Kristin Bejarano [place] Not being able to stop or control worrying 1 03/30/2025 9:59 AM EST Kristin Bejarano MA Worrying too much about different things 2 03/30/2025 9:59 AM EST Kristin Bejarano [place] Trouble relaxing 2 03/30/2025 9:59 AM EST Ritu Kuo [place] Being so restless that it is hard to sit still 2 03/30/2025 9:59 AM Kristin Schaefer [place] Becoming easily annoyed or irritable 3 03/30/2025 9:59 AM EST Kristin Bejarano [place] Feeling afraid as if somethi ng awful might happen 0 03/30/2025 9:59 AM EST Kristin Bejarano MA DAVID-7 Total Score 13 03/30/2025 9:59 AM Ritu Schaefer [place] documented as of this encounter Progress Notes * Fadi Sheikh MD - 03/30/2025 10:00 AM EST Subjective Patient ID: Zabrina Christine is a 64 y.o. female who presents for HDF. Patient comes for a posthospital visit. She is accompanied by her daughter. Since her last appointment she was [place] [facility] with altered mental status, upper GI bleed, in the setting of alcohol and cocaine use. She had an endoscopy that showed erosive gastritis. She is currently on treatment forH. pylori (tetracycline, Flagyl, high-dose PPI) prescribed at [facility]. She is not a heavy drinker and she rarely uses cocaine. The patient explains to me that the drinking and the cocaine use was an isolated event. She plans to never use cocaine or alcohol again. Summary of the recent hospitalization is written below: Hospital course: The pt was admitted to the hospital for acute encephalopathy and question of coffee-ground emesis concerning for possible upper GI bleed in the setting of cocaine and alcohol use. Pt was treated with IV ppi, IVF, and empiric Zosyn for concerns of aspiration pneumonia. H H was monitored and was below baseline, but stable throughout hospital stay. Pt was seen and evaluated by GI and underwent an upper endoscopy on 03/15 that showed erosive esophagitis and hiatal hernia, but negative for active bleed. Biopsies were taken, and recommendation was to start oral omeprazole 40 mg b.i.d.. Today patient's mentation appears back to baseline, and pt has no acute medical complaints. Denies nausea, vomiting, abdominal pain. Denies right arm pain or any known trauma to the area. No cough, difficulty breathing, or SOB. Pt will be discharged on omeprazole 40 mg b.i.d. times 14 days. Pt is not hypoxic and her lungs are CTA; there was no indication to continue empiric antibiotics for possible aspiration pneumonia upon discharge. Pt should follow up with her PCP in 1 week's time for routine post hospitalization visit and monitoring of labs especially H H. Incidental finding on chest x-ray showed the possibility of a right humerus lesion. Pt should follow up with her PCP for outpatient CT right humerus and any additional workup if necessary. She should resume all other home medications. Pt was strongly encouraged to abstain from alcohol and cocaine use in the community and use whatever familial, social, and community support that she can to maintain her Review of Systems Constitutional: Negative for chills and fever. HENT: Negative for sore throat. Respiratory: Negative for cough, shortness of breath and wheezing. Cardiovascular: Negative for chest pain, palpitations and leg swelling. Gastrointestinal: Negative for abdominal pain. Musculoskeletal: Positive for arthralgias and back pain. Objective Vitals: 03/30/25 0957 BP: 136/74 BP Location: Left arm Patient Position: Sitting BP Cuff Size: Adult Pulse: 94 Resp: 18 Temp: 97.8 ??F (36.6 ??C) TempSrc: Temporal SpO2: 97% Weight: 155 lb 12.8 oz (70.7 kg) Height: 5' 6 (1.676 m) Physical Exam Constitutional: Appearance: Normal appearance. Cardiovascular: Rate and Rhythm: Normal rate and regular rhythm. Heart sounds: No murmur heard. No gallop. Pulmonary: Effort: Pulmonary effort is normal. No respiratory distress. Breath sounds: Normal breath sounds. No wheezing. Musculoskeletal: Right lower leg: No edema. Left lower leg: No edema. Neurological: Mental Status: She is alert. CT Head w/o Contrast Status: Final result Study Result Narrative & Impression [address] [address] [address] Scan Report Signed Patient: Zabrina Mcclelland MR#: [id number] : 1960 Acct:[id number] Age/Sex: 64 / F ADM Date: 03/14/25 Loc: HO.ED Attending Dr: Ordering Physician: Britany Villa PA-C Date of Service: 03/14/25 Procedure(s): CT head/brain wo IV con Accession Number(s): [id number] cc: Britany Villa PA-C; Name,Fadi GREER Report Number: [id number]: Total DLP = 1248.00 mGy-cm Reason for [...] by: Astrid Miranda DO on 03/14/2025 20:50:10 Assessment/Plan Diagnoses and all orders for this visit: Erosive gastritis with hemorrhage Comments: I strongly encouraged the patient to avoid alcohol and cocaine Avoid NSAIDs Continue current treatment for H. Pylori Once she is done with the treatment she can use a lower dose of PPI that she already has at home. H. pylori infection Primary osteoarthritis involving multiple joints Comments: I recommended acetaminophen as needed. I added also as needed Flexeril to her medication regimen. Orders: - cyclobenzaprine (Flexeril) 10 MG tablet; Take 1 tablet (10 mg) by mouth 3 times daily. Abnormal x-ray of humerus Comments: Today she recalls she had a fracture in the right [place] will evaluate with an x-ray of the humerus and further recommendation depending on the results. Orders: - XR Humerus Right; Future Vaccine refused by patient Comments: She refused any vaccination today. documented in this encounter Plan of Treatment Not on file documented as of this encounter Procedures Procedure Name Priority Date/Time Associated Diagnosis Comments XR HUMERUS RIGHT Routine 03/30/2025 11:0 0 AM EST Abnormal x-ray of humerus documented in this encounter Results * XR Humerus Right (03/30/2025 11:00 AM EST) Anatomical Region Laterality Modality Upper Extremities, Humerus Right Radio graphic Imaging 03/30/2025 11:0 0 AM EST Narrative 03/30/2025 11:07 AM EST [address] [address] XRay Report Signed Patient: Zabrina Mcclelland MR#: [id number] : 1960 Acct:[id number] Age/Sex: 64 / F ADM Date: 03/30/25 Loc: HO.HHCX Attending Dr: Fadi Sheikh MD Ordering Physician: Fadi Sheikh MD Date of Service: 03/30/25 Procedure(s): XR humerus RT Accession Number(s): [id number] cc: Fadi Sheikh MD Reason for Exam: Right humeral abnormality on chest X-ray EXAMINATION: XR HUMERUS, RIGHT CLINICAL INFORMATION: Right humeral abnormality on chest X-ray COMPARISON: None available. TECHNIQUE: AP and lateral views of the right humerus. 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 No acute cortical disruption. No lytic or blastic lesions. Degenerative changes in the acromioclavicular joint. 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 Electronically signed by: Víctor Hicks MD 03/30/2025 11:05 AM EST RP Dictated By: íVctor Fortune MD Signed By: <Electronically signed by Víctor Pereira MD in OV> 03/30/251104 DD/ 1100 TD/TT: 03/30/25 110 Supervisor [employer]: Procedure Note Donotuseinterpreter, Image - 03/30/[address] [address] XRay Report Signed Patient: Zabrina McclellandMR#: [id number] : 1960Acct:[id number] Age/Sex: 64 / FADM Date: 03/30/25 Loc: HO.HHCX Attending Dr: Fadi Sheikh MD Ordering Physician: Fadi Sheikh MD Date of Service: 03/30/25 Procedure(s): XR humerus RT Accession Number(s): [id number] cc: Fadi Sheikh MD Reason for Exam: Right humeral abnormality on chest X-ray EXAMINATION: XR HUMERUS, RIGHT CLINICAL INFORMATION: Right humeral abnormality on chest X-ray COMPARISON: None available. TECHNIQUE: AP and lateral views of the right humerus. 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 No acute cortical disruption. No lytic or blastic lesions. Degenerative changes in the acromioclavicular joint. 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 Electronically signed by: Víctor Hicks MD 03/30/2025 11:05 AM EST RP Dictated By: Víctor Fortune MD Signed By: <Electronically signed by Víctor Pereira MDin OV> 03/30/25 110 DD/ 1100 TD/TT: 03/30/25 110 Supervisor [employer]: Fadi Sheikh MD IMG XR PROCEDURES Final Result documented in this encounter Visit Diagnoses Diagnosis Erosive gastritis with hemorrhage- Primary H. pylori infection Helicobacter pylori (H. pylori) Primary osteoarthritis involving multiple joints Abnormal x-ray of humerus Vaccine refused by patient documented in this encounter Additional Health Concerns Assessment Noted Time PHQ-9 Depression Total Score: 6 10/24/19 25 11:07 AM EDT documented as of this encounter Care Teams General Accounting Clerk Relationship Specialty Start Date End Date Name, MD Fadi [address] [place] [address] PCP - General Internal Medicine 03/23/24 Nolberto Trudy 01/05/25 documented as of this encounter
--- OUTSIDE RECORDS SUMMARY | 2025-03-30 12:46 | XMS_ITS | Encounter Summary ---
Author Organization [employer] Address [address] [facility] [address] [facility] [address] [place] [address] Care Team Providers Care Sports Medicine Coordinator Name Role Phone Name, Fadi GREER Primary Care Provider [phone] Encounter Details Date Type Department Care Team (Latest Contact Info) Description 03/30/2025 Travel Social History Tobacco Use Types Packs/Day Years [...] AM EDT documented as of this encounter Functional Status * Over the last 2 weeks, how often have you been bothered by any of the following problems? Question Answer Date of Assessment Author Feeling nervous, anxious, or on edge 3 03/30/2025 9:59 AM Kristin Schaefer MA Not being able to stop or control worrying 1 03/30/2025 9:59 AM Kristin Schaefer MA Worrying too much about different things 2 03/30/2025 9:59 AM Kristin Schaefer MA Trouble relaxing 2 03/30/2025 9:59 AM Ritu Smart MA Being so restless that it is hard to sit still 2 03/30/2025 9:59 AM Kristin Schaefer MA Becoming easily annoyed or irritable 3 03/30/2025 9:59 AM Kristin Schaefer MA Feeling afraid as if somethi ng awful might happen 0 03/30/2025 9:59 AM Kristin Schaefer MA DAVID-7 Total Score 13 03/30/2025 9:59 AM Ritu Schaefer MA documented as of this encounter Plan of Treatment Not on file documented as of this encounter Visit Diagnoses Not on filedocumented in this encounter Additional Health Concerns Assessment Noted Time PHQ-9 Depression Total Score: 6 10/24/19 25 11:07 AM EDT documented as of this encounter Care Teams Sports Medicine Coordinator Relationship Specialty Start Date End Date Name, MD Fadi [address] [place] [address] PCP - General Internal Medicine 03/23/24 Nolberto A 01/05/25 documented as of this encounter
--- OUTSIDE RECORDS SUMMARY | 2025-03-30 12:46 | XMS_ITS | Encounter Summary ---
Author Organization [employer] Address [address] [facility] [address] [place] [address] Care Team Providers Care Dog Breeder Name Role Phone Name, Fadi GREER Primary Care Provider [phone] Reason for Visit * Reason Comments Med Refill Encounter Details Date Type Department Care Team ([facility] Contact Info) Description 03/29/2025 Refill [facility] [address] [place], [place] [phone] Name, MD Fadi [address] [place] [address] Depression with anxiety Social History Tobacco Use Types Packs/Day Years [...] as of this encounter Visit Diagnoses Diagnosis Depression with anxiety Dysthymic disorder documented in this encounter Additional Health Concerns Assessment Noted Time PHQ-9 Depression Total Score: 6 10/24/19 25 11:07 AM EDT documented as of this encounter Care Teams Dog Breeder Relationship Specialty Start Date End Date Name, MD Fadi [address] [place] [address] PCP - General Internal Medicine [facility] documented as of this encounter
--- OUTSIDE RECORDS SUMMARY | 2025-03-30 12:46 | XMS_ITS | Encounter Summary ---
Author Organization [facility] Address [address] [place] [address] Care Team Providers Care Facility Planner Name Role Phone Fransisca Conroy NP Primary Care Provider [phone] Encounter Details Date Type Department Care Team (Late st Contact Info) Description 11/01/[address] [facility] at [address] [facility] [address] [facility], [address] [place] [address] Sammy Espino MD [address] [facility] [address] [place] [address] Social History Tobacco Use Types [...] on filedocumented in this encounter Care Teams Facility Planner Relationship Specialty Start Date End Date Fransisca Conroy NP [address] [place] [phone] PCP - General Family Medicine 10/22/20 documented as of this encounter
--- OUTSIDE RECORDS SUMMARY | 2025-03-30 12:46 | XMS_ITS | Encounter Summary ---
Author Organization [employer] Address [address] [place] [address] Care Team Providers Care Machine Operations Supervisor Name Role Phone Name, Fadi GREER Primary Care Provider [phone] Reason for Visit * Reason Onset Date Comments chart prep 03/29/2025 Encounter Details Date Type Department Care Team ([facility] st Contact Info) Description 03/29/2025 Telephone [facility] [address] [place], [place] [phone] Ritu Bejarano MA chart prep Social History Tobacco Use Types Packs/Day Years [...] encounter Miscellaneous Notes * Telephone Encounter - Ritu Bejarano MA - 03/29/2025 1:19 PM EST Chart Prep Labs: done Images: done Referrals: complete 11/14/24 8:30 AM Kuldeep Kuhn MD 11/15/24 1:00 PM Kuldeep Kuhn MD Wed12/01/24 1:30 AM [facility] Vaccines due: Covid, Flu, PCV20, RSV, and Zoster Screenings: colonoscopy, mammogram, and pap smear Overdue care gaps: SBIRT, DAVID-7, and Disability screen documented in this encounter Plan of Treatment Not on file documented as of this encounter Visit Diagnoses Not on filedocumented in this encounter Additional Health Concerns Assessment Noted Time PHQ-9 Depression Total Score: 6 10/24/19 11:07 AM EDT documented as of this encounter Care Teams Machine Operations Supervisor Relationship Specialty Start Date End Date Name, MD Fadi [address] [place] [address] PCP - General Internal Medicine 03/23/24 Nolberto ISAACS 01/05/25 documented as of this encounter
--- OUTSIDE RECORDS SUMMARY | 2025-03-30 12:48 | XMS_ITS | Encounter Summary ---
Author Organization [facility] Address [address] [place] [address] Care Team Providers Care Campus Director Name Role Phone Conroy, Fransisca HARLEEN Primary Care Provider [phone]- [phone] Reason for Visit * Reason Comments Medication Refill Encounter Details Date Type Department Care Team (Late st Contact Info) Description 07/14/[address] [id number] Shilpi Romero APRN [address] [place] [address] Medication Refill Social History Tobacco [...] on filedocumented in this encounter Care Teams Campus Director Relationship Specialty Start Date End Date Fransisca Conroy NP [address] [place] [phone] PCP - General Family Medicine 10/22/20 documented as of this encounter
--- OUTSIDE RECORDS SUMMARY | 2025-03-30 12:48 | XMS_ITS | Clinical Summary ---
Author Organization [facility] [address] [facility] Address [address] [place] [address] Phone Care Team Providers Care Surgery Attendant Name Role Phone ConroyFransisca patel HARLEEN Primary Care Provider [phone]- [phone] Allergies No known active allergies Medications SENNA [...] 145 mmol/L 12/09/2020 10:16 PM EDT + [facility] Potassium 3.1(L) 3.5 - 5.1 mmol/L 12/09/2020 10:16 PM EDT [facility] Chloride 110(H) 98 - 107 mmol/L 12/09/2020 10:16 PM EDT [facility] CO2 25 21 - 32 mmol/L 12/09/2020 10:16 PM EDT [facility] Anion Gap 7 5 - 15 mmol/L 12/09/2020 10:16 PM EDT [facility] Glucose 89 65 - 110 mg/dL 12/09/2020 10:16 PM EDT [facility] Comment: Non-fastin-110 mg/dL Fasting (minimum 6 hrs): 65-99 mg/dL BUN 12 7 - 18 mg/dL 12/09/2020 10:16 PM EDT [facility] Creatinine 0.82 0.55 - 1.02 mg/dL 12/09/2020 10:16 PM EDT [facility] eGFR (-[place]HO) >60 >60 mL/min/1. 73m2 12/09/2020 10:16 PM EDT [facility] eGFR (NON -Slovak) >60 >60 mL/min/1. 73m2 12/09/2020 10:16 PM EDT [facility] Comment: (NOTE) These are estimated [...] - 10.1 mg/dL 12/09/2020 10:16 PM EDT [facility] Total Protein 7.6 6.4 - 8.2 g/dL 12/09/2020 10:16 PM EDT [facility] Albumin 3.4 3.4 - 5.0 g/dL 12/09/2020 10:16 PM EDT [facility] Globulin 4.2 2.5 - 5.0 g/dL 12/09/2020 10:16 PM EDT [facility] Total Bilirubin 0.4 <1.0 mg/dL 12/09/2020 10:16 PM EDT [facility] Comment:Use of this assay is not recommended for patients undergoing treatment with Eltrombopag due to the potential for falsely elevated results. Alkaline Phosphatase 62 45 - 117 U/L 12/09/2020 10:16 PM EDT [facility] Alanine Aminotransferase (ALT) 26 13 - 56 U/L 12/09/2020 10:16 PM EDT [facility] Aspartate Aminotransferase (AST) 19 15 - 37 U/L 12/09/2020 10:16 PM EDT [facility] Blood Venipuncture / Unknown 12/09/2020 9:40 PM EDT 12/09/2020 9:46 PM EDT us Kassie BUTT LAB BLOOD ORDERABLES Final Re sult [facility] [address] [place] [address] * Mammography Screening Danny Bilateral (11/16/2016 11:15 AM EDT) Anatomical Region Laterality Modality Breast Bilateral Mammography 11/17/2016 5:33 PM EDT Narrative 11/17/2016 5:33 PM EDT [address] [address] MAMMO SCREENING DANNY BILATERAL ARUNA Hansen: F : [id number] Service Date: 2016-11-16 [id number] BILATERAL MAMMOGRAPHY WITH TOMOSYNTHESIS CLINICAL INDICATION: Screening [...] Img Yesika :R: US :D: Heterogeneou LOCATION: [place], [place] Signed By: Mamadou Denton MD, 17:33:20 Procedure Note Mamadou Denton MD - 11/17/[address] [address] MAMMO SCREENING DANNY BILATERAL ARUNA MEDEROS Sex: F : [id number] Service Date: 2016-11-16 [id number] BILATERAL MAMMOGRAPHY WITH TOMOSYNTHESIS CLINICAL INDICATION: Screening [...] Img Yesika :R: US :D: Heterogeneou LOCATION: [place], [place] Signed By: Mamadou Denton MD, 17:33:20 us Aleena Tanner APRN IM MAMMOGRAPHY ORDERABLES Final Result from Last 3 Months or Most Recently Relevant to Health Maintenance Insurance [place] Member Subscriber Plan / Payer (Ef fective 2017-Present) Name:Sung Aruna Relation to Subscriber:Self Name:Aruna Mederos Payer ID:[id number] Group ID:Not on file Type:Not on file Address: [address] [place] [id number] Care Teams Surgery Attendant Relationship Specialty Start Date End Date Fransisca Conroy NP [address] [place] [address] PCP - General Family Medicine 10/22/20
--- OUTSIDE RECORDS SUMMARY | 2025-03-30 12:48 | XMS_ITS | Encounter Summary ---
Author Organization [facility] Address [address] [place] [address] Care Team Providers Care Field Sales Representative Name Role Phone Fransisca Conroy NP Primary Care Provider +1- [phone] Reason for Referral * Physical Medicine (Routine) - Closed Specialty Diagnoses / Procedures Referred By Contact Referred To Contact Physical Therapy / Rehabilitation Diagnoses Large breasts Left shoulder pain, unspecified chronicity Right shoulder pain, unspecified chronicity Aleena Tanner APRN [address] [place] [address] Phone: tel:[phone] fax:[phone] [facility] [address] Phone: tel: fax: Referral ID Status Reason Start Date Expiration Date Visits Re quested Visits Authorized [id number] Closed 01/07/2017 01/21/2017 1 1 Encounter Details Date Type Department Care Team (Latest Contact Info) Description 11/27/2016 Transcribed Orders [facility] [phone] Aleena Tanner APRN [address] [place] [address] Large breasts (Primary Dx); Left [...] r Schedule Ambulatory referral to Rehab Services (PT/OT/N[facility]) Outpatient Referral Routine Large breasts Left shoulder pain, unspecified chronicity Right shoulder pain, unspecified chronicity Ordered: 11/27/2016 documented as of this encounter Visit Diagnoses Diagnosis Large breasts- Primary Hypertrophy of breast Left shoulder pain, unspecified chronicity Right shoulder pain, unspecified chronicity documented in this encounter Care Teams Field Sales Representative Relationship Specialty Start Date End Date Fransisca Conroy NP [address] [place] [address] PCP - General Family Medicine 10/22/20 documented as of this encounter
--- OUTSIDE RECORDS SUMMARY | 2025-03-30 12:48 | XMS_ITS | Clinical Summary ---
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 clobetasol (Temovate) 0.05 % cream APPLY TOPICALLY TO THE AFFECTED AREA(S) EVERY DAY AT BEDTIME DIRECTED 60 g 3 04/11/20 24 Active calcipotriene (Dovonex) 0.005 % cream APPLY TOPICALLY TO THE AFFECTED AREA(S) EVERY DAY DIRECTED 60 g 3 04/11/20 24 Active ustekinumab (Stelara) injectionIndicati ons:Psoriasis Inject 45 mg every 12 weeks 0.5 mL 2 10/19/19 25 Active halobetasol (UltraVATE) 0.05 % ointmentIndicatio ns:Psoriasis APPLY TOPICALLY TO THE AFFECTED AREA(S) TWICE DAILY DIRECTED, DO NOT EXCEED 4 WEEKS OF USE 50 g 2 01/02/20 25 Active Fluocinolone Acetonide Scalp 0.01 % oilIndications:Ps oriasis APPLY TOPICALLY TO THE AFFECTED AREA(S) AT [...] FOR FEVER 40 tablet 03/06/20 25 Active metroNIDAZOLE (Flagyl) 500 MG tablet take 1 tablet by mouth 3 times a day until finished 03/21/20 25 Active omeprazole (PriLOSEC) [address] capsule Take 40 mg by mouth. 03/16/20 Active tetracycline 500 MG capsule Take 1 capsule by mouth every 6 (six) hours. 03/21/20 Active cyclobenzaprine (Flexeril) 10 MG tabletIndications :Primary osteoarthritis involving multiple joints Take 1 tablet (10 mg) by mouth 3 times daily. 90 tablet 03/30/20 25 2024 Active senna-docusate sodium (Senokot-S) 8.6-50 MG tabletIndications :Chronic constipation Take 1 tablet by mouth Once per day. 30 tablet 11 03/23/20 24 2024 lidocaine (Lidoderm) 5 % patch Apply 1 patch topically Once per day. Remove & discard patch within 12 hours or as directed by MD. 30 patch 2 07/19/19 25 2024 Discontinued(T herapy completed) sertraline (Zoloft) 50 MG tabletIndications :Depression with anxiety TAKE 1 TABLET BY MOUTH EVERY DAY 30 tablet 2 08/25/19 25 2024 Discontinued acetaminophen (Tylenol) 500 MG tablet Take 2 tablets (1,000 mg) by mouth every 6 (six) hours if needed for moderate pain or fever. 40 tablet 12/13/19 25 2024 Discontinued ibuprofen 400 MG tablet Take 1 tablet (400 mg) by mouth every 6 (six) hours if needed for moderate pain or fever. 20 tablet 12/13/19 25 2024 Discontinued amoxicillin (Amoxil) 500 MG capsuleIndication s:Pharyngitis, unspecified etiology Take 1 tab po bid for 10 days 20 capsule 02/02/20 25 2024 Discontinued(T herapy completed) ibuprofen 400 MG tablet TAKE 1 TABLET BY MOUTH EVERY 6 HOURS NEEDED FOR MODERATE PAIN OR FEVER 20 tablet 03/06/20 25 2024 Discontinued(S kayla effects) sertraline (Zoloft) 50 MG tabletIndications :Depression with anxiety TAKE 1 TABLET BY MOUTH EVERY DAY 30 tablet 2 03/29/20 25 2024 Discontinued(T herapy completed) Active Problems Problem Noted Date Diagnosed Date H. pylori infection 03/30/2025 Erosive gastritis with hemorrhage 03/30/2025 History of total left knee replacement (TKR) Chronic knee pain 10/20/2024 Osteoarthritis 10/20/2024 Primary osteoarthritis involving multiple joints 03/23/2024 Arthritis of left knee 12/09/2023 Assessment & Plan (12/09/2023 2:22 PM EDT): Order Xray left knee and fu with PCP Can take tylenol prn Elevated blood pressure reading 12/09/2023 Assessment & Plan (12/09/2023 2:22 PM EDT): ?Pre HTN? Advised to quit smoking, lower salt in diet FU with new PCP in 1-2m Bilateral shoulder pain 04/07/2021 Psoriasis 03/19/2021 Assessment & Plan (12/09/2023 2:24 PM EDT): I will start clobetasol + Dovonex cream and Fluocinolone oil in scalp Order labs and refer to derm, may need systemic meds. Dyspareunia in female 11/09/2019 Vaginal atrophy 11/09/2019 Upper back pain 03/23/2017 Resolved Problems Problem Noted Date Diagnosed Date Resolved Date Preop examination 11/23/2024 03/30/2025 Adverse drug reaction 10/20/20242024 Physical deconditioning 10/20/202411/2024 Strain of lumbar region 10/20/202411/2024 Hypertension 03/23/2024 03/30/2025 Acute cough 12/09/2023 03/30/2025 Assessment & Plan (12/09/2023 2:20 PM EDT): Rapid viral tests are NEG today It could be related to smoking, advised to quit. Needs to fu with PCP re further evaluation, re consult prn worsening of cough /UR sxs, fever. Encounters Date Type Department Care Team Description 03/30/2025 10:00 AM EST Office Visit [facility] [address] [place] [address] Name, MD Fadi Erosive gastritis with hemorrhage (Primary Dx); H. pylori infection; Primary osteoarthritis involving multiple joints; Abnormal x-ray of humerus; Vaccine refused by patient 03/30/2025 Travel 03/29/2025 Telephone [facility] [address] [place] [phone] Ritu Bejarano MA chart prep 03/29/2025 Refill [facility] [address] [place] [address] [phone] Fadi Sheikh MD Depression with anxiety 03/21/2025 Telephone [facility] [address] [place] [phone] Fadi Sheikh MD Medication Question 03/19/2025 Patient Outreach [facility] [address] [place] [address] Fadi Sheihk MD Transition Of Care (Tcm) (HDF unscheduled.) 03/14/2025 Orders Only GENERIC EXTERNAL DATA DEPARTMENT Provider, Generic External Data 03/06/2025 Refill [facility] [address] [place] [phone] Jayjay Orta MD 02/12/2025 Orders Only GENERIC EXTERNAL DATA DEPARTMENT Provider, Generic External Data 02/08/2025 11:15 AM EDT Office Visit [facility] [address] [place] [phone] Fadi Sheikh MD Left knee pain, unspecified chronicity (Primary Dx); History of total left knee replacement (TKR) 02/08/2025 Travel 02/07/2025 Refill [facility] [address] [place] [phone] Mando Louise MD Psoriasis 02/01/2025 11:20 AM EDT Office Visit [facility] [address] [place] [phone] Amira Fink MD Pharyngitis, unspecified etiology 02/01/2025 Travel 01/24/2025 Telephone [facility] [address] [place] [address] [phone] Fadi Sheikh MD Nurse Triage 01/04/2025 Orders Only GENERIC EXTERNAL DATA DEPARTMENT Provider, Generic External Data 01/03/2025 Orders Only GENERIC EXTERNAL DATA DEPARTMENT Provider, Generic External Data 12/30/2024 Refill [facility] [address] [place] [address] [phone] Name, MD Fadi Psoriasis 12/29/2024 Orders Only GENERIC EXTERNAL DATA DEPARTMENT Provider, Generic External Data from Last 3 Months Immunizations Immunization Administration [...] Mass Index 25.15 03/30/2025 9:57 AM EST Plan of Treatment Health Maintenance Due Date [...] 5 season) 2025 Influenza Vaccine (#1) 2025 Depression Screening 10/23/2025 10/23/2024, 10/23/2024 SDOH Screening 11/16/2025 11/16/2024 Alcohol/Substance Use Screening 03/30/2026 03/30/2025 Tobacco Screening 03/30/2026 03/30/2025 Lipid Panel 12/08/2028 12/09/2023 DTaP/Tdap/Td Vaccines (2 [...] 0 AM EST Abnormal x-ray of humerus HOLD LAVENDER - POSSIBLE HEMATOLOGY Routine 03/14/2025 [...] AND SCREEN Routine 12/29/2024 2:07 PM EDT HEPATITIS PANEL, GENERAL Routine 12/09/2023 11:42 AM EDT Psoriasis Arthritis of left knee LIPID PANEL WITH REFLEX TO DIRECT LDL Routine 12/09/2023 11:42 AM EDT Elevated blood pressure reading from Last 3 Months or Most Recently Relevant to Health Maintenance Results * XR Humerus Right (03/30/2025 11:00 AM EST) Anatomical Region Laterality Modality Upper Extremities, Humerus Right Radio graphic Imaging 03/30/2025 11:0 0 AM EST Narrative 03/30/2025 11:07 [place] [address] XRay Report Signed Patient: Zabrina Mcclelland MR#: [id number] : 1960 Acct:[id number] Age/Sex: 64 / F ADM Date: 03/30/25 [facility]: Fadi Sheikh MD Ordering Physician: Fadi Sheikh MD Date of Service: 03/30/25 Procedure(s): XR humerus RT Accession Number(s): [id number] cc: Fadi Sheikh MD Reason for Exam: [...] Víctor Hicks MD 03/30/2025 11:05 AM EST Dictated By: Víctor Fortune MD Signed By: <Electronically signed by Víctor Pereira MD in OV> 03/30/25 1105 DD/ 1100 TD/TT: 03/30/25 1102 Architecture Professor: Procedure Note Donotuseinterpreter, Image - 03/30/2025 [facility] [address] [place] [address] XRay Report Signed Patient: Zabrina McclellandMR#: [id number] : 1960Acct:[id number] Age/Sex: 64 / FADM Date: 03/30/25 Loc: [facility] Attending Dr: Fadi Sheikh MD Ordering Physician: Fadi Sheikh MD Date of Service: 03/30/25 Procedure(s): XR humerus RT Accession Number(s): [id number] cc: Aguilar,Fadi GREER Reason for Exam: Right humeral abnormality on [...] by: Víctor Hicks MD 03/30/2025 11:05 AM [facility] Dictated By: Víctor Fortune MD Signed By: <Electronically signed by Víctor Pereira MDin OV> 03/30/25 1105 DD/ 1100 TD/TT: 03/30/25 1102 Architecture Professor: us Fadi Sheikh MD IMG XR PROCEDURES Final Result * Hold Lavender - Possible Hematology (03/14/2025 11:14 PM EDT) Hold Lavender - Possible Hematololgy SEE NOTE [facility] Comment:Specimen will be hel d untested for 8 hours. Call Hematologyif testing is desired. 03/14/2025 11:1 4 PM EDT 03/14/2025 11:50 PM EDT us Generic External Data Provider HISTORICAL/NON OR DERABLE LABS Final Result [facility] [address] [place] [phone] * (ABNORMAL) Lactic Acid (03/14/2025 11:12 PM EDT) Only the most recent of2 resultswithin the time period is included. Lactic Acid 2.7(HH) 0.5 - 2.0 mmol/L [facility] Comment:Critical value for t est(s):LACTIC ACID Results called toand read back by: YANET Person calling:ERICKAate:03/14/25 Time:2351 03/14/2025 11:1 2 PM EDT 03/14/2025 11:21 PM EDT Narrative [facility] - 03/14/2025 11:51 PM EDT Spoke to Mirella about it. Numerous people have attemptedblood draws us Generic External Data Provider LAB BLOOD ORDERAB LES Final Result Performing Organization Address [facility] Co de Phone Number [facility] [address] [place] [address] [phone] * (ABNORMAL) Basic Metabolic Panel (03/14/2025 11:12 PM EDT) Only the most recent of2 resultswithin the time period is included. Sodium 133(L) 135 - 145 mmol/L [facility] Potassium 3.9 3.3 - 5.1 mmol/L [facility] Chloride 95(L) 96 - 108 mmol/L [facility] Carbon Dioxide 24 22 - 29 mmol/L [facility] Anion Gap 18 12 - 20 [facility] Urea Nitrogen (BUN) 8(L) 9 - 16 mg/dL [facility] Creatinine, Serum 0.54 0.5 - 1.4 mg/dL [facility] Creatinine Clr Calc Pharmacy 106.6 [facility] Comment:Provided height and weight: 167.64 cm,73.6 kg.eGFR (calculated from the MDRD study equation) and eCrCl(calculated from the Cockcroft-Gault equation) are based ondifferent parameters and may not yield comparable results.If eCrCl result is absurd, please check patient'sheight/weight. Estimated Glomerular Filt Rate >60 [facility] Comment:Chronic Kidney Disea se: Estimated GFR < 60 mL/min/1.27x7Zzlrks Kidney Disease: Estimated GFR < 15 mL/min/1.73m2 Glucose 102 60 - 115 mg/dL [facility] Calcium 8.8 8.4 - 10.2 mg/dL [facility] 03/14/2025 11:1 2 PM EDT 03/14/2025 11:21 PM EDT us Generic External Data Provider LAB BLOOD ORDERAB LES Final Result Performing Organization Address City/State/[facility] de Phone Number [facility] [address] [place] [phone] * CT Head w/o Contrast (03/14/2025 8:50 PM EDT) Anatomical Region Laterality Modality Head, Neck Computed Tomogra phy 03/14/2025 8:50 PM EDT Narrative 03/14/2025 8:51 PM EDT [address] [address] [address] Scan Report Signed Patient: Zabrina Mcclelland MR#: [id number] : 1960 Acct:[id number] Age/Sex: 64 / F ADM Date: 03/14/25 Loc: HO.ED Attending Dr: Ordering Physician: Britany Villa PA-C Date of Service: 03/14/25 Procedure(s): CT head/brain wo IV con Accession Number(s): [id number] cc: Britany Villa PA-C; Name,Fadi GREER Report Number: [id number]: Total DLP = 1248.00 mGy-cm Reason for [...] in OV> 03/14/252050 DD/ 49 TD/TT: 03/14/252049 Architecture Professor: Procedure Note Donotuseinterpreter, Image - 03/14/[address] [place] [address] [address] Scan Report Signed Patient: Zabrina Mcclelland#: [id number] : 1960Acct:[id number] Age/Sex: 64 / FADM Date: 03/14/25 Loc: HO.ED Attending Dr: Ordering Physician: Britany Villa PA-C Date of Service: 03/14/25 Procedure(s): CT head/brain wo IV con Accession Number(s): [id number] cc: Britany Villa PA-C; Name,Fadi GREER Report Number: [id number]: Total DLP = 1248.00 mGy-cm Reason for [...] in OV> 03/14/252050 DD/ 49 TD/TT: 03/14/252049 Architecture Professor: [facility] External Provider IMG CT PROCEDURES Final Result * CT Abdomen Pelvis w/ Contrast (03/14/2025 8:49 PM EDT) Anatomical Region Laterality Modality Body, Pelvis, Abdomen Computed T omography 03/14/2025 8:49 PM EDT Narrative 03/14/2025 8:51 PM EDT [address] [address] [address] Scan Report Signed Patient: Zabrina Mcclelland MR#: [id number] : 1960 Acct:[id number] Age/Sex: 64 / F ADM Date: 03/14/25 Loc: HO.ED Attending Dr: Ordering Physician: Britany Villa PA-C Date of Service: 03/14/25 Procedure(s): CT abdomen pelvis w IV con Accession Number(s): [id number] cc: Britany Villa PA-C; Name,Fadi GREER Report Number: [id number]: Total DLP = 854.00 mGy-cm Reason for [...] in OV> 03/14/252050 DD/ 48 TD/TT: 03/14/252048 Architecture Professor: Procedure Note Donotuseinterpreter, Image - 03/14/[address] [place] [address] [address] Scan Report Signed Patient: Lizzeth Mcclelland#: [id number] : 1960Acct:[id number] Age/Sex: 64 / FADM Date: 03/14/25 Loc: HO.ED Attending Dr: Ordering Physician: Britany Villa PA-C Date of Service: 03/14/25 Procedure(s): CT abdomen pelvis w IV con Accession Number(s): [id number] cc: Britany Villa PA-C; Name,Fadi GREER Report Number: [id number]: Total DLP = 854.00 mGy-cm Reason for [...] in OV> 03/14/252050 DD/ 48 TD/TT: 03/14/252048 Architecture Professor: [facility] External Provider IMG CT PROCEDURES Final Result * (ABNORMAL) VENOUS BLOOD GAS (03/14/2025 8:22 PM EDT) VBG pH 7.33 7.32 - 7.43 [facility] Comment:METER #: [id number] additional_comment: Carlos dior VBG PCO2 39 mmHg [facility] Comment:METER #: [id number] additional_comment: Carlos dior VBG PO2 45 mmHg [facility] Comment:METER #: [id number] additional_comment: Carlos dior VBG Base Excess -4.6 mmol/L [facility] Comment:METER #: [id number] additional_comment: Carlos dior VBG HCO3 20(L) 22 - 26 mmol/L [facility] Comment:METER #: [id number] additional_comment: Carlos dior O2 Sat, Jairon 62.0 % [facility] Comment:METER #: [id number] additional_comment: Carlos dior 03/14/2025 8:22 PM EDT 03/14/2025 8:25 PM EDT Generic External Data Provider LAB BLOOD ORDERAB LES Final Result [facility] [address] [place] [phone] * (ABNORMAL) Hemoglobin and Hematocrit (03/14/2025 8:15 PM EDT) Hemoglobin 11.7(L) 12.0 - 16.0 g/dl [facility] Hematocrit 35.9(L) 37.0 - 47.0 % [facility] 03/14/2025 8:15 PM EDT 03/14/2025 8:19 PM EDT us Generic External Data Provider LAB BLOOD ORDERAB LES Final Result [facility] [address] [place] [address] [phone] * (ABNORMAL) Drug Monitoring, Panel 1, Screen, Urine (03/14/2025 8:05 PM EDT) Opiate Screen Urine Not Detected Not Detect [facility] Comment:Opiate cut-off is 30 0 ng/mL.Positive results are unconfirmed and should not be used fornon-medical purposes. Barbiturates, Urine Not Detected Not Detect [facility] Comment:Barbiturate cut-off is 200 ng/mL.Positive results are unconfirmed and should not be used fornon-medical purposes. Phencyclidine Screen Urine Not Detected Not Detect [facility] Comment:Phencyclidine cut-of f is 25 ng/mL.Positive results are unconfirmed and should not be used fornon-medical purposes. Amphetamine Screen Urine Not Detected Not Detect [facility] Comment:Amphetamine cut-off is 1000 ng/mL.Positive results are unconfirmed and should not be used fornon-medical purposes. Benzodiazepines Screen Urine Not Detected Not Detect [facility] Comment:Benzodiazepine cut-o ff is 200 ng/mL.Positive results are unconfirmed and should not be used fornon-medical purposes. Cocaine Screen Urine POSITIVE(A) Not Detect [facility] Comment:Cocaine cut-off is 3 00 ng/mL.Positive results are unconfirmed and should not be used fornon-medical purposes. Cannabinoid Screen Urine Not Detected Not Detect [facility] Comment:Cannabinoid cut-off is 50 ng/mL.Positive results are unconfirmed and should not be used fornon-medical purposes. Methadone Screen, Urine Not Detected Not Detect ng/mL [facility] Comment:Methadone cut-off is 300 ng/mL.Positive results are unconfirmed and should not be used fornon-medical purposes. FENTANYL URINE Not Detected Not Detect [facility] Comment:Fentanyl cut-off is 1 ng/mL.Positive results are unconfirmed and should not be used fornon-medical purposes. Oxycodone Urine Screen Not Detected Not Detect ng/mL [facility] Comment:Oxycodone cut-off is 100 ng/mL.Positive results are unconfirmed and should not be used fornon-medical purposes. Buprenorphine Screen Not Detected Not Detect ng/mL [facility] Comment:Buprenorphine cut-of f is 5 ng/mL.Positive results are unconfirmed and should not be used fornon-medical purposes. 03/14/2025 8:05 PM EDT 03/14/2025 8:08 PM EDT Generic External Data Provider LAB URINE ORDERAB LES Final Result [facility] [address] [place] [phone] * (ABNORMAL) Urinalysis, Complete, with Reflex to Culture (03/14/2025 8:04 PM EDT) Color Urine Yellow [facility] Appearance Urine Clear [facility] PH 6.0 5.0 - 9.0 [facility] Glucose Urine UA Negative Negative mg/dL [facility] Urine Blood Small (1+)(A) Negative [facility] Specific [place] - Urine 1.025 1.005 - 1.025 [facility] Urine Protein 30 (1+)(A) Neg-Trace mg/dL [facility] Urine Ketones 40 Negative mg/dL [facility] Nitrite Urine Negative Negative [facility] Leukocyte Esterase Urine Negative Negative [facility] RBC Urine 3-5(A) 0 - 2 /HPF [facility] Urine WBC 0-5 0 - 5 /HPF [facility] Urine Squamous Epithelial Cell 0-2 0 - 2 /HPF [facility] Urine Bacteria None Seen None Seen [facility] Hyaline Casts, Urine 0-2 0 - 2 /LPF [facility] 03/14/2025 8:04 PM EDT 03/14/2025 8:08 PM EDT Narrative [facility] - 03/14/2025 8:19 PM EDT [id number], Clean Catch us Generic External Data Provider LAB URINE ORDERAB LES Final Result Performing Organization Address [facility] Co de Phone Number [facility] [address] [place] [phone] * OBSX1 (03/14/2025 6:42 PM EDT) OBS1 NEGATIVE NEGATIVE [facility] 03/14/2025 6:42 PM EDT 03/14/2025 6:46 PM EDT us Generic External Data Provider LAB BLOOD ORDERAB LES Final Result Performing Organization Address [facility] Phone Number [facility] [address] [place] [phone] * MR Brain w/o Contrast (02/19/2025 3:54 PM EDT) Anatomical Region Laterality Modality Brain Magnetic Resonan ce 02/19/2025 3:5 4 PM EDT Narrative 02/20/2025 7:03 AM EDT [address] [address] Magnetic Resonance Report Signed Patient: Zabrina Mcclelland MR#: [id number] : 1960 Acct:[id number] Age/Sex: 64 / F ADM Date: 02/19/25 Loc: HO.MRI Attending Dr: Miriam Strong MD Ordering Physician: Miriam Strong MD Date of Service: 02/19/25 Procedure(s): MR head/brain wo con Accession Number(s): [id number] cc: Miriam Strong MD; Name,Fadi GREER Reason [...] 02/20/25 0701 DD/ 1554 TD/TT: 02/19/25 1623 Architecture Professor: Procedure Note Donotuseinterpreter, Image - 02/20/[address] [address] Magnetic Resonance Report Signed Patient: Zabrina McclellandMR#: [id number] : 1960Acct:[id number] Age/Sex: 64 / FADM Date: 02/19/25 Loc: HO.MRI Attending Dr: Miriam Strong MD Ordering Physician: Miriam Strong MD Date of Service: 02/19/25 Procedure(s): MR head/brain wo con Accession Number(s): [id number] cc: Miriam Strong MD; Name,Fadi GREER Reason [...] 02/20/25 0701 DD/ 1554 TD/TT: 02/19/25 1623 Architecture Professor: [facility] External Provider IMG MRI PROCEDURES Final Result * Hold Green Gel (02/12/2025 3:52 PM EDT) Hold Green Gel See Note [facility] Comment:Specimen held untest ed for 24 hours; Call to requestChemistry testing. 02/12/2025 3:52 PM EDT 02/12/2025 4:42 PM EDT us Generic External Data Provider HISTORICAL/NON OR DERABLE LABS Final Result Performing Organization Address City/[facility]/ZIP Co de Phone Number [facility] [address] [place] [phone] * (ABNORMAL) Sed Rate by Modified Bertram (02/12/2025 3:52 PM EDT) [facility] Erythrocyte Sedimentation Rate 34(H) 0 - 20 MM/HR [facility] Comment:Patients with polycy themia and many hemoglobin abnormalitiesmay have depressed sed rates whereas patients with anemiamay have elevated sed rates. 02/12/2025 3:52 PM EDT 02/12/2025 3:53 PM EDT us Generic External Data Provider LAB BLOOD ORDERAB LES Final Result Performing Organization Address [facility]/ZIP Co de Phone Number [facility] [address] [place] [phone] * Influenza B (ID NOW Rapid Molecular) (02/01/2025 11:26 AM EDT) [facility] Influenza B Negative Negative, Indeterminate [facility] Swab 02/01/2025 11:2 6 AM EDT us Amira Fink MD POINT OF CARE TEST ENTER/E DIT ORDERABLES Final Result Performing Organization Address [facility] Co de Phone Number [facility] [address] [place] [phone] * Influenza A (ID NOW Rapid Molecular) (02/01/2025 11:26 AM EDT) [facility] Influenza A Negative Negative, Indeterminate [facility] Swab 02/01/2025 11:2 6 AM EDT Amira Fink MD POINT OF CARE TEST ENTER/E DIT ORDERABLES Final Result Performing Organization Address [facility] Co de Phone Number [facility] [address] [place], [place] [phone] * POCT Rapid COVID Ag (02/01/2025 11:26 AM EDT) Pathologist [facility] Rapid COVID Ag Negative [facility] Swab 02/01/2025 11:2 6 AM EDT Amira Fink MD POINT OF CARE TEST ENTER/E DIT ORDERABLES Final Result Performing Organization Address [facility] Co de Phone Number [facility] [address] [place] [phone] * POCT rapid strep A manually resulted (02/01/2025 11:26 AM EDT) [facility] Rapid Strep A Screen Negative Negative, None Detected [facility] Swab 02/01/2025 11:2 6 AM EDT Amira Fink MD POINT OF CARE TEST ENTER/E DIT ORDERABLES Final Result Performing Organization Address [facility] Co de Phone Number [facility] [address] [place] [phone] * (ABNORMAL) Basic Metabolic Panel, Fasting (01/04/2025 5:45 AM EDT) [facility] Sodium 139 135 - 145 mmol/L [facility] Potassium 4.5 3.3 - 5.1 mmol/L [facility] Chloride 108 96 - 108 mmol/L [facility] Carbon Dioxide 25 22 - 29 mmol/L [facility] Anion Gap 11(L) 12 - 20 [facility] Urea Nitrogen (BUN) 22(H) 9 - 16 mg/dL [facility] Creatinine, Serum 0.74 0.5 - 1.4 mg/dL [facility] Creatinine Clr Calc Pharmacy 76.4 [facility] Comment:Provided height and weight: 172.72 cm,73.5 kg.eGFR (calculated from the MDRD study equation) and eCrCl(calculated from the Cockcroft-Gault equation) are based ondifferent parameters and may not yield comparable results.If eCrCl result is absurd, please check patient'sheight/weight. Estimated Glomerular Filt Rate >60 [facility] Comment:Chronic Kidney Disea se: Estimated GFR < 60 mL/min/1.16u4Owmdls Kidney Disease: Estimated GFR < 15 mL/min/1.73m2 Glucose Fasting 118(H) 60 - 99 mg/dL [facility] Comment:A fasting glucose fr om 100-125 mg/dl is considered impaired(pre-diabetes). Calcium 9.2 8.4 - 10.2 mg/dL [facility] 01/04/2025 5:45 AM EDT 01/04/2025 6:10 AM EDT us Generic External Data Provider LAB BLOOD ORDERAB LES Final Result [facility] [address] [place] [phone] * (ABNORMAL) CBC auto differential (01/04/2025 5:45 AM EDT) White Blood Count 10.4 4.8 - 10.8 X10*3/uL [facility] Red Blood Count 3.90(L) 4.20 - 5.50 X10*6/uL [facility] Hemoglobin 10.5(L) 12.0 - 16.0 g/dl [facility] Hematocrit 31.7(L) 37.0 - 47.0 % [facility] Mean Corpuscular Volume 81.3 80.0 - 98.0 fL [facility] Mean Corpuscular Hemoglobin 26.9(L) 27.0 - 33.0 pg [facility] Mean Corpuscular HGB Conc 33.1 31.0 - 35.0 g/dl [facility] Red Cell Distribution Width 13.2 11.0 - 16.0 % [facility] Platelet Count 237 160 - 400 X10*3/uL [facility] Mean Platelet Volume 11.0 9.4 - 12.3 fL [facility] Neutrophils Percent Auto 78.9(H) 45 - 73 % [facility] Imm Gran Pct Auto 0.7(H) 0.0 - 0.4 % [facility] Lymphocytes Percent Auto 11.2(L) 20 - 40 % [facility] Monocytes Percent Auto 9.1 2 - 11 % [facility] Eosinophils Percent Auto 0.0 0 - 4 % [facility] Basophils Percent Auto 0.1 0 - 2 % [facility] NRBC Pct Auto 0.0 0.0 - 0.2 /100WBC [facility] Neutrophils Absolute Auto 8.2 2.0 - 8.3 x10*3/uL [facility] Imm Gran Abs Auto 0.07(H) 0.00 - 0.03 X10*3/uL [facility] Lymphocytes Absolute Auto 1.2 1.2 - 4.9 X10*3/uL [facility] Monocytes Absolute Auto 1.0 0.1 - 1.2 X10*3/uL [facility] Eosinophils Absolute Auto 0.0 0.0 - 0.4 X10*3/uL [facility] Basophils Absolute Auto 0.0 0.0 - 0.2 X10*3/uL [facility] NRBC Abs Auto 0.000 0.0 - 0.012 X10*3/uL [facility] 01/04/2025 5:45 AM EDT 01/04/2025 6:10 AM EDT us Generic External Data Provider LAB BLOOD ORDERAB LES Final Result [facility] [address] [place] [phone] * Gross and Microscopic Level 4 (01/03/2025 9:52 AM EDT) 01/03/2025 9:52 AM EDT 01/03/2025 10:53 AM EDT Leopoldo [facility] - 01/08/2025 1:32 PM EDT ----- ------- Name: Zabrina Mcclelland Age/Sex: 64/F : 1960 Unit#: [id number] Attend Dr: Kobe Apodaca MD Re01/03/25 Status: [facility] Location: HO.SSS Disch: ----- ------- SPEC : [id number] RECD: 01/03/25 STATUS: EVONNE Rayna NUM: [id number] CALIN: 01/03/[address] [facility] [address]: Kobe Apodaca MD ENTERED: 01/03/25 [...] aggregating 4.5 x 4.0 x 0.5-1.0 cm. Dual Rate Supervisor sections are submitted in a cassette labeled A1 following decalcification. CEDS IHC S/NG Disclaimer NOTE: Unless otherwise stated, all tissue is formalin-fixed and paraffin-embedded. Some or all of the immunohistochemical tests reported herein may have been developed and their performance characteristics determined by [facility]. They have not been cleared or approved by the U.S. Food and Drug Administration (FDA). However, the FDA CONTINUED ON NEXT PAGE ----- ------- Name: Zabrina Mcclelland Age/Sex: 64/F : 1960 Unit#: [id number] Attend Dr: Kobe Apodaca MD Re01/03/25 Status: [facility] Location: [facility] Disch: ----- ------- SPEC : [id number] RECD: 01/03/25 STATUS: EVONNE MADRID NUM: [id number] CALIN: 01/03/[address] [facility] [address]: Kobe Apodaca MD ENTERED: 01/03/25 SP TYPE: Surgical OTHR DR: Aguilar,Fadi GREER ORDERED: Gross Micro L4, Decal IHC S/NG Disclaimer (Continued) has determined that such clearance or approval is not necessary. This laboratory is certified under the Clinical Laboratory Improvement Amendments of 1988 (CLIA) as qualified to perform high complexity clinical laboratory testing. Copies To: Kobe Apodaca MD [facility] [address] [place] [address] Dr [address] [place], [place] [id number] Name,Fadi GREER [address] [phone] ----- ------- Signed (signature on file) Hanh Viveros MD 01/08/25 1332 ----- ------- END OF REPORT us Generic External Data Provider LAB CYTOLOGY ASHLEY LEDESMA Final Result [facility] [address], [place] [phone] * (ABNORMAL) CBC (12/29/2024 2:17 PM EDT) White Blood Count 4.7(L) 4.8 - 10.8 X10*3/uL [facility] Red Blood Count 4.58 4.20 - 5.50 X10*6/uL [facility] Hemoglobin 12.4 12.0 - 16.0 g/dl [facility] Hematocrit 38.4 37.0 - 47.0 % [facility] Mean Corpuscular Volume 83.8 80.0 - 98.0 fL [facility] Mean Corpuscular Hemoglobin 27.1 27.0 - 33.0 pg [facility] Mean Corpuscular HGB Conc 32.3 31.0 - 35.0 g/dl [facility] Red Cell Distribution Width 13.6 11.0 - 16.0 % [facility] Platelet Count 301 160 - 400 X10*3/uL [facility] Mean Platelet Volume 11.5 9.4 - 12.3 fL [facility] NRBC Pct Auto 0.0 0.0 - 0.2 /100WBC [facility] NRBC Abs Auto 0.000 0.0 - 0.012 X10*3/uL [facility] 12/29/2024 2:17 PM EDT 12/29/2024 2:17 PM EDT us Generic External Data Provider LAB BLOOD ORDERAB LES Final Result [facility] [address] [place] [phone] * Type and screen (12/29/2024 2:07 PM EDT) Blood Type OP [facility] Antibody Screen NEGATIVE [facility] 12/29/2024 2:07 PM EDT 12/29/2024 2:27 PM EDT Narrative [facility] - 12/29/2024 3:18 PM EDT Spec expiration changed by ROSALEE on 12/29/24Reason: PATNURSING:Call Blood Bank (ext. [phone]) to band patient on admission.Type and Screen in effect until 2300 on 01/03/2025.Witnessed by MORRO us Generic External Data Provider LAB BLOOD BANK TE ST ORDERABLES Final Result Performing Organization Address [facility] Co de Phone Number [facility] [address] [place] [phone] * (ABNORMAL) Lipid Panel with Reflex to Direct LDL (12/09/2023 11:42 AM EDT) Triglycerides 124 <150 mg/dL [facility] Comment:Desirable Triglyceri de: less than 150 mg/dLBorderline High Triglyceride 150-199 mg/dLHigh Triglyceride: 200-499 mg/dLVery High Triglyceride: greater than or equal to 5OO mg/dL Cholesterol 227(H) <200 mg/dL [facility] Comment:Desirable Cholestero l: less than 200 mg/dLBorderline High Cholesterol: 200-239 mg/dLHigh Cholesterol: greater than 239 mg/dL LDL Cholesterol Calculated 129(H) <100 mg/dL [facility] Comment:Desirable LDL: less than 100 mg/dLNear Optimal/Above Optimal LDL: 110- 129 mg/dLBorderline High LDL: 130-159 mg/dLHigh LDL: 160-189 mg/dLVery High LDL: greater than or equal to 190 mg/dL HDL Cholesterol 74 >40 mg/dL [facility] Comment:Desirable HDL: great er than 40 mg/dL Note: This HDL assay may give artificially low results in patients with liver disease. Blood 12/09/2023 11:4 2 AM EDT 12/09/2023 1:03 PM EDT us Esperanza Olsen MD LAB BLOOD ORDERABLES Fin al Result Performing Organization Address [facility]/ZIP Co de Phone Number [facility] [address] [place] [phone] * Hepatitis Panel, General (12/09/2023 11:42 AM EDT) Hepatitis A IgM Nonreactive Nonreactive [facility] Comment:IgM antibodies to WALLACE V not detected; does not exclude earlyacute or recovered HAV infection. ~Hepatitis B Surface Antibody NONREACTIVE Nonreactive [facility] Comment:Nonreactive: < 8.00 mIU/mL Hepatitis B Core Antibody Nonreactive Nonreactive [facility] Hepatitis C Antibody Nonreactive Nonreactive [facility] Comment:Antibodies to HCV no t detected; does not exclude early acuteHCV infection. Hepatitis B Surface Ag Negative Negative [facility] Blood 12/09/2023 11:4 2 AM EDT 12/09/2023 1:03 PM EDT Esperanza Olsen MD LAB BLOOD ORDERABLES Fin al Result [facility] [address] [place] [phone] from Last 3 Months or Most Recently Relevant to Health Maintenance Insurance 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
== END 2025-03-30 10:47 | disposition home or self-care (01) ==
LOC: HO.HHCX 10:46
PROVIDERS: PCP Internal Medicine Geriatric Medicine; Visit Provider Internal Medicine Geriatric Medicine
DX: R93.6 Abnormal findings on diagnostic imaging of limbs (principal)
CPT/HCPCS: 73060

== ENCOUNTER → 2025-03-30 10:51 | Outpatient (BNV) | payer OTHER, SELFPAY | PROVIDERS: PCP Internal Medicine Geriatric Medicine; Visit Provider Radiology Diagnostic Radiology | DX: M21.6X1 Other acquired deformities of right foot (principal) | CPT/HCPCS: 73060 ==